=== PATIENT | male | born 1975 | race Caucasian/White ===

== ENCOUNTER 2017-07-29 12:05 | Inpatient (IN) | payer OTHER ==
[2017-07-29 12:43] VITALS: BMI 30.2
--- NOTE | 2017-07-29 15:01 | HP ---
CIWA Score - CIWA Score Nausea/Vomitin (N/V/D) Muscle Tremors: 3 Anxiety: 4-Mod. Anxious/Guarded Agitation: 3 Paroxysmal Sweats: 1-Minimal Palms Moist Orientation: 0-Oriented Tacttile Disturbances: 3-Moderate Itch/Numb/Burn Auditory Disturbances: 0-None Visual Disturbances: 0-None Headache: 1-Very Mild CIWA-Ar Total Score: 20 Admission ROS BHS - HPI Chief Complaint: DETOX TX FOR ALCOHOL DEPENDENCE Allergies/Adverse Reactions: Allergies Allergy/AdvReac Type Severity Reaction Status Date / Time No Known Allergies Allergy Verified 07/29/17 13:04 History of Present Illness: 41 Y/O MALE TRANSGENDER WITH A HX ALCOHOL DEPENDENCE ON MMTP SEEKING DETOX TX. Exam Limitations: No Limitations - Ebola screening Have you traveled outside of the country in the last 21 days: No Have you had contact with anyone from an Ebola affected area: No Have you been sick,other than usual withdrawal symptoms: No - Review of Systems Constitutional: Chills, Night Sweats EENT: reports: Tearing, Nose Congestion, Dental Problems Respiratory: reports: No Symptoms reported Cardiac: reports: Lightheadedness GI: reports: Constipated, Diarrhea, Nausea, Poor Fluid Intake, Vomiting, Indigestion : reports: No Symptoms Reported Musculoskeletal: reports: Joint Pain, Muscle Pain Integumentary: reports: No Symptoms Reported Neuro: reports: Headache, Numbness, Seizure, Tingling, Tremors, Unsteady Gait, Dizziness Endocrine: reports: No Symptoms Reported Hematology: reports: No Symptoms Reported Psychiatric: reports: Orientated x3, Anxious, Depressed (HX BIPOLAR DISORDER) Other Systems: Reviewed and Negative Patient History - Patient Medical History Hx Anemia: No Hx Asthma: No Hx Chronic Obstructive Pulmonary Disease (COPD): No Hx Cancer: No Hx Cardiac Disorders: No Hx Congestive Heart Failure: No Hx Hypertension: No Hx Hypercholesterolemia: No Hx Pacemaker: No HX Cerebrovascular Accident: No Hx Seizures: Yes (alcohol related-last episode was in 2011) Hx Dementia: No Hx Diabetes: No Hx Gastrointestinal Disorders: No Hx Liver Disease: No Hx Genitourinary Disorders: No Hx Sexually Transmitted Disorders: No (DENIES) Hx Renal Disease (ESRD): No Hx Thyroid Disease: No Hx Human Immunodeficiency Virus (HIV): Yes (SINCE 1996;ON TRIUMEQ) Hx Hepatitis C: Yes (diag. 1996) Hx Depression: Yes Hx Suicide Attempt: No (DENIES) Hx Bipolar Disorder: Yes Hx Schizophrenia: No - Patient Surgical History Past Surgical History: No Hx Neurologic Surgery: No Hx Cataract Extraction: No Hx Cardiac Surgery: No Hx Lung Surgery: No Hx Breast Surgery: Yes (breast implant on 07/26/2015) Hx Breast Biopsy: No Hx Abdominal Surgery: No Hx Appendectomy: No Hx Cholecystectomy: No Hx Genitourinary Surgery: No Hx Section: No Hx Orthopedic Surgery: No Other Surgical History: orchiectomy on 12/28/2014/gender reassignment; 01/10/2017 Anesthesia Reaction: No - PPD History Previous Implant?: Yes Documented Results: Negative w/proof Implanted On Prior [facility] Admission?: Yes Date: 03/30/15 Results: 0 mm PPD to be Administered?: Yes - Reproductive History Patient is a Female of Child Bearing Age (11 -55 yrs old): No (TRANSGENDER MALE) Patient : (N/A) - Smoking Cessation Smoking history: Current every day smoker Have you smoked in the past 12 months: Yes Aproximately how many cigarettes per day: 20 If you are a former smoker, when did you quit?: 2 1/2 weeks ago Cigars Per Day: 0 Hx Chewing Tobacco Use: No Initiated information on smoking cessation: Yes 'Breaking Loose' booklet given: 07/29/17 - Substance & Tx. History Hx Alcohol Use: Yes (BEER/VODKA) Hx Substance Use: Yes (HEROIN OCASSIONALLY) Substance Use Type: Alcohol, Heroin (ON MMTP) Hx Substance Use Treatment: Yes (LAST TX AT [facility] DETOX) - Substances Abused Alcohol-beer/vodka Route: Oral Frequency: Daily Amount used: 10 (12 oz.)/1 pt. Age of first use: 19 Date of Last Use: 07/29/17 Family Disease History - Family Disease History Family Disease History: Diabetes: Father (ALCOHOL), Other: Father Admission Physical Exam BHS - Vital Signs Vital Signs: Vital Signs - 24 hr 07/29/17 12:41 Temperature 97.1 F L Pulse Rate 83 Respiratory 20 Rate Blood Pressure 140/90 - Physical General Appearance: Yes: Moderate Distress, Alcohol on Breath, Intoxicated, Irritable, Anxious HEENTM: Yes: EOMI, Normocephalic, ALFREDA, Pharynx Normal Respiratory: Yes: Chest Non-Tender, Lungs Clear, Normal Breath Sounds, No Respiratory Distress Neck: Yes: Supple, Trachea in good position Breast: Yes: Breast Exam Deferred Cardiology: Yes: Regular Rhythm, Regular Rate, S1, S2 Abdominal: Yes: Normal Bowel Sounds, Non Tender, Soft Genitourinary: Yes: Other (N/C) Back: Yes: Within Normal Limits Musculoskeletal: Yes: full range of Motion, Gait Steady Extremities: Yes: Normal Range of Motion, Non-Tender 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 NML intact, Fully Oriented, Alert, Motor Strength 5/5 Integumentary: Yes: Dry, Warm Lymphatic: Yes: Within Normal Limits - Diagnostic (1) Alcohol dependence with withdrawal, uncomplicated Current Visit: Yes Status: Acute (2) Hepatitis C carrier Current Visit: Yes Status: Chronic (3) Neuropathy Current Visit: Yes Status: Chronic (4) Nicotine dependence Current Visit: Yes Status: Acute Qualifiers: Nicotine product type: cigarettes Substance use status: in withdrawal Qualified Code(s): F17.213 - Nicotine dependence, cigarettes, with withdrawal (5) Transgendered Current Visit: Yes Status: Chronic (6) HIV (human immunodeficiency virus infection) Current Visit: Yes Status: Chronic (7) Methadone maintenance therapy patient Current Visit: Yes Status: Acute Cleared for Admission [facility] - Detox or Rehab [facility] Level of Care: Medically Managed Detox Regimen/Protocol: Librium [facility] Breath Alcohol Content Breath Alcohol Content: 0.017 Urine Drug Screen - Results Drug Screen Negative: No Urine Drug Screen Results: OPI-Opiates, MTD-Methadone
[2017-07-29] MEDS ORDERED: hydrOXYzine PAMOATE 50 MG CAPSULE (FP) PO PRN (15:08)
[2017-07-29] MEDS ORDERED: MAG HYDROX/AL HYDROX/SIMETH 30 ML UNIT-DOSE CUP PO PRN (15:08)
[2017-07-29] MEDS ORDERED: LOPERAMIDE HCL 2 MG CAPSULE PO PRN (15:08)
[2017-07-29] MEDS ORDERED: MAGNESIUM CITRATE 300 ML BOTTLE PO PRN (15:08)
[2017-07-29] MEDS ORDERED: ACETAMINOPHEN 325 MG TABLET (FP) PO PRN (15:08)
[2017-07-29] MEDS ORDERED: P-EPHED 60MG/TRIPROLIDI 2.5MG TABLET PO PRN (15:08)
[2017-07-29] MEDS ORDERED: MENTHOL/PHENOL 1 EACH UD MM PRN (15:08)
[2017-07-29] MEDS ORDERED: MAGNESIUM HYDROX 2400MG/30ML ORAL SUSPENSION 30 ML CUP PO PRN (15:08)
[2017-07-29] MEDS ORDERED: IBUPROFEN 400 MG TABLET (FP) PO PRN (15:08)
[2017-07-29] MEDS ORDERED: guaiFENesin/D-METHORPHAN HB 10 ML UNIT-DOSE CUPS PO PRN (15:08)
[2017-07-29] MEDS ORDERED: chlordiazePOXIDE HCL 25 MG CAPSULE PO PRN (15:08)
[2017-07-29] MEDS ORDERED: diphenhydrAMINE HCL 50 MG CAPSULE PO PRN (15:08)
[2017-07-29] MEDS: SULFAMETHOXAZOLE/TRIMETHOPRIM 800MG/160MG D.S. TABLET PO SCH (15:52)
[2017-07-29] MEDS: NICOTINE 21 MG/24 HOURS TOPICAL PATCH TD SCH (15:57)
[2017-07-29] MEDS ORDERED: chlordiazePOXIDE HCL 25 MG CAPSULE PO ONE (16:00)
[2017-07-29] MEDS: chlordiazePOXIDE HCL 25 MG CAPSULE PO SCH ×2 (17:01→22:19)
[2017-07-29 17:38] LABS: URINE APPEARANCE CLEAR; URINE BILIRUBIN NEGATIVE (NEGATIVE); URINE BLOOD NEGATIVE (NEGATIVE); URINE COLOR YELLOW; URINE GLUCOSE (UA) NEGATIVE (NEGATIVE); URINE KETONE NEGATIVE (NEGATIVE); URINE NITRITE NEGATIVE (NEGATIVE); URINE PROTEIN NEGATIVE (NEGATIVE); URINE UROBILINOGEN NEGATIVE mg/dL (0.2-1.0)
[2017-07-29 17:43] LABS: URINE LEUK ESTERASE 2+ (NEGATIVE)
[2017-07-29 17:46] LABS: URINE MUCUS RARE; URINE RBC <1 /hpf (0-3); URINE WBC 4 /hpf (3-5)
[2017-07-29] MEDS: THIAMINE HCL 100 MG TABLET (FP) PO SCH (22:19)
[2017-07-29] MEDS: ESTROGENS,CONJUGATED 1.25 MG TABLET PO SCH (22:19)
[2017-07-29] MEDS: PATIENT'S OWN MEDICATION (NON-FORMULARY) (Elbasvir/Grazoprevir [Zepatier 50-100 Mg Tablet] PO SCH (22:19)
[2017-07-30] MEDS ORDERED: METHADONE HCL 40 MG DISPERSABLE TABLET ONE (05:09)
[2017-07-30] MEDS ORDERED: METHADONE HCL 10 MG TABLET ONE (05:10)
[2017-07-30] MEDS ORDERED: METHADONE HCL 10 MG TABLET PO SCH (06:00)
[2017-07-30] MEDS: chlordiazePOXIDE HCL 25 MG CAPSULE PO SCH ×4 (06:03→22:24)
[2017-07-30] MEDS: METHADONE 80 MG, METHADONE 20 MG PO SCH (06:04)
--- NOTE | 2017-07-30 09:21 | CONSULT ---
[facility] Psychiatric Consult - Data Date of interview: 07/30/17 Admission source: [facility] Identifying data: This ios 41 years old tranxgender male with intoxication of: Alcohol, Cocaine, Opiopids, Xanax amd Nicotine Substance Abuse History: - Smoking Cessation. Smoking history: Current every day smoker. Have you smoked in the past 12 months: Yes. Aproximately how many cigarettes per day: 20. If you are a former smoker, when did you quit?: 2 1/2 weeks ago. Cigars Per Day: 0. Hx Chewing Tobacco Use: No. Initiated information on smoking cessation: Yes. 'Breaking Loose' booklet given: . - Substance & Tx. History. Hx Alcohol Use: Yes (BEER/VODKA). Hx Substance Use: Yes (HEROIN OCASSIONALLY). Substance Use Type: Alcohol, Heroin ( ON MMTP). Hx Substance Use Treatment: Yes (LAST TX AT [facility] DETOX). - Substances Abused. Alcohol-beer/vodka. Route: Oral. Frequency: Daily. Amount used: 10 (12 oz.)/1 pt. Age of first use: 19. Date of Last Use: Medical History: HepC+, HIV+, history of MMTP Psychiatric History: Patient as per chart carries Bipolar II Disorder, reports taking priore to admission: Gabapentin 600mg po tid. Celexda 40mg poqd Physical/Sexual Abuse/Trauma History: Denies Additional Comment: Gabapentin 600mg po tid. Celexda 40mg poqd Mental Status Exam - Mental Status Exam Alert and Oriented to: Person Cognitive Function: Fair Patient Appearance: Unkempt Mood: Anxious Affect: Mood Congruent Patient Behavior: Cooperative Speech Pattern: Appropriate Voice Loudness: Normal Thought Process: Goal Oriented Thought Disorder: Being Controlled Hallucinations: Denies Suicidal Ideation: Denies Homicidal Ideation: Denies Insight/Judgement: Fair Sleep: Difficulty falling asleep Appetite: Weight gain Muscle strength/Tone: Normal Gait/Station: Normal Additional Comments: Gabapentin 600mg po tid. Celexda 40mg poqd Psychiatric Findings - Problem List ([place] 1, 2,3) (1) Alcohol dependence with withdrawal, uncomplicated Current Visit: Yes Status: Acute (2) Nicotine dependence Current Visit: Yes Status: Acute Qualifiers: Nicotine product type: cigarettes Substance use status: in withdrawal Qualified Code(s): F17.213 - Nicotine dependence, cigarettes, with withdrawal (3) Methadone maintenance therapy patient Current Visit: Yes Status: Chronic (4) Transgendered Current Visit: Yes Status: Chronic (5) Bipolar II disorder Current Visit: No Status: Chronic (6) Cocaine dependence Current Visit: No Status: Chronic (7) Opioid dependence with uncomplicated intoxication Current Visit: No Status: Chronic - Initial Treatment Plan Initial Treatment Plan: Gabapentin 600mg po tid. Celexda 40mg poqd
[2017-07-30 10:00] LABS: MCH 31.7 pg (25.7-33.7); MCHC 33.7 g/dl (32.0-35.9); MEAN CELL VOLUME 94.1 fl (80-96); PLATELET COUNT 204 K/MM3 (134-434); RDW 13.3 % (11.9-15.9); WHITE BLOOD COUNT 6.6 K/mm3 (4.0-10.0)
[2017-07-30] MEDS ORDERED: CITALOPRAM HYDROBROMIDE 40 MG TABLET PO SCH (10:00)
[2017-07-30 10:41] LABS: ALBUMIN 3.3 g/dl (3.4-5.0); ALK PHOS 144 U/L (45-117); ANION GAP 9 (8-16); BILIRUBIN,TOTAL 0.6 mg/dL (0.2-1.0); CALCIUM 8.8 mg/dL (8.5-10.1); CO2 25 mmol/L (21-32); CREATININE 0.7 mg/dL (0.7-1.3); GLUCOSE,RANDOM 90 mg/dL (74-106); SGOT/AST 34 U/L (15-37); SGPT/ALT 38 U/L (12-78); TOT PROT 7.9 g/dl (6.4-8.2)
[2017-07-30] MEDS: ESTROGENS,CONJUGATED 1.25 MG TABLET PO SCH ×2 (11:02→23:14)
[2017-07-30] MEDS: PRENATAL VITAMINS W/ FOLIC ACID TABLET (FP) PO SCH (11:02)
[2017-07-30] MEDS: CITALOPRAM HYDROBROMIDE 20 MG TABLET (FP) PO SCH (11:02)
[2017-07-30] MEDS: SULFAMETHOXAZOLE/TRIMETHOPRIM 800MG/160MG D.S. TABLET PO SCH (11:03)
[2017-07-30] MEDS: NICOTINE 21 MG/24 HOURS TOPICAL PATCH TD SCH (11:05)
--- NOTE | 2017-07-30 12:30 | EKG ---
Test Reason : Blood Pressure : / mmHG Vent. Rate : 061 BPM Atrial Rate : 061 BPM P-R Int : 158 ms QRS Dur : 104 ms QT Int : 432 ms P-R-T Axes : 036 003 027 degrees QTc Int : 434 ms NORMAL SINUS RHYTHM NORMAL ECG NO PREVIOUS ECGS AVAILABLE Confirmed by JAIME FARIAS MD ([id number]) on 07/30/2017 12:29:51 PM Referred By: Confirmed By:JAIME FARIAS MD
--- NOTE | 2017-07-30 12:33 | PN ---
S CIWA - CIWA Score Nausea/Vomitin Muscle Tremors: 4-Moderate,w/Arms Extend Anxiety: 4-Mod. Anxious/Guarded Agitation: 4-Moderately Restless Paroxysmal Sweats: 3 Orientation: 0-Oriented Tacttile Disturbances: 1-Very Mild Itch/Numbness Auditory Disturbances: 0-None Visual Disturbances: 0-None Headache: 1-Very Mild CIWA-Ar Total Score: 20 BHS Progress Note (SOAP) Subjective: nausea, sweats, interrupted sleep, anxiety, tremors Objective: 07/30/17 12:32 Vital Signs - 24 hr 07/29/17 07/29/17 07/29/17 12:41 17:50 22:18 Temperature 97.1 F L 97.7 F 97.1 F L Pulse Rate 83 86 88 Respiratory 20 19 19 Rate Blood Pressure 140/90 125/71 118/92 07/30/17 07/30/17 07/30/17 00:30 03:30 06:52 Temperature 97.2 F L Pulse Rate 78 Respiratory 18 18 18 Rate Blood Pressure 106/64 07/30/17 10:20 Temperature 97.6 F Pulse Rate 80 Respiratory 18 Rate Blood Pressure 129/84 Laboratory Tests 07/29/17 07/30/17 07/30/17 15:00 06:00 06:00 WBC 6.6 RBC 4.07 Hgb 12.9 Hct 38.3 MCV 94.1 MCH 31.7 MCHC 33.7 RDW 13.3 Plt Count 204 MPV 9.0 Sodium 138 Potassium 3.8 Chloride 104 Carbon Dioxide 25 Anion Gap 9 BUN 11 D Creatinine 0.7 Creat Clearance w eGFR > 60 Random Glucose 90 D Calcium 8.8 Total Bilirubin 0.6 D AST 34 D ALT 38 D Alkaline Phosphatase 144 H Total Protein 7.9 Albumin 3.3 L Urine Color Yellow Urine Appearance Clear Urine pH 5.0 Ur Specific [place] 1.020 Urine Protein Negative Urine Glucose (UA) Negative Urine Ketones Negative Urine Blood Negative Urine Nitrite Negative Urine Bilirubin Negative Urine Urobilinogen Negative Ur Leukocyte Esterase 2+ H Urine RBC <1 Urine WBC 4 Ur Epithelial Cells Rare Urine Mucus Rare RPR Titer 07/30/17 06:00 WBC RBC Hgb Hct MCV MCH MCHC RDW Plt Count MPV Sodium Potassium Chloride Carbon Dioxide Anion Gap BUN Creatinine Creat Clearance w eGFR Random Glucose Calcium Total Bilirubin AST ALT Alkaline Phosphatase Total Protein Albumin Urine Color Urine Appearance Urine pH Ur Specific [place] Urine Protein Urine Glucose (UA) Urine Ketones Urine Blood Urine Nitrite Urine Bilirubin Urine Urobilinogen Ur Leukocyte Esterase Urine RBC Urine WBC Ur Epithelial Cells Urine Mucus RPR Titer Nonreactive Assessment: 07/30/17 12:33 withdrawal sx Plan: cont detox
[2017-07-30] MEDS: GABAPENTIN 300 MG CAPSULE (FP) PO SCH ×2 (13:22→22:24)
[2017-07-30] MEDS ORDERED: GABAPENTIN 300 MG CAPSULE (FP) PO SCH (14:00)
[2017-07-30] MEDS: NICOTINE POLACRILEX 4 MG GUM BC PRN ×2 (14:54→17:42)
[2017-07-30] MEDS: THIAMINE HCL 100 MG TABLET (FP) PO SCH (22:24)
[2017-07-30] MEDS: PATIENT'S OWN MEDICATION (NON-FORMULARY) (Elbasvir/Grazoprevir [Zepatier 50-100 Mg Tablet] PO SCH (22:30)
[2017-07-31] MEDS ORDERED: METHADONE HCL 40 MG DISPERSABLE TABLET ONE (05:11)
[2017-07-31] MEDS ORDERED: METHADONE HCL 10 MG TABLET ONE (05:12)
[2017-07-31] MEDS: GABAPENTIN 300 MG CAPSULE (FP) PO SCH ×3 (05:30→22:18)
[2017-07-31] MEDS: chlordiazePOXIDE HCL 25 MG CAPSULE PO SCH ×2 (05:30→10:49)
[2017-07-31] MEDS: METHADONE 80 MG, METHADONE 20 MG PO SCH (05:30)
--- NOTE | 2017-07-31 08:58 | PN ---
S CIWA - CIWA Score Nausea/Vomitin Muscle Tremors: 4-Moderate,w/Arms Extend Anxiety: 4-Mod. Anxious/Guarded Agitation: 4-Moderately Restless Paroxysmal Sweats: 3 Orientation: 0-Oriented Tacttile Disturbances: 1-Very Mild Itch/Numbness Auditory Disturbances: 0-None Visual Disturbances: 0-None Headache: 1-Very Mild CIWA-Ar Total Score: 20 BHS Progress Note (SOAP) Subjective: NAUSEA, SWEATA, INTERRUPTED SLEEP, ANXIETY, TREMORS, WOULD LIKE CITROMA Objective: 07/31/17 08:57 Vital Signs - 24 hr 07/30/17 07/30/17 07/30/17 10:20 14:21 20:29 Temperature 97.6 F 97.7 F 98.3 F Pulse Rate 80 72 66 Respiratory 18 18 18 Rate Blood Pressure 129/84 111/81 101/61 07/30/17 07/31/17 07/31/17 21:35 00:30 03:30 Temperature 97.9 F Pulse Rate 72 Respiratory 18 18 18 Rate Blood Pressure 132/77 07/31/17 06:55 Temperature 98.2 F Pulse Rate 77 Respiratory 18 Rate Blood Pressure 105/55 Laboratory Tests 07/29/17 07/30/17 07/30/17 15:00 06:00 06:00 WBC 6.6 RBC 4.07 Hgb 12.9 Hct 38.3 MCV 94.1 MCH 31.7 MCHC 33.7 RDW 13.3 Plt Count 204 MPV 9.0 Sodium 138 Potassium 3.8 Chloride 104 Carbon Dioxide 25 Anion Gap 9 BUN 11 D Creatinine 0.7 Creat Clearance w eGFR > 60 Random Glucose 90 D Calcium 8.8 Total Bilirubin 0.6 D AST 34 D ALT 38 D Alkaline Phosphatase 144 H Total Protein 7.9 Albumin 3.3 L Urine Color Yellow Urine Appearance Clear Urine pH 5.0 Ur Specific [place] 1.020 Urine Protein Negative Urine Glucose (UA) Negative Urine Ketones Negative Urine Blood Negative Urine Nitrite Negative Urine Bilirubin Negative Urine Urobilinogen Negative Ur Leukocyte Esterase 2+ H Urine RBC <1 Urine WBC 4 Ur Epithelial Cells Rare Urine Mucus Rare RPR Titer 07/30/17 06:00 WBC RBC Hgb Hct MCV MCH MCHC RDW Plt Count MPV Sodium Potassium Chloride Carbon Dioxide Anion Gap BUN Creatinine Creat Clearance w eGFR Random Glucose Calcium Total Bilirubin AST ALT Alkaline Phosphatase Total Protein Albumin Urine Color Urine Appearance Urine pH Ur Specific [place] Urine Protein Urine Glucose (UA) Urine Ketones Urine Blood Urine Nitrite Urine Bilirubin Urine Urobilinogen Ur Leukocyte Esterase Urine RBC Urine WBC Ur Epithelial Cells Urine Mucus RPR Titer Nonreactive Assessment: 07/31/17 08:57 WITHDRAWAL SX Plan: CONT DETOX, CITROMA [id number], FLUIDS, ENCOURAGE AMBULATION
[2017-07-31] MEDS: PRENATAL VITAMINS W/ FOLIC ACID TABLET (FP) PO SCH (10:48)
[2017-07-31] MEDS: SULFAMETHOXAZOLE/TRIMETHOPRIM 800MG/160MG D.S. TABLET PO SCH (10:48)
[2017-07-31] MEDS: CITALOPRAM HYDROBROMIDE 20 MG TABLET (FP) PO SCH (10:49)
[2017-07-31] MEDS: ESTROGENS,CONJUGATED 1.25 MG TABLET PO SCH ×2 (10:49→22:20)
[2017-07-31] MEDS: NICOTINE 21 MG/24 HOURS TOPICAL PATCH TD SCH (10:50)
--- NOTE | 2017-07-31 12:08 | PN ---
S Progress Note Note: nurses called to report patient spilled coffee on hand, no burn or erythema at site noted by nurse, incident report to be completed.
[2017-07-31] MEDS: chlordiazePOXIDE 5 MG CAPSULE PO SCH ×2 (17:31→22:19)
[2017-07-31] MEDS: NICOTINE POLACRILEX 4 MG GUM BC PRN (17:33)
[2017-07-31] MEDS ORDERED: BENZOCAINE 28 GM HEMORRHOIDAL OINTMENT PR PRN (21:14)
[2017-07-31] MEDS: PATIENT'S OWN MEDICATION (NON-FORMULARY) (Elbasvir/Grazoprevir [Zepatier 50-100 Mg Tablet] PO SCH (22:18)
[2017-07-31] MEDS: THIAMINE HCL 100 MG TABLET (FP) PO SCH (22:18)
[2017-08-01] MEDS ORDERED: METHADONE HCL 10 MG TABLET ONE (04:12)
[2017-08-01] MEDS ORDERED: METHADONE HCL 40 MG DISPERSABLE TABLET ONE (04:12)
[2017-08-01] MEDS: chlordiazePOXIDE 5 MG CAPSULE PO SCH ×2 (06:07→10:51)
[2017-08-01] MEDS: METHADONE 80 MG, METHADONE 20 MG PO SCH (06:07)
[2017-08-01] MEDS: GABAPENTIN 300 MG CAPSULE (FP) PO SCH ×3 (06:07→22:43)
[2017-08-01] MEDS: ESTROGENS,CONJUGATED 1.25 MG TABLET PO SCH ×2 (10:49→22:44)
[2017-08-01] MEDS: PRENATAL VITAMINS W/ FOLIC ACID TABLET (FP) PO SCH (10:49)
[2017-08-01] MEDS: SULFAMETHOXAZOLE/TRIMETHOPRIM 800MG/160MG D.S. TABLET PO SCH (10:49)
[2017-08-01] MEDS: CITALOPRAM HYDROBROMIDE 20 MG TABLET (FP) PO SCH (10:49)
[2017-08-01] MEDS: NICOTINE 21 MG/24 HOURS TOPICAL PATCH TD SCH (10:50)
--- NOTE | 2017-08-01 13:05 | PN ---
BHS Progress Note (SOAP) Subjective: leg pain, interrupted sleep Objective: 08/01/17 13:04 Vital Signs - 8 hr 08/01/17 08/01/17 06:53 10:00 Temperature 97.9 F 96.1 F L Pulse Rate 81 84 Respiratory 18 20 Rate Blood Pressure 121/75 124/59 Laboratory Last Values WBC 6.6 K/mm3 (4.0-10.0) 07/30/17 06:00 RBC 4.07 M/mm3 (4.00-5.60) 07/30/17 06:00 Hgb 12.9 GM/dL (11.7-16.9) 07/30/17 06:00 Hct 38.3 % (35.4-49) 07/30/17 06:00 MCV 94.1 fl (80-96) 07/30/17 06:00 MCH 31.7 pg (25.7-33.7) 07/30/17 06:00 MCHC 33.7 g/dl (32.0-35.9) 07/30/17 06:00 RDW 13.3 % (11.9-15.9) 07/30/17 06:00 Plt Count 204 K/MM3 (134-434) 07/30/17 06:00 MPV 9.0 fl (7.5-11.1) 07/30/17 06:00 Sodium 138 mmol/L (136-145) 07/30/17 06:00 Potassium 3.8 mmol/L (3.5-5.1) 07/30/17 06:00 Chloride 104 mmol/L (98-107) 07/30/17 06:00 Carbon Dioxide 25 mmol/L (21-32) 07/30/17 06:00 Anion Gap 9 (8-16) 07/30/17 06:00 BUN 11 mg/dL (7-18) D 07/30/17 06:00 Creatinine 0.7 mg/dL (0.7-1.3) 07/30/17 06:00 Creat Clearance w eGFR > 60 (>60) 07/30/17 06:00 Random Glucose 90 mg/dL (74-106) D 07/30/17 06:00 Calcium 8.8 mg/dL (8.5-10.1) 07/30/17 06:00 Total Bilirubin 0.6 mg/dL (0.2-1.0) D 07/30/17 06:00 AST 34 U/L (15-37) D 07/30/17 06:00 ALT 38 U/L (12-78) D 07/30/17 06:00 Alkaline Phosphatase 144 U/L (45-117) H 07/30/17 06:00 Total Protein 7.9 g/dl (6.4-8.2) 07/30/17 06:00 Albumin 3.3 g/dl (3.4-5.0) L 07/30/17 06:00 Urine Color Yellow 07/29/17 15:00 Urine Appearance Clear 07/29/17 15:00 Urine pH 5.0 (5.0-8.0) 07/29/17 15:00 Ur Specific [place] 1.020 (1.005-1.025) 07/29/17 15:00 Urine Protein Negative (NEGATIVE) 07/29/17 15:00 Urine Glucose (UA) Negative (NEGATIVE) 07/29/17 15:00 Urine Ketones Negative (NEGATIVE) 07/29/17 15:00 Urine Blood Negative (NEGATIVE) 07/29/17 15:00 Urine Nitrite Negative (NEGATIVE) 07/29/17 15:00 Urine Bilirubin Negative (NEGATIVE) 07/29/17 15:00 Urine Urobilinogen Negative mg/dL (0.2-1.0) 07/29/17 15:00 Ur Leukocyte Esterase 2+ (NEGATIVE) H 07/29/17 15:00 Urine RBC <1 /hpf (0-3) 07/29/17 15:00 Urine WBC 4 /hpf (3-5) 07/29/17 15:00 Ur Epithelial Cells Rare /hpf (FEW) 07/29/17 15:00 Urine Mucus Rare 07/29/17 15:00 RPR Titer Nonreactive (NONREACTIVE) 07/30/17 06:00 labs noted Assessment: 08/01/17 13:05 withdrawal sx Plan: continue detox
[2017-08-01] MEDS: NICOTINE POLACRILEX 4 MG GUM BC PRN (15:33)
[2017-08-01] MEDS: chlordiazePOXIDE HCL 10 MG CAPSULE PO SCH ×2 (16:59→22:43)
[2017-08-01] MEDS: PATIENT'S OWN MEDICATION (NON-FORMULARY) (Elbasvir/Grazoprevir [Zepatier 50-100 Mg Tablet] PO SCH (22:43)
[2017-08-01] MEDS: THIAMINE HCL 100 MG TABLET (FP) PO SCH (22:45)
[2017-08-02] MEDS ORDERED: METHADONE HCL 40 MG DISPERSABLE TABLET ONE (05:02)
[2017-08-02] MEDS ORDERED: METHADONE HCL 10 MG TABLET ONE (05:02)
[2017-08-02] MEDS: chlordiazePOXIDE HCL 10 MG CAPSULE PO SCH (06:03)
[2017-08-02] MEDS: GABAPENTIN 300 MG CAPSULE (FP) PO SCH (06:03)
[2017-08-02] MEDS: METHADONE 80 MG, METHADONE 20 MG PO SCH (06:04)
[2017-08-02] MEDS: NICOTINE POLACRILEX 4 MG GUM BC PRN (06:30)
[2017-08-02 10:49] VITALS: BP 131/72; PULSE 81; TEMP 97.7
--- NOTE | 2017-08-04 08:59 | DS ---
[facility] Detox Discharge Summary Admission Date: 07/29/17 Discharge Date: 08/02/17 - History Present History: Alcohol Dependence, Cocaine Dependence, Opioid Dependence Pertinent Past History: HIV Positive Hep C - Physical Exam Results Vital Signs: Vital Signs Temperature 97.7 F 08/02/17 10:00 Pulse Rate 81 08/02/17 10:00 Respiratory Rate 20 08/02/17 10:00 Blood Pressure 131/72 08/02/17 10:00 O2 Sat by Pulse Oximetry (%) Pertinent Admission Physical Exam Findings: Withdrawal sx. Laboratory Last Values WBC 6.6 K/mm3 (4.0-10.0) 07/30/17 06:00 RBC 4.07 M/mm3 (4.00-5.60) 07/30/17 06:00 Hgb 12.9 GM/dL (11.7-16.9) 07/30/17 06:00 Hct 38.3 % (35.4-49) 07/30/17 06:00 MCV 94.1 fl (80-96) 07/30/17 06:00 MCH 31.7 pg (25.7-33.7) 07/30/17 06:00 MCHC 33.7 g/dl (32.0-35.9) 07/30/17 06:00 RDW 13.3 % (11.9-15.9) 07/30/17 06:00 Plt Count 204 K/MM3 (134-434) 07/30/17 06:00 MPV 9.0 fl (7.5-11.1) 07/30/17 06:00 Sodium 138 mmol/L (136-145) 07/30/17 06:00 Potassium 3.8 mmol/L (3.5-5.1) 07/30/17 06:00 Chloride 104 mmol/L (98-107) 07/30/17 06:00 Carbon Dioxide 25 mmol/L (21-32) 07/30/17 06:00 Anion Gap 9 (8-16) 07/30/17 06:00 BUN 11 mg/dL (7-18) D 07/30/17 06:00 Creatinine 0.7 mg/dL (0.7-1.3) 07/30/17 06:00 Creat Clearance w eGFR > 60 (>60) 07/30/17 06:00 Random Glucose 90 mg/dL (74-106) D 07/30/17 06:00 Calcium 8.8 mg/dL (8.5-10.1) 07/30/17 06:00 Total Bilirubin 0.6 mg/dL (0.2-1.0) D 07/30/17 06:00 AST 34 U/L (15-37) D 07/30/17 06:00 ALT 38 U/L (12-78) D 07/30/17 06:00 Alkaline Phosphatase 144 U/L (45-117) H 07/30/17 06:00 Total Protein 7.9 g/dl (6.4-8.2) 07/30/17 06:00 Albumin 3.3 g/dl (3.4-5.0) L 07/30/17 06:00 Urine Color Yellow 07/29/17 15:00 Urine Appearance Clear 07/29/17 15:00 Urine pH 5.0 (5.0-8.0) 07/29/17 15:00 Ur Specific [place] 1.020 (1.005-1.025) 07/29/17 15:00 Urine Protein Negative (NEGATIVE) 07/29/17 15:00 Urine Glucose (UA) Negative (NEGATIVE) 07/29/17 15:00 Urine Ketones Negative (NEGATIVE) 07/29/17 15:00 Urine Blood Negative (NEGATIVE) 07/29/17 15:00 Urine Nitrite Negative (NEGATIVE) 07/29/17 15:00 Urine Bilirubin Negative (NEGATIVE) 07/29/17 15:00 Urine Urobilinogen Negative mg/dL (0.2-1.0) 07/29/17 15:00 Ur Leukocyte Esterase 2+ (NEGATIVE) H 07/29/17 15:00 Urine RBC <1 /hpf (0-3) 07/29/17 15:00 Urine WBC 4 /hpf (3-5) 07/29/17 15:00 Ur Epithelial Cells Rare /hpf (FEW) 07/29/17 15:00 Urine Mucus Rare 07/29/17 15:00 RPR Titer Nonreactive (NONREACTIVE) 07/30/17 06:00 labs noted - Treatment Hospital Course: Detox Protocol Followed, Detoxed Safely, Responded well, Discharged Condition Good, Rehab Referral Accepted Patient has Accepted a Rehab Referral to: [facility] - Medication Discharge Medications: Ambulatory Orders Sulfamethoxazole/Trimethoprim [Bactrim DS -] 1 tab PO DAILY #30 tablet 01/12/15 Gabapentin [Neurontin -] 600 mg PO TID #90 capsule 03/29/15 Citalopram Hydrobromide [Celexa -] 40 mg PO DAILY #30 tablet 08/28/15 Abacavir/Dolutegravir/Lamivudi [Triumeq Tablet] 1 each PO HS 07/29/17 Elbasvir/Grazoprevir [Zepatier 50-100 mg Tablet] 1 each PO HS 07/29/17 Estrogens,Conjugated [Premarin -] 1.25 mg PO BID 07/29/17 Citalopram Hydrobromide [Celexa -] 40 mg PO DAILY #30 tablet 07/30/17 Gabapentin 600 mg PO TID #60 tablet 07/30/17 - Diagnosis (1) Alcohol dependence with withdrawal, uncomplicated Status: Acute (2) Nicotine dependence Status: Acute Qualifiers: Nicotine product type: cigarettes Substance use status: in withdrawal Qualified Code(s): F17.213 - Nicotine dependence, cigarettes, with withdrawal (3) HIV (human immunodeficiency virus infection) Status: Chronic (4) Hepatitis C carrier Status: Chronic (5) Methadone maintenance therapy patient Status: Chronic (6) Bipolar II disorder Status: Chronic - AMA Did Patient Leave Against Medical Advice: No
== END 2017-08-02 09:46 | disposition home or self-care (01) | DRG 773 ==
LOC: YASAS 12:05 → Y6N 14:05
PROVIDERS: ADMIT Internal Medicine Addiction Medicine; ATTEND Internal Medicine Addiction Medicine
PROC: HZ2ZZZZ Detoxification Services for Substance Abuse Treatment (ICD-10-PCS; principal; 2017-07-29)
DX: F10.230 Alcohol dependence with withdrawal, uncomplicated (principal); F10.220 Alcohol dependence with intoxication, uncomplicated; F11.20 Opioid dependence, uncomplicated; F17.213 Nicotine dependence, cigarettes, with withdrawal; F31.81 Bipolar II disorder; F64.8 Other gender identity disorders; B18.2 Chronic viral hepatitis C; G62.9 Polyneuropathy, unspecified; Z86.69 Personal history of other diseases of the nervous system and sense organs; Z87.890 Personal history of sex reassignment
CPT/HCPCS: 36415; 80053; 81003; 81015; 85027; 86593; 93005; 93010; J1410

== ENCOUNTER 2017-11-14 11:26 | Inpatient (IN) | payer OTHER ==
[2017-11-14 11:53] VITALS: BMI 32.3
--- NOTE | 2017-11-14 12:07 | HP ---
CIWA Score - CIWA Score Nausea/Vomitin-Mild Nausea/No Vomiting Muscle Tremors: 4-Moderate,w/Arms Extend Anxiety: 4-Mod. Anxious/Guarded Agitation: 1-Slight > Activity Paroxysmal Sweats: No Perspiration Orientation: 0-Oriented Tacttile Disturbances: 0-None Auditory Disturbances: 1-Very Mild Visual Disturbances: 1-Very Mild Sensitivity Headache: 2-Mild CIWA-Ar Total Score: 14 Admission ROS BHS - HPI Chief Complaint: I need help, I want detox Allergies/Adverse Reactions: Allergies Allergy/AdvReac Type Severity Reaction Status Date / Time chlordiazepoxide AdvReac Rash Verified 11/14/17 12:27 [From Librium] History of Present Illness: 42 yo here for alcohol detox. Although on methadone program patient did not take dose today nor bring in bottles but texted a photo of her methadone bottle via phone with name and dose of 100mg. States in [facility] - [facility] [phone] and brought methadone card to show. Patient aware we cannot give methadone dose today. States she gets sick on librium and wants valium detox. History of seizures, last seizure about 6 months ago. Last time in detox here in july. Exam Limitations: No Limitations - Ebola screening Have you traveled outside of the country in the last 21 days: No (N) Have you had contact with anyone from an Ebola affected area: No Have you been sick,other than usual withdrawal symptoms: No Do you have a fever: No - Review of Systems Constitutional: Loss of Appetite, Malaise, Changes in sleep EENT: reports: No Symptoms Reported Respiratory: reports: No Symptoms reported Cardiac: reports: No Symptoms Reported GI: reports: Vomiting, Indigestion : reports: No Symptoms Reported Musculoskeletal: reports: No Symptoms Reported Integumentary: reports: Dryness Neuro: reports: Headache, Seizure Endocrine: reports: No Symptoms Reported Hematology: reports: No Symptoms Reported Psychiatric: reports: Judgement Intact, Mood/Affect Appropiate, Orientated x3, Agitated, Anxious Other Systems: Reviewed and Negative Patient History - Patient Medical History Hx Anemia: No Hx Asthma: No Hx Chronic Obstructive Pulmonary Disease (COPD): No Hx Cancer: No Hx Cardiac Disorders: No Hx Congestive Heart Failure: No Hx Hypertension: No Hx Hypercholesterolemia: No Hx Pacemaker: No HX Cerebrovascular Accident: No Hx Seizures: Yes (last seizure april2017) Hx Dementia: No Hx Diabetes: No Hx Gastrointestinal Disorders: No Hx Liver Disease: No Hx Genitourinary Disorders: No Hx Sexually Transmitted Disorders: No Hx Renal Disease (ESRD): No Hx Thyroid Disease: No Hx Human Immunodeficiency Virus (HIV): Yes (SINCE 1996;ON TRIUMEQ ) Hx Hepatitis C: Yes (diag. 1996 - treated) Hx Depression: Yes Hx Suicide Attempt: No (DENIES) Hx Bipolar Disorder: Yes Hx Schizophrenia: No - Patient Surgical History Past Surgical History: No Hx Neurologic Surgery: No Hx Cataract Extraction: No Hx Cardiac Surgery: No Hx Lung Surgery: No Hx Breast Surgery: Yes (breast implant on 07/26/2015) Hx Breast Biopsy: No Hx Abdominal Surgery: No Hx Appendectomy: No Hx Cholecystectomy: No Hx Genitourinary Surgery: No Hx Section: No Hx Orthopedic Surgery: No Other Surgical History: orchiectomy on 12/28/2014/gender reassignment; 01/10/2017 Anesthesia Reaction: No - PPD History Previous Implant?: Yes Date: 07/31/17 Results: 0 mm PPD to be Administered?: No - Reproductive History Patient is a Female of Child Bearing Age (11 -55 yrs old): No - Smoking Cessation Smoking history: Current every day smoker Have you smoked in the past 12 months: Yes Aproximately how many cigarettes per day: 20 Cigars Per Day: 0 Hx Chewing Tobacco Use: No Initiated information on smoking cessation: Yes 'Breaking Loose' booklet given: 11/14/17 (give on floor) - Substance & Tx. History Hx Alcohol Use: Yes Hx Substance Use: No Substance Use Type: Alcohol Hx Substance Use Treatment: Yes (detox) - Substances Abused Alcohol Route: Oral Frequency: Daily Amount used: 15 sixteen oz cans beer; 1/2 pint liquore Age of first use: 14 Date of Last Use: 11/14/17 Family Disease History - Family Disease History Family History: Unable to Obtain Family Disease History: Other: Father (no contact, ALCOHOL), Mother (no contact) Admission Physical Exam BHS - Vital Signs Vital Signs: Vital Signs - 24 hr 11/14/17 11:49 Temperature 96.4 F L Pulse Rate 96 H Respiratory 20 Rate Blood Pressure 142/94 - Physical General Appearance: Yes: Nourished, Appropriately Dressed, Moderate Distress, Irritable, Anxious HEENTM: Yes: Hearing grossly Normal, Normocephalic, Normal Voice, Pharynx Normal Respiratory: Yes: Normal Breath Sounds, No Respiratory Distress Neck: Yes: No masses,lesions,Nodules, Supple Breast: Yes: Breast Exam Deferred Cardiology: Yes: Regular Rhythm, Regular Rate Abdominal: Yes: Soft Genitourinary: Yes: Within Normal Limits Back: Yes: Normal Inspection Musculoskeletal: Yes: full range of Motion, Gait Steady Extremities: Yes: Normal Inspection, Non-Tender Neurological: Yes: Fully Oriented, Alert, Normal Mood/Affect, Normal Response, Numbness Integumentary: Yes: Normal Color, Warm Lymphatic: Yes: Within Normal Limits - Diagnostic (1) Alcohol dependence with withdrawal, uncomplicated Current Visit: Yes Status: Acute (2) HIV (human immunodeficiency virus infection) Current Visit: Yes Status: Chronic (3) Methadone maintenance therapy patient Current Visit: Yes Status: Chronic Comment: [facility] [phone] (4) Neuropathy Current Visit: Yes Status: Chronic (5) Transgendered Current Visit: Yes Status: Chronic (6) Nicotine dependence Current Visit: No Status: Acute Qualifiers: Nicotine product type: cigarettes Substance use status: in withdrawal Qualified Code(s): F17.213 - Nicotine dependence, cigarettes, with withdrawal Cleared for Admission [facility] - Detox or Rehab [facility] Level of Care: Medically Managed Detox Regimen/Protocol: Valium [facility] Breath Alcohol Content Breath Alcohol Content: 0.015 Urine Drug Screen - Results Drug Screen Negative: No Urine Drug Screen Results: OPI-Opiates, MTD-Methadone, OXY-Oxycodone
[2017-11-14] MEDS ORDERED: LOPERAMIDE HCL 2 MG CAPSULE PO PRN (12:33)
[2017-11-14] MEDS ORDERED: MENTHOL/PHENOL 1 EACH UD MM PRN (12:33)
[2017-11-14] MEDS ORDERED: MAGNESIUM HYDROX 2400MG/30ML ORAL SUSPENSION 30 ML CUP PO PRN (12:33)
[2017-11-14] MEDS ORDERED: guaiFENesin/D-METHORPHAN HB 10 ML UNIT-DOSE CUPS PO PRN (12:33)
[2017-11-14] MEDS ORDERED: IBUPROFEN 400 MG TABLET (FP) PO PRN (12:33)
[2017-11-14] MEDS ORDERED: MAG HYDROX/AL HYDROX/SIMETH 30 ML UNIT-DOSE CUP PO PRN (12:33)
[2017-11-14] MEDS ORDERED: P-EPHED 60MG/TRIPROLIDI 2.5MG TABLET PO PRN (12:33)
[2017-11-14] MEDS ORDERED: MAGNESIUM CITRATE 300 ML BOTTLE PO PRN (12:33)
[2017-11-14] MEDS ORDERED: ACETAMINOPHEN 325 MG TABLET (FP) PO PRN (12:33)
[2017-11-14] MEDS ORDERED: diazePAM 5 MG TABLET PO ONE (13:00)
[2017-11-14] MEDS: GABAPENTIN 300 MG CAPSULE (FP) PO SCH ×2 (14:15→22:28)
[2017-11-14] MEDS: NICOTINE 21 MG/24 HOURS TOPICAL PATCH TD SCH (14:16)
[2017-11-14] MEDS: SULFAMETHOXAZOLE/TRIMETHOPRIM 800MG/160MG D.S. TABLET PO SCH (14:16)
[2017-11-14] MEDS: diazePAM 5 MG TABLET PO SCH ×2 (14:16→22:28)
[2017-11-14] MEDS: ESTROGENS,CONJUGATED 1.25 MG TABLET PO SCH ×2 (15:09→22:28)
[2017-11-14 18:11] LABS: URINE APPEARANCE SLCLOUDY; URINE BILIRUBIN NEGATIVE (NEGATIVE); URINE BLOOD NEGATIVE (NEGATIVE); URINE COLOR YELLOW; URINE GLUCOSE (UA) NEGATIVE (NEGATIVE); URINE KETONE NEGATIVE (NEGATIVE); URINE LEUK ESTERASE NEGATIVE (NEGATIVE); URINE NITRITE NEGATIVE (NEGATIVE); URINE PROTEIN NEGATIVE (NEGATIVE); URINE UROBILINOGEN NEGATIVE mg/dL (0.2-1.0)
[2017-11-14] MEDS: diazePAM 5 MG TABLET PO PRN (18:19)
[2017-11-14 20:53] LABS: URINE LEUK ESTERASE Negative (NEGATIVE)
[2017-11-14] MEDS: THIAMINE HCL 100 MG TABLET (FP) PO SCH (22:28)
[2017-11-14] MEDS: ABACAVIR/DOLUTEGRAVIR/LAMIVUDI (TRIUMEQ) TABLET -NF PO SCH (22:28)
[2017-11-15] MEDS ORDERED: METHADONE HCL 10 MG TABLET ONE (05:39)
[2017-11-15] MEDS ORDERED: METHADONE HCL 40 MG DISPERSABLE TABLET ONE (05:39)
[2017-11-15] MEDS ORDERED: METHADONE HCL 10 MG TABLET PO SCH (06:00)
[2017-11-15] MEDS: GABAPENTIN 300 MG CAPSULE (FP) PO SCH ×3 (06:00→22:28)
[2017-11-15] MEDS: diazePAM 5 MG TABLET PO SCH ×3 (06:00→22:28)
[2017-11-15] MEDS ORDERED: METHADONE HCL 10 MG TABLET PO ONE (06:00)
[2017-11-15] MEDS: METHADONE 80 MG, METHADONE 20 MG PO SCH (06:00)
--- NOTE | 2017-11-15 07:47 | CONSULT ---
[facility] Psychiatric Consult - Data Date of interview: 11/15/17 Admission source: Self-referred Identifying data: Mr Stephen is a 42 years old old transgender male, unemployed on HAS[employer], domiciled Substance Abuse History: Reports history of alcohol use. He started drinking alcohol at age 14, consumes half a pint of liquor & a 15oz of beer daily. Last drank on 11/14/17Patient is on methadone 100 mg/day. Smokes cigarettes daily Medical History: Significant for history of hiv,neuropathy, history of treatment for hepatitis C and surgery for breast implant(07/26/15), orchiectomy() and gender reassignment(01/10/17). Smokes cigarettes 1ppd Psychiatric History: Patient has had multiple admissions to this facility and history provided has been consistent throughout. Reports history of Bipolar Didorder since age 15 and has had approximately 7 psychiatric hospitalizations. most recent one was in 2013 at [facility]. Reports receiving psychiatric outpatient services at [facility] and he is prescribed Celexa 40 mg po daily. Reports feeling well but sleeping poorly Physical/Sexual Abuse/Trauma History: Denies history of verbal, physical or sexual abuse as well as DV relationship Additional Comment: Reports history muliple previous misdemeanor arrests. Denies being on probation at present Mental Status Exam - Mental Status Exam Alert and Oriented to: Time, Place, Person Cognitive Function: Fair Patient Appearance: Well Groomed Mood: Hopeful, Euthymic Patient Behavior: Cooperative Speech Pattern: Clear Voice Loudness: Normal Thought Process: Intact, Goal Oriented Thought Disorder: Not Present Hallucinations: Denies Suicidal Ideation: Denies Homicidal Ideation: Denies Insight/Judgement: Poor Sleep: Poorly Appetite: Fair Muscle strength/Tone: Normal Gait/Station: Normal Psychiatric Findings - Problem List ([place] 1, 2,3) (1) Bipolar II disorder Current Visit: No Status: Chronic (2) Substance-induced sleep disorder Current Visit: Yes Status: Acute (3) Alcohol dependence with withdrawal, uncomplicated Current Visit: Yes Status: Acute (4) Opioid dependence on agonist therapy Current Visit: Yes Status: Chronic (5) Nicotine dependence Current Visit: No Status: Chronic Qualifiers: Nicotine product type: cigarettes Substance use status: in withdrawal Qualified Code(s): F17.213 - Nicotine dependence, cigarettes, with withdrawal (6) HIV (human immunodeficiency virus infection) Current Visit: Yes Status: Chronic (7) Neuropathy Current Visit: Yes Status: Chronic (8) Hepatitis C carrier Current Visit: No Status: Chronic - Initial Treatment Plan Initial Treatment Plan: 1) Continue Celexa 40 mg po daily. 2) Continue inpatient detoxification
[2017-11-15] MEDS: diazePAM 5 MG TABLET PO PRN (09:35)
[2017-11-15 10:11] LABS: MCH 30.7 pg (25.7-33.7); MCHC 32.6 g/dl (32.0-35.9); MEAN CELL VOLUME 94.3 fl (80-96); MEAN PLT VOLUME 8.5 fl (7.5-11.1); PLATELET COUNT 221 K/MM3 (134-434); RDW 13.5 % (11.9-15.9); WHITE BLOOD COUNT 6.4 K/mm3 (4.0-10.0)
[2017-11-15 10:17] LABS: ALBUMIN 3.2 g/dl (3.4-5.0); ALK PHOS 186 U/L (45-117); ANION GAP 8 (8-16); BILIRUBIN,TOTAL 0.2 mg/dL (0.2-1.0); CALCIUM 8.6 mg/dL (8.5-10.1); CO2 23 mmol/L (21-32); CREATININE 0.9 mg/dL (0.7-1.3); GLUCOSE,RANDOM 131 mg/dL (74-106); SGOT/AST 22 U/L (15-37); SGPT/ALT 27 U/L (12-78); TOT PROT 7.6 g/dl (6.4-8.2)
[2017-11-15] MEDS: SULFAMETHOXAZOLE/TRIMETHOPRIM 800MG/160MG D.S. TABLET PO SCH (10:37)
[2017-11-15] MEDS: ESTROGENS,CONJUGATED 1.25 MG TABLET PO SCH ×2 (10:37→22:28)
[2017-11-15] MEDS: PRENATAL VITAMINS W/ FOLIC ACID TABLET (FP) PO SCH (10:37)
[2017-11-15] MEDS: NICOTINE 21 MG/24 HOURS TOPICAL PATCH TD SCH (10:38)
[2017-11-15] MEDS: CITALOPRAM HYDROBROMIDE 20 MG TABLET (FP) PO SCH (11:30)
--- NOTE | 2017-11-15 16:46 | PN ---
S CIWA - CIWA Score Nausea/Vomitin-No Nausea/No Vomiting Muscle Tremors: 4-Moderate,w/Arms Extend Anxiety: 4-Mod. Anxious/Guarded Agitation: 3 Paroxysmal Sweats: 3 Orientation: 0-Oriented Tacttile Disturbances: 0-None Auditory Disturbances: 0-None Visual Disturbances: 0-None Headache: 0-None Present CIWA-Ar Total Score: 14 BHS Progress Note (SOAP) Subjective: Anxiety,tremors,sweating,interrupted sleep,restless Objective: 11/15/17 16:45 Vital Signs 11/15/17 11/15/17 12:00 14:27 Temperature 97.5 F L 97.2 F L Pulse Rate 93 H 81 Respiratory 18 18 Rate Blood Pressure 146/92 120/76 Laboratory Tests 11/14/17 11/15/17 11/15/17 17:58 07:40 07:40 WBC 6.4 RBC 4.31 Hgb 13.2 Hct 40.6 MCV 94.3 MCH 30.7 MCHC 32.6 RDW 13.5 Plt Count 221 MPV 8.5 Sodium 137 Potassium 4.0 Chloride 106 Carbon Dioxide 23 Anion Gap 8 BUN 15 D Creatinine 0.9 D Creat Clearance w eGFR > 60 Random Glucose 131 H D Calcium 8.6 Total Bilirubin 0.2 D AST 22 D ALT 27 D Alkaline Phosphatase 186 H D Total Protein 7.6 Albumin 3.2 L Urine Color Yellow Urine Appearance Slcloudy Urine pH 5.0 Ur Specific [place] 1.023 Urine Protein Negative Urine Glucose (UA) Negative Urine Ketones Negative Urine Blood Negative Urine Nitrite Negative Urine Bilirubin Negative Urine Urobilinogen Negative Ur Leukocyte Esterase Negative RPR Titer 11/15/17 07:40 WBC RBC Hgb Hct MCV MCH MCHC RDW Plt Count MPV Sodium Potassium Chloride Carbon Dioxide Anion Gap BUN Creatinine Creat Clearance w eGFR Random Glucose Calcium Total Bilirubin AST ALT Alkaline Phosphatase Total Protein Albumin Urine Color Urine Appearance Urine pH Ur Specific [place] Urine Protein Urine Glucose (UA) Urine Ketones Urine Blood Urine Nitrite Urine Bilirubin Urine Urobilinogen Ur Leukocyte Esterase RPR Titer Nonreactive labs noted Assessment: 11/15/17 16:45 Withdrawal sx. Plan: Continue detox
--- NOTE | 2017-11-15 17:15 | EKG ---
Test Reason : Blood Pressure : / mmHG Vent. Rate : 073 BPM Atrial Rate : 073 BPM P-R Int : 160 ms QRS Dur : 106 ms QT Int : 404 ms P-R-T Axes : 043 -03 055 degrees QTc Int : 445 ms NORMAL SINUS RHYTHM NORMAL ECG WHEN COMPARED WITH ECG OF 29-JUL-2017 14:47, NO SIGNIFICANT CHANGE WAS FOUND Confirmed by SELMA RUBALCAVA MD ([id number]) on 11/15/2017 5:14:40 PM Referred By: Confirmed By:SELMA RUBALCAVA MD
[2017-11-15] MEDS: THIAMINE HCL 100 MG TABLET (FP) PO SCH (22:27)
[2017-11-15] MEDS: ABACAVIR/DOLUTEGRAVIR/LAMIVUDI (TRIUMEQ) TABLET -NF PO SCH (22:28)
[2017-11-16] MEDS ORDERED: METHADONE HCL 40 MG DISPERSABLE TABLET ONE (04:38)
[2017-11-16] MEDS ORDERED: METHADONE HCL 10 MG TABLET ONE (04:39)
[2017-11-16] MEDS: GABAPENTIN 300 MG CAPSULE (FP) PO SCH (05:51)
[2017-11-16] MEDS: METHADONE 80 MG, METHADONE 20 MG PO SCH (05:51)
[2017-11-16] MEDS: SULFAMETHOXAZOLE/TRIMETHOPRIM 800MG/160MG D.S. TABLET PO SCH (11:07)
[2017-11-16] MEDS: CITALOPRAM HYDROBROMIDE 20 MG TABLET (FP) PO SCH (11:08)
[2017-11-16] MEDS: NICOTINE 21 MG/24 HOURS TOPICAL PATCH TD SCH (11:08)
[2017-11-16] MEDS: PRENATAL VITAMINS W/ FOLIC ACID TABLET (FP) PO SCH (11:08)
[2017-11-16] MEDS: diazePAM 5 MG TABLET PO SCH ×2 (11:08→22:32)
[2017-11-16] MEDS: ESTROGENS,CONJUGATED 1.25 MG TABLET PO SCH ×2 (11:09→22:34)
--- NOTE | 2017-11-16 12:10 | PN ---
S CIWA - CIWA Score Nausea/Vomitin Muscle Tremors: 2 Anxiety: 2 Agitation: 1-Slight > Activity Paroxysmal Sweats: 2 Orientation: 0-Oriented Tacttile Disturbances: 1-Very Mild Itch/Numbness Auditory Disturbances: 0-None Visual Disturbances: 0-None Headache: 0-None Present CIWA-Ar Total Score: 10 S Progress Note (SOAP) Subjective: INTERRUPTED SLEEP, Objective: 11/16/17 12:09 Vital Signs Temperature 97.7 F 11/16/17 09:53 Pulse Rate 79 11/16/17 09:53 Respiratory Rate 20 11/16/17 09:53 Blood Pressure 147/86 11/16/17 09:53 O2 Sat by Pulse Oximetry (%) Laboratory Tests 11/14/17 11/15/17 11/15/17 17:58 07:40 07:40 WBC 6.4 RBC 4.31 Hgb 13.2 Hct 40.6 MCV 94.3 MCH 30.7 MCHC 32.6 RDW 13.5 Plt Count 221 MPV 8.5 Sodium 137 Potassium 4.0 Chloride 106 Carbon Dioxide 23 Anion Gap 8 BUN 15 D Creatinine 0.9 D Creat Clearance w eGFR > 60 Random Glucose 131 H D Calcium 8.6 Total Bilirubin 0.2 D AST 22 D ALT 27 D Alkaline Phosphatase 186 H D Total Protein 7.6 Albumin 3.2 L Urine Color Yellow Urine Appearance Slcloudy Urine pH 5.0 Ur Specific [place] 1.023 Urine Protein Negative Urine Glucose (UA) Negative Urine Ketones Negative Urine Blood Negative Urine Nitrite Negative Urine Bilirubin Negative Urine Urobilinogen Negative Ur Leukocyte Esterase Negative RPR Titer 11/15/17 07:40 WBC RBC Hgb Hct MCV MCH MCHC RDW Plt Count MPV Sodium Potassium Chloride Carbon Dioxide Anion Gap BUN Creatinine Creat Clearance w eGFR Random Glucose Calcium Total Bilirubin AST ALT Alkaline Phosphatase Total Protein Albumin Urine Color Urine Appearance Urine pH Ur Specific [place] Urine Protein Urine Glucose (UA) Urine Ketones Urine Blood Urine Nitrite Urine Bilirubin Urine Urobilinogen Ur Leukocyte Esterase RPR Titer Nonreactive PT AOX3 IN NAD AMBULATING Assessment: 11/16/17 12:09 WITHDRAWAL SX;S HIV Plan: CONT. DETOX INCREASE FLUIDS
--- NOTE | 2017-11-16 12:54 | PN ---
Psychiatric Progress Note Vital Signs: Vital Signs Period Temp Pulse Resp BP Sys/[place]illa Pulse Ox Last 24 Hr 97.2 F-97.7 F 75-91 18-20 108-147/69-86 Date of Session: 11/16/17 Chief Complaint:: Gabapentine compliocations HPI: Patient reports edema of lover extremities after starting Gabapenti. D/C Gabapentine and start Flexerilm 10mg po bid Current Medications: Active Medications Generic Name Dose Route Start Last Admin Trade Name Freq PRN Reason Stop Dose Admin Abacavir/Dolutegravir/Lamivudine 1 each 11/14/17 22:00 11/15/17 22:28 Triumeq (Non-Formulary) PO 1 each HS JOHN Administration Acetaminophen 650 mg 11/14/17 12:33 Tylenol - PO Q4H PRN FEVER OR PAIN Al Hydroxide/Mg Hydroxide 30 ml 11/14/17 12:33 Mylanta Oral Suspension - PO Q6H PRN DYSPEPSIA Citalopram Hydrobromide 40 mg 11/15/17 10:00 11/16/17 11:08 Celexa - PO 40 mg DAILY JOHN Administration Cyclobenzaprine HCl 5 mg 11/16/17 14:00 Cyclobenzaprine Hcl PO TID JOHN Diazepam 5 mg 11/16/17 10:00 11/16/17 11:08 Valium - PO 11/17/17 22:01 5 mg BID JOHN Administration Diazepam 5 mg 11/18/17 10:00 Valium - PO 11/18/17 10:01 DAILY JOHN Diazepam 10 mg 11/14/17 12:33 11/15/17 09:35 Valium - PO 11/17/17 12:32 10 mg Q4H PRN Administration WITHDRAWAL(CONT SUBST) Estrogens Conjugated 1.25 mg 11/14/17 12:45 11/16/17 11:09 Premarin - PO 1.25 mg BID JOHN Administration Eucalyptus/Menthol/Phenol/Sorbitol 1 each 11/14/17 12:33 Cepastat Lozenge - MM Q4H PRN SORE THROAT Guaifenesin 10 ml 11/14/17 12:33 Robitussin Dm - PO Q6H PRN COUGH Hydroxyzine Pamoate 50 mg 11/14/17 12:33 Vistaril - PO Q4H PRN AGITATION Ibuprofen 400 mg 11/14/17 12:33 Motrin - PO Q6H PRN SEVERE PAIN Loperamide HCl 4 mg 11/14/17 12:33 Imodium - PO Q6H PRN DIARRHEA Magnesium Citrate 300 ml 11/14/17 12:33 11/15/17 13:21 Citroma - PO 300 ml Q48H PRN Administration CONSTIPATION Magnesium Hydroxide 30 ml 11/14/17 12:33 Milk Of Magnesia - PO DAILY PRN CONSTIPATION Methadone HCl 80 mg/ Methadone 100 mg 11/15/17 06:00 11/16/17 05:51 HCl 20 mg PO 100 mg DAILY@0600 JOHN Administration Nicotine 21 mg 11/14/17 12:45 11/16/17 11:08 Nicoderm Patch - TD 21 mg DAILY JOHN Administration Multivit/Folic Acid/Iron 1 tab 11/15/17 10:00 11/16/17 11:08 Vitamins (Sjr) - PO 1 tab DAILY JOHN Administration Pseudoephedrine/Triprolidine 1 combo 11/14/17 12:33 Actifed - PO TID PRN NASAL CONGESTION Thiamine HCl 100 mg 11/14/17 22:00 11/15/17 22:27 Vitamin B1 - PO 100 mg HS JOHN Administration Trimethoprim/Sulfamethoxazole 1 each 11/14/17 12:45 11/16/17 11:07 Bactrim Ds - PO 1 each DAILY JOHN Administration Medication(s) Change(s): D/C Gabapentine and start Flexeril 10mg po bid Mental Status Exam - Mental Status Exam Alert and Oriented to: Person Cognitive Function: Fair Patient Appearance: Unkempt Mood: Nervous, Anxious Affect: Labile Patient Behavior: Cooperative Speech Pattern: Appropriate Voice Loudness: Mildly Loud Thought Process: Goal Oriented Thought Disorder: Being Controlled Hallucinations: Denies Suicidal Ideation: Denies Homicidal Ideation: Denies Insight/Judgement: Fair Sleep: Difficulty falling asleep Appetite: Weight gain Muscle strength/Tone: Normal Gait/Station: Normal Additional Comments: D/C Gabapentine and start Flexeril 10mg po bid Psychiatric Treatment Plan - Problem List (1) Substance-induced sleep disorder Current Visit: Yes (2) Alcohol dependence with withdrawal, uncomplicated Current Visit: Yes (3) Cocaine dependence Current Visit: Yes (4) Methadone maintenance therapy patient Current Visit: Yes Comment: [facility] [phone] (5) Neuropathy Current Visit: Yes (6) Opioid dependence on agonist therapy Current Visit: Yes (7) Bipolar II disorder Current Visit: No (8) Nicotine dependence Current Visit: No Qualifiers: Nicotine product type: cigarettes Substance use status: in withdrawal Qualified Code(s): F17.213 - Nicotine dependence, cigarettes, with withdrawal (9) Opioid dependence with uncomplicated intoxication Current Visit: No Initial treatment plan: D/C Gabapentine and start Flexeril 10mg po bid
[2017-11-16] MEDS: CYCLOBENZAPRINE HCL 5 MG TABLET PO SCH ×2 (14:07→22:34)
[2017-11-16] MEDS: diazePAM 5 MG TABLET PO PRN (14:07)
[2017-11-16] MEDS: THIAMINE HCL 100 MG TABLET (FP) PO SCH (22:32)
[2017-11-16] MEDS: ABACAVIR/DOLUTEGRAVIR/LAMIVUDI (TRIUMEQ) TABLET -NF PO SCH (22:33)
[2017-11-17] MEDS ORDERED: METHADONE HCL 10 MG TABLET ONE (04:35)
[2017-11-17] MEDS ORDERED: METHADONE HCL 40 MG DISPERSABLE TABLET ONE (04:35)
[2017-11-17] MEDS: METHADONE 80 MG, METHADONE 20 MG PO SCH (05:54)
[2017-11-17] MEDS: CYCLOBENZAPRINE HCL 5 MG TABLET PO SCH ×3 (05:54→22:29)
[2017-11-17] MEDS: SULFAMETHOXAZOLE/TRIMETHOPRIM 800MG/160MG D.S. TABLET PO SCH (10:24)
[2017-11-17] MEDS: CITALOPRAM HYDROBROMIDE 20 MG TABLET (FP) PO SCH (10:24)
[2017-11-17] MEDS: diazePAM 5 MG TABLET PO SCH ×2 (10:24→22:30)
[2017-11-17] MEDS: PRENATAL VITAMINS W/ FOLIC ACID TABLET (FP) PO SCH (10:25)
[2017-11-17] MEDS: NICOTINE 21 MG/24 HOURS TOPICAL PATCH TD SCH (10:25)
[2017-11-17] MEDS: ESTROGENS,CONJUGATED 1.25 MG TABLET PO SCH ×2 (10:25→22:29)
[2017-11-17] MEDS: hydrOXYzine PAMOATE 50 MG CAPSULE (FP) PO PRN ×2 (13:40→22:31)
[2017-11-17] MEDS: GABAPENTIN 100 MG CAPSULE (FP) PO SCH ×2 (13:40→22:30)
--- NOTE | 2017-11-17 15:50 | PN ---
BHS Progress Note (SOAP) Subjective: Sweating, pain in legs (chronic, states she was taking neurontin 600mg TID for neuropathy in legs), anxious Objective: 11/17/17 15:47 Last Vital Signs Temp Pulse Resp BP Pulse Ox 97 F L 86 18 116/67 11/17/17 14:10 11/17/17 14:10 11/17/17 14:10 11/17/17 14:10 Laboratory Tests 11/14/17 11/15/17 11/15/17 17:58 07:40 07:40 WBC 6.4 RBC 4.31 Hgb 13.2 Hct 40.6 MCV 94.3 MCH 30.7 MCHC 32.6 RDW 13.5 Plt Count 221 MPV 8.5 Sodium 137 Potassium 4.0 Chloride 106 Carbon Dioxide 23 Anion Gap 8 BUN 15 D Creatinine 0.9 D Creat Clearance w eGFR > 60 Random Glucose 131 H D Calcium 8.6 Total Bilirubin 0.2 D AST 22 D ALT 27 D Alkaline Phosphatase 186 H D Total Protein 7.6 Albumin 3.2 L Urine Color Yellow Urine Appearance Slcloudy Urine pH 5.0 Ur Specific [place] 1.023 Urine Protein Negative Urine Glucose (UA) Negative Urine Ketones Negative Urine Blood Negative Urine Nitrite Negative Urine Bilirubin Negative Urine Urobilinogen Negative Ur Leukocyte Esterase Negative RPR Titer 11/15/17 07:40 WBC RBC Hgb Hct MCV MCH MCHC RDW Plt Count MPV Sodium Potassium Chloride Carbon Dioxide Anion Gap BUN Creatinine Creat Clearance w eGFR Random Glucose Calcium Total Bilirubin AST ALT Alkaline Phosphatase Total Protein Albumin Urine Color Urine Appearance Urine pH Ur Specific [place] Urine Protein Urine Glucose (UA) Urine Ketones Urine Blood Urine Nitrite Urine Bilirubin Urine Urobilinogen Ur Leukocyte Esterase RPR Titer Nonreactive Labs noted: serum glucose 131 Assessment: 11/17/17 15:48 Withdrawal symptoms Noted with hyperglycemia Plan: Continue detox Encouraged to drink lots of water Hyperglycemia: decrease sugary intake in diet, follow up with PCP for further evaluation
[2017-11-17] MEDS: THIAMINE HCL 100 MG TABLET (FP) PO SCH (22:29)
[2017-11-17] MEDS: ABACAVIR/DOLUTEGRAVIR/LAMIVUDI (TRIUMEQ) TABLET -NF PO SCH (22:29)
[2017-11-18] MEDS ORDERED: METHADONE HCL 40 MG DISPERSABLE TABLET ONE (03:36)
[2017-11-18] MEDS ORDERED: METHADONE HCL 10 MG TABLET ONE (03:36)
[2017-11-18] MEDS: CYCLOBENZAPRINE HCL 5 MG TABLET PO SCH (05:44)
[2017-11-18] MEDS: METHADONE 80 MG, METHADONE 20 MG PO SCH (05:45)
[2017-11-18] MEDS: GABAPENTIN 100 MG CAPSULE (FP) PO SCH (05:47)
[2017-11-18 06:07] VITALS: BP 110/69; PULSE 60; TEMP 97.3
--- NOTE | 2017-11-18 08:50 | DS ---
[facility] Detox Discharge Summary Admission Date: 11/14/17 Discharge Date: 11/18/17 - History Present History: Alcohol Dependence, Cocaine Dependence - Physical Exam Results Vital Signs: Vital Signs Temperature 97.3 F L 11/18/17 06:06 Pulse Rate 60 11/18/17 06:06 Respiratory Rate 18 11/18/17 06:06 Blood Pressure 110/69 11/18/17 06:06 O2 Sat by Pulse Oximetry (%) - Treatment Hospital Course: Detox Protocol Followed, Detoxed Safely, Responded well, Discharged Condition Good - Medication Discharge Medications: Ambulatory Orders Sulfamethoxazole/Trimethoprim [Bactrim DS -] 1 tab PO DAILY #30 tablet 01/12/15 Gabapentin [Neurontin -] 600 mg PO TID #90 capsule 03/29/15 Abacavir/Dolutegravir/Lamivudi [Triumeq Tablet] 1 each PO HS 07/29/17 Estrogens,Conjugated [Premarin -] 1.25 mg PO BID 07/29/17 Methadone HCl 100 mg PO DAILY 11/14/17 Oxycodone HCl 30 mg PO Q4H PRN 11/14/17 Citalopram Hydrobromide [Celexa -] 40 mg PO DAILY #30 tablet 11/15/17 - Diagnosis (1) Alcohol dependence with withdrawal, uncomplicated Current Visit: Yes Status: Chronic (2) Cocaine dependence Current Visit: Yes Status: Chronic (3) HIV (human immunodeficiency virus infection) Current Visit: Yes Status: Chronic (4) Methadone maintenance therapy patient Current Visit: Yes Status: Chronic (5) Transgendered Current Visit: Yes Status: Chronic - AMA Did Patient Leave Against Medical Advice: No
[2017-11-18] MEDS ORDERED: diazePAM 5 MG TABLET PO SCH (10:00)
== END 2017-11-18 09:48 | disposition home or self-care (01) | DRG 773 ==
LOC: YASAS 11:26 → Y6N 13:12
PROVIDERS: ADMIT Internal Medicine; ATTEND Internal Medicine
PROC: HZ2ZZZZ Detoxification Services for Substance Abuse Treatment (ICD-10-PCS; principal; 2017-11-14)
DX: F10.230 Alcohol dependence with withdrawal, uncomplicated (principal); F11.20 Opioid dependence, uncomplicated; F14.20 Cocaine dependence, uncomplicated; F17.213 Nicotine dependence, cigarettes, with withdrawal; F19.282 Other psychoactive substance dependence with psychoactive substance-induced sleep disorder; F31.81 Bipolar II disorder; G62.9 Polyneuropathy, unspecified; G40.909 Epilepsy, unspecified, not intractable, without status epilepticus; R73.9 Hyperglycemia, unspecified; B18.2 Chronic viral hepatitis C; F64.0 Transsexualism; Z87.890 Personal history of sex reassignment; Z98.82 Breast implant status
CPT/HCPCS: 36415; 80053; 81003; 85027; 86593; 93005; 93010; J1410

== ENCOUNTER 2018-02-07 13:12 | Inpatient (IN) | payer OTHER ==
[2018-02-07 14:49] VITALS: BMI 30.5
--- NOTE | 2018-02-07 16:53 | HP ---
CIWA Score - CIWA Score Nausea/Vomitin Muscle Tremors: 3 Anxiety: 3 Agitation: 3 Paroxysmal Sweats: 2 Orientation: 0-Oriented Tacttile Disturbances: 2-Mild Itch/Numbness/Burn Auditory Disturbances: 2-Mild Harshness/Frighten Visual Disturbances: 1-Very Mild Sensitivity Headache: 2-Mild CIWA-Ar Total Score: 21 Admission ROS BHS - HPI Chief Complaint: I NEED HELP TO STOP DRINKING FROM ALCOHOL Allergies/Adverse Reactions: Allergies Allergy/AdvReac Type Severity Reaction Status Date / Time chlordiazepoxide AdvReac Rash Verified 02/07/18 18:25 [From Librium] History of Present Illness: THIS 42 YEARS OLD TRANSGENDER WITH ALCOHOL DEPENDENCE,SEEKING DETOX,WITHDRAWAL SYMPTOM,LAT DETOX 11/14/17 TO 11/18/17 SEIZURE ALCOHOL RELATED LAST 2015 SYNCOPE HEPATITIS C IN 2017 TREATED BIPOLAR DISORDER MMTP 60 MGS/DAY,LAST MEDICATED TODAY LONGEST PERIOD SOBRIETY 4 YEARS - Ebola screening Have you traveled outside of the country in the last 21 days: No (N) Have you had contact with anyone from an Ebola affected area: No Have you been sick,other than usual withdrawal symptoms: No Do you have a fever: No - Review of Systems Constitutional: Loss of Appetite, Malaise, Night Sweats, Changes in sleep, Weakness EENT: reports: Nose Congestion Respiratory: reports: No Symptoms reported Cardiac: reports: No Symptoms Reported GI: reports: Diarrhea, Nausea, Vomiting, Abdominal cramping : reports: No Symptoms Reported Musculoskeletal: reports: Back Pain, Muscle Pain, Other (NEUROPATHY) Integumentary: reports: Dryness Neuro: reports: Headache, Tremors Endocrine: reports: No Symptoms Reported Hematology: reports: No Symptoms Reported Psychiatric: reports: No Sypmtoms Reported, Judgement Intact, Mood/Affect Appropiate, Orientated x3 (BIPOLAR DISORDER) Patient History - Patient Medical History Hx Anemia: No Hx Asthma: No Hx Chronic Obstructive Pulmonary Disease (COPD): No Hx Cancer: No Hx Cardiac Disorders: No Hx Congestive Heart Failure: No Hx Hypertension: No Hx Hypercholesterolemia: No Hx Pacemaker: No HX Cerebrovascular Accident: No Hx Seizures: Yes (last seizure april2017) Hx Dementia: No Hx Diabetes: No Hx Gastrointestinal Disorders: No Hx Liver Disease: No Hx Genitourinary Disorders: No Hx Sexually Transmitted Disorders: No Hx Renal Disease (ESRD): No Hx Thyroid Disease: No Hx Human Immunodeficiency Virus (HIV): Yes (SINCE 1996;ON TRIUMEQ ) Hx Hepatitis C: Yes (diag. 1996 - treated) Hx Depression: Yes Hx Suicide Attempt: No (DENIES) Hx Bipolar Disorder: Yes Hx Schizophrenia: No Other Medical History: NO SUICIDAL,NO HOMICIDAL - Patient Surgical History Past Surgical History: No Hx Neurologic Surgery: No Hx Cataract Extraction: No Hx Cardiac Surgery: No Hx Lung Surgery: No Hx Breast Surgery: Yes (breast implant on 07/26/2015) Hx Breast Biopsy: No Hx Abdominal Surgery: No Hx Appendectomy: No Hx Cholecystectomy: No Hx Genitourinary Surgery: No Hx Section: No Hx Orthopedic Surgery: No Other Surgical History: orchiectomy on 12/28/2014/gender reassignment; 01/10/2017 Anesthesia Reaction: No - PPD History Documented Results: Negative w/proof Date: 07/31/17 Results: 0 mm - Smoking Cessation Smoking history: Current every day smoker Have you smoked in the past 12 months: Yes Aproximately how many cigarettes per day: 20 If you are a former smoker, when did you quit?: 2 1/2 weeks ago Cigars Per Day: 0 Hx Chewing Tobacco Use: No Initiated information on smoking cessation: Yes 'Breaking Loose' booklet given: 02/07/18 - Substance & Tx. History Hx Alcohol Use: Yes Hx Substance Use: No Substance Use Type: Alcohol Hx Substance Use Treatment: Yes ([facility] 11/14/17 TO 11/18/17) - Substances Abused Alcohol Route: Oral Frequency: Daily Amount used: 4 PINTS OF VODKA Age of first use: 15 Date of Last Use: 02/07/18 Cocaine Route: Smoking Frequency: 1-3 times last 30 days Amount used: 20$ Age of first use: 14 Date of Last Use: 02/05/18 Family Disease History - Family Disease History Family Disease History: Other: Father (no contact, ALCOHOL), Mother (no contact) Admission Physical Exam BHS - Vital Signs Vital Signs: Vital Signs - 24 hr 02/07/18 14:48 Temperature 97.7 F Pulse Rate 71 Respiratory 18 Rate Blood Pressure 146/99 - Physical General Appearance: Yes: Moderate Distress, Tremorous, Irritable, Anxious HEENTM: Yes: Normal ENT Inspection, ALFREDA, Pharynx Normal Respiratory: Yes: No Respiratory Distress, Respiratory Distress Neck: Yes: Within Normal Limits, Supple, Trachea in good position Breast: Yes: Breast Exam Deferred Cardiology: Yes: Within Normal Limits, Regular Rhythm, Regular Rate, S1, S2 Abdominal: Yes: Within Normal Limits, Normal Bowel Sounds, Non Tender, Flat, Soft Genitourinary: Yes: Other (TRANSGENDER) Back: Yes: Muscle Spasm Musculoskeletal: Yes: full range of Motion, Back pain, Muscle Pain Extremities: Yes: Tremors Neurological: Yes: linoleum layer II-XII NML intact, Fully Oriented, Alert, Motor Strength 5/5 Integumentary: Yes: Dry Lymphatic: Yes: Within Normal Limits - Diagnostic (1) Alcohol dependence with withdrawal, uncomplicated Current Visit: No Status: Chronic (2) Cocaine dependence Current Visit: No Status: Chronic (3) HIV (human immunodeficiency virus infection) Current Visit: No Status: Chronic (4) Nicotine dependence Current Visit: No Status: Chronic Qualifiers: Nicotine product type: cigarettes Substance use status: in withdrawal Qualified Code(s): F17.213 - Nicotine dependence, cigarettes, with withdrawal (5) Opioid dependence on agonist therapy Current Visit: No Status: Chronic (6) Seizure Current Visit: No Status: Chronic (7) Transgendered Current Visit: No Status: Chronic (8) Peripheral neuropathy Current Visit: Yes Status: Acute [facility]ared for [facility] - [facility]ox [facility] Level of Care: Medically Managed Detox Regimen/Protocol: Valium [facility] Breath Alcohol Content Breath Alcohol Content: 0.013 Urine Drug Screen - Results Drug Screen Negative: No Urine Drug Screen Results: JIMMY-Cocaine, MTD-Methadone
[2018-02-07] MEDS ORDERED: guaiFENesin/D-METHORPHAN HB 10 ML UNIT-DOSE CUPS PO PRN (17:06)
[2018-02-07] MEDS ORDERED: MAGNESIUM CITRATE 300 ML BOTTLE PO PRN (17:06)
[2018-02-07] MEDS ORDERED: diazePAM 5 MG TABLET PO ONE (17:06)
[2018-02-07] MEDS ORDERED: IBUPROFEN 400 MG TABLET (FP) PO PRN (17:06)
[2018-02-07] MEDS ORDERED: MENTHOL/PHENOL 1 EACH UD MM PRN (17:06)
[2018-02-07] MEDS ORDERED: LOPERAMIDE HCL 2 MG CAPSULE PO PRN (17:06)
[2018-02-07] MEDS ORDERED: P-EPHED 60MG/TRIPROLIDI 2.5MG TABLET PO PRN (17:06)
[2018-02-07] MEDS ORDERED: hydrOXYzine PAMOATE 50 MG CAPSULE (FP) PO PRN (17:06)
[2018-02-07] MEDS ORDERED: MAGNESIUM HYDROX 2400MG/30ML ORAL SUSPENSION 30 ML CUP PO PRN (17:06)
[2018-02-07] MEDS ORDERED: ACETAMINOPHEN 325 MG TABLET (FP) PO PRN (17:06)
[2018-02-07] MEDS: NICOTINE 21 MG/24 HOURS TOPICAL PATCH TD SCH (20:20)
[2018-02-07] MEDS: GABAPENTIN 300 MG CAPSULE (FP) PO SCH (22:42)
[2018-02-07] MEDS: THIAMINE HCL 100 MG TABLET (FP) PO SCH (22:43)
[2018-02-07] MEDS: diazePAM 5 MG TABLET PO SCH (22:43)
[2018-02-07] MEDS: ESTROGENS,CONJUGATED 1.25 MG TABLET PO SCH (22:44)
[2018-02-07 22:53] LABS: URINE APPEARANCE CLEAR; URINE BILIRUBIN NEGATIVE (NEGATIVE); URINE BLOOD NEGATIVE (NEGATIVE); URINE COLOR YELLOW; URINE GLUCOSE (UA) NEGATIVE (NEGATIVE); URINE KETONE NEGATIVE (NEGATIVE); URINE LEUK ESTERASE NEGATIVE (NEGATIVE); URINE NITRITE NEGATIVE (NEGATIVE); URINE PROTEIN NEGATIVE (NEGATIVE); URINE UROBILINOGEN NEGATIVE mg/dL (0.2-1.0)
[2018-02-08] MEDS: GABAPENTIN 300 MG CAPSULE (FP) PO SCH ×3 (06:16→22:28)
[2018-02-08] MEDS: diazePAM 5 MG TABLET PO SCH ×3 (06:16→22:30)
[2018-02-08] MEDS: MAG HYDROX/AL HYDROX/SIMETH 30 ML UNIT-DOSE CUP PO PRN (06:17)
--- NOTE | 2018-02-08 08:48 | CONSULT ---
[facility] Psychiatric Consult - Data Date of interview: 02/08/18 Admission source: [facility] Identifying data: This is well known for [facility] 42 years o d trasgender female is here for detox from Alcohol, Cocaine, Nicotine nd Methadone, seekoing for detox, last detoxfied on . Smoking history: Current every day smoker. Have you smoked in the past 12 months: Yes. Aproximately how many cigarettes per day: 20. If you are a former smoker, when did you quit?: 2 1/2 weeks ago. Cigars Per Day: 0. Hx Chewing Tobacco Use: No. Initiated information on smoking cessation: Yes. 'Breaking Loose' booklet given: 02/07/18. - Substance & Tx. History. Hx Alcohol Use: Yes. Hx Substance Use: No. Substance Use Type : Alcohol. Hx Substance Use Treatment: Yes ([facility] 11/14/17 TO 11/18/17). - Substances Abused. Alcohol. Route: Oral. Frequency: Daily. Amount used: 4 PINTS OF VODKA. Age of first use: 15. Date of Last Use: 02/07/18 Substance Abuse History: Smoking history: Current every day smoker. Have you smoked in the past 12 months: Yes. Aproximately how many cigarettes per day: 20. If you are a former smoker, when did you quit?: 2 1/2 weeks ago. Cigars Per Day: 0. Hx Chewing Tobacco Use: No. Initiated information on smoking cessation: Yes. 'Breaking Loose' booklet given: 02/07/18. - Substance & Tx. History. Hx Alcohol Use: Yes. Hx Substance Use: No. Substance Use Type: Alcohol. Hx Substance Use Treatment: Yes ([facility] 11/14/17 TO 11/18/17). - Substances Abused. Alcohol. Route: Oral. Frequency: Daily. Amount used: 4 PINTS OF VODKA. Age of first use: 15. Date of Last Use: 02/07/18. Cocaine. Route: Smoking. Frequency: 1-3 times last 30 days. Amount used: 20$ . Age of first use: 14. Date of Last Use: 02/05/18 Medical History: HIV, Seizure history, Pariferal neuropathy, mmtp 60mgper day Psychiatric History: Reports Bipolar Disorder history, denies medicastions taking prior to admission, Borderline personality [place] Physical/Sexual Abuse/Trauma History: Denies Additional Comment: Observation. Detox unir care protocol Mental Status Exam - Mental Status Exam Alert and Oriented to: Person Cognitive Function: Fair Patient Appearance: Unkempt Mood: Anxious Patient Behavior: Cooperative Speech Pattern: Clear Voice Loudness: Mildly Loud Thought Process: Goal Oriented Thought Disorder: Being Controlled Hallucinations: Denies Suicidal Ideation: Denies Homicidal Ideation: Denies Insight/Judgement: Fair Sleep: Difficulty falling asleep Appetite: Weight gain Muscle strength/Tone: Normal Gait/Station: Normal Additional Comments: Observation. Detox unir care protocol Psychiatric Findings - Problem List ([place] 1, 2,3) (1) Peripheral neuropathy Current Visit: Yes Status: Acute (2) Hyperglycemia Current Visit: No Status: Acute (3) Substance-induced sleep disorder Current Visit: No Status: Acute (4) Alcohol dependence with withdrawal, uncomplicated Current Visit: No Status: Chronic (5) Bipolar II disorder Current Visit: No Status: Chronic (6) Cocaine dependence Current Visit: No Status: Chronic (7) Methadone maintenance therapy patient Current Visit: No Status: Chronic Comment: [facility] [phone] (8) Nicotine dependence Current Visit: No Status: Chronic Qualifiers: Nicotine product type: cigarettes Substance use status: in withdrawal Qualified Code(s): F17.213 - Nicotine dependence, cigarettes, with withdrawal (9) Opioid dependence on agonist therapy Current Visit: No Status: Chronic (10) Opioid dependence with uncomplicated intoxication Current Visit: No Status: Chronic (11) Seizure Current Visit: No Status: Chronic (12) Transgendered Current Visit: No Status: Chronic - Initial Treatment Plan Initial Treatment Plan: Observation. Detox unir care protocol
[2018-02-08] MEDS ORDERED: METHADONE HCL 10 MG TABLET PO ONE (08:59)
--- NOTE | 2018-02-08 09:10 | PN ---
S Progress Note Note: patient is under the methadone analia regimen at the program patient begin 55 mg methadone today x 7 days, return to program for further evaluation
[2018-02-08] MEDS ORDERED: METHADONE 40 MG, METHADONE 10 MG, METHADONE 5 MG PO ONE (09:20)
[2018-02-08] MEDS ORDERED: METHADONE HCL 10 MG TABLET ONE (09:45)
[2018-02-08] MEDS ORDERED: METHADONE HCL 5 MG TABLET ONE (09:45)
[2018-02-08] MEDS ORDERED: METHADONE HCL 40 MG DISPERSABLE TABLET ONE (09:45)
[2018-02-08 10:29] LABS: HEMATOCRIT 40.1 % (35.4-49); HEMOGLOBIN 13.4 GM/dL (11.7-16.9); MCH 30.6 pg (25.7-33.7); MCHC 33.3 g/dl (32.0-35.9); MEAN PLT VOLUME 8.6 fl (7.5-11.1); PLATELET COUNT 218 K/MM3 (134-434); RBC 4.36 M/mm3 (4.00-5.60); RDW 13.6 % (11.9-15.9); WHITE BLOOD COUNT 5.6 K/mm3 (4.0-10.0)
[2018-02-08 10:38] LABS: ALBUMIN 3.2 g/dl (3.4-5.0); ANION GAP 8 (8-16); BILIRUBIN,TOTAL 0.2 mg/dL (0.2-1.0); BLOOD UREA NITROGEN 14 mg/dL (7-18); CALCIUM 8.4 mg/dL (8.5-10.1); CHLORIDE 105 mmol/L (98-107); CO2 25 mmol/L (21-32); GLUCOSE,RANDOM 175 mg/dL (74-106); POTASSIUM 3.9 mmol/L (3.5-5.1); SODIUM 138 mmol/L (136-145); TOT PROT 7.3 g/dl (6.4-8.2)
[2018-02-08 10:40] LABS: ALK PHOS 141 U/L (45-117); CREATININE 0.9 mg/dL (0.7-1.3); SGOT/AST 15 U/L (15-37); SGPT/ALT 22 U/L (12-78)
[2018-02-08] MEDS: diazePAM 5 MG TABLET PO PRN (10:42)
[2018-02-08] MEDS: CITALOPRAM HYDROBROMIDE 20 MG TABLET (FP) PO SCH (10:42)
[2018-02-08] MEDS: SULFAMETHOXAZOLE/TRIMETHOPRIM 800MG/160MG D.S. TABLET PO SCH (10:42)
[2018-02-08] MEDS: ESTROGENS,CONJUGATED 1.25 MG TABLET PO SCH ×2 (10:43→22:28)
[2018-02-08] MEDS: PRENATAL VITAMINS W/ FOLIC ACID TABLET (FP) PO SCH (10:43)
[2018-02-08] MEDS: NICOTINE 21 MG/24 HOURS TOPICAL PATCH TD SCH (10:45)
--- NOTE | 2018-02-08 11:45 | PN ---
S CIWA - CIWA Score Nausea/Vomitin-Mild Nausea/No Vomiting Muscle Tremors: 4-Moderate,w/Arms Extend Anxiety: 4-Mod. Anxious/Guarded Agitation: 4-Moderately Restless Paroxysmal Sweats: 1-Minimal Palms Moist Orientation: 0-Oriented Tacttile Disturbances: 1-Very Mild Itch/Numbness Auditory Disturbances: 0-None Visual Disturbances: 0-None Headache: 1-Very Mild CIWA-Ar Total Score: 16 BHS Progress Note (SOAP) Subjective: sweat tremor anxiety restlessness irritable Objective: 02/08/18 11:45 Vital Signs Temperature 97.9 F 02/08/18 07:12 Pulse Rate 71 02/08/18 07:12 Respiratory Rate 19 02/08/18 07:12 Blood Pressure 158/91 02/08/18 07:12 O2 Sat by Pulse Oximetry (%) Laboratory Last Values WBC 5.6 K/mm3 (4.0-10.0) 02/08/18 07:30 RBC 4.36 M/mm3 (4.00-5.60) 02/08/18 07:30 Hgb 13.4 GM/dL (11.7-16.9) 02/08/18 07:30 Hct 40.1 % (35.4-49) 02/08/18 07:30 MCV 92.0 fl (80-96) 02/08/18 07:30 MCH 30.6 pg (25.7-33.7) 02/08/18 07:30 MCHC 33.3 g/dl (32.0-35.9) 02/08/18 07:30 RDW 13.6 % (11.9-15.9) 02/08/18 07:30 Plt Count 218 K/MM3 (134-434) 02/08/18 07:30 MPV 8.6 fl (7.5-11.1) 02/08/18 07:30 Sodium 138 mmol/L (136-145) 02/08/18 07:30 Potassium 3.9 mmol/L (3.5-5.1) 02/08/18 07:30 Chloride 105 mmol/L (98-107) 02/08/18 07:30 Carbon Dioxide 25 mmol/L (21-32) 02/08/18 07:30 Anion Gap 8 (8-16) 02/08/18 07:30 BUN 14 mg/dL (7-18) 02/08/18 07:30 Creatinine 0.9 mg/dL (0.7-1.3) 02/08/18 07:30 Creat Clearance w eGFR > 60 (>60) 02/08/18 07:30 Random Glucose 175 mg/dL (74-106) H D 02/08/18 07:30 Calcium 8.4 mg/dL (8.5-10.1) L 02/08/18 07:30 Total Bilirubin 0.2 mg/dL (0.2-1.0) 02/08/18 07:30 AST 15 U/L (15-37) D 02/08/18 07:30 ALT 22 U/L (12-78) 02/08/18 07:30 Alkaline Phosphatase 141 U/L (45-117) H D 02/08/18 07:30 Total Protein 7.3 g/dl (6.4-8.2) 02/08/18 07:30 Albumin 3.2 g/dl (3.4-5.0) L 02/08/18 07:30 Urine Color Yellow 02/07/18 18:35 Urine Appearance Clear 02/07/18 18:35 Urine pH 5.0 (5.0-8.0) 02/07/18 18:35 Ur Specific [place] 1.020 (1.001-1.035) 02/07/18 18:35 Urine Protein Negative (NEGATIVE) 02/07/18 18:35 Urine Glucose (UA) Negative (NEGATIVE) 02/07/18 18:35 Urine Ketones Negative (NEGATIVE) 02/07/18 18:35 Urine Blood Negative (NEGATIVE) 02/07/18 18:35 Urine Nitrite Negative (NEGATIVE) 02/07/18 18:35 Urine Bilirubin Negative (NEGATIVE) 02/07/18 18:35 Urine Urobilinogen Negative mg/dL (0.2-1.0) 02/07/18 18:35 Ur Leukocyte Esterase Negative (NEGATIVE) 02/07/18 18:35 RPR Titer Nonreactive (NONREACTIVE) 02/08/18 07:30 lab noted Assessment: 02/08/18 11:45withdrawal sx methadone maintenance 55 mg po x 7 as per verified Plan: continue detox methadone 55 mg
[2018-02-08] MEDS: ABACAVIR/DOLUTEGRAVIR/LAMIVUDI (TRIUMEQ) TABLET -NF PO SCH ×2 (22:29→22:47)
[2018-02-08] MEDS: THIAMINE HCL 100 MG TABLET (FP) PO SCH (22:30)
[2018-02-09] MEDS ORDERED: METHADONE HCL 5 MG TABLET ONE (05:05)
[2018-02-09] MEDS ORDERED: METHADONE HCL 10 MG TABLET ONE (05:06)
[2018-02-09] MEDS ORDERED: METHADONE HCL 40 MG DISPERSABLE TABLET ONE (05:06)
[2018-02-09] MEDS: METHADONE 40 MG, METHADONE 10 MG, METHADONE 5 MG PO SCH (05:33)
[2018-02-09] MEDS: GABAPENTIN 300 MG CAPSULE (FP) PO SCH ×3 (05:33→22:24)
[2018-02-09] MEDS ORDERED: METHADONE HCL 10 MG TABLET PO SCH (06:00)
--- NOTE | 2018-02-09 09:27 | PN ---
[facility] CIWA - CIWA Score Nausea/Vomitin-Mild Nausea/No Vomiting Muscle Tremors: 4-Moderate,w/Arms Extend Anxiety: 4-Mod. Anxious/Guarded Agitation: 4-Moderately Restless Paroxysmal Sweats: 1-Minimal Palms Moist Orientation: 0-Oriented Tacttile Disturbances: 0-None Auditory Disturbances: 0-None Visual Disturbances: 0-None Headache: 0-None Present CIWA-Ar Total Score: 14 BHS Progress Note (SOAP) Subjective: sweat tremor anxiety restlessness irritable at time trouble sleep throughout the night Objective: 02/09/18 09:26 Vital Signs Temperature 96.1 F L 02/09/18 06:00 Pulse Rate 61 02/09/18 06:00 Respiratory Rate 18 02/09/18 06:00 Blood Pressure 124/82 02/09/18 06:00 O2 Sat by Pulse Oximetry (%) Laboratory Last Values WBC 5.6 K/mm3 (4.0-10.0) 02/08/18 07:30 RBC 4.36 M/mm3 (4.00-5.60) 02/08/18 07:30 Hgb 13.4 GM/dL (11.7-16.9) 02/08/18 07:30 Hct 40.1 % (35.4-49) 02/08/18 07:30 MCV 92.0 fl (80-96) 02/08/18 07:30 MCH 30.6 pg (25.7-33.7) 02/08/18 07:30 MCHC 33.3 g/dl (32.0-35.9) 02/08/18 07:30 RDW 13.6 % (11.9-15.9) 02/08/18 07:30 Plt Count 218 K/MM3 (134-434) 02/08/18 07:30 MPV 8.6 fl (7.5-11.1) 02/08/18 07:30 Sodium 138 mmol/L (136-145) 02/08/18 07:30 Potassium 3.9 mmol/L (3.5-5.1) 02/08/18 07:30 Chloride 105 mmol/L (98-107) 02/08/18 07:30 Carbon Dioxide 25 mmol/L (21-32) 02/08/18 07:30 Anion Gap 8 (8-16) 02/08/18 07:30 BUN 14 mg/dL (7-18) 02/08/18 07:30 Creatinine 0.9 mg/dL (0.7-1.3) 02/08/18 07:30 Creat Clearance w eGFR > 60 (>60) 02/08/18 07:30 Random Glucose 175 mg/dL (74-106) H D 02/08/18 07:30 Calcium 8.4 mg/dL (8.5-10.1) L 02/08/18 07:30 Total Bilirubin 0.2 mg/dL (0.2-1.0) 02/08/18 07:30 AST 15 U/L (15-37) D 02/08/18 07:30 ALT 22 U/L (12-78) 02/08/18 07:30 Alkaline Phosphatase 141 U/L (45-117) H D 02/08/18 07:30 Total Protein 7.3 g/dl (6.4-8.2) 02/08/18 07:30 Albumin 3.2 g/dl (3.4-5.0) L 02/08/18 07:30 Urine Color Yellow 02/07/18 18:35 Urine Appearance Clear 02/07/18 18:35 Urine pH 5.0 (5.0-8.0) 02/07/18 18:35 Ur Specific [place] 1.020 (1.001-1.035) 02/07/18 18:35 Urine Protein Negative (NEGATIVE) 02/07/18 18:35 Urine Glucose (UA) Negative (NEGATIVE) 02/07/18 18:35 Urine Ketones Negative (NEGATIVE) 02/07/18 18:35 Urine Blood Negative (NEGATIVE) 02/07/18 18:35 Urine Nitrite Negative (NEGATIVE) 02/07/18 18:35 Urine Bilirubin Negative (NEGATIVE) 02/07/18 18:35 Urine Urobilinogen Negative mg/dL (0.2-1.0) 02/07/18 18:35 Ur Leukocyte Esterase Negative (NEGATIVE) 02/07/18 18:35 RPR Titer Nonreactive (NONREACTIVE) 02/08/18 07:30 lab noted Assessment: 02/09/18 09:27 withdrawal sx Plan: continue detox
[2018-02-09] MEDS: diazePAM 5 MG TABLET PO SCH ×2 (10:49→22:25)
[2018-02-09] MEDS: PRENATAL VITAMINS W/ FOLIC ACID TABLET (FP) PO SCH (10:50)
[2018-02-09] MEDS: CITALOPRAM HYDROBROMIDE 20 MG TABLET (FP) PO SCH (10:50)
[2018-02-09] MEDS: FLUCONAZOLE 100 MG TABLET (UD) PO SCH (10:50)
[2018-02-09] MEDS: SULFAMETHOXAZOLE/TRIMETHOPRIM 800MG/160MG D.S. TABLET PO SCH (10:50)
[2018-02-09] MEDS: ESTROGENS,CONJUGATED 1.25 MG TABLET PO SCH ×2 (10:51→22:25)
[2018-02-09] MEDS: NICOTINE 21 MG/24 HOURS TOPICAL PATCH TD SCH (10:52)
[2018-02-09] MEDS: MAG HYDROX/AL HYDROX/SIMETH 30 ML UNIT-DOSE CUP PO PRN (11:27)
[2018-02-09] MEDS: diazePAM 5 MG TABLET PO PRN ×2 (13:13→17:36)
[2018-02-09] MEDS: ABACAVIR/DOLUTEGRAVIR/LAMIVUDI (TRIUMEQ) TABLET -NF PO SCH (22:23)
[2018-02-09] MEDS: THIAMINE HCL 100 MG TABLET (FP) PO SCH (22:25)
--- NOTE | 2018-02-10 01:01 | EKG ---
Test Reason : Blood Pressure : / mmHG Vent. Rate : 063 BPM Atrial Rate : 063 BPM P-R Int : 174 ms QRS Dur : 106 ms QT Int : 432 ms P-R-T Axes : 052 -09 041 degrees QTc Int : 442 ms NORMAL SINUS RHYTHM INCOMPLETE RIGHT BUNDLE BRANCH BLOCK SEPTAL INFARCT , AGE UNDETERMINED ABNORMAL ECG WHEN COMPARED WITH ECG OF 14-NOV-2017 14:08, SEPTAL INFARCT IS NOW PRESENT Confirmed by BRINDA GALLEGOS, ZACHARIAH ([id number]) on 02/10/2018 1:00:57 AM Referred By: Confirmed By:ZACHARIAH PARRY MD
--- NOTE | 2018-02-10 01:02 | EKG ---
Test Reason : Blood Pressure : / mmHG Vent. Rate : 067 BPM Atrial Rate : 067 BPM P-R Int : 170 ms QRS Dur : 102 ms QT Int : 390 ms P-R-T Axes : 044 -01 037 degrees QTc Int : 412 ms NORMAL SINUS RHYTHM NORMAL ECG WHEN COMPARED WITH ECG OF 07-FEB-2018 19:21, CRITERIA FOR SEPTAL INFARCT ARE NO LONGER PRESENT Confirmed by ZACHARIAH PARRY MD ([id number]) on 02/10/2018 1:02:26 AM Referred By: Confirmed By:ZACHARIAH PARRY MD
[2018-02-10] MEDS ORDERED: METHADONE HCL 5 MG TABLET ONE (04:36)
[2018-02-10] MEDS ORDERED: METHADONE HCL 10 MG TABLET ONE (04:38)
[2018-02-10] MEDS ORDERED: METHADONE HCL 40 MG DISPERSABLE TABLET ONE (04:38)
[2018-02-10] MEDS: METHADONE 40 MG, METHADONE 10 MG, METHADONE 5 MG PO SCH (05:21)
[2018-02-10] MEDS: GABAPENTIN 300 MG CAPSULE (FP) PO SCH ×3 (05:22→22:55)
--- NOTE | 2018-02-10 10:15 | PN ---
BHS Progress Note (SOAP) Subjective: feeling better alert oriented x 3 steady gait less withdrawal today calm willing to talk about aftercare Objective: 02/10/18 10:14 Vital Signs Temperature 97.9 F 02/10/18 06:00 Pulse Rate 71 02/10/18 06:00 Respiratory Rate 18 02/10/18 06:00 Blood Pressure 108/90 02/10/18 06:00 O2 Sat by Pulse Oximetry (%) Laboratory Last Values WBC 5.6 K/mm3 (4.0-10.0) 02/08/18 07:30 RBC 4.36 M/mm3 (4.00-5.60) 02/08/18 07:30 Hgb 13.4 GM/dL (11.7-16.9) 02/08/18 07:30 Hct 40.1 % (35.4-49) 02/08/18 07:30 MCV 92.0 fl (80-96) 02/08/18 07:30 MCH 30.6 pg (25.7-33.7) 02/08/18 07:30 MCHC 33.3 g/dl (32.0-35.9) 02/08/18 07:30 RDW 13.6 % (11.9-15.9) 02/08/18 07:30 Plt Count 218 K/MM3 (134-434) 02/08/18 07:30 MPV 8.6 fl (7.5-11.1) 02/08/18 07:30 Sodium 138 mmol/L (136-145) 02/08/18 07:30 Potassium 3.9 mmol/L (3.5-5.1) 02/08/18 07:30 Chloride 105 mmol/L (98-107) 02/08/18 07:30 Carbon Dioxide 25 mmol/L (21-32) 02/08/18 07:30 Anion Gap 8 (8-16) 02/08/18 07:30 BUN 14 mg/dL (7-18) 02/08/18 07:30 Creatinine 0.9 mg/dL (0.7-1.3) 02/08/18 07:30 Creat Clearance w eGFR > 60 (>60) 02/08/18 07:30 Random Glucose 175 mg/dL (74-106) H D 02/08/18 07:30 Calcium 8.4 mg/dL (8.5-10.1) L 02/08/18 07:30 Total Bilirubin 0.2 mg/dL (0.2-1.0) 02/08/18 07:30 AST 15 U/L (15-37) D 02/08/18 07:30 ALT 22 U/L (12-78) 02/08/18 07:30 Alkaline Phosphatase 141 U/L (45-117) H D 02/08/18 07:30 Total Protein 7.3 g/dl (6.4-8.2) 02/08/18 07:30 Albumin 3.2 g/dl (3.4-5.0) L 02/08/18 07:30 Urine Color Yellow 02/07/18 18:35 Urine Appearance Clear 02/07/18 18:35 Urine pH 5.0 (5.0-8.0) 02/07/18 18:35 Ur Specific [place] 1.020 (1.001-1.035) 02/07/18 18:35 Urine Protein Negative (NEGATIVE) 02/07/18 18:35 Urine Glucose (UA) Negative (NEGATIVE) 02/07/18 18:35 Urine Ketones Negative (NEGATIVE) 02/07/18 18:35 Urine Blood Negative (NEGATIVE) 02/07/18 18:35 Urine Nitrite Negative (NEGATIVE) 02/07/18 18:35 Urine Bilirubin Negative (NEGATIVE) 02/07/18 18:35 Urine Urobilinogen Negative mg/dL (0.2-1.0) 02/07/18 18:35 Ur Leukocyte Esterase Negative (NEGATIVE) 02/07/18 18:35 RPR Titer Nonreactive (NONREACTIVE) 02/08/18 07:30 lab noted Assessment: 02/10/18 10:15 withdrawal sx Plan: continue detox
[2018-02-10] MEDS: diazePAM 5 MG TABLET PO SCH ×2 (10:24→22:55)
[2018-02-10] MEDS: PRENATAL VITAMINS W/ FOLIC ACID TABLET (FP) PO SCH (10:24)
[2018-02-10] MEDS: ESTROGENS,CONJUGATED 1.25 MG TABLET PO SCH ×2 (10:24→22:55)
[2018-02-10] MEDS: CITALOPRAM HYDROBROMIDE 20 MG TABLET (FP) PO SCH (10:24)
[2018-02-10] MEDS: SULFAMETHOXAZOLE/TRIMETHOPRIM 800MG/160MG D.S. TABLET PO SCH (10:24)
[2018-02-10] MEDS: FLUCONAZOLE 100 MG TABLET (UD) PO SCH (10:24)
[2018-02-10] MEDS: NICOTINE 21 MG/24 HOURS TOPICAL PATCH TD SCH (10:25)
[2018-02-10] MEDS: diazePAM 5 MG TABLET PO PRN (17:01)
[2018-02-10] MEDS ORDERED: HYDROCORTISONE 2.5% TOPICAL CREAM 30 GM TUBE PR SCH (22:00)
[2018-02-10] MEDS: ABACAVIR/DOLUTEGRAVIR/LAMIVUDI (TRIUMEQ) TABLET -NF PO SCH (22:55)
[2018-02-10] MEDS: THIAMINE HCL 100 MG TABLET (FP) PO SCH (22:55)
[2018-02-11] MEDS ORDERED: METHADONE HCL 5 MG TABLET ONE (05:13)
[2018-02-11] MEDS ORDERED: METHADONE HCL 10 MG TABLET ONE (05:13)
[2018-02-11] MEDS ORDERED: METHADONE HCL 40 MG DISPERSABLE TABLET ONE (05:13)
[2018-02-11] MEDS: GABAPENTIN 300 MG CAPSULE (FP) PO SCH (05:52)
[2018-02-11] MEDS: METHADONE 40 MG, METHADONE 10 MG, METHADONE 5 MG PO SCH (05:53)
--- NOTE | 2018-02-11 08:31 | DS ---
[facility] Detox Discharge Summary Admission Date: 02/07/18 Discharge Date: 02/11/18 - History Present History: Alcohol Dependence Additional Comments: 42 years old transgenered male admitte for alcohol detox completed alcohol detox regimen today reports no alcohol withdrawal sx and [facility] patient understands the important of addiction aftercare and follow up closely with primary care provider patient is alert oriented x 3 steady gait tolerates food and fluid well, social with peers and supportive to peers cardiac s1s2 lungs clear bilaterally abdomen soft none tenderness extremities full range of motion, denies pain no acute distress - Physical Exam Results Vital Signs: Vital Signs Temperature 97.7 F 02/11/18 06:39 Pulse Rate 80 02/11/18 06:39 Respiratory Rate 20 02/11/18 06:39 Blood Pressure 117/73 02/11/18 06:39 O2 Sat by Pulse Oximetry (%) Pertinent Admission Physical Exam Findings: withdrawal sx Laboratory Last Values WBC 5.6 K/mm3 (4.0-10.0) 02/08/18 07:30 RBC 4.36 M/mm3 (4.00-5.60) 02/08/18 07:30 Hgb 13.4 GM/dL (11.7-16.9) 02/08/18 07:30 Hct 40.1 % (35.4-49) 02/08/18 07:30 MCV 92.0 fl (80-96) 02/08/18 07:30 MCH 30.6 pg (25.7-33.7) 02/08/18 07:30 MCHC 33.3 g/dl (32.0-35.9) 02/08/18 07:30 RDW 13.6 % (11.9-15.9) 02/08/18 07:30 Plt Count 218 K/MM3 (134-434) 02/08/18 07:30 MPV 8.6 fl (7.5-11.1) 02/08/18 07:30 Sodium 138 mmol/L (136-145) 02/08/18 07:30 Potassium 3.9 mmol/L (3.5-5.1) 02/08/18 07:30 Chloride 105 mmol/L (98-107) 02/08/18 07:30 Carbon Dioxide 25 mmol/L (21-32) 02/08/18 07:30 Anion Gap 8 (8-16) 02/08/18 07:30 BUN 14 mg/dL (7-18) 02/08/18 07:30 Creatinine 0.9 mg/dL (0.7-1.3) 02/08/18 07:30 Creat Clearance w eGFR > 60 (>60) 02/08/18 07:30 Random Glucose 175 mg/dL (74-106) H D 02/08/18 07:30 Calcium 8.4 mg/dL (8.5-10.1) L 02/08/18 07:30 Total Bilirubin 0.2 mg/dL (0.2-1.0) 02/08/18 07:30 AST 15 U/L (15-37) D 02/08/18 07:30 ALT 22 U/L (12-78) 02/08/18 07:30 Alkaline Phosphatase 141 U/L (45-117) H D 02/08/18 07:30 Total Protein 7.3 g/dl (6.4-8.2) 02/08/18 07:30 Albumin 3.2 g/dl (3.4-5.0) L 02/08/18 07:30 Urine Color Yellow 02/07/18 18:35 Urine Appearance Clear 02/07/18 18:35 Urine pH 5.0 (5.0-8.0) 02/07/18 18:35 Ur Specific [place] 1.020 (1.001-1.035) 02/07/18 18:35 Urine Protein Negative (NEGATIVE) 02/07/18 18:35 Urine Glucose (UA) Negative (NEGATIVE) 02/07/18 18:35 Urine Ketones Negative (NEGATIVE) 02/07/18 18:35 Urine Blood Negative (NEGATIVE) 02/07/18 18:35 Urine Nitrite Negative (NEGATIVE) 02/07/18 18:35 Urine Bilirubin Negative (NEGATIVE) 02/07/18 18:35 Urine Urobilinogen Negative mg/dL (0.2-1.0) 02/07/18 18:35 Ur Leukocyte Esterase Negative (NEGATIVE) 02/07/18 18:35 RPR Titer Nonreactive (NONREACTIVE) 02/08/18 07:30 lab noted - Treatment Hospital Course: Detox Protocol Followed, Detoxed Safely, Responded well, Discharged Condition Good, Rehab Referral Accepted Patient has Accepted a Rehab Referral to: [facility] - Medication Discharge Medications: Ambulatory Orders Methadone HCl 60 mg PO DAILY 11/14/17 Abacavir/Dolutegravir/Lamivudi [Triumeq Tablet] 1 each PO HS #30 tablet Citalopram Hydrobromide [Celexa -] 40 mg PO DAILY #30 tablet 02/08/18 Gabapentin [Neurontin -] 600 mg PO TID #90 capsule 02/10/18 Estrogens,Conjugated [Premarin -] 1.25 mg PO BID #60 tablet 02/11/18 - Diagnosis (1) Alcohol dependence with withdrawal, uncomplicated Current Visit: Yes Status: Acute (2) Bipolar II disorder Current Visit: Yes Status: Suspected (3) HIV (human immunodeficiency virus infection) Current Visit: Yes Status: Chronic (4) Hepatitis C carrier Current Visit: Yes Status: Chronic (5) Methadone maintenance therapy patient Current Visit: Yes Status: Chronic (6) Nicotine dependence Current Visit: Yes Status: Acute Qualifiers: Nicotine product type: cigarettes Substance use status: in withdrawal Qualified Code(s): F17.213 - Nicotine dependence, cigarettes, with withdrawal (7) Transgendered Current Visit: No Status: Resolved - AMA Did Patient Leave Against Medical Advice: No
[2018-02-11] MEDS ORDERED: diazePAM 5 MG TABLET PO SCH (10:00)
[2018-02-11 10:42] VITALS: BP 137/86; PULSE 83; TEMP 98
[2018-02-11] MEDS: FLUCONAZOLE 100 MG TABLET (UD) PO SCH (11:03)
[2018-02-11] MEDS: ESTROGENS,CONJUGATED 1.25 MG TABLET PO SCH (11:03)
[2018-02-11] MEDS: CITALOPRAM HYDROBROMIDE 20 MG TABLET (FP) PO SCH (11:03)
[2018-02-11] MEDS: PRENATAL VITAMINS W/ FOLIC ACID TABLET (FP) PO SCH (11:04)
[2018-02-11] MEDS: SULFAMETHOXAZOLE/TRIMETHOPRIM 800MG/160MG D.S. TABLET PO SCH (11:04)
[2018-02-11] MEDS: NICOTINE 21 MG/24 HOURS TOPICAL PATCH TD SCH (11:04)
== END 2018-02-11 11:39 | disposition other institution (70) | DRG 773 ==
LOC: YASAS 13:12 → Y6N 18:14
PROVIDERS: ADMIT Internal Medicine; ATTEND Internal Medicine
PROC: HZ2ZZZZ Detoxification Services for Substance Abuse Treatment (ICD-10-PCS; principal; 2018-02-07)
DX: F11.23 Opioid dependence with withdrawal (principal); F10.230 Alcohol dependence with withdrawal, uncomplicated; F14.20 Cocaine dependence, uncomplicated; F17.210 Nicotine dependence, cigarettes, uncomplicated; F19.282 Other psychoactive substance dependence with psychoactive substance-induced sleep disorder; F64.1 Dual role transvestism; G62.9 Polyneuropathy, unspecified; R73.9 Hyperglycemia, unspecified; Z21 Asymptomatic human immunodeficiency virus [HIV] infection status; B18.2 Chronic viral hepatitis C
CPT/HCPCS: 36415; 80053; 81003; 85027; 86593; 93005; 93010; J1410

== ENCOUNTER 2018-02-11 10:27 | Inpatient (IN) | payer OTHER ==
[2018-02-11] MEDS ORDERED: LOPERAMIDE HCL 2 MG CAPSULE PO PRN (12:27)
[2018-02-11] MEDS ORDERED: MENTHOL/PHENOL 1 EACH UD MM PRN (12:27)
[2018-02-11] MEDS ORDERED: MAGNESIUM CITRATE 300 ML BOTTLE PO PRN (12:27)
[2018-02-11] MEDS ORDERED: hydrOXYzine PAMOATE 50 MG CAPSULE (FP) PO PRN (12:27)
[2018-02-11] MEDS ORDERED: guaiFENesin/D-METHORPHAN HB 10 ML UNIT-DOSE CUPS PO PRN (12:27)
[2018-02-11] MEDS ORDERED: MAGNESIUM HYDROX 2400MG/30ML ORAL SUSPENSION 30 ML CUP PO PRN (12:27)
[2018-02-11] MEDS ORDERED: IBUPROFEN 400 MG TABLET (FP) PO PRN (12:27)
[2018-02-11] MEDS ORDERED: P-EPHED 60MG/TRIPROLIDI 2.5MG TABLET PO PRN (12:27)
[2018-02-11] MEDS ORDERED: ACETAMINOPHEN 325 MG TABLET (FP) PO PRN (12:27)
--- NOTE | 2018-02-11 12:32 | HP ---
[facility]IT[facility]ALLE[facility] Rehab Assess/Revision - Admission History Admitted to Rehab from: [facility] Date of Admission to Rehab: 02/11/18 - Findings Detox History & Physical reviewed: Yes Concur with findings: Yes Inpatient Rehab Admission - Initial Determination Are CD services needed?: Yes Free of communicable disease: Yes Not in need of hospitalization: Yes - Rehab Admission Criteria Previous failed treatment: Yes Poor recovery environment: Yes Comorbidities: Yes Lacks judgement: Yes Patient is meeting Inpatient Rehab admission criteria:: Yes
--- NOTE | 2018-02-11 12:38 | PN ---
Luis Enrique Progress Note Note: Patient currently on MMTP at [facility], methadone taper dose. Dose varify by Yolanda FLORES with SANDRA Duran and with Cole Bosch at [facility]. Dose schedule as follow: 02/11/18 -55mg 02/12/18 - 55 mg 02/13/18 - 50 mg - 50 mg 02/15/18 - 50 mg 02/16/18 - 50 mg 02/17/18 - 50 mg 02/18/18 - 45 mg 02/19/18 - 45 mg 02/20/18 - 45 mg 02/21/18 - 45 mg 02/22/18 - 45 mg
[2018-02-11 12:56] VITALS: BMI 33.7
[2018-02-11] MEDS: GABAPENTIN 300 MG CAPSULE (FP) PO SCH ×2 (13:27→21:28)
[2018-02-11] MEDS ORDERED: PT OWN MED DRAWER 7, Y5N ONE ×3 (15:28→21:33)
[2018-02-11] MEDS: THIAMINE HCL 100 MG TABLET (FP) PO SCH (21:28)
[2018-02-11] MEDS: MELATONIN 5 MG TABLETS PO SCH (21:29)
[2018-02-11] MEDS: ESTROGENS,CONJUGATED 1.25 MG TABLET PO SCH (21:32)
[2018-02-11] MEDS: HYDROCORTISONE 2.5% TOPICAL CREAM 30 GM TUBE PR SCH (21:34)
[2018-02-11] MEDS: ABACAVIR/DOLUTEGRAVIR/LAMIVUDI (TRIUMEQ) TABLET -NF PO SCH (21:34)
[2018-02-12] MEDS ORDERED: PT OWN MED DRAWER 7, Y5N ONE ×4 (00:35→21:29)
[2018-02-12] MEDS ORDERED: METHADONE HCL 5 MG TABLET ONE (05:54)
[2018-02-12] MEDS ORDERED: METHADONE HCL 40 MG DISPERSABLE TABLET ONE (05:55)
[2018-02-12] MEDS ORDERED: METHADONE HCL 10 MG TABLET ONE (05:55)
[2018-02-12] MEDS ORDERED: METHADONE HCL 10 MG TABLET PO ONE (06:00)
[2018-02-12] MEDS ORDERED: METHADONE 40 MG, METHADONE 10 MG, METHADONE 5 MG PO ONE (06:00)
[2018-02-12] MEDS: GABAPENTIN 300 MG CAPSULE (FP) PO SCH ×3 (06:24→21:26)
--- NOTE | 2018-02-12 09:29 | HP ---
Psychiatrist Admission - Data Date of interview: 02/12/18 Admission source: [address] [place] [address] Identifying data: This is the first admission to [address] [place] [address] for this 42 years old transgenda(postop female),mother of 24 yo daughter,resides in [facility],supported by [facility]. Medical History: HIV+,Hep C,Obesity,Orchictomy,Breast augmention,GRS,H/O Seizures most recent in April 2017. Psychiatric History: Patient reports long and extensive psychiatric history started back at 15 yo when she was dx with Bipolar disorde,Bordeline personality Disorder(mood instability,periods of depression,anger,multiple arrests,misdemeanor).Patient report at least 7 psychiatric hospitalizations, most recent admission was in 2013 to [facility] in the [place] due to depression,mood swings,drinking,use drugs,noncompliance with treatment.Patient sees at [facility].Current meds:Celexa 40 mg po daily,Neurontin 300 mg po tid. Physical/Sexual Abuse/Trauma History: denies Vital Signs: Vital Signs - 24 hr 02/11/18 02/11/18 02/12/18 12:38 12:53 00:30 Temperature 98.0 F 98.0 F Pulse Rate 81 81 Respiratory 18 18 20 Rate Blood Pressure 118/74 118/74 02/12/18 02/12/18 03:30 07:16 Temperature 97.6 F Pulse Rate 73 Respiratory 18 18 Rate Blood Pressure 106/68 Allergies/Adverse Reactions: Allergies Allergy/AdvReac Type Severity Reaction Status Date / Time chlordiazepoxide AdvReac Rash Verified 02/07/18 18:25 [From Librium] Date of last physical exam: 02/02/18 Concur with the findings of this exam: Yes - Substance Abuse/Tx History Hx Alcohol Use: Yes (drinking since 15 yo,4 pints of vodka) Hx Substance Use: Yes (cocaine/crack since 14 yo,$20 a few times a week) Substance Use Type: Alcohol, Cocaine, Heroin Hx Substance Use Treatment: Yes (completed assisted 7 months in 2012 ( [facility]),,4 years of abstine) Mental Status Exam - Mental Status Exam Alert and Oriented to: Time, Place, Person Cognitive Function: Grossly Intact Patient Appearance: Unkempt Mood: Anxious Affect: Mood Congruent, Labile Patient Behavior: Cooperative Speech Pattern: Clear Voice Loudness: Normal Thought Process: Goal Oriented Thought Disorder: Not Present Hallucinations: Denies Suicidal Ideation: Denies Homicidal Ideation: Denies Insight/Judgement: Fair Sleep: Fair Appetite: Good Muscle strength/Tone: Normal Gait/Station: Normal Psychiatric Findings - Problem List ([place] 1, 2,3) (1) Alcohol dependence Current Visit: Yes Status: Chronic (2) Cocaine dependence Current Visit: Yes Status: Chronic (3) Nicotine dependence Current Visit: Yes Status: Chronic Qualifiers: (4) Peripheral neuropathy Current Visit: Yes Status: Chronic (5) Substance-induced sleep disorder Current Visit: Yes Status: Chronic (6) Cocaine dependence Current Visit: Yes Status: Chronic (7) HIV (human immunodeficiency virus infection) Current Visit: Yes Status: Chronic (8) Neuropathy Current Visit: Yes Status: Chronic (9) Opioid dependence on agonist therapy Current Visit: Yes Status: Chronic (10) Bipolar II disorder Current Visit: Yes Status: Suspected - Initial Treatment Plan Initial Treatment Plan: Will monitor progress.
[2018-02-12] MEDS: PRENATAL VITAMINS W/ FOLIC ACID TABLET (FP) PO SCH (10:20)
[2018-02-12] MEDS: SULFAMETHOXAZOLE/TRIMETHOPRIM 800MG/160MG D.S. TABLET PO SCH (10:20)
[2018-02-12] MEDS: ESTROGENS,CONJUGATED 1.25 MG TABLET PO SCH ×2 (10:20→21:35)
[2018-02-12] MEDS: FLUCONAZOLE 100 MG TABLET (UD) PO SCH (10:21)
[2018-02-12] MEDS: CITALOPRAM HYDROBROMIDE 20 MG TABLET (FP) PO SCH (10:22)
[2018-02-12] MEDS: MELATONIN 5 MG TABLETS PO SCH (21:26)
[2018-02-12] MEDS: THIAMINE HCL 100 MG TABLET (FP) PO SCH (21:26)
[2018-02-12] MEDS: HYDROCORTISONE 2.5% TOPICAL CREAM 30 GM TUBE PR SCH (21:27)
[2018-02-12] MEDS: ABACAVIR/DOLUTEGRAVIR/LAMIVUDI (TRIUMEQ) TABLET -NF PO SCH (21:30)
[2018-02-13] MEDS: MAG HYDROX/AL HYDROX/SIMETH 30 ML UNIT-DOSE CUP PO PRN (02:02)
[2018-02-13] MEDS ORDERED: METHADONE HCL 10 MG TABLET PO SCH (06:00)
[2018-02-13] MEDS ORDERED: METHADONE HCL 40 MG DISPERSABLE TABLET ONE (06:12)
[2018-02-13] MEDS ORDERED: METHADONE HCL 10 MG TABLET ONE (06:12)
[2018-02-13] MEDS: METHADONE 40 MG, METHADONE 10 MG PO SCH (06:35)
[2018-02-13] MEDS: GABAPENTIN 300 MG CAPSULE (FP) PO SCH ×3 (06:36→21:20)
[2018-02-13] MEDS: SULFAMETHOXAZOLE/TRIMETHOPRIM 800MG/160MG D.S. TABLET PO SCH (10:01)
[2018-02-13] MEDS: FLUCONAZOLE 100 MG TABLET (UD) PO SCH (10:02)
[2018-02-13] MEDS: PRENATAL VITAMINS W/ FOLIC ACID TABLET (FP) PO SCH (10:02)
[2018-02-13] MEDS: ESTROGENS,CONJUGATED 1.25 MG TABLET PO SCH ×2 (10:02→21:21)
[2018-02-13] MEDS: CITALOPRAM HYDROBROMIDE 20 MG TABLET (FP) PO SCH (10:02)
[2018-02-13] MEDS ORDERED: PT OWN MED DRAWER 7, Y5N ONE ×2 (20:25→20:27)
[2018-02-13] MEDS: HYDROCORTISONE 2.5% TOPICAL CREAM 30 GM TUBE PR SCH (21:19)
[2018-02-13] MEDS: MELATONIN 5 MG TABLETS PO SCH (21:20)
[2018-02-13] MEDS: THIAMINE HCL 100 MG TABLET (FP) PO SCH (21:20)
[2018-02-13] MEDS: ABACAVIR/DOLUTEGRAVIR/LAMIVUDI (TRIUMEQ) TABLET -NF PO SCH (21:21)
[2018-02-14] MEDS ORDERED: METHADONE HCL 40 MG DISPERSABLE TABLET ONE (02:51)
[2018-02-14] MEDS ORDERED: METHADONE HCL 10 MG TABLET ONE (02:51)
[2018-02-14] MEDS: METHADONE 40 MG, METHADONE 10 MG PO SCH (06:32)
[2018-02-14] MEDS: GABAPENTIN 300 MG CAPSULE (FP) PO SCH ×3 (06:33→21:12)
[2018-02-14] MEDS ORDERED: PT OWN MED DRAWER 7, Y5N ONE ×2 (07:47→19:30)
[2018-02-14] MEDS: SULFAMETHOXAZOLE/TRIMETHOPRIM 800MG/160MG D.S. TABLET PO SCH (09:57)
[2018-02-14] MEDS: PRENATAL VITAMINS W/ FOLIC ACID TABLET (FP) PO SCH (09:58)
[2018-02-14] MEDS: CITALOPRAM HYDROBROMIDE 20 MG TABLET (FP) PO SCH (09:58)
[2018-02-14] MEDS: FLUCONAZOLE 100 MG TABLET (UD) PO SCH (09:58)
[2018-02-14] MEDS: ESTROGENS,CONJUGATED 1.25 MG TABLET PO SCH ×2 (09:59→21:12)
[2018-02-14] MEDS: MELATONIN 5 MG TABLETS PO SCH (21:12)
[2018-02-14] MEDS: THIAMINE HCL 100 MG TABLET (FP) PO SCH (21:12)
[2018-02-14] MEDS: HYDROCORTISONE 2.5% TOPICAL CREAM 30 GM TUBE PR SCH (21:13)
[2018-02-14] MEDS: ABACAVIR/DOLUTEGRAVIR/LAMIVUDI (TRIUMEQ) TABLET -NF PO SCH (21:13)
[2018-02-15] MEDS ORDERED: METHADONE HCL 40 MG DISPERSABLE TABLET ONE (02:54)
[2018-02-15] MEDS ORDERED: METHADONE HCL 10 MG TABLET ONE (02:54)
[2018-02-15] MEDS: GABAPENTIN 300 MG CAPSULE (FP) PO SCH (06:39)
[2018-02-15] MEDS: METHADONE 40 MG, METHADONE 10 MG PO SCH (06:39)
[2018-02-15] MEDS ORDERED: PT OWN MED DRAWER 7, Y5N ONE ×2 (08:31→21:28)
[2018-02-15] MEDS: ESTROGENS,CONJUGATED 1.25 MG TABLET PO SCH ×2 (10:05→21:29)
[2018-02-15] MEDS: CITALOPRAM HYDROBROMIDE 20 MG TABLET (FP) PO SCH (10:06)
[2018-02-15] MEDS: PRENATAL VITAMINS W/ FOLIC ACID TABLET (FP) PO SCH (10:06)
[2018-02-15] MEDS: FLUCONAZOLE 100 MG TABLET (UD) PO SCH (10:06)
[2018-02-15] MEDS: SULFAMETHOXAZOLE/TRIMETHOPRIM 800MG/160MG D.S. TABLET PO SCH (10:06)
--- NOTE | 2018-02-15 13:40 | PN ---
Psychiatric Progress Note Vital Signs: Vital Signs Period Temp Pulse Resp BP Sys/Padilla Pulse Ox Last 24 Hr 97.4 F 67 18-18 107/70 Date of Session: 02/15/18 Chief Complaint:: Juan still nervious,anxious for no reason sometime." HPI: Alcohol,Cocaine and Opioid dependence comorbid with Bipolar disorder,PTSD. ROS: HIV+,Neuropathy. Current Medications: Active Medications Generic Name Dose Route Start Last Admin Trade Name Freq PRN Reason Stop Dose Admin Abacavir/Dolutegravir/Lamivudine 1 each 02/11/18 22:00 02/14/18 21:13 Triumeq (Non-Formulary) PO Not Given HS JOHN Acetaminophen 650 mg 02/11/18 12:27 Tylenol - PO Q4H PRN FEVER Al Hydroxide/Mg Hydroxide 30 ml 02/11/18 12:27 02/13/18 02:02 Mylanta Oral Suspension - PO 30 ml Q6H PRN Administration DYSPEPSIA Citalopram Hydrobromide 40 mg 02/12/18 10:00 02/15/18 10:06 Celexa - PO 40 mg DAILY JOHN Administration Estrogens Conjugated 1.25 mg 02/11/18 22:00 02/15/18 10:05 Premarin - PO 1.25 mg BID JOHN Administration Eucalyptus/Menthol/Phenol/Sorbitol 1 each 02/11/18 12:27 Cepastat Lozenge - MM Q4H PRN SORE THROAT Fluconazole 100 mg 02/12/18 10:00 02/15/18 10:06 Diflucan - PO 100 mg DAILY JOHN Administration Gabapentin 800 mg 02/15/18 14:00 Neurontin - PO TID JOHN Guaifenesin 10 ml 02/11/18 12:27 Robitussin Dm - PO Q6H PRN COUGH Hydrocortisone 1 applic 02/11/18 22:00 02/14/18 21:13 Anusol 2.5% Hc Cream - [place] Not Given HS JOHN Hydroxyzine Pamoate 50 mg 02/11/18 12:27 02/14/18 08:21 Vistaril - PO 50 mg Q4H PRN Administration AGITATION Ibuprofen 400 mg 02/11/18 12:27 Motrin - PO Q6H PRN Pain Level 4-6 Loperamide HCl 4 mg 02/11/18 12:27 Imodium - PO Q6H PRN DIARRHEA Magnesium Citrate 300 ml 02/11/18 12:27 Citroma - PO Q48H PRN CONSTIPATION Magnesium Hydroxide 30 ml 02/11/18 12:27 Milk Of Magnesia - PO DAILY PRN CONSTIPATION Melatonin 5 mg 02/11/18 22:00 02/14/18 21:12 Melatonin PO 5 mg HS JOHN Administration Methadone HCl 40 mg/ Methadone 50 mg 02/13/18 06:00 02/15/18 06:39 HCl 10 mg PO 02/18/18 05:59 50 mg DAILY@0600 JOHN Administration Multivit/Folic Acid/Iron 1 tab 02/12/18 10:00 02/15/18 10:06 Vitamins (Sjr) - PO 1 tab DAILY JOHN Administration Pseudoephedrine/Triprolidine 1 combo 02/11/18 12:27 Actifed - PO TID PRN NASAL CONGESTION Thiamine HCl 100 mg 02/11/18 22:00 02/14/18 21:12 Vitamin B1 - PO 100 mg HS JOHN Administration Trimethoprim/Sulfamethoxazole 1 each 02/12/18 10:00 02/15/18 10:06 Bactrim Ds - PO 1 each DAILY JOHN Administration Current Side Effect: No Lab tests ordered: No Lab tests reviewed: Yes Provider note:: Chart was revuewed ,patient was seen ,medication management has been discussed with the patient .properties of Neurontin has been discussed with the patient including benefits,side effects and dose adjustment.Continue Celexa 40 mg po daily ,Neurontin 600 mg po tid will be adjusted to 800 mg po tid. supportive therapy provided. Total face to face time:: 30 Mental Status Exam - Mental Status Exam Alert and Oriented to: Time, Place, Person Cognitive Function: Grossly Intact Patient Appearance: Unkempt Mood: Anxious, Apprehensive, Expansive Affect: Labile Patient Behavior: Cooperative Speech Pattern: Clear Voice Loudness: Normal Thought Process: Goal Oriented Thought Disorder: Not Present Hallucinations: Denies Suicidal Ideation: Denies Homicidal Ideation: Denies Insight/Judgement: Fair Sleep: Difficulty falling asleep Appetite: Good Muscle strength/Tone: Normal Gait/Station: Normal Psychiatric Treatment Plan - Problem List (1) Alcohol dependence Current Visit: Yes Qualifiers: Substance use status: uncomplicated Qualified Code(s): F10.20 - Alcohol dependence, uncomplicated (2) Cocaine dependence Current Visit: Yes (3) Nicotine dependence Current Visit: Yes Qualifiers: (4) Peripheral neuropathy Current Visit: Yes (5) Substance-induced sleep disorder Current Visit: Yes (6) Cocaine dependence Current Visit: Yes (7) HIV (human immunodeficiency virus infection) Current Visit: Yes (8) Neuropathy Current Visit: Yes (9) Opioid dependence on agonist therapy Current Visit: Yes (10) Bipolar II disorder Current Visit: Yes
[2018-02-15] MEDS: GABAPENTIN 400 MG CAPSULE (FP) PO SCH ×2 (13:56→21:28)
[2018-02-15 14:29] LABS: URINE APPEARANCE CLEAR; URINE BILIRUBIN NEGATIVE (<2.0 mg/dL); URINE BLOOD NEGATIVE (NEGATIVE); URINE COLOR STRAW; URINE GLUCOSE (UA) NEGATIVE (NEGATIVE); URINE KETONE NEGATIVE (NEGATIVE); URINE LEUK ESTERASE NEGATIVE (NEGATIVE); URINE NITRITE NEGATIVE (NEGATIVE); URINE PROTEIN NEGATIVE (NEGATIVE); URINE UROBILINOGEN NEGATIVE mg/dL (0.2-1.0)
[2018-02-15] MEDS ORDERED: DOCUSATE SODIUM 100 MG CAPSULE (FP) PO PRN (16:00)
--- NOTE | 2018-02-15 16:06 | PN ---
S Progress Note Note: Patient complains of constipation. Denies n/v/d. Vital Signs Temperature 97.4 F L 02/15/18 07:17 Pulse Rate 67 02/15/18 07:17 Respiratory Rate 18 02/15/18 07:17 Blood Pressure 107/70 02/15/18 07:17 O2 Sat by Pulse Oximetry (%) Subj: +constipation, no N/V/D. Obj: In NAD. Alert and oriented x 3. Well nourished. A/P: Constipation: increase oral fluids, colace 100mg bid ordered. Monitor clinically.
[2018-02-15] MEDS: MELATONIN 5 MG TABLETS PO SCH (21:28)
[2018-02-15] MEDS: THIAMINE HCL 100 MG TABLET (FP) PO SCH (21:28)
[2018-02-15] MEDS: ABACAVIR/DOLUTEGRAVIR/LAMIVUDI (TRIUMEQ) TABLET -NF PO SCH (21:29)
[2018-02-15] MEDS: HYDROCORTISONE 2.5% TOPICAL CREAM 30 GM TUBE PR SCH (21:29)
[2018-02-16] MEDS ORDERED: METHADONE HCL 10 MG TABLET ONE (05:59)
[2018-02-16] MEDS ORDERED: METHADONE HCL 40 MG DISPERSABLE TABLET ONE (06:00)
[2018-02-16] MEDS: GABAPENTIN 400 MG CAPSULE (FP) PO SCH ×3 (06:41→21:28)
[2018-02-16] MEDS: METHADONE 40 MG, METHADONE 10 MG PO SCH (06:41)
[2018-02-16] MEDS ORDERED: PT OWN MED DRAWER 7, Y5N ONE ×3 (09:24→13:38)
[2018-02-16] MEDS: ESTROGENS,CONJUGATED 1.25 MG TABLET PO SCH ×2 (10:17→21:27)
[2018-02-16] MEDS: SULFAMETHOXAZOLE/TRIMETHOPRIM 800MG/160MG D.S. TABLET PO SCH (10:18)
[2018-02-16] MEDS: CITALOPRAM HYDROBROMIDE 20 MG TABLET (FP) PO SCH (10:18)
[2018-02-16] MEDS: PRENATAL VITAMINS W/ FOLIC ACID TABLET (FP) PO SCH (10:18)
[2018-02-16] MEDS: FLUCONAZOLE 100 MG TABLET (UD) PO SCH (10:18)
--- NOTE | 2018-02-16 17:14 | PN ---
[facility] Progress Note Note: patient complains of urinary frequency, vaginal itch, and itchy skin. Patient reports shes currently getting up about 5-6 x at night to use the bathroom, denies any blood in the urine. Reports was using estrogen cream TID to prevent irritation, currently receiving BID. As per patient she been using soap at the facility and makes her skin red and itchy. Vital Signs Temperature 98.0 F 02/16/18 07:08 Pulse Rate 66 02/16/18 07:08 Respiratory Rate 18 02/16/18 07:08 Blood Pressure 121/73 02/16/18 07:08 O2 Sat by Pulse Oximetry (%) Laboratory Last Values POC Glucometer 122 UNITS (80-120) 02/16/18 06:36 Urine Color Straw 02/15/18 10:10 Urine Appearance Clear 02/15/18 10:10 Urine pH 5.0 (5.0-8.0) 02/15/18 10:10 Ur Specific [place] 1.004 (1.001-1.035) 02/15/18 10:10 Urine Protein Negative (NEGATIVE) 02/15/18 10:10 Urine Glucose (UA) Negative (NEGATIVE) 02/15/18 10:10 Urine Ketones Negative (NEGATIVE) 02/15/18 10:10 Urine Blood Negative (NEGATIVE) 02/15/18 10:10 Urine Nitrite Negative (NEGATIVE) 02/15/18 10:10 Urine Bilirubin Negative (<2.0 mg/dL) 02/15/18 10:10 Urine Urobilinogen Negative mg/dL (0.2-1.0) 02/15/18 10:10 Ur Leukocyte Esterase Negative (NEGATIVE) 02/15/18 10:10 + skin redness without lumps + bladder no distention or pain Normal heart rate and rythm NO SOB NO distress Plan: U/A [place] soap increase fluids Premerin increase to TID Continue to monitor
[2018-02-16] MEDS: HYDROCORTISONE 2.5% TOPICAL CREAM 30 GM TUBE PR SCH (21:27)
[2018-02-16] MEDS: MELATONIN 5 MG TABLETS PO SCH (21:28)
[2018-02-16] MEDS: ABACAVIR/DOLUTEGRAVIR/LAMIVUDI (TRIUMEQ) TABLET -NF PO SCH (21:30)
[2018-02-16] MEDS: ESTROGENS,CONJUGATE VAGINAL CR 30 GM TUBE VG SCH (21:30)
[2018-02-16] MEDS: THIAMINE HCL 100 MG TABLET (FP) PO SCH (21:51)
[2018-02-16] MEDS ORDERED: ESTROGENS,CONJUGATED 1.25 MG TABLET PO SCH (22:00)
[2018-02-17] MEDS ORDERED: METHADONE HCL 10 MG TABLET ONE (03:28)
[2018-02-17] MEDS ORDERED: METHADONE HCL 40 MG DISPERSABLE TABLET ONE (03:29)
[2018-02-17] MEDS: METHADONE 40 MG, METHADONE 10 MG PO SCH (06:36)
[2018-02-17] MEDS: GABAPENTIN 400 MG CAPSULE (FP) PO SCH ×3 (06:36→21:20)
[2018-02-17] MEDS: COLLOIDAL OATMEAL 1 BAR EACH TP PRN (07:36)
[2018-02-17] MEDS: SULFAMETHOXAZOLE/TRIMETHOPRIM 800MG/160MG D.S. TABLET PO SCH (10:13)
[2018-02-17] MEDS: PRENATAL VITAMINS W/ FOLIC ACID TABLET (FP) PO SCH (10:14)
[2018-02-17] MEDS: ESTROGENS,CONJUGATED 1.25 MG TABLET PO SCH ×2 (10:14→21:22)
[2018-02-17] MEDS: CITALOPRAM HYDROBROMIDE 20 MG TABLET (FP) PO SCH (10:14)
[2018-02-17] MEDS: FLUCONAZOLE 100 MG TABLET (UD) PO SCH (10:14)
[2018-02-17 15:07] LABS: URINE APPEARANCE CLEAR; URINE BILIRUBIN NEGATIVE (<2.0 mg/dL); URINE BLOOD NEGATIVE (NEGATIVE); URINE COLOR LTYELLOW; URINE GLUCOSE (UA) NEGATIVE (NEGATIVE); URINE KETONE NEGATIVE (NEGATIVE); URINE LEUK ESTERASE NEGATIVE (NEGATIVE); URINE NITRITE NEGATIVE (NEGATIVE); URINE PROTEIN NEGATIVE (NEGATIVE); URINE UROBILINOGEN NEGATIVE mg/dL (0.2-1.0)
--- NOTE | 2018-02-17 15:23 | PN ---
[facility] Progress Note Note: Patient presents with urinary frequency and nocturia. Laboratory Tests 02/13/18 02/13/18 02/14/18 03:35 06:34 06:31 POC Glucometer 117 107 117 Urine Color Urine Appearance Urine pH Ur Specific [place] Urine Protein Urine Glucose (UA) Urine Ketones Urine Blood Urine Nitrite Urine Bilirubin Urine Urobilinogen Ur Leukocyte Esterase 02/15/18 02/15/18 02/16/18 06:38 10:10 02:10 POC Glucometer 128 130 Urine Color Straw Urine Appearance Clear Urine pH 5.0 Ur Specific [place] 1.004 Urine Protein Negative Urine Glucose (UA) Negative Urine Ketones Negative Urine Blood Negative Urine Nitrite Negative Urine Bilirubin Negative Urine Urobilinogen Negative Ur Leukocyte Esterase Negative 02/16/18 02/17/18 02/17/18 06:36 06:35 09:40 POC Glucometer 122 117 Urine Color Ltyellow Urine Appearance Clear Urine pH 5.0 Ur Specific [place] 1.013 Urine Protein Negative Urine Glucose (UA) Negative Urine Ketones Negative Urine Blood Negative Urine Nitrite Negative Urine Bilirubin Negative Urine Urobilinogen Negative Ur Leukocyte Esterase Negative Vital Signs Temperature 97.4 F L 02/17/18 07:21 Pulse Rate 71 02/17/18 07:21 Respiratory Rate 18 02/17/18 07:21 Blood Pressure 122/72 02/17/18 07:21 O2 Sat by Pulse Oximetry (%) Subj: Denies burning upon urination. +frequency and nocturia more than 3x per night. Obj: Skin: warm and dry GI: soft, BS+, NT : nontender, no CVAT A/P: Urinary frequency Will start flomax 0.4mg hs UA negative will continue to monitor
[2018-02-17] MEDS ORDERED: PT OWN MED DRAWER 7, Y5N ONE ×2 (19:55→21:21)
[2018-02-17] MEDS: THIAMINE HCL 100 MG TABLET (FP) PO SCH (21:20)
[2018-02-17] MEDS: ABACAVIR/DOLUTEGRAVIR/LAMIVUDI (TRIUMEQ) TABLET -NF PO SCH (21:21)
[2018-02-17] MEDS: ESTROGENS,CONJUGATE VAGINAL CR 30 GM TUBE VG SCH (21:21)
[2018-02-17] MEDS: MELATONIN 5 MG TABLETS PO SCH (21:22)
[2018-02-17] MEDS: HYDROCORTISONE 2.5% TOPICAL CREAM 30 GM TUBE PR SCH (21:23)
[2018-02-18] MEDS ORDERED: METHADONE HCL 10 MG TABLET ONE (03:13)
[2018-02-18] MEDS ORDERED: METHADONE HCL 40 MG DISPERSABLE TABLET ONE (03:14)
[2018-02-18] MEDS: METHADONE 40 MG, METHADONE 10 MG PO SCH (06:24)
[2018-02-18] MEDS: GABAPENTIN 400 MG CAPSULE (FP) PO SCH ×3 (06:25→21:28)
[2018-02-18] MEDS ORDERED: PT OWN MED DRAWER 7, Y5N ONE ×2 (06:27→19:46)
[2018-02-18] MEDS: TAMSULOSIN HCL 0.4 MG CAP.ER.24H (FP) PO SCH (08:47)
[2018-02-18] MEDS: CITALOPRAM HYDROBROMIDE 20 MG TABLET (FP) PO SCH (09:43)
[2018-02-18] MEDS: ESTROGENS,CONJUGATED 1.25 MG TABLET PO SCH ×2 (09:44→21:30)
[2018-02-18] MEDS: PRENATAL VITAMINS W/ FOLIC ACID TABLET (FP) PO SCH (09:44)
[2018-02-18] MEDS: FLUCONAZOLE 100 MG TABLET (UD) PO SCH (09:44)
[2018-02-18] MEDS: SULFAMETHOXAZOLE/TRIMETHOPRIM 800MG/160MG D.S. TABLET PO SCH (09:44)
[2018-02-18] MEDS: MELATONIN 5 MG TABLETS PO SCH (21:28)
[2018-02-18] MEDS: THIAMINE HCL 100 MG TABLET (FP) PO SCH (21:28)
[2018-02-18] MEDS: ABACAVIR/DOLUTEGRAVIR/LAMIVUDI (TRIUMEQ) TABLET -NF PO SCH (21:29)
[2018-02-18] MEDS: HYDROCORTISONE 2.5% TOPICAL CREAM 30 GM TUBE PR SCH (21:29)
[2018-02-18] MEDS: ESTROGENS,CONJUGATE VAGINAL CR 30 GM TUBE VG SCH (21:30)
[2018-02-19] MEDS ORDERED: METHADONE HCL 10 MG TABLET ONE (03:14)
[2018-02-19] MEDS ORDERED: METHADONE HCL 40 MG DISPERSABLE TABLET ONE (03:15)
[2018-02-19] MEDS: METHADONE 40 MG, METHADONE 10 MG PO SCH (06:27)
[2018-02-19] MEDS: GABAPENTIN 400 MG CAPSULE (FP) PO SCH ×3 (06:28→21:44)
[2018-02-19] MEDS ORDERED: PT OWN MED DRAWER 7, Y5N ONE ×3 (07:26→21:45)
[2018-02-19] MEDS: TAMSULOSIN HCL 0.4 MG CAP.ER.24H (FP) PO SCH (07:36)
[2018-02-19] MEDS: FLUCONAZOLE 100 MG TABLET (UD) PO SCH (10:29)
[2018-02-19] MEDS: PRENATAL VITAMINS W/ FOLIC ACID TABLET (FP) PO SCH (10:30)
[2018-02-19] MEDS: CITALOPRAM HYDROBROMIDE 20 MG TABLET (FP) PO SCH (10:30)
[2018-02-19] MEDS: SULFAMETHOXAZOLE/TRIMETHOPRIM 800MG/160MG D.S. TABLET PO SCH (10:30)
[2018-02-19] MEDS: ESTROGENS,CONJUGATED 1.25 MG TABLET PO SCH ×2 (10:31→21:44)
--- NOTE | 2018-02-19 13:02 | PN ---
[facility] Progress Note Note: Patient reports improvement with urinary symptoms, reports getting up less to use the bathroom at night and improvement in vaginal discomfort. Vital Signs Temperature 97.2 F L 02/19/18 07:13 Pulse Rate 72 02/19/18 07:13 Respiratory Rate 18 02/19/18 07:13 Blood Pressure 110/65 02/19/18 07:13 O2 Sat by Pulse Oximetry (%) Laboratory Last Values POC Glucometer 105 UNITS (80-120) 02/19/18 06:26 Urine Color Ltyellow 02/17/18 09:40 Urine Appearance Clear 02/17/18 09:40 Urine pH 5.0 (5.0-8.0) 02/17/18 09:40 Ur Specific [place] 1.013 (1.001-1.035) 02/17/18 09:40 Urine Protein Negative (NEGATIVE) 02/17/18 09:40 Urine Glucose (UA) Negative (NEGATIVE) 02/17/18 09:40 Urine Ketones Negative (NEGATIVE) 02/17/18 09:40 Urine Blood Negative (NEGATIVE) 02/17/18 09:40 Urine Nitrite Negative (NEGATIVE) 02/17/18 09:40 Urine Bilirubin Negative (<2.0 mg/dL) 02/17/18 09:40 Urine Urobilinogen Negative mg/dL (0.2-1.0) 02/17/18 09:40 Ur Leukocyte Esterase Negative (NEGATIVE) 02/17/18 09:40 Labs reviewed with patient, verbalizes undemanding. Continue to monitor
[2018-02-19] MEDS: ABACAVIR/DOLUTEGRAVIR/LAMIVUDI (TRIUMEQ) TABLET -NF PO SCH (21:43)
[2018-02-19] MEDS: MELATONIN 5 MG TABLETS PO SCH (21:44)
[2018-02-19] MEDS: THIAMINE HCL 100 MG TABLET (FP) PO SCH (21:44)
[2018-02-19] MEDS: ESTROGENS,CONJUGATE VAGINAL CR 30 GM TUBE VG SCH (21:46)
[2018-02-19] MEDS: HYDROCORTISONE 2.5% TOPICAL CREAM 30 GM TUBE PR SCH (21:58)
[2018-02-20] MEDS ORDERED: METHADONE HCL 40 MG DISPERSABLE TABLET ONE (05:51)
[2018-02-20] MEDS ORDERED: METHADONE HCL 10 MG TABLET ONE (05:51)
[2018-02-20] MEDS: GABAPENTIN 400 MG CAPSULE (FP) PO SCH ×3 (06:37→21:43)
[2018-02-20] MEDS: METHADONE 40 MG, METHADONE 10 MG PO SCH (06:37)
[2018-02-20] MEDS: TAMSULOSIN HCL 0.4 MG CAP.ER.24H (FP) PO SCH (08:43)
[2018-02-20] MEDS ORDERED: PT OWN MED DRAWER 7, Y5N ONE (09:15)
[2018-02-20] MEDS: SULFAMETHOXAZOLE/TRIMETHOPRIM 800MG/160MG D.S. TABLET PO SCH (10:19)
[2018-02-20] MEDS: ESTROGENS,CONJUGATED 1.25 MG TABLET PO SCH ×2 (10:19→21:44)
[2018-02-20] MEDS: PRENATAL VITAMINS W/ FOLIC ACID TABLET (FP) PO SCH (10:19)
[2018-02-20] MEDS: FLUCONAZOLE 100 MG TABLET (UD) PO SCH (10:19)
[2018-02-20] MEDS: CITALOPRAM HYDROBROMIDE 20 MG TABLET (FP) PO SCH (10:20)
[2018-02-20] MEDS: THIAMINE HCL 100 MG TABLET (FP) PO SCH (21:43)
[2018-02-20] MEDS: HYDROCORTISONE 2.5% TOPICAL CREAM 30 GM TUBE PR SCH (21:44)
[2018-02-20] MEDS: MELATONIN 5 MG TABLETS PO SCH (21:44)
[2018-02-20] MEDS: ABACAVIR/DOLUTEGRAVIR/LAMIVUDI (TRIUMEQ) TABLET -NF PO SCH (21:45)
[2018-02-20] MEDS: ESTROGENS,CONJUGATE VAGINAL CR 30 GM TUBE VG SCH (21:45)
[2018-02-21] MEDS ORDERED: METHADONE HCL 10 MG TABLET ONE (05:59)
[2018-02-21] MEDS ORDERED: METHADONE HCL 40 MG DISPERSABLE TABLET ONE (05:59)
[2018-02-21] MEDS: GABAPENTIN 400 MG CAPSULE (FP) PO SCH ×3 (06:31→21:32)
[2018-02-21] MEDS: METHADONE 40 MG, METHADONE 10 MG PO SCH (06:32)
[2018-02-21] MEDS: TAMSULOSIN HCL 0.4 MG CAP.ER.24H (FP) PO SCH (07:47)
[2018-02-21] MEDS: PRENATAL VITAMINS W/ FOLIC ACID TABLET (FP) PO SCH (10:08)
[2018-02-21] MEDS: CITALOPRAM HYDROBROMIDE 20 MG TABLET (FP) PO SCH (10:08)
[2018-02-21] MEDS: ESTROGENS,CONJUGATED 1.25 MG TABLET PO SCH ×2 (10:08→21:37)
[2018-02-21] MEDS: SULFAMETHOXAZOLE/TRIMETHOPRIM 800MG/160MG D.S. TABLET PO SCH (10:08)
[2018-02-21] MEDS: FLUCONAZOLE 100 MG TABLET (UD) PO SCH (10:08)
[2018-02-21] MEDS: DOCUSATE SODIUM 100 MG CAPSULE (FP) PO SCH ×2 (13:38→21:32)
[2018-02-21] MEDS: MAG HYDROX/AL HYDROX/SIMETH 30 ML UNIT-DOSE CUP PO PRN (19:22)
[2018-02-21] MEDS: THIAMINE HCL 100 MG TABLET (FP) PO SCH (21:32)
[2018-02-21] MEDS: ABACAVIR/DOLUTEGRAVIR/LAMIVUDI (TRIUMEQ) TABLET -NF PO SCH (21:33)
[2018-02-21] MEDS: HYDROCORTISONE 2.5% TOPICAL CREAM 30 GM TUBE PR SCH (21:33)
[2018-02-21] MEDS: MELATONIN 5 MG TABLETS PO SCH (21:33)
[2018-02-21] MEDS: ESTROGENS,CONJUGATE VAGINAL CR 30 GM TUBE VG SCH (21:36)
[2018-02-22] MEDS: COLLOIDAL OATMEAL 1 BAR EACH TP PRN (00:06)
[2018-02-22] MEDS ORDERED: METHADONE HCL 10 MG TABLET ONE (05:58)
[2018-02-22] MEDS ORDERED: METHADONE HCL 40 MG DISPERSABLE TABLET ONE (05:59)
[2018-02-22] MEDS: GABAPENTIN 400 MG CAPSULE (FP) PO SCH ×2 (06:25→13:34)
[2018-02-22] MEDS: METHADONE 40 MG, METHADONE 10 MG PO SCH (06:25)
[2018-02-22] MEDS: DOCUSATE SODIUM 100 MG CAPSULE (FP) PO SCH ×2 (06:26→13:34)
[2018-02-22 07:29] VITALS: BP 104/59; PULSE 66; TEMP 98
[2018-02-22] MEDS: TAMSULOSIN HCL 0.4 MG CAP.ER.24H (FP) PO SCH (07:38)
[2018-02-22] MEDS: ESTROGENS,CONJUGATED 1.25 MG TABLET PO SCH (10:18)
[2018-02-22] MEDS: FLUCONAZOLE 100 MG TABLET (UD) PO SCH (10:19)
[2018-02-22] MEDS: SULFAMETHOXAZOLE/TRIMETHOPRIM 800MG/160MG D.S. TABLET PO SCH (10:19)
[2018-02-22] MEDS: CITALOPRAM HYDROBROMIDE 20 MG TABLET (FP) PO SCH (10:19)
[2018-02-22] MEDS: PRENATAL VITAMINS W/ FOLIC ACID TABLET (FP) PO SCH (10:20)
[2018-02-22] MEDS ORDERED: PT OWN MED DRAWER 7, Y5N ONE ×2 (11:59→15:51)
--- NOTE | 2018-02-22 15:54 | PN ---
Psychiatric Progress Note Vital Signs: Vital Signs Period Temp Pulse Resp BP Sys/Padilla Pulse Ox Last 24 Hr 98.0 F 66 18-20 104/59 Date of Session: 02/22/18 Chief Complaint:: Discharge visit HPI: Opioid,Cocaine and Alcohol dependence comorbid with Bipolar II disorder. Current Medications: Active Medications Generic Name Dose Route Start Last Admin Trade Name Freq PRN Reason Stop Dose Admin Abacavir/Dolutegravir/Lamivudine 1 each 02/11/18 22:00 02/21/18 21:33 Triumeq (Non-Formulary) PO 1 each HS JOHN Administration Acetaminophen 650 mg 02/11/18 12:27 02/15/18 19:03 Tylenol - PO 650 mg Q4H PRN Administration FEVER Al Hydroxide/Mg Hydroxide 30 ml 02/11/18 12:27 02/21/18 19:22 Mylanta Oral Suspension - PO 30 ml Q6H PRN Administration DYSPEPSIA Citalopram Hydrobromide 40 mg 02/12/18 10:00 02/22/18 10:19 Celexa - PO 40 mg DAILY JOHN Administration Colloidal Oatmeal 1 applic 02/16/18 17:08 02/22/18 00:06 Aveeno Soap - TP 1 applic DAILY PRN Administration HYGEINE Docusate Sodium 100 mg 02/21/18 14:00 02/22/18 13:34 Colace - PO 100 mg TID JOHN Administration Estrogens Conjugated 1 applic 02/16/18 22:00 02/21/18 21:36 Premarin Vaginal Cream - VG 1 applic HS JOHN Administration Estrogens Conjugated 1.25 mg 02/16/18 22:00 02/22/18 10:18 Premarin - PO 1.25 mg BID JOHN Administration Eucalyptus/Menthol/Phenol/Sorbitol 1 each 02/11/18 12:27 Cepastat Lozenge - MM Q4H PRN SORE THROAT Fluconazole 100 mg 02/12/18 10:00 02/22/18 10:19 Diflucan - PO 100 mg DAILY JOHN Administration Gabapentin 800 mg 02/15/18 14:00 02/22/18 13:34 Neurontin - PO 800 mg TID JOHN Administration Guaifenesin 10 ml 02/11/18 12:27 Robitussin Dm - PO Q6H PRN COUGH Hydrocortisone 1 applic 02/11/18 22:00 02/21/18 21:33 Anusol 2.5% Hc Cream - [place] Not Given HS [facility] Hydroxyzine Pamoate 50 mg 02/11/18 12:27 02/14/18 08:21 Vistaril - PO 50 mg Q4H PRN Administration AGITATION Ibuprofen 400 mg 02/11/18 12:27 02/19/18 11:30 Motrin - PO 400 mg Q6H PRN Administration Pain Level 4-6 Loperamide HCl 4 mg 02/11/18 12:27 Imodium - PO Q6H PRN DIARRHEA Magnesium Citrate 300 ml 02/11/18 12:27 Citroma - PO Q48H PRN CONSTIPATION Magnesium Hydroxide 30 ml 02/11/18 12:27 Milk Of Magnesia - PO DAILY PRN CONSTIPATION Melatonin 5 mg 02/11/18 22:00 02/21/18 21:33 Melatonin PO 5 mg HS JOHN Administration Methadone HCl 40 mg/ Methadone 50 mg 02/18/18 06:00 02/22/18 06:25 HCl 10 mg PO 50 mg DAILY@0600 [facility] Administration Multivit/Folic Acid/Iron 1 tab 02/12/18 10:00 02/22/18 10:20 Vitamins (Sjr) - PO 1 tab DAILY JOHN Administration Pseudoephedrine/Triprolidine 1 combo 02/11/18 12:27 Actifed - PO TID PRN NASAL CONGESTION Tamsulosin HCl 0.4 mg 02/18/18 08:30 02/22/18 07:38 Flomax - PO 0.4 mg DAILY@0830 [facility] Administration Thiamine HCl 100 mg 02/11/18 22:00 02/21/18 21:32 Vitamin B1 - PO 100 mg HS [facility] Administration Trimethoprim/Sulfamethoxazole 1 each 02/12/18 10:00 02/22/18 10:19 Bactrim Ds - PO 1 each DAILY JOHN Administration Current Side Effect: No Lab tests ordered: No Lab tests reviewed: Yes Provider note:: Patient completed this program today.She has met her treatment goals and will continue to address her issues on outpatient basis. Total face to face time:: 30 Mental Status Exam - Mental Status Exam Alert and Oriented to: Time, Place, Person Cognitive Function: Grossly Intact Patient Appearance: Unkempt Mood: Anxious Affect: Mood Congruent Patient Behavior: Cooperative Speech Pattern: Clear Voice Loudness: Normal Thought Process: Goal Oriented Thought Disorder: Not Present Hallucinations: Denies Suicidal Ideation: Denies Homicidal Ideation: Denies Insight/Judgement: Fair Sleep: Fair Appetite: Good Muscle strength/Tone: Normal Gait/Station: Normal Psychiatric Treatment Plan - Problem List (1) Alcohol dependence Current Visit: Yes Qualifiers: Substance use status: uncomplicated Qualified Code(s): F10.20 - Alcohol dependence, uncomplicated (2) Cocaine dependence Current Visit: Yes (3) Nicotine dependence Current Visit: Yes Qualifiers: (4) Peripheral neuropathy Current Visit: Yes (5) Substance-induced sleep disorder Current Visit: Yes (6) Cocaine dependence Current Visit: Yes (7) HIV (human immunodeficiency virus infection) Current Visit: Yes (8) Opioid dependence on agonist therapy Current Visit: Yes (9) Bipolar II disorder Current Visit: Yes
== END 2018-02-22 16:49 | disposition home or self-care (01) | DRG 772 ==
LOC: YASAS 10:27 → Y3E 10:28
PROVIDERS: ADMIT Psychiatry & Neurology Psychiatry; ATTEND Psychiatry & Neurology Psychiatry
PROC: HZ42ZZZ Group Counseling for Substance Abuse Treatment, Cognitive-Behavioral (ICD-10-PCS; principal; 2018-02-11)
PROC: HZ42ZZZ Group Counseling for Substance Abuse Treatment, Cognitive-Behavioral (ICD-10-PCS; 2018-02-11)
DX: F11.23 Opioid dependence with withdrawal (principal); F10.230 Alcohol dependence with withdrawal, uncomplicated; F14.20 Cocaine dependence, uncomplicated; F17.210 Nicotine dependence, cigarettes, uncomplicated; F19.282 Other psychoactive substance dependence with psychoactive substance-induced sleep disorder; F31.81 Bipolar II disorder; F64.0 Transsexualism; Z21 Asymptomatic human immunodeficiency virus [HIV] infection status; G62.9 Polyneuropathy, unspecified; R35.0 Frequency of micturition; L30.9 Dermatitis, unspecified; B18.2 Chronic viral hepatitis C; Z87.890 Personal history of sex reassignment
CPT/HCPCS: 81003; 82962; J1410

== ENCOUNTER 2018-04-13 12:12 | Inpatient (IN) | payer OTHER ==
[2018-04-13 13:45] VITALS: BMI 34.0
--- NOTE | 2018-04-13 15:36 | HP ---
CIWA Score - CIWA Score Nausea/Vomitin Muscle Tremors: 3 Anxiety: 3 Agitation: 3 Paroxysmal Sweats: 2 Orientation: 0-Oriented Tacttile Disturbances: 1-Very Mild Itch/Numbness Auditory Disturbances: 1-Very Mild Visual Disturbances: 0-None Headache: 2-Mild CIWA-Ar Total Score: 18 Admission ROS BHS - HPI Chief Complaint: i need help to stop drinking alcohol Allergies/Adverse Reactions: Allergies Allergy/AdvReac Type Severity Reaction Status Date / Time chlordiazepoxide Allergy Rash Verified 04/13/18 16:24 [From Librium] History of Present Illness: this 42 years old transgender male to female with alcohol dependence seeking detox,withdrawal symptom,last detox [facility] 02/07/18 to 02/11/18 detox, rehab 02/11/18 to 02/22/18 seizure last 3 years ago syncope nicotine dependence bipolar disorder no significant period of sobriety - Ebola screening Have you traveled outside of the country in the last 21 days: No Have you had contact with anyone from an Ebola affected area: No Have you been sick,other than usual withdrawal symptoms: No - Review of Systems Constitutional: Loss of Appetite, Malaise, Night Sweats, Changes in sleep, Weakness EENT: reports: Nose Congestion Respiratory: reports: No Symptoms reported Cardiac: reports: No Symptoms Reported GI: reports: Diarrhea, Nausea, Vomiting, Abdominal cramping : reports: No Symptoms Reported Musculoskeletal: reports: Back Pain, Muscle Pain Integumentary: reports: Dryness Neuro: reports: Headache, Tremors Endocrine: reports: No Symptoms Reported Hematology: reports: No Symptoms Reported Psychiatric: reports: No Sypmtoms Reported, Judgement Intact, Mood/Affect Appropiate, Anxious, Depressed Patient History - Patient Medical History Hx Anemia: No Hx Asthma: No Hx Chronic Obstructive Pulmonary Disease (COPD): No Hx Cancer: No Hx Cardiac Disorders: No Hx Congestive Heart Failure: No Hx Hypertension: No Hx Hypercholesterolemia: No Hx Pacemaker: No HX Cerebrovascular Accident: No Hx Seizures: Yes (Alcohol related 2yrs ago) Hx Dementia: No Hx Diabetes: No Hx Gastrointestinal Disorders: No Hx Liver Disease: No Hx Genitourinary Disorders: No Hx Sexually Transmitted Disorders: Yes (HIV + since 1996) Hx Renal Disease (ESRD): No Hx Thyroid Disease: No Hx Human Immunodeficiency Virus (HIV): Yes (SINCE 1996;ON TRIUMEQ ) Hx Hepatitis C: Yes (diag. 1997 - treated) Hx Depression: No Hx Suicide Attempt: No Hx Bipolar Disorder: Yes Hx Schizophrenia: No Other Medical History: no suicidal,no homicidal - Patient Surgical History Past Surgical History: No Hx Neurologic Surgery: No Hx Cataract Extraction: No Hx Cardiac Surgery: No Hx Lung Surgery: No Hx Breast Surgery: Yes (breast implant on 07/26/2015) Hx Breast Biopsy: No Hx Abdominal Surgery: No Hx Appendectomy: No Hx Cholecystectomy: No Hx Genitourinary Surgery: No Hx Section: No Hx Orthopedic Surgery: No Other Surgical History: orchiectomy on 12/28/2014/gender reassignment; 01/10/2017 Anesthesia Reaction: No - PPD History Previous Implant?: Yes Documented Results: Negative w/proof Implanted On Prior [facility] Admission?: Yes Date: 07/31/17 Results: 0mm PPD to be Administered?: No - Smoking Cessation Smoking history: Current every day smoker Have you smoked in the past 12 months: Yes Aproximately how many cigarettes per day: 20 If you are a former smoker, when did you quit?: 2 1/2 weeks ago Cigars Per Day: 0 Hx Chewing Tobacco Use: No Initiated information on smoking cessation: Yes 'Breaking Loose' booklet given: 04/13/18 - Substance & Tx. History Hx Alcohol Use: Yes Hx Substance Use: Yes Substance Use Type: Alcohol, Heroin Hx Substance Use Treatment: Yes ([facility] 02/07/18 to 02/11/18,02/11/18 to ) - Substances Abused Alcohol Route: Oral Frequency: Daily Amount used: 1 pint cognac Age of first use: 15 Date of Last Use: 04/13/18 Heroin Route: Injection Frequency: Daily Amount used: 1 bag Age of first use: 20 Date of Last Use: 04/13/18 Family Disease History - Family Disease History Family Disease History: Other: Father (no contact, ALCOHOL), Mother (no contact) Admission Physical Exam S - Vital Signs Vital Signs: Vital Signs - 24 hr 04/13/18 13:44 Temperature 97.5 F L Pulse Rate 70 Respiratory 16 Rate Blood Pressure 142/85 - Physical General Appearance: Yes: Moderate Distress, Tremorous, Irritable, Sweating, Anxious HEENTM: Yes: Normal ENT Inspection, ALFREDA, Pharynx Normal Respiratory: Yes: Lungs Clear, Normal Breath Sounds, No Respiratory Distress Neck: Yes: Within Normal Limits, Supple, Trachea in good position Breast: Yes: Breast Exam Deferred Cardiology: Yes: Within Normal Limits, Regular Rhythm, Regular Rate, S1, S2 Abdominal: Yes: Within Normal Limits, Normal Bowel Sounds, Flat, Soft Genitourinary: Yes: Within Normal Limits Musculoskeletal: Yes: full range of Motion, Back pain, Muscle Pain Extremities: Yes: Within Normal Limits, Normal Range of Motion, Tremors Neurological: Yes: platinum and palladium kettle tender II-XII NML intact, Fully Oriented, Alert, Motor Strength 5/5 Integumentary: Yes: Dry Lymphatic: Yes: Within Normal Limits - Diagnostic (1) Alcohol dependence with withdrawal, uncomplicated Current Visit: No Status: Acute (2) HIV (human immunodeficiency virus infection) Current Visit: No Status: Chronic (3) Methadone maintenance therapy patient Current Visit: No Status: Chronic Comment: [facility] [phone] (4) Opioid dependence on agonist therapy Current Visit: No Status: Chronic (5) Peripheral neuropathy Current Visit: No Status: Chronic (6) Seizure Current Visit: No Status: Chronic (7) Transgendered Current Visit: No Status: Resolved (8) Hepatitis C Current Visit: Yes Status: Acute (9) Bipolar disorder Current Visit: Yes Status: Acute Cleared for Admission [facility] - Detox or Rehab [facility] Level of Care: Medically Managed Detox Regimen/Protocol: Valium [facility] Breath Alcohol Content Breath Alcohol Content: 0.140 Urine Drug Screen - Results Drug Screen Negative: No Urine Drug Screen Results: OPI-Opiates, MTD-Methadone
[2018-04-13] MEDS ORDERED: MAG HYDROX/AL HYDROX/SIMETH 30 ML UNIT-DOSE CUP PO PRN (15:49)
[2018-04-13] MEDS ORDERED: MAGNESIUM CITRATE 300 ML BOTTLE PO PRN (15:49)
[2018-04-13] MEDS ORDERED: guaiFENesin/D-METHORPHAN HB 10 ML UNIT-DOSE CUPS PO PRN (15:49)
[2018-04-13] MEDS ORDERED: ACETAMINOPHEN 325 MG TABLET (FP) PO PRN (15:49)
[2018-04-13] MEDS ORDERED: MAGNESIUM HYDROX 2400MG/30ML ORAL SUSPENSION 30 ML CUP PO PRN (15:49)
[2018-04-13] MEDS ORDERED: MENTHOL/PHENOL 1 EACH UD MM PRN (15:49)
[2018-04-13] MEDS ORDERED: hydrOXYzine PAMOATE 50 MG CAPSULE (FP) PO PRN (15:49)
[2018-04-13] MEDS ORDERED: IBUPROFEN 400 MG TABLET (FP) PO PRN (15:49)
[2018-04-13] MEDS ORDERED: P-EPHED 60MG/TRIPROLIDI 2.5MG TABLET PO PRN (15:49)
[2018-04-13] MEDS ORDERED: LOPERAMIDE HCL 2 MG CAPSULE PO PRN (15:49)
[2018-04-13] MEDS ORDERED: diazePAM 5 MG TABLET PO PRN (15:49)
[2018-04-13] MEDS ORDERED: diazePAM 5 MG TABLET PO ONE (16:45)
[2018-04-13] MEDS: NICOTINE 21 MG/24 HOURS TOPICAL PATCH TD SCH (17:29)
[2018-04-13] MEDS ORDERED: MELATONIN 5 MG TABLETS PO PRN (22:00)
[2018-04-13] MEDS ORDERED: COLLOIDAL OATMEAL 1 BAR EACH TP PRN (22:01)
[2018-04-13] MEDS: diazePAM 5 MG TABLET PO SCH (22:23)
[2018-04-13] MEDS: ESTROGENS,CONJUGATED 1.25 MG TABLET PO SCH (22:23)
[2018-04-13] MEDS: ABACAVIR/DOLUTEGRAVIR/LAMIVUDI (TRIUMEQ) TABLET -NF PO SCH (22:23)
[2018-04-13] MEDS: GABAPENTIN 400 MG CAPSULE (FP) PO SCH (22:23)
[2018-04-13] MEDS: THIAMINE HCL 100 MG TABLET (FP) PO SCH (22:23)
[2018-04-14] MEDS: GABAPENTIN 400 MG CAPSULE (FP) PO SCH ×3 (07:00→22:20)
[2018-04-14] MEDS: diazePAM 5 MG TABLET PO SCH ×3 (07:00→22:19)
[2018-04-14] MEDS: TAMSULOSIN HCL 0.4 MG CAP.ER.24H (FP) PO SCH (08:45)
--- NOTE | 2018-04-14 09:41 | CONSULT ---
[facility] Psychiatric Consult - Data Date of interview: 04/14/18 Admission source: [facility] Identifying data: This is 42 years old transgender male to female, living alone , on PA, with history of Bipolar Disorder, with alcohol, Opioids Nicotine dependence seeking detox,reporting withdrawal symptom, Substance Abuse History: - Smoking Cessation. Smoking history: Current every day smoker. Have you smoked in the past 12 months: Yes. Aproximately how many cigarettes per day: 20. If you are a former smoker, when did you quit?: 2 1/2 weeks ago. Cigars Per Day: 0. Hx Chewing Tobacco Use: No. Initiated information on smoking cessation: Yes. 'Breaking Loose' booklet given: . - Substance & Tx. History. Hx Alcohol Use: Yes. Hx Substance Use: Yes. Substance Use Type: Alcohol, Heroin. Hx Substance Use Treatment: Yes ([facility] to 02/11/18,02/11/18 to ). - Substances Abused. Alcohol. Route: Oral. Frequency: Daily. Amount used: 1 pint cognac. Age of first use: 15. Date of Last Use: 04/13/18. Heroin. Route: Injection. Frequency: Daily. Amount used: 1 bag. Age of first use: 20. Date of Last Use: 04/13/18 Medical History: HIV, MMTP, Seizure history, HepC+ Psychiatric History: Patient reports history of Bipolar disorder with most recent psychiatric admission on 6 years ago,. reports taking prior to admission : Celexa 40mg POQD Physical/Sexual Abuse/Trauma History: Denies Additional Comment: Celexa 40mg POQD Mental Status Exam - Mental Status Exam Alert and Oriented to: Place, Person Cognitive Function: Fair Patient Appearance: Unkempt Mood: Anxious Affect: Mood Congruent Patient Behavior: Cooperative Speech Pattern: Appropriate Voice Loudness: Normal Thought Process: Goal Oriented Thought Disorder: Being Controlled Hallucinations: Denies Suicidal Ideation: Denies Homicidal Ideation: Denies Insight/Judgement: Fair Sleep: Difficulty falling asleep Appetite: Weight gain Muscle strength/Tone: Normal Gait/Station: Normal Additional Comments: Celexa 40mg POQD Psychiatric Findings - Problem List ([place] 1, 2,3) (1) Bipolar disorder Current Visit: Yes Status: Acute (2) Alcohol dependence with withdrawal, uncomplicated Current Visit: No Status: Acute (3) Alcohol dependence Current Visit: No Status: Chronic Qualifiers: Substance use status: uncomplicated Qualified Code(s): F10.20 - Alcohol dependence, uncomplicated (4) Cocaine dependence Current Visit: No Status: Chronic (5) Methadone maintenance therapy patient Current Visit: No Status: Chronic Comment: [facility] [phone] (6) Opioid dependence on agonist therapy Current Visit: No Status: Chronic (7) Transgendered Current Visit: No Status: Resolved - Initial Treatment Plan Initial Treatment Plan: Celexa 40mg POQD
[2018-04-14] MEDS ORDERED: METHADONE 80 MG, METHADONE 20 MG PO ONE (10:00)
[2018-04-14] MEDS ORDERED: METHADONE HCL 40 MG DISPERSABLE TABLET PO ONE (10:00)
[2018-04-14 10:24] LABS: HEMOGLOBIN 12.7 GM/dL (11.7-16.9); MCH 31.1 pg (25.7-33.7); MCHC 33.4 g/dl (32.0-35.9); MEAN PLT VOLUME 8.3 fl (7.5-11.1); PLATELET COUNT 230 K/MM3 (134-434); RBC 4.09 M/mm3 (4.00-5.60); RDW 14.1 % (11.9-15.9); WHITE BLOOD COUNT 5.1 K/mm3 (4.0-10.0)
[2018-04-14] MEDS: SULFAMETHOXAZOLE/TRIMETHOPRIM 800MG/160MG D.S. TABLET PO SCH (10:45)
[2018-04-14] MEDS: CITALOPRAM HYDROBROMIDE 20 MG TABLET (FP) PO SCH (10:45)
[2018-04-14] MEDS: ESTROGENS,CONJUGATE VAGINAL CR 30 GM TUBE VG SCH (10:45)
[2018-04-14] MEDS: PRENATAL VITAMINS W/ FOLIC ACID TABLET (FP) PO SCH (10:45)
[2018-04-14] MEDS: NICOTINE 21 MG/24 HOURS TOPICAL PATCH TD SCH (10:46)
[2018-04-14] MEDS ORDERED: METHADONE HCL 40 MG DISPERSABLE TABLET ONE (10:48)
[2018-04-14] MEDS ORDERED: METHADONE HCL 10 MG TABLET ONE (10:48)
[2018-04-14] MEDS: ESTROGENS,CONJUGATED 1.25 MG TABLET PO SCH ×2 (10:49→22:20)
[2018-04-14 11:28] LABS: ALBUMIN 3.1 g/dl (3.4-5.0); ANION GAP 5 (8-16); BLOOD UREA NITROGEN 13 mg/dL (7-18); CALCIUM 8.6 mg/dL (8.5-10.1); CHLORIDE 105 mmol/L (98-107); CO2 29 mmol/L (21-32); GLUCOSE,RANDOM 102 mg/dL (74-106); POTASSIUM 4.5 mmol/L (3.5-5.1); SODIUM 139 mmol/L (136-145)
[2018-04-14 11:32] LABS: ALK PHOS 112 U/L (45-117); BILIRUBIN,TOTAL 0.3 mg/dL (0.2-1.0); CREATININE 0.8 mg/dL (0.7-1.3); SGOT/AST 18 U/L (15-37); SGPT/ALT 17 U/L (12-78); TOT PROT 7.3 g/dl (6.4-8.2)
[2018-04-14] MEDS ORDERED: CEPHALEXIN MONOHYDRATE 500 MG CAPSULE (UD) PO SCH (11:45)
--- NOTE | 2018-04-14 11:47 | PN ---
S CIWA - CIWA Score Nausea/Vomitin-Mild Nausea/No Vomiting Muscle Tremors: 4-Moderate,w/Arms Extend Anxiety: 4-Mod. Anxious/Guarded Agitation: 4-Moderately Restless Paroxysmal Sweats: 1-Minimal Palms Moist Orientation: 0-Oriented Tacttile Disturbances: 1-Very Mild Itch/Numbness Auditory Disturbances: 0-None Visual Disturbances: 0-None Headache: 0-None Present CIWA-Ar Total Score: 15 BHS Progress Note (SOAP) Subjective: sweat tremor anxiety restlessness trouble sleep at night Objective: 04/14/18 11:45 Vital Signs Temperature 97.5 F L 04/14/18 09:21 Pulse Rate 72 04/14/18 09:21 Respiratory Rate 20 04/14/18 09:21 Blood Pressure 111/69 04/14/18 09:21 O2 Sat by Pulse Oximetry (%) Laboratory Last Values WBC 5.1 K/mm3 (4.0-10.0) 04/14/18 07:00 RBC 4.09 M/mm3 (4.00-5.60) 04/14/18 07:00 Hgb 12.7 GM/dL (11.7-16.9) 04/14/18 07:00 Hct 38.0 % (35.4-49) 04/14/18 07:00 MCV 93.0 fl (80-96) 04/14/18 07:00 MCH 31.1 pg (25.7-33.7) 04/14/18 07:00 MCHC 33.4 g/dl (32.0-35.9) 04/14/18 07:00 RDW 14.1 % (11.9-15.9) 04/14/18 07:00 Plt Count 230 K/MM3 (134-434) 04/14/18 07:00 MPV 8.3 fl (7.5-11.1) 04/14/18 07:00 Sodium 139 mmol/L (136-145) 04/14/18 07:00 Potassium 4.5 mmol/L (3.5-5.1) 04/14/18 07:00 Chloride 105 mmol/L (98-107) 04/14/18 07:00 Carbon Dioxide 29 mmol/L (21-32) 04/14/18 07:00 Anion Gap 5 (8-16) L 04/14/18 07:00 BUN 13 mg/dL (7-18) 04/14/18 07:00 Creatinine 0.8 mg/dL (0.7-1.3) 04/14/18 07:00 Creat Clearance w eGFR > 60 (>60) 04/14/18 07:00 Random Glucose 102 mg/dL (74-106) D 04/14/18 07:00 Calcium 8.6 mg/dL (8.5-10.1) 04/14/18 07:00 Total Bilirubin 0.3 mg/dL (0.2-1.0) D 04/14/18 07:00 AST 18 U/L (15-37) 04/14/18 07:00 ALT 17 U/L (12-78) D 04/14/18 07:00 Alkaline Phosphatase 112 U/L (45-117) D 04/14/18 07:00 Total Protein 7.3 g/dl (6.4-8.2) 04/14/18 07:00 Albumin 3.1 g/dl (3.4-5.0) L 04/14/18 07:00 lab noted Assessment: 04/14/18 11:46 withdrawal sx cellulitis both legs Plan: continue detox keflex 500 mg bid
[2018-04-14] MEDS: CEPHALEXIN MONOHYDRATE 500 MG CAPSULE (UD) PO SCH ×2 (13:55→22:20)
--- NOTE | 2018-04-14 14:32 | EKG ---
Test Reason : Blood Pressure : / mmHG Vent. Rate : 053 BPM Atrial Rate : 053 BPM P-R Int : 172 ms QRS Dur : 102 ms QT Int : 452 ms P-R-T Axes : 036 -04 026 degrees QTc Int : 424 ms SINUS BRADYCARDIA OTHERWISE NORMAL ECG WHEN COMPARED WITH ECG OF 08-FEB-2018 08:39, NO SIGNIFICANT CHANGE WAS FOUND Confirmed by ZACHARIAH PARRY MD ([id number]) on 04/14/2018 2:32:36 PM Referred By: Confirmed By:ZACHARIAH PARRY MD
[2018-04-14 20:36] LABS: URINE APPEARANCE CLEAR; URINE BILIRUBIN NEGATIVE (<2.0 mg/dL); URINE COLOR STRAW; URINE GLUCOSE (UA) NEGATIVE (NEGATIVE); URINE KETONE NEGATIVE (NEGATIVE); URINE LEUK ESTERASE NEGATIVE (NEGATIVE); URINE NITRITE NEGATIVE (NEGATIVE); URINE PROTEIN NEGATIVE (NEGATIVE); URINE UROBILINOGEN NEGATIVE mg/dL (0.2-1.0)
[2018-04-14] MEDS: ABACAVIR/DOLUTEGRAVIR/LAMIVUDI (TRIUMEQ) TABLET -NF PO SCH (22:19)
[2018-04-14] MEDS: THIAMINE HCL 100 MG TABLET (FP) PO SCH (22:20)
[2018-04-15] MEDS ORDERED: METHADONE HCL 40 MG DISPERSABLE TABLET ONE (05:33)
[2018-04-15] MEDS ORDERED: METHADONE HCL 10 MG TABLET ONE (05:34)
[2018-04-15] MEDS: GABAPENTIN 400 MG CAPSULE (FP) PO SCH ×3 (05:45→22:14)
[2018-04-15] MEDS: METHADONE 80 MG, METHADONE 20 MG PO SCH (05:45)
[2018-04-15] MEDS ORDERED: METHADONE HCL 10 MG TABLET PO SCH (06:00)
[2018-04-15] MEDS ORDERED: hydrOXYzine PAMOATE 25 MG CAPSULE (FP) PO PRN (08:28)
[2018-04-15] MEDS: TAMSULOSIN HCL 0.4 MG CAP.ER.24H (FP) PO SCH (08:57)
--- NOTE | 2018-04-15 10:10 | PN ---
S CIWA - CIWA Score Nausea/Vomitin-No Nausea/No Vomiting Muscle Tremors: 3 Anxiety: 2 Agitation: 2 Paroxysmal Sweats: 1-Minimal Palms Moist Orientation: 0-Oriented Tacttile Disturbances: 2-Mild Itch/Numbness/Burn Auditory Disturbances: 0-None Visual Disturbances: 0-None Headache: 0-None Present CIWA-Ar Total Score: 10 BHS Progress Note (SOAP) Subjective: feeling much better mild withdrawal sx able to tolerate food and social with peers in day room Objective: 04/15/18 10:08 Vital Signs Temperature 98.1 F 04/15/18 09:24 Pulse Rate 76 04/15/18 09:24 Respiratory Rate 20 04/15/18 09:24 Blood Pressure 116/73 04/15/18 09:24 O2 Sat by Pulse Oximetry (%) Laboratory Last Values WBC 5.1 K/mm3 (4.0-10.0) 04/14/18 07:00 RBC 4.09 M/mm3 (4.00-5.60) 04/14/18 07:00 Hgb 12.7 GM/dL (11.7-16.9) 04/14/18 07:00 Hct 38.0 % (35.4-49) 04/14/18 07:00 MCV 93.0 fl (80-96) 04/14/18 07:00 MCH 31.1 pg (25.7-33.7) 04/14/18 07:00 MCHC 33.4 g/dl (32.0-35.9) 04/14/18 07:00 RDW 14.1 % (11.9-15.9) 04/14/18 07:00 Plt Count 230 K/MM3 (134-434) 04/14/18 07:00 MPV 8.3 fl (7.5-11.1) 04/14/18 07:00 Sodium 139 mmol/L (136-145) 04/14/18 07:00 Potassium 4.5 mmol/L (3.5-5.1) 04/14/18 07:00 Chloride 105 mmol/L (98-107) 04/14/18 07:00 Carbon Dioxide 29 mmol/L (21-32) 04/14/18 07:00 Anion Gap 5 (8-16) L 04/14/18 07:00 BUN 13 mg/dL (7-18) 04/14/18 07:00 Creatinine 0.8 mg/dL (0.7-1.3) 04/14/18 07:00 Creat Clearance w eGFR > 60 (>60) 04/14/18 07:00 Random Glucose 102 mg/dL (74-106) D 04/14/18 07:00 Calcium 8.6 mg/dL (8.5-10.1) 04/14/18 07:00 Total Bilirubin 0.3 mg/dL (0.2-1.0) D 04/14/18 07:00 AST 18 U/L (15-37) 04/14/18 07:00 ALT 17 U/L (12-78) D 04/14/18 07:00 Alkaline Phosphatase 112 U/L (45-117) D 04/14/18 07:00 Total Protein 7.3 g/dl (6.4-8.2) 04/14/18 07:00 Albumin 3.1 g/dl (3.4-5.0) L 04/14/18 07:00 Urine Color Straw 04/13/18 16:00 Urine Appearance Clear 04/13/18 16:00 Urine pH 5.0 (5.0-8.0) 04/13/18 16:00 Ur Specific [place] 1.005 (1.001-1.035) 04/13/18 16:00 Urine Protein Negative (NEGATIVE) 04/13/18 16:00 Urine Glucose (UA) Negative (NEGATIVE) 04/13/18 16:00 Urine Ketones Negative (NEGATIVE) 04/13/18 16:00 Urine Blood Negative (NEGATIVE) 04/13/18 16:00 Urine Nitrite Negative (NEGATIVE) 04/13/18 16:00 Urine Bilirubin Negative (<2.0 mg/dL) 04/13/18 16:00 Urine Urobilinogen Negative mg/dL (0.2-1.0) 04/13/18 16:00 Ur Leukocyte Esterase Negative (NEGATIVE) 04/13/18 16:00 RPR Titer Nonreactive (NONREACTIVE) 04/14/18 07:00 lab noted Assessment: 04/15/18 10:08 mild withdrawal sx hiv status with nutritional education Plan: medically supervised detox discuss discharge aftercare health services the patient wants to return to methadone program and infectious disease specialist for bio psychosocial treatment
[2018-04-15] MEDS: CITALOPRAM HYDROBROMIDE 20 MG TABLET (FP) PO SCH (10:16)
[2018-04-15] MEDS: diazePAM 5 MG TABLET PO SCH ×2 (10:16→22:14)
[2018-04-15] MEDS: CEPHALEXIN MONOHYDRATE 500 MG CAPSULE (UD) PO SCH (10:16)
[2018-04-15] MEDS: PRENATAL VITAMINS W/ FOLIC ACID TABLET (FP) PO SCH (10:16)
[2018-04-15] MEDS: ESTROGENS,CONJUGATED 1.25 MG TABLET PO SCH ×2 (10:17→22:14)
[2018-04-15] MEDS: ESTROGENS,CONJUGATE VAGINAL CR 30 GM TUBE VG SCH (10:17)
[2018-04-15] MEDS: SULFAMETHOXAZOLE/TRIMETHOPRIM 800MG/160MG D.S. TABLET PO SCH (10:17)
[2018-04-15] MEDS: NICOTINE 21 MG/24 HOURS TOPICAL PATCH TD SCH (10:20)
--- NOTE | 2018-04-15 13:30 | PN ---
Psychiatric Progress Note Vital Signs: Vital Signs Period Temp Pulse Resp BP Sys/Padilla Pulse Ox Last 24 Hr 97.5 F-98.2 F 58-76 16-20 113-122/56-82 Date of Session: 04/15/18 Chief Complaint:: Anxiety HPI: Patient reports anxiety , agitation, reports good response to Vistaril 25mg po prn in the past Current Medications: Active Medications Generic Name Dose Route Start Last Admin Trade Name Freq PRN Reason Stop Dose Admin Abacavir/Dolutegravir/Lamivudine 1 each 04/13/18 22:00 04/14/18 22:19 Triumeq (Non-Formulary) PO 1 each HS JOHN Administration Acetaminophen 650 mg 04/13/18 15:49 Tylenol - PO Q4H PRN FEVER Al Hydroxide/Mg Hydroxide 30 ml 04/13/18 15:49 Mylanta Oral Suspension - PO Q6H PRN DYSPEPSIA Citalopram Hydrobromide 40 mg 04/14/18 10:00 04/15/18 10:16 Celexa - PO 40 mg DAILY JOHN Administration Colloidal Oatmeal 1 applic 04/13/18 22:01 04/13/18 22:23 Aveeno Soap - TP 1 applic DAILY PRN Administration HYGEINE Diazepam 10 mg 04/13/18 15:49 04/15/18 13:08 Valium - PO 04/16/18 15:48 10 mg Q4H PRN Administration WITHDRAWAL(CONT SUBST) Diazepam 5 mg 04/15/18 10:00 04/15/18 10:16 Valium - PO 04/16/18 22:01 5 mg BID JOHN Administration Diazepam 5 mg 04/17/18 10:00 Valium - PO 04/17/18 10:01 DAILY JOHN Estrogens Conjugated 1.25 mg 04/13/18 22:00 04/15/18 10:17 Premarin - PO 1.25 mg BID JOHN Administration Estrogens Conjugated 1 applic 04/14/18 10:00 04/15/18 10:17 Premarin Vaginal Cream - VG 1 applic DAILY JOHN Administration Eucalyptus/Menthol/Phenol/Sorbitol 1 each 04/13/18 15:49 Cepastat Lozenge - MM Q4H PRN SORE THROAT Gabapentin 800 mg 04/13/18 22:00 04/15/18 13:08 Neurontin - PO 800 mg TID JOHN Administration Guaifenesin 10 ml 04/13/18 15:49 Robitussin Dm - PO Q6H PRN COUGH Hydroxyzine Pamoate 25 mg 04/15/18 08:28 Vistaril - PO Q4H PRN AGITATION Ibuprofen 400 mg 04/13/18 15:49 Motrin - PO Q6H PRN PAIN LEVEL 4-6 Loperamide HCl 4 mg 04/13/18 15:49 Imodium - PO Q6H PRN DIARRHEA Magnesium Citrate 300 ml 04/13/18 15:49 Citroma - PO Q48H PRN CONSTIPATION Magnesium Hydroxide 30 ml 04/13/18 15:49 04/14/18 22:19 Milk Of Magnesia - PO 30 ml DAILY PRN Administration CONSTIPATION Melatonin 5 mg 04/13/18 22:00 Melatonin PO HS PRN INSOMNIA Methadone HCl 80 mg/ Methadone 100 mg 04/15/18 06:00 04/15/18 05:45 HCl 20 mg PO 04/21/18 05:59 100 mg DAILY@0600 PENDING SALE TO [facility] Administration Nicotine 21 mg 04/13/18 16:45 04/15/18 10:20 Nicoderm Patch - TD 21 mg DAILY PENDING SALE TO [facility] Administration Multivit/Folic Acid/Iron 1 tab 04/14/18 10:00 04/15/18 10:16 Vitamins (Sjr) - PO 1 tab DAILY PENDING SALE TO [facility] Administration Pseudoephedrine/Triprolidine 1 combo 04/13/18 15:49 Actifed - PO TID PRN NASAL CONGESTION Tamsulosin HCl 0.4 mg 04/14/18 08:30 04/15/18 08:57 Flomax - PO 0.4 mg DAILY@0830 PENDING SALE TO [facility] Administration Thiamine HCl 100 mg 04/13/18 22:00 04/14/18 22:20 Vitamin B1 - PO 100 mg HS PENDING SALE TO [facility] Administration Trimethoprim/Sulfamethoxazole 1 each 04/14/18 10:00 04/15/18 10:17 Bactrim Ds - PO 1 each DAILY PENDING SALE TO [facility] Administration Provider note:: Start Vistaril 25mg po prn q4 for anxiety ands agitation Mental Status Exam - Mental Status Exam Alert and Oriented to: Place, Person Cognitive Function: Fair Patient Appearance: Unkempt Mood: Anxious Affect: Mood Congruent Patient Behavior: Appropriate Speech Pattern: Appropriate Voice Loudness: Normal Thought Process: Goal Oriented Thought Disorder: Being Controlled Hallucinations: Denies Suicidal Ideation: Denies Homicidal Ideation: Denies Insight/Judgement: Fair Sleep: Difficulty falling asleep Muscle strength/Tone: Normal Gait/Station: Normal Additional Comments: Start Vistaril 25mg po prn q4 Psychiatric Treatment Plan - Problem List (1) Bipolar disorder Current Visit: Yes (2) Alcohol dependence with withdrawal, uncomplicated Current Visit: No (3) Alcohol dependence Current Visit: No Qualifiers: Substance use status: uncomplicated Qualified Code(s): F10.20 - Alcohol dependence, uncomplicated (4) Cocaine dependence Current Visit: No (5) Methadone maintenance therapy patient Current Visit: No Comment: [facility] [phone] (6) Opioid dependence on agonist therapy Current Visit: No (7) Transgendered Current Visit: No Initial treatment plan: Start Vistaril 25mg po prn q4
[2018-04-15] MEDS: ABACAVIR/DOLUTEGRAVIR/LAMIVUDI (TRIUMEQ) TABLET -NF PO SCH (22:14)
[2018-04-15] MEDS: THIAMINE HCL 100 MG TABLET (FP) PO SCH (22:15)
[2018-04-15 23:15] VITALS: TEMP 97.3
[2018-04-16] MEDS ORDERED: METHADONE HCL 40 MG DISPERSABLE TABLET ONE (04:29)
[2018-04-16] MEDS ORDERED: METHADONE HCL 10 MG TABLET ONE (04:30)
[2018-04-16] MEDS: GABAPENTIN 400 MG CAPSULE (FP) PO SCH (05:55)
[2018-04-16] MEDS: METHADONE 80 MG, METHADONE 20 MG PO SCH (05:56)
[2018-04-16 06:43] VITALS: BP 116/67; PULSE 78
--- NOTE | 2018-04-16 09:03 | DS ---
[facility] Detox Discharge Summary Admission Date: 04/13/18 Discharge Date: 04/16/18 - History Present History: Alcohol Dependence Additional Comments: 42 years old transgender male admitted 04/13/18 for alcohol withdrawal sx completed detox regimen tolerated well denies alcohol withdrawal sx alert oriented x 3 no acute distress aftercare Dr. Allen follow up with HIV specialist for addiction and biopsychosocial therapies brief motivational intervention x 5" patient wants to maintain sobriety throughout the recovering process - Physical Exam Results Vital Signs: Vital Signs Temperature 97.3 F L 04/16/18 06:00 Pulse Rate 78 04/16/18 06:00 Respiratory Rate 18 04/16/18 06:00 Blood Pressure 116/67 04/16/18 06:00 O2 Sat by Pulse Oximetry (%) Pertinent Admission Physical Exam Findings: withdrawal sx Vital Signs Temperature 97.3 F L 04/16/18 06:00 Pulse Rate 78 04/16/18 06:00 Respiratory Rate 18 04/16/18 06:00 Blood Pressure 116/67 04/16/18 06:00 O2 Sat by Pulse Oximetry (%) Laboratory Last Values WBC 5.1 K/mm3 (4.0-10.0) 04/14/18 07:00 RBC 4.09 M/mm3 (4.00-5.60) 04/14/18 07:00 Hgb 12.7 GM/dL (11.7-16.9) 04/14/18 07:00 Hct 38.0 % (35.4-49) 04/14/18 07:00 MCV 93.0 fl (80-96) 04/14/18 07:00 MCH 31.1 pg (25.7-33.7) 04/14/18 07:00 MCHC 33.4 g/dl (32.0-35.9) 04/14/18 07:00 RDW 14.1 % (11.9-15.9) 04/14/18 07:00 Plt Count 230 K/MM3 (134-434) 04/14/18 07:00 MPV 8.3 fl (7.5-11.1) 04/14/18 07:00 Sodium 139 mmol/L (136-145) 04/14/18 07:00 Potassium 4.5 mmol/L (3.5-5.1) 04/14/18 07:00 Chloride 105 mmol/L (98-107) 04/14/18 07:00 Carbon Dioxide 29 mmol/L (21-32) 04/14/18 07:00 Anion Gap 5 (8-16) L 04/14/18 07:00 BUN 13 mg/dL (7-18) 04/14/18 07:00 Creatinine 0.8 mg/dL (0.7-1.3) 04/14/18 07:00 Creat Clearance w eGFR > 60 (>60) 04/14/18 07:00 Random Glucose 102 mg/dL (74-106) D 04/14/18 07:00 Calcium 8.6 mg/dL (8.5-10.1) 04/14/18 07:00 Total Bilirubin 0.3 mg/dL (0.2-1.0) D 04/14/18 07:00 AST 18 U/L (15-37) 04/14/18 07:00 ALT 17 U/L (12-78) D 04/14/18 07:00 Alkaline Phosphatase 112 U/L (45-117) D 04/14/18 07:00 Total Protein 7.3 g/dl (6.4-8.2) 04/14/18 07:00 Albumin 3.1 g/dl (3.4-5.0) L 04/14/18 07:00 Urine Color Straw 04/13/18 16:00 Urine Appearance Clear 04/13/18 16:00 Urine pH 5.0 (5.0-8.0) 04/13/18 16:00 Ur Specific [place] 1.005 (1.001-1.035) 04/13/18 16:00 Urine Protein Negative (NEGATIVE) 04/13/18 16:00 Urine Glucose (UA) Negative (NEGATIVE) 04/13/18 16:00 Urine Ketones Negative (NEGATIVE) 04/13/18 16:00 Urine Blood Negative (NEGATIVE) 04/13/18 16:00 Urine Nitrite Negative (NEGATIVE) 04/13/18 16:00 Urine Bilirubin Negative (<2.0 mg/dL) 04/13/18 16:00 Urine Urobilinogen Negative mg/dL (0.2-1.0) 04/13/18 16:00 Ur Leukocyte Esterase Negative (NEGATIVE) 04/13/18 16:00 RPR Titer Nonreactive (NONREACTIVE) 04/14/18 07:00 lab noted - Treatment Hospital Course: Detox Protocol Followed, Detoxed Safely, Responded well, Discharged Condition Good, Rehab Referral Accepted Patient has Accepted a Rehab Referral to: Dr. Allen - Medication Discharge Medications: Ambulatory Orders Abacavir/Dolutegravir/Lamivudi [Triumeq Tablet] 1 each PO HS #30 tablet Estrogens,Conjugated [Premarin -] 1.25 mg PO BID #60 tablet 02/22/18 Gabapentin [Neurontin -] 800 mg PO TID #120 capsule 02/22/18 Tamsulosin HCl [Flomax -] 0.4 mg PO DAILY@0830 #30 cap.er.24h 02/22/18 Estrogens,Conjugated [Premarin Vaginal Cream -] 1 applic VG DAILY 04/13/18 Sulfamethoxazole/Trimethoprim [Bactrim Ds -] 1 tab PO DAILY 04/13/18 Varenicline Tartrate [Chantix] 1 mg PO DAILY 04/13/18 Citalopram Hydrobromide [Celexa -] 40 mg PO DAILY #30 tablet 04/14/18 Methadone [Dolophine -] 100 mg PO DAILY 04/14/18 - Diagnosis (1) Hepatitis C Current Visit: Yes Status: Chronic Qualifiers: Viral hepatitis chronicity: carrier Qualified Code(s): B18.2 - Chronic viral hepatitis C (2) Alcohol dependence with withdrawal, uncomplicated Current Visit: Yes Status: Acute (3) HIV (human immunodeficiency virus infection) Current Visit: Yes Status: Chronic (4) Methadone maintenance therapy patient Current Visit: Yes Status: Chronic (5) Nicotine dependence Current Visit: Yes Status: Acute Qualifiers: Nicotine product type: cigarettes Substance use status: in withdrawal Qualified Code(s): F17.213 - Nicotine dependence, cigarettes, with withdrawal - AMA Did Patient Leave Against Medical Advice: No
[2018-04-16] MEDS: PRENATAL VITAMINS W/ FOLIC ACID TABLET (FP) PO SCH (09:07)
[2018-04-16] MEDS: CITALOPRAM HYDROBROMIDE 20 MG TABLET (FP) PO SCH (09:07)
[2018-04-16] MEDS: TAMSULOSIN HCL 0.4 MG CAP.ER.24H (FP) PO SCH (09:08)
[2018-04-16] MEDS: SULFAMETHOXAZOLE/TRIMETHOPRIM 800MG/160MG D.S. TABLET PO SCH (09:08)
[2018-04-16] MEDS: ESTROGENS,CONJUGATED 1.25 MG TABLET PO SCH (09:10)
[2018-04-16] MEDS: ESTROGENS,CONJUGATE VAGINAL CR 30 GM TUBE VG SCH (09:11)
[2018-04-16] MEDS: NICOTINE 21 MG/24 HOURS TOPICAL PATCH TD SCH (09:14)
[2018-04-16] MEDS: diazePAM 5 MG TABLET PO SCH (09:14)
[2018-04-17] MEDS ORDERED: diazePAM 5 MG TABLET PO SCH (10:00)
== END 2018-04-16 09:12 | disposition home or self-care (01) | DRG 774 ==
LOC: YASAS 12:12 → Y6N 16:07
PROVIDERS: ADMIT Surgery; ATTEND Surgery
PROC: HZ2ZZZZ Detoxification Services for Substance Abuse Treatment (ICD-10-PCS; principal; 2018-04-13)
DX: F10.230 Alcohol dependence with withdrawal, uncomplicated (principal); F14.20 Cocaine dependence, uncomplicated; F17.213 Nicotine dependence, cigarettes, with withdrawal; F31.9 Bipolar disorder, unspecified; Z21 Asymptomatic human immunodeficiency virus [HIV] infection status; B18.2 Chronic viral hepatitis C; F64.1 Dual role transvestism
CPT/HCPCS: 36415; 80053; 81003; 85027; 86593; 93005; 93010; J1410

== ENCOUNTER 2018-08-19 12:58 | Inpatient (IN) | payer OTHER ==
[2018-08-19 13:45] VITALS: BMI 33.9
--- NOTE | 2018-08-19 16:27 | HP ---
COWS - Scale Resting Pulse: 0= SC 80 or Below Sweatin=Flushed/Facial Moisture Restless Observation: 1= Difficult to Sit Still Pupil Size: 0= Normal to Room Light Bone or Joint Aches: 1= Mild Discomfort Runny Nose/ Eye Tearin= None GI Upset > 30mins: 2= Nausea/Diarrhea Tremor Observation: 0= None Yawning Observation: 0= None Anxiety or Irritability: 1=Feels Anxious/Irritable Goose Flesh Skin: 0=Smooth Skin COWS Score: 7 CIWA Score - CIWA Score Nausea/Vomitin-Int. Nausea w/Dry Heave Muscle Tremors: 1-None Visible, but [place] Anxiety: 1-Mildly Anxious Agitation: 1-Slight > Activity Paroxysmal Sweats: 2 Orientation: 0-Oriented Tacttile Disturbances: 0-None Auditory Disturbances: 0-None Visual Disturbances: 1-Very Mild Sensitivity Headache: 0-None Present CIWA-Ar Total Score: 10 Admission ROS BHS - HPI Allergies/Adverse Reactions: Allergies Allergy/AdvReac Type Severity Reaction Status Date / Time chlordiazepoxide Allergy Rash Verified 08/19/18 15:51 [From Librium] History of Present Illness: patient here requesting detox from etoh use , reports 10 cans/ beer and 1 pint of vodka /day x 1 month prior to which was drinking 4-5 cans/ beer / day , + blackouts, + seizure in w/d 2 years ago , + falls , latest yesterday denies injuries, latest use this morning . coy 0.496 upon registration coy 0.000 utox [place] , + FEN , + OPI< + MTD , + BZO pt on MMTP reportedly 160 mg /day [facility] cocaine : occasional use fentanyl : denies use heroin : occasional use benzo - denies use . tobacco : 1 ppd , requesting nrt w/ patch PMHX : HIV ( RF+ IVDU ) , HEp C ( tx 2017 , RF =IVDU ) psych : bipolar d/o pshx : breast augmentation , gender re-assignment surgery [id number] . allergies - Librium ( hives ) Exam Limitations: No Limitations - Ebola screening Have you traveled outside of the country in the last 21 days: No Have you had contact with anyone from an Ebola affected area: No Have you been sick,other than usual withdrawal symptoms: No Do you have a fever: No - Review of Systems Constitutional: See HPI EENT: reports: See HPI, Other (reading glasses) Respiratory: reports: No Symptoms reported Cardiac: reports: No Symptoms Reported GI: reports: Nausea, Vomiting : reports: No Symptoms Reported Musculoskeletal: reports: No Symptoms Reported Integumentary: reports: No Symptoms Reported Neuro: reports: No Symptoms reported Endocrine: reports: See HPI Hematology: reports: No Symptoms Reported Psychiatric: reports: Orientated x3 Patient History - Patient Medical History Hx Anemia: No Hx Asthma: No Hx Chronic Obstructive Pulmonary Disease (COPD): No Hx Cancer: No Hx Cardiac Disorders: No Hx Congestive Heart Failure: No Hx Hypertension: No Hx Hypercholesterolemia: No Hx Pacemaker: No HX Cerebrovascular Accident: No Hx Seizures: Yes (2015) Hx Dementia: No Hx Diabetes: No Hx Gastrointestinal Disorders: No Hx Liver Disease: No Hx Genitourinary Disorders: No Hx Sexually Transmitted Disorders: Yes (HIV + since 1996) Hx Renal Disease (ESRD): No Hx Thyroid Disease: No Hx Human Immunodeficiency Virus (HIV): Yes (SINCE 1996;ON TRIUMEQ ) Hx Hepatitis C: Yes (diag. 1996 - treated) Hx Depression: Yes Hx Suicide Attempt: No Hx Bipolar Disorder: Yes Hx Schizophrenia: No - Patient Surgical History Past Surgical History: No Hx Neurologic Surgery: No Hx Cataract Extraction: No Hx Cardiac Surgery: No Hx Lung Surgery: No Hx Breast Surgery: Yes (breast implant on 07/26/2015) Hx Breast Biopsy: No Hx Abdominal Surgery: No Hx Appendectomy: No Hx Cholecystectomy: No Hx Genitourinary Surgery: No Hx Section: No Hx Orthopedic Surgery: No Other Surgical History: orchiectomy on 12/28/2014/gender reassignment; 01/10/2017 Anesthesia Reaction: No - PPD History Previous Implant?: Yes Documented Results: Negative w/proof Date: 07/31/17 Results: 0mm - Smoking Cessation Smoking history: Current every day smoker Have you smoked in the past 12 months: Yes Aproximately how many cigarettes per day: 20 If you are a former smoker, when did you quit?: 2 1/2 weeks ago Cigars Per Day: 0 Hx Chewing Tobacco Use: No Initiated information on smoking cessation: No - Substances Abused Alcohol Route: Oral Frequency: Daily Amount used: 10 CANS OF BEER (16 OUNCES), OR 1 PINT OF VODKA Age of first use: 15 Date of Last Use: 08/19/18 Family Disease History - Family Disease History Family Disease History: Other: Father (no contact, ALCOHOL), Mother (no contact) Admission Physical Exam [facility] - Vital Signs Vital Signs: Vital Signs - 24 hr 08/19/18 13:43 Temperature 97.5 F L Pulse Rate 73 Respiratory 18 Rate Blood Pressure 159/103 H - Physical General Appearance: Yes: No Apparent Distress, Nourished, Appropriately Dressed , Mild Distress, Irritable, Anxious HEENTM: Yes: EOMI, Hearing grossly Normal, Normal ENT Inspection, Normocephalic , Normal Voice, ALFREDA, Pharynx Normal Respiratory: Yes: Within Normal Limits, Chest Non-Tender, Lungs Clear, Normal Breath Sounds, No Respiratory Distress, No Accessory Muscle Use Neck: Yes: Within Normal Limits, No masses,lesions,Nodules, Trachea in good position Breast: Yes: Breast Exam Deferred Cardiology: Yes: Within Normal Limits, Regular Rhythm, Regular Rate Abdominal: Yes: Normal Bowel Sounds, Non Tender, Flat, Soft, Protuberent Genitourinary: Yes: Within Normal Limits Back: Yes: Within Normal Limits, Normal Inspection Musculoskeletal: Yes: Within Normal Limits, full range of Motion, Gait Steady, Pelvis Stable Extremities: Yes: Within Normal Limits, Normal Capillary Refill, Normal Inspection, Normal Range of Motion, Non-Tender Neurological: Yes: Within Normal Limits, 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 on 160 mg, last medicated today, dose pending verification S Breath Alcohol Content Breath Alcohol Content: 0.496 Urine Drug Screen - Results Drug Screen Negative: No Urine Drug Screen Results: SASKIA-Cocaine, OPI-Opiates, BZO-Benzodiazepines, MTD- Methadone, FEN-Fentanyl
[2018-08-19] MEDS ORDERED: P-EPHED 60MG/TRIPROLIDI 2.5MG TABLET PO PRN (16:32)
[2018-08-19] MEDS ORDERED: IBUPROFEN 400 MG TABLET (FP) PO PRN (16:32)
[2018-08-19] MEDS ORDERED: MAGNESIUM CITRATE 300 ML BOTTLE PO PRN (16:32)
[2018-08-19] MEDS ORDERED: guaiFENesin/D-METHORPHAN HB 10 ML UNIT-DOSE CUPS PO PRN (16:32)
[2018-08-19] MEDS ORDERED: MAG HYDROX/AL HYDROX/SIMETH 30 ML UNIT-DOSE CUP PO PRN (16:32)
[2018-08-19] MEDS ORDERED: MAGNESIUM HYDROX 2400MG/30ML ORAL SUSPENSION 30 ML CUP PO PRN (16:32)
[2018-08-19] MEDS ORDERED: diazePAM 5 MG TABLET PO ONE (16:32)
[2018-08-19] MEDS ORDERED: hydrOXYzine PAMOATE 25 MG CAPSULE (FP) PO PRN (16:32)
[2018-08-19] MEDS ORDERED: MENTHOL/PHENOL 1 EACH UD MM PRN (16:32)
[2018-08-19] MEDS ORDERED: COLLOIDAL OATMEAL 1 BAR EACH TP PRN (16:36)
[2018-08-19] MEDS ORDERED: MELATONIN 5 MG TABLETS PO PRN (22:00)
[2018-08-19] MEDS ORDERED: ESTRADIOL 0.5 MG PO SCH (22:00)
[2018-08-19] MEDS ORDERED: ESTRADIOL PO SCH (22:00)
[2018-08-19] MEDS: diazePAM 5 MG TABLET PO SCH (22:34)
[2018-08-19] MEDS: THIAMINE HCL 100 MG TABLET (FP) PO SCH (22:34)
[2018-08-19] MEDS: ESTROGENS,CONJUGATE VAGINAL CR 30 GM TUBE VG SCH (22:35)
[2018-08-19 23:08] LABS: URINE APPEARANCE TURBID; URINE BILIRUBIN NEGATIVE (<2.0 mg/dL); URINE COLOR YELLOW; URINE GLUCOSE (UA) NEGATIVE (NEGATIVE); URINE KETONE NEGATIVE (NEGATIVE); URINE LEUK ESTERASE NEGATIVE (NEGATIVE); URINE NITRITE NEGATIVE (NEGATIVE)
[2018-08-19 23:14] LABS: URINE PROTEIN 1+ (NEGATIVE)
[2018-08-19 23:25] LABS: URINE MUCUS MODERATE
[2018-08-19 23:28] LABS: AMORP URATES MANY /hpf (NONE SEEN)
[2018-08-20] MEDS: diazePAM 5 MG TABLET PO PRN ×2 (02:02→10:47)
[2018-08-20] MEDS: diazePAM 5 MG TABLET PO SCH ×3 (05:27→22:31)
[2018-08-20] MEDS ORDERED: METHADONE HCL 40 MG DISPERSABLE TABLET PO ONE (09:05)
--- NOTE | 2018-08-20 09:49 | CONSULT ---
[facility] Psychiatric Consult - Data Date of interview: 08/19/18 Admission source: [facility] Identifying data: Patient is a 42 year old single female, without children, unemployed, domiciled, and is supported by [employer]. This is one of multiple admissions for patient. Pt. admitted to for alcohol dependence. Substance Abuse History: - Smoking Cessation. Smoking history: Current every day smoker. Have you smoked in the past 12 months: Yes. Aproximately how many cigarettes per day: 20. If you are a former smoker, when did you quit?: 2 1/2 weeks ago. Cigars Per Day: 0. Hx Chewing Tobacco Use: No. Initiated information on smoking cessation: No. - Substances Abused. Alcohol. Route : Oral. Frequency: Daily. Amount used: 10 CANS OF BEER (16 OUNCES), OR 1 PINT OF VODKA. Age of first use: 15. Date of Last Use: 08/19/18 Medical History: Seizures (2016), HIV Psychiatric History: Patient's first psychiatric contact was at 15 years of age after exhibiting racing thoughts, pressured speech, and poor sleep. She was admitted to the adolescent unit at [facility] and was diagnosed with Bipolar disorder. She continued treatment at an outpatient clinic in [place]. Patient was most recently hospitalized 7 years ago at [facility] for suicidal ideation. Current outpatient psychiatric care is provided at [facility] by Dr. Amador doe. She is prescribed buspar 5mg BID+ Gabapentin 800mg TID+ Celexa 40mg. Patient is also enrolled at the [facility] Methadone program. She is on methadone maintenance of 160mg daily. Patient denies h/o suicide attempt. Physical/Sexual Abuse/Trauma History: denies. Mental Status Exam - Mental Status Exam Alert and Oriented to: Time, Place, Person Cognitive Function: Good Patient Appearance: Well Groomed Mood: Hopeful, Euthymic Affect: Appropriate Patient Behavior: Appropriate, Cooperative Speech Pattern: Clear, Appropriate Voice Loudness: Normal Thought Process: Intact, Goal Oriented Thought Disorder: Not Present Hallucinations: Denies Suicidal Ideation: Denies Homicidal Ideation: Denies Insight/Judgement: Poor Sleep: Poorly Appetite: Fair Muscle strength/Tone: Normal Gait/Station: Normal Psychiatric Findings - Problem List ([place] 1, 2,3) (1) Alcohol dependence with withdrawal, uncomplicated Current Visit: Yes Status: Acute (2) Bipolar disorder Current Visit: Yes Status: Chronic (3) Opioid dependence on agonist therapy Current Visit: Yes Status: Chronic Comment: MMTP at [facility] on 160 mg, last medicated today, dose pending verification - Initial Treatment Plan Initial Treatment Plan: Psychoeducation provided. Detoxification in progress. Pharmacy claims reviewed. Will order celexa 40mg + Buspar 5mg BID + Gabapentin 800mg TID. Benefits and side effects discussed. Verbal consent given.
[2018-08-20 10:05] LABS: MCH 31.5 pg (25.7-33.7); MCHC 33.9 g/dl (32.0-35.9); MEAN CELL VOLUME 92.9 fl (80-96); RDW 13.1 % (11.9-15.9); WHITE BLOOD COUNT 7.4 K/mm3 (4.0-10.0)
[2018-08-20 10:10] LABS: HEMATOCRIT 40.9 % (35.4-49); HEMOGLOBIN 13.8 GM/dL (11.7-16.9); MEAN PLT VOLUME 8.8 fl (7.5-11.1); PLATELET COUNT 239 K/MM3 (134-434)
[2018-08-20 10:26] LABS: ALBUMIN 3.5 g/dl (3.4-5.0); ALK PHOS 120 U/L (45-117); ANION GAP 12 MMOL/L (8-16); BILIRUBIN,TOTAL 0.2 mg/dL (0.2-1); BLOOD UREA NITROGEN 14 mg/dL (7-18); CALCIUM 9.4 mg/dL (8.5-10.1); CHLORIDE 102 mmol/L (98-107); CO2 25 mmol/L (21-32); CREATININE 1.1 mg/dL (0.55-1.3); GLUCOSE,RANDOM 99 mg/dL (74-106); POTASSIUM 4.2 mmol/L (3.5-5.1); SGOT/AST 21 U/L (15-37); SGPT/ALT 26 U/L (13-61); SODIUM 139 mmol/L (136-145)
[2018-08-20] MEDS: PRENATAL VITAMINS W/ FOLIC ACID TABLET (FP) PO SCH (10:48)
[2018-08-20] MEDS: CITALOPRAM HYDROBROMIDE 20 MG TABLET (FP) PO SCH (10:48)
[2018-08-20] MEDS: NICOTINE 7 MG/24 HOURS TOPICAL PATCH TD SCH (10:48)
[2018-08-20] MEDS: busPIRone HCL 5 MG TABLET PO SCH ×2 (11:00→22:31)
--- NOTE | 2018-08-20 11:14 | EKG ---
Test Reason : Blood Pressure : / mmHG Vent. Rate : 058 BPM Atrial Rate : 058 BPM P-R Int : 158 ms QRS Dur : 104 ms QT Int : 432 ms P-R-T Axes : 039 -12 032 degrees QTc Int : 424 ms SINUS BRADYCARDIA OTHERWISE NORMAL ECG WHEN COMPARED WITH ECG OF 20-JUN-2018 17:22, CRITERIA FOR SEPTAL INFARCT ARE NO LONGER PRESENT Confirmed by ZACHARIAH PARRY MD ([id number]) on 08/20/2018 11:14:11 AM Referred By: Confirmed By:ZACHARIAH PARRY MD
[2018-08-20] MEDS ORDERED: FLU VACCINE QUAD 60 MCG/0.5 ML (MDV 18-19) IM ONE (12:00)
--- NOTE | 2018-08-20 12:20 | PN ---
S CIWA - CIWA Score Nausea/Vomitin-No Nausea/No Vomiting Muscle Tremors: 4-Moderate,w/Arms Extend Anxiety: 3 Agitation: 3 Paroxysmal Sweats: 3 Orientation: 0-Oriented Tacttile Disturbances: 0-None Auditory Disturbances: 0-None Visual Disturbances: 0-None Headache: 0-None Present CIWA-Ar Total Score: 13 BHS Progress Note (SOAP) Subjective: sweats shakes interrupted sleep irritable Objective: 08/20/18 12:20 Vital Signs Temperature 97.3 F L 08/20/18 09:36 Pulse Rate 60 08/20/18 09:36 Respiratory Rate 18 08/20/18 09:36 Blood Pressure 119/79 08/20/18 09:36 O2 Sat by Pulse Oximetry (%) Laboratory Tests 08/19/18 08/20/18 08/20/18 21:52 06:00 06:00 WBC 7.4 RBC 4.40 Hgb 13.8 Hct 40.9 D MCV 92.9 MCH 31.5 MCHC 33.9 RDW 13.1 Plt Count 239 MPV 8.8 Sodium 139 Potassium 4.2 Chloride 102 Carbon Dioxide 25 Anion Gap 12 BUN 14 Creatinine 1.1 Creat Clearance w eGFR > 60 Random Glucose 99 Calcium 9.4 Total Bilirubin 0.2 AST 21 ALT 26 Alkaline Phosphatase 120 H Total Protein 8.0 Albumin 3.5 Urine Color Yellow Urine Appearance Turbid Urine pH 5.0 Ur Specific [place] 1.027 Urine Protein 1+ H Urine Glucose (UA) Negative Urine Ketones Negative Urine Blood Negative Urine Nitrite Negative Urine Bilirubin Negative Urine Urobilinogen 2.0 Ur Leukocyte Esterase Negative Urine WBC (Auto) None Urine RBC (Auto) 3 Amorphous Urates Many Urine Mucus Moderate RPR Titer 08/20/18 06:00 WBC RBC Hgb Hct MCV MCH MCHC RDW Plt Count MPV Sodium Potassium Chloride Carbon Dioxide Anion Gap BUN Creatinine Creat Clearance w eGFR Random Glucose Calcium Total Bilirubin AST ALT Alkaline Phosphatase Total Protein Albumin Urine Color Urine Appearance Urine pH Ur Specific [place] Urine Protein Urine Glucose (UA) Urine Ketones Urine Blood Urine Nitrite Urine Bilirubin Urine Urobilinogen Ur Leukocyte Esterase Urine WBC (Auto) Urine RBC (Auto) Amorphous Urates Urine Mucus RPR Titer Nonreactive aaox3 ambulating no acute distress Assessment: 08/20/18 12:20 withdrawal sx Plan: continue detox increase fluids
[2018-08-20] MEDS: GABAPENTIN 400 MG CAPSULE (FP) PO SCH ×2 (15:02→22:31)
[2018-08-20] MEDS: THIAMINE HCL 100 MG TABLET (FP) PO SCH (22:31)
[2018-08-20] MEDS: ESTROGENS,CONJUGATE VAGINAL CR 30 GM TUBE VG SCH (22:33)
[2018-08-20] MEDS: ACETAMINOPHEN 325 MG TABLET (FP) PO PRN (22:52)
[2018-08-21] MEDS: diazePAM 5 MG TABLET PO PRN ×2 (03:06→13:34)
[2018-08-21] MEDS: GABAPENTIN 400 MG CAPSULE (FP) PO SCH ×3 (06:15→22:15)
[2018-08-21] MEDS: METHADONE HCL 40 MG DISPERSABLE TABLET PO SCH (06:15)
--- NOTE | 2018-08-21 09:30 | PN ---
[facility] CIWA - CIWA Score Nausea/Vomitin-No Nausea/No Vomiting Muscle Tremors: 1-None Visible, but [place] Anxiety: 3 Agitation: 4-Moderately Restless Paroxysmal Sweats: 2 Orientation: 0-Oriented Tacttile Disturbances: 1-Very Mild Itch/Numbness Auditory Disturbances: 0-None Visual Disturbances: 0-None Headache: 0-None Present CIWA-Ar Total Score: 11 S Progress Note (SOAP) Subjective: insomnia, anxious, chills Objective: 08/21/18 09:29 Vital Signs Temperature 98.2 F 08/21/18 09:23 Pulse Rate 81 08/21/18 09:23 Respiratory Rate 16 08/21/18 09:23 Blood Pressure 118/66 08/21/18 09:23 O2 Sat by Pulse Oximetry (%) Laboratory Last Values WBC 7.4 K/mm3 (4.0-10.0) 08/20/18 06:00 RBC 4.40 M/mm3 (4.00-5.60) 08/20/18 06:00 Hgb 13.8 GM/dL (11.7-16.9) 08/20/18 06:00 Hct 40.9 % (35.4-49) D 08/20/18 06:00 MCV 92.9 fl (80-96) 08/20/18 06:00 MCH 31.5 pg (25.7-33.7) 08/20/18 06:00 MCHC 33.9 g/dl (32.0-35.9) 08/20/18 06:00 RDW 13.1 % (11.9-15.9) 08/20/18 06:00 Plt Count 239 K/MM3 (134-434) 08/20/18 06:00 MPV 8.8 fl (7.5-11.1) 08/20/18 06:00 Sodium 139 mmol/L (136-145) 08/20/18 06:00 Potassium 4.2 mmol/L (3.5-5.1) 08/20/18 06:00 Chloride 102 mmol/L (98-107) 08/20/18 06:00 Carbon Dioxide 25 mmol/L (21-32) 08/20/18 06:00 Anion Gap 12 MMOL/L (8-16) 08/20/18 06:00 BUN 14 mg/dL (7-18) 08/20/18 06:00 Creatinine 1.1 mg/dL (0.55-1.3) 08/20/18 06:00 Creat Clearance w eGFR > 60 (>60) 08/20/18 06:00 Random Glucose 99 mg/dL (74-106) 08/20/18 06:00 Calcium 9.4 mg/dL (8.5-10.1) 08/20/18 06:00 Total Bilirubin 0.2 mg/dL (0.2-1) 08/20/18 06:00 AST 21 U/L (15-37) 08/20/18 06:00 ALT 26 U/L (13-61) 08/20/18 06:00 Alkaline Phosphatase 120 U/L (45-117) H 08/20/18 06:00 Total Protein 8.0 g/dl (6.4-8.2) 08/20/18 06:00 Albumin 3.5 g/dl (3.4-5.0) 08/20/18 06:00 Urine Color Yellow 08/19/18 21:52 Urine Appearance Turbid 08/19/18 21:52 Urine pH 5.0 (5.0-8.0) 08/19/18 21:52 Ur Specific [place] 1.027 (1.001-1.035) 08/19/18 21:52 Urine Protein 1+ (NEGATIVE) H 08/19/18 21:52 Urine Glucose (UA) Negative (NEGATIVE) 08/19/18 21:52 Urine Ketones Negative (NEGATIVE) 08/19/18 21:52 Urine Blood Negative (NEGATIVE) 08/19/18 21:52 Urine Nitrite Negative (NEGATIVE) 08/19/18 21:52 Urine Bilirubin Negative (<2.0 mg/dL) 08/19/18 21:52 Urine Urobilinogen 2.0 mg/dL (0.2-1.0) 08/19/18 21:52 Ur Leukocyte Esterase Negative (NEGATIVE) 08/19/18 21:52 Urine WBC (Auto) None /hpf (3-5) 08/19/18 21:52 Urine RBC (Auto) 3 /hpf (0-3) 08/19/18 21:52 Amorphous Urates Many /hpf (NONE SEEN) 08/19/18 21:52 Urine Mucus Moderate 08/19/18 21:52 RPR Titer Nonreactive (NONREACTIVE) 08/20/18 06:00 labs noted Aox3 no distress, anxious no adventicous breaht sounds full ROM ambulating in the unit Plan: increase PO fluids psych : re: insomnia ordered bendaral 50 mg HS for tonight continue detox continue to monitor
[2018-08-21] MEDS: busPIRone HCL 5 MG TABLET PO SCH ×2 (10:22→22:15)
[2018-08-21] MEDS: CITALOPRAM HYDROBROMIDE 20 MG TABLET (FP) PO SCH (10:22)
[2018-08-21] MEDS: PRENATAL VITAMINS W/ FOLIC ACID TABLET (FP) PO SCH (10:23)
[2018-08-21] MEDS: diazePAM 5 MG TABLET PO SCH ×2 (10:23→22:16)
[2018-08-21] MEDS: NICOTINE 7 MG/24 HOURS TOPICAL PATCH TD SCH (10:23)
[2018-08-21] MEDS: ACETAMINOPHEN 325 MG TABLET (FP) PO PRN (13:35)
[2018-08-21] MEDS ORDERED: diphenhydrAMINE HCL 25 MG CAPSULE (FP) PO ONE (22:00)
[2018-08-21] MEDS: ESTROGENS,CONJUGATE VAGINAL CR 30 GM TUBE VG SCH (22:16)
[2018-08-21] MEDS: THIAMINE HCL 100 MG TABLET (FP) PO SCH (22:16)
[2018-08-22] MEDS: METHADONE HCL 40 MG DISPERSABLE TABLET PO SCH (06:15)
[2018-08-22] MEDS: GABAPENTIN 400 MG CAPSULE (FP) PO SCH ×2 (06:15→13:11)
[2018-08-22] MEDS: CITALOPRAM HYDROBROMIDE 20 MG TABLET (FP) PO SCH (10:33)
[2018-08-22] MEDS: diazePAM 5 MG TABLET PO SCH (10:34)
[2018-08-22] MEDS: PRENATAL VITAMINS W/ FOLIC ACID TABLET (FP) PO SCH (10:34)
[2018-08-22] MEDS: busPIRone HCL 5 MG TABLET PO SCH (10:34)
[2018-08-22] MEDS: NICOTINE 7 MG/24 HOURS TOPICAL PATCH TD SCH (10:34)
[2018-08-22] MEDS ORDERED: BENZOCAINE 28 GM HEMORRHOIDAL OINTMENT PR PRN ×2 (13:26→16:29)
--- NOTE | 2018-08-22 13:32 | PN ---
[facility] Progress Note (SOAP) Subjective: feeling better social in day room with peers, no gi distress no tremor Objective: 08/22/18 13:30 Vital Signs Temperature 98.2 F 08/22/18 10:00 Pulse Rate 89 08/22/18 10:00 Respiratory Rate 16 08/22/18 10:00 Blood Pressure 121/79 08/22/18 10:00 O2 Sat by Pulse Oximetry (%) Laboratory Last Values WBC 7.4 K/mm3 (4.0-10.0) 08/20/18 06:00 RBC 4.40 M/mm3 (4.00-5.60) 08/20/18 06:00 Hgb 13.8 GM/dL (11.7-16.9) 08/20/18 06:00 Hct 40.9 % (35.4-49) D 08/20/18 06:00 MCV 92.9 fl (80-96) 08/20/18 06:00 MCH 31.5 pg (25.7-33.7) 08/20/18 06:00 MCHC 33.9 g/dl (32.0-35.9) 08/20/18 06:00 RDW 13.1 % (11.9-15.9) 08/20/18 06:00 Plt Count 239 K/MM3 (134-434) 08/20/18 06:00 MPV 8.8 fl (7.5-11.1) 08/20/18 06:00 Sodium 139 mmol/L (136-145) 08/20/18 06:00 Potassium 4.2 mmol/L (3.5-5.1) 08/20/18 06:00 Chloride 102 mmol/L (98-107) 08/20/18 06:00 Carbon Dioxide 25 mmol/L (21-32) 08/20/18 06:00 Anion Gap 12 MMOL/L (8-16) 08/20/18 06:00 BUN 14 mg/dL (7-18) 08/20/18 06:00 Creatinine 1.1 mg/dL (0.55-1.3) 08/20/18 06:00 Creat Clearance w eGFR > 60 (>60) 08/20/18 06:00 Random Glucose 99 mg/dL (74-106) 08/20/18 06:00 Calcium 9.4 mg/dL (8.5-10.1) 08/20/18 06:00 Total Bilirubin 0.2 mg/dL (0.2-1) 08/20/18 06:00 AST 21 U/L (15-37) 08/20/18 06:00 ALT 26 U/L (13-61) 08/20/18 06:00 Alkaline Phosphatase 120 U/L (45-117) H 08/20/18 06:00 Total Protein 8.0 g/dl (6.4-8.2) 08/20/18 06:00 Albumin 3.5 g/dl (3.4-5.0) 08/20/18 06:00 Urine Color Yellow 08/19/18 21:52 Urine Appearance Turbid 08/19/18 21:52 Urine pH 5.0 (5.0-8.0) 08/19/18 21:52 Ur Specific [place] 1.027 (1.001-1.035) 08/19/18 21:52 Urine Protein 1+ (NEGATIVE) H 08/19/18 21:52 Urine Glucose (UA) Negative (NEGATIVE) 08/19/18 21:52 Urine Ketones Negative (NEGATIVE) 08/19/18 21:52 Urine Blood Negative (NEGATIVE) 08/19/18 21:52 Urine Nitrite Negative (NEGATIVE) 08/19/18 21:52 Urine Bilirubin Negative (<2.0 mg/dL) 08/19/18 21:52 Urine Urobilinogen 2.0 mg/dL (0.2-1.0) 08/19/18 21:52 Ur Leukocyte Esterase Negative (NEGATIVE) 08/19/18 21:52 Urine WBC (Auto) None /hpf (3-5) 08/19/18 21:52 Urine RBC (Auto) 3 /hpf (0-3) 08/19/18 21:52 Amorphous Urates Many /hpf (NONE SEEN) 08/19/18 21:52 Urine Mucus Moderate 08/19/18 21:52 RPR Titer Nonreactive (NONREACTIVE) 08/20/18 06:00 lab noted Assessment: 08/22/18 13:31 mild withdrawal sx Plan: medically supervised deox
[2018-08-22] MEDS ORDERED: MAG HYDROX/AL HYDROX/SIMETH -MYLANTA- ORAL SUSPENSION PO ONE (13:53)
[2018-08-22 14:17] VITALS: BP 133/80; PULSE 88; TEMP 97.6
--- NOTE | 2018-08-22 17:38 | PN ---
[facility] Progress Note Note: patient did not want to complete treatment,signed release ama,all attempts to convince patient to stay with no avail, seen by counselor,risk of relapsing and withdrawal explained,advise to go to er if emergency medical problem
--- NOTE | 2018-08-22 17:42 | DS ---
[facility] Detox Discharge Summary Admission Date: 08/19/18 Discharge Date: 08/22/18 - History Present History: Alcohol Dependence, Cocaine Dependence Additional Comments: patient left ama,has all medications at home - Physical Exam Results Vital Signs: Vital Signs Temperature 97.6 F 08/22/18 14:13 Pulse Rate 88 08/22/18 14:13 Respiratory Rate 18 08/22/18 14:13 Blood Pressure 133/80 08/22/18 14:13 O2 Sat by Pulse Oximetry (%) Pertinent Admission Physical Exam Findings: withdrawal signs and symptom Laboratory Last Values WBC 7.4 K/mm3 (4.0-10.0) 08/20/18 06:00 RBC 4.40 M/mm3 (4.00-5.60) 08/20/18 06:00 Hgb 13.8 GM/dL (11.7-16.9) 08/20/18 06:00 Hct 40.9 % (35.4-49) D 08/20/18 06:00 MCV 92.9 fl (80-96) 08/20/18 06:00 MCH 31.5 pg (25.7-33.7) 08/20/18 06:00 MCHC 33.9 g/dl (32.0-35.9) 08/20/18 06:00 RDW 13.1 % (11.9-15.9) 08/20/18 06:00 Plt Count 239 K/MM3 (134-434) 08/20/18 06:00 MPV 8.8 fl (7.5-11.1) 08/20/18 06:00 Sodium 139 mmol/L (136-145) 08/20/18 06:00 Potassium 4.2 mmol/L (3.5-5.1) 08/20/18 06:00 Chloride 102 mmol/L (98-107) 08/20/18 06:00 Carbon Dioxide 25 mmol/L (21-32) 08/20/18 06:00 Anion Gap 12 MMOL/L (8-16) 08/20/18 06:00 BUN 14 mg/dL (7-18) 08/20/18 06:00 Creatinine 1.1 mg/dL (0.55-1.3) 08/20/18 06:00 Creat Clearance w eGFR > 60 (>60) 08/20/18 06:00 Random Glucose 99 mg/dL (74-106) 08/20/18 06:00 Calcium 9.4 mg/dL (8.5-10.1) 08/20/18 06:00 Total Bilirubin 0.2 mg/dL (0.2-1) 08/20/18 06:00 AST 21 U/L (15-37) 08/20/18 06:00 ALT 26 U/L (13-61) 08/20/18 06:00 Alkaline Phosphatase 120 U/L (45-117) H 08/20/18 06:00 Total Protein 8.0 g/dl (6.4-8.2) 08/20/18 06:00 Albumin 3.5 g/dl (3.4-5.0) 08/20/18 06:00 Urine Color Yellow 08/19/18 21:52 Urine Appearance Turbid 08/19/18 21:52 Urine pH 5.0 (5.0-8.0) 08/19/18 21:52 Ur Specific [place] 1.027 (1.001-1.035) 08/19/18 21:52 Urine Protein 1+ (NEGATIVE) H 08/19/18 21:52 Urine Glucose (UA) Negative (NEGATIVE) 08/19/18 21:52 Urine Ketones Negative (NEGATIVE) 08/19/18 21:52 Urine Blood Negative (NEGATIVE) 08/19/18 21:52 Urine Nitrite Negative (NEGATIVE) 08/19/18 21:52 Urine Bilirubin Negative (<2.0 mg/dL) 08/19/18 21:52 Urine Urobilinogen 2.0 mg/dL (0.2-1.0) 08/19/18 21:52 Ur Leukocyte Esterase Negative (NEGATIVE) 08/19/18 21:52 Urine WBC (Auto) None /hpf (3-5) 08/19/18 21:52 Urine RBC (Auto) 3 /hpf (0-3) 08/19/18 21:52 Amorphous Urates Many /hpf (NONE SEEN) 08/19/18 21:52 Urine Mucus Moderate 08/19/18 21:52 RPR Titer Nonreactive (NONREACTIVE) 08/20/18 06:00 Vital Signs Temperature 97.6 F 08/22/18 14:13 Pulse Rate 88 08/22/18 14:13 Respiratory Rate 18 08/22/18 14:13 Blood Pressure 133/80 08/22/18 14:13 O2 Sat by Pulse Oximetry (%) - Medication Discharge Medications: Ambulatory Orders Methadone [Dolophine -] 160 mg PO DAILY 04/14/18 Citalopram Hydrobromide [Celexa -] 40 mg PO DAILY #30 tablet 06/21/18 Estradiol 0.5 mg PO BID 08/19/18 Estrogens,Conjugated [Premarin Vaginal Cream -] 1 applic VG HS 08/19/18 Buspirone HCl [Buspar -] 5 mg PO BID 08/20/18 Gabapentin [Neurontin -] 800 mg PO TID #90 capsule 08/22/18 - Diagnosis (1) Alcohol dependence with withdrawal, uncomplicated Current Visit: Yes Status: Acute (2) Bipolar disorder Current Visit: Yes Status: Chronic (3) Opioid dependence on agonist therapy Current Visit: Yes Status: Chronic (4) Nicotine dependence Current Visit: No Status: Acute Qualifiers: Nicotine product type: cigarettes Substance use status: in withdrawal Qualified Code(s): F17.213 - Nicotine dependence, cigarettes, with withdrawal (5) HIV positive Current Visit: No Status: Chronic (6) Hepatitis C carrier Current Visit: No Status: Chronic (7) Peripheral neuropathy Current Visit: No Status: Chronic Qualifiers: Peripheral neuropathy type: polyneuropathy, unspecified Qualified Code(s): G62.9 - Polyneuropathy, unspecified (8) Transgendered Current Visit: No Status: Chronic (9) Bipolar II disorder Current Visit: No Status: Suspected (10) Seizure Current Visit: No Status: Suspected (11) Hepatitis C Current Visit: No Status: Resolved Qualifiers: Viral hepatitis chronicity: carrier Qualified Code(s): B18.2 - Chronic viral hepatitis C - AMA Did Patient Leave Against Medical Advice: Yes
[2018-08-23] MEDS ORDERED: diazePAM 5 MG TABLET PO SCH (10:00)
== END 2018-08-22 18:00 | disposition left against medical advice (07) | DRG 770 ==
LOC: YASAS 12:58 → Y6N 17:20
PROC: HZ2ZZZZ Detoxification Services for Substance Abuse Treatment (ICD-10-PCS; principal; 2018-08-19)
DX: F10.230 Alcohol dependence with withdrawal, uncomplicated (principal); F11.20 Opioid dependence, uncomplicated; F17.213 Nicotine dependence, cigarettes, with withdrawal; F64.1 Dual role transvestism; F31.81 Bipolar II disorder; Z21 Asymptomatic human immunodeficiency virus [HIV] infection status; B18.2 Chronic viral hepatitis C; G62.9 Polyneuropathy, unspecified; R56.9 Unspecified convulsions; Z86.69 Personal history of other diseases of the nervous system and sense organs; Z91.81 History of falling; Z88.8 Allergy status to other drugs, medicaments and biological substances
CPT/HCPCS: 36415; 80053; 81003; 81015; 85027; 86593; 90688; 93005; 93010; G0008; J1410

== ENCOUNTER 2018-09-28 11:23 | Inpatient (IN) | payer OTHER ==
[2018-09-28 13:42] VITALS: BMI 33.5
--- NOTE | 2018-09-28 14:30 | HP ---
CIWA Score - CIWA Score Nausea/Vomitin Muscle Tremors: 2 Anxiety: 2 Agitation: 2 Paroxysmal Sweats: 3 Orientation: 0-Oriented Tacttile Disturbances: 3-Moderate Itch/Numb/Burn Auditory Disturbances: 0-None Visual Disturbances: 0-None Headache: 1-Very Mild CIWA-Ar Total Score: 15 Admission [facility] Chief Complaint: ETOH WITHDRAWAL SYMPTOMS Allergies/Adverse Reactions: Allergies Allergy/AdvReac Type Severity Reaction Status Date / Time chlordiazepoxide Allergy Rash Verified 08/19/18 15:51 [From Librium] History of Present Illness: PATIENT PRESENTS WITH ETOH WITHDRAWAL SYMPTOMS. PATIENT STARTED DRINKING ETOH AT AGE 15 AND DRINKS 2 PINTS OF VODKA AND 10 CANS OF BEER DAILY. LAST DRINK WAS AT 4AM. PATIENT REPORTS HAVING SEIZURES AND BLACKOUTS. LAST SEIZURE WAS 2 YEARS AGO. PATIENT STATES SHE HAS TO HAVE A DRINK IN THE MORNING TO STEADY HER NERVES. HAS HAD MULTIPLE ATTEMPTS OF DETOX ADMISSIONS THIS PAST YEAR. PMH INCLUDES TRANSGENDER, HIV +, PERIPHERAL NEUROPATHY, ANXIETY AND DEPRESSION. PATIENT COMPLIANT WITH HIV MEDICATION AND HAS OWN MEDS. PATIENT DENIES SI/HI AND SUICIDE ATTEMPTS. PATIENT ON MTD PROGRAM. DOSE PENDING VERIFICATION. LAST DOSE TODAY. Exam Limitations: No Limitations - Ebola screening Have you traveled outside of the country in the last 21 days: No Have you had contact with anyone from an Ebola affected area: No Have you been sick,other than usual withdrawal symptoms: No Do you have a fever: No - Review of Systems Constitutional: Night Sweats, Changes in sleep EENT: reports: No Symptoms Reported Respiratory: reports: No Symptoms reported Cardiac: reports: No Symptoms Reported GI: reports: Diarrhea, Nausea, Poor Fluid Intake, Abdominal cramping : reports: No Symptoms Reported Musculoskeletal: reports: Back Pain, Muscle Pain Integumentary: reports: Flushing, Sweating Neuro: reports: Headache, Numbness, Seizure, Tingling, Tremors Endocrine: reports: Flushing Hematology: reports: No Symptoms Reported Psychiatric: reports: Orientated x3, Anxious, Depressed Patient History - Patient Medical History Hx Anemia: No Hx Asthma: No Hx Chronic Obstructive Pulmonary Disease (COPD): No Hx Cancer: No Hx Cardiac Disorders: No Hx Congestive Heart Failure: No Hx Hypertension: No Hx Hypercholesterolemia: No Hx Pacemaker: No HX Cerebrovascular Accident: No Hx Seizures: Yes (2015) Hx Dementia: No Hx Diabetes: No Hx Gastrointestinal Disorders: No Hx Liver Disease: No Hx Genitourinary Disorders: No Hx Sexually Transmitted Disorders: Yes (HIV + since 1996) Hx Renal Disease (ESRD): No Hx Thyroid Disease: No Hx Human Immunodeficiency Virus (HIV): Yes (SINCE 1996;ON TRIUMEQ ) Hx Hepatitis C: Yes (diag. 1996 - treated) Hx Depression: Yes Hx Suicide Attempt: No Hx Bipolar Disorder: Yes Hx Schizophrenia: No - Patient Surgical History Past Surgical History: No Hx Neurologic Surgery: No Hx Cataract Extraction: No Hx Cardiac Surgery: No Hx Lung Surgery: No Hx Breast Surgery: Yes (breast implant on 07/26/2015) Hx Breast Biopsy: No Hx Abdominal Surgery: No Hx Appendectomy: No Hx Cholecystectomy: No Hx Genitourinary Surgery: No Hx Section: No Hx Orthopedic Surgery: No Other Surgical History: orchiectomy on 12/28/2014/gender reassignment; 01/10/2017 Anesthesia Reaction: No - PPD History Documented Results: Negative w/o proof Date: 08/22/18 Results: 0mm PPD to be Administered?: No - Smoking Cessation Smoking history: Current every day smoker Have you smoked in the past 12 months: Yes Aproximately how many cigarettes per day: 20 If you are a former smoker, when did you quit?: 2 1/2 weeks ago Cigars Per Day: 0 Hx Chewing Tobacco Use: No Initiated information on smoking cessation: Yes 'Breaking Loose' booklet given: 09/28/18 - Substance & Tx. History Hx Alcohol Use: Yes Hx Substance Use: Yes Substance Use Type: Alcohol, Cocaine, Prescribed Hx Substance Use Treatment: Yes Family Disease History - Family Disease History Family Disease History: Other: Father (no contact, ALCOHOL), Mother (no contact) Admission Physical Exam S - Vital Signs Vital Signs: Vital Signs - 24 hr 09/28/18 13:39 Temperature 98.7 F Pulse Rate 71 Respiratory 18 Rate Blood Pressure 133/82 - Physical General Appearance: Yes: Nourished, Appropriately Dressed, Tremorous, Sweating, Anxious HEENTM: Yes: EOMI, Hearing grossly Normal, Normal ENT Inspection, Normocephalic , Normal Voice, ALFREDA, Pharynx Normal Respiratory: Yes: Chest Non-Tender, Lungs Clear, Normal Breath Sounds, No Respiratory Distress, No Accessory Muscle Use Neck: Yes: No masses,lesions,Nodules, Supple, Trachea in good position Breast: Yes: Breast Exam Deferred Cardiology: Yes: Regular Rhythm, Regular Rate, S1, S2 Abdominal: Yes: Normal Bowel Sounds, Non Tender, Soft Genitourinary: Yes: Within Normal Limits Back: Yes: Normal Inspection, Muscle Spasm Musculoskeletal: Yes: full range of Motion, Gait Steady, Back pain, Muscle Pain Extremities: Yes: Normal Inspection, Normal Range of Motion, Non-Tender, Tremors Neurological: Yes: home visitor home base head start II-XII NML intact, Fully Oriented, Alert, Motor Strength 5/5, Normal Response, Numbness, Depressed Affect Integumentary: Yes: Normal Color, Warm, Erythema, Moist Lymphatic: Yes: Within Normal Limits - Diagnostic (1) Alcohol dependence with withdrawal, uncomplicated Current Visit: Yes Status: Acute (2) Nicotine dependence Current Visit: Yes Status: Chronic Qualifiers: Nicotine product type: cigarettes Substance use status: in withdrawal Qualified Code(s): F17.213 - Nicotine dependence, cigarettes, with withdrawal (3) Cocaine dependence Current Visit: Yes Status: Chronic (4) HIV positive Current Visit: Yes Status: Chronic Comment: [id number] viral load undetecable. (5) Methadone maintenance therapy patient Current Visit: Yes Status: Chronic Comment: [facility] [phone] (6) Peripheral neuropathy Current Visit: Yes Status: Chronic Qualifiers: Peripheral neuropathy type: polyneuropathy, unspecified Qualified Code(s): G62.9 - Polyneuropathy, unspecified Cleared for Admission [facility] - Detox or Rehab [facility] Level of Care: Medically Managed Detox Regimen/Protocol: Valium [facility] Breath Alcohol Content Breath Alcohol Content: 0.025 Urine Drug Screen - Results Drug Screen Negative: No Urine Drug Screen Results: JIMMY-Cocaine, BZO-Benzodiazepines, MTD-Methadone
[2018-09-28] MEDS ORDERED: MAG HYDROX/AL HYDROX/SIMETH 30 ML UNIT-DOSE CUP PO PRN (14:45)
[2018-09-28] MEDS ORDERED: P-EPHED 60MG/TRIPROLIDI 2.5MG TABLET PO PRN (14:45)
[2018-09-28] MEDS ORDERED: NICOTINE POLACRILEX 2 MG GUM BC PRN (14:45)
[2018-09-28] MEDS ORDERED: guaiFENesin/D-METHORPHAN HB 10 ML UNIT-DOSE CUPS PO PRN (14:45)
[2018-09-28] MEDS ORDERED: hydrOXYzine PAMOATE 50 MG CAPSULE (FP) PO PRN (14:45)
[2018-09-28] MEDS ORDERED: IBUPROFEN 400 MG TABLET (FP) PO PRN (14:45)
[2018-09-28] MEDS ORDERED: MENTHOL/PHENOL 1 EACH UD MM PRN (14:45)
[2018-09-28] MEDS ORDERED: MAGNESIUM HYDROX 2400MG/30ML ORAL SUSPENSION 30 ML CUP PO PRN (14:45)
[2018-09-28] MEDS ORDERED: MAGNESIUM CITRATE 300 ML BOTTLE PO PRN (14:45)
[2018-09-28] MEDS ORDERED: diazePAM 5 MG TABLET PO ONE (17:00)
[2018-09-28] MEDS ORDERED: MELATONIN 5 MG TABLETS PO PRN (22:00)
[2018-09-28] MEDS: ESTRADIOL PO SCH (22:11)
[2018-09-28] MEDS: ESTROGENS,CONJUGATE VAGINAL CR 30 GM TUBE VG SCH (22:11)
[2018-09-28] MEDS: GABAPENTIN 400 MG CAPSULE (FP) PO SCH (22:11)
[2018-09-28] MEDS: THIAMINE HCL 100 MG TABLET (FP) PO SCH (22:13)
[2018-09-28] MEDS: diazePAM 5 MG TABLET PO SCH (22:13)
[2018-09-29 01:26] LABS: URINE APPEARANCE SLCLOUDY; URINE BILIRUBIN NEGATIVE (<2.0 mg/dL); URINE COLOR YELLOW; URINE GLUCOSE (UA) NEGATIVE (NEGATIVE); URINE KETONE NEGATIVE (NEGATIVE); URINE LEUK ESTERASE 2+ (NEGATIVE); URINE NITRITE NEGATIVE (NEGATIVE); URINE PROTEIN NEGATIVE (NEGATIVE); URINE UROBILINOGEN NEGATIVE mg/dL (0.2-1.0)
[2018-09-29 01:33] LABS: EPI CELLS RARE /HPF (FEW); URINE BACTERIA RARE /hpf (NONE SEEN); URINE MUCUS RARE
[2018-09-29] MEDS: diazePAM 5 MG TABLET PO SCH ×3 (06:09→22:05)
[2018-09-29] MEDS: GABAPENTIN 400 MG CAPSULE (FP) PO SCH ×3 (06:09→22:05)
--- NOTE | 2018-09-29 07:48 | CONSULT ---
[facility] Psychiatric Consult - Data Date of interview: 09/29/18 Admission source: [facility] Identifying data: This is a 42 years old transgender female. living alone, on HASSA support, unemployed, with history of Bipolar Disorder, psychiatric hospitalization history, well known for [facility] stuff, mutiple detox admissions, reporting Alcohol Nicotine, dependence and withdrawal symptoms, seeking detox. Substance Abuse History: - Smoking Cessation. Smoking history: Current every day smoker. Have you smoked in the past 12 months: Yes. Aproximately how many cigarettes per day: 20. If you are a former smoker, when did you quit?: 2 1/2 weeks ago. Cigars Per Day: 0. Hx Chewing Tobacco Use: No. Initiated information on smoking cessation: Yes. 'Breaking Loose' booklet given: . - Substance & Tx. History. Hx Alcohol Use: Yes. Hx Substance Use: Yes. Substance Use Type: Alcohol, Cocaine, Prescribed. Hx Substance Use Treatment: Yes. Family Disease History Medical History: MMTP HISTORY, hiv+, Muscle neuropathy, HepC+, Seizure history. Psychiatric History: Patient reports to carry Bipolar disorder with most recent psychiatric admission At [facility] 4 years ago cony sullivan, reports trqansgender orientantion with s/p orchoectomy procedure on . Currently taking : Buspar 10mg po bid. Gabapentin 800mg po tid. Celexa 40mg poqd. Denies suicidal, homicidal history Physical/Sexual Abuse/Trauma History: Denies Additional Comment: Buspar 10mg po bid. Gabapentin 800mg po tid. Celexa 40mg poqd Mental Status Exam - Mental Status Exam Alert and Oriented to: Place, Person Cognitive Function: Fair Patient Appearance: Unkempt Mood: Anxious, Irritable Affect: Mood Congruent Patient Behavior: Cooperative Speech Pattern: Appropriate Voice Loudness: Mildly Loud Thought Process: Circumstantial, Goal Oriented Thought Disorder: Being Controlled Hallucinations: Denies Suicidal Ideation: Denies Homicidal Ideation: Denies Insight/Judgement: Fair Sleep: Difficulty falling asleep Appetite: Weight gain Muscle strength/Tone: Normal Gait/Station: Normal Additional Comments: Buspar 10mg po bid. Gabapentin 800mg po tid. Celexa 40mg poqd Psychiatric Findings - Problem List (Mason 1, 2,3) (1) Alcohol dependence with withdrawal, uncomplicated Status: Chronic (2) Cocaine dependence Status: Chronic (3) HIV positive Status: Deleted Comment: [id number] viral load undetecable. (4) Peripheral neuropathy Status: Chronic Qualifiers: (5) Acute dermatitis Status: Deleted (6) Hyperglycemia Status: Acute (7) Urinary frequency Status: Deleted (8) Alcohol dependence Status: Deleted Qualifiers: Substance use status: uncomplicated Qualified Code(s): F10.20 - Alcohol dependence, uncomplicated (9) Bipolar disorder Status: Deleted (10) Cocaine dependence Status: Deleted (11) HIV (human immunodeficiency virus infection) Status: Chronic Comment: on Triumeq, did not bring meds, last time rx for medication 04/05/18 for 30 days. (12) Opioid dependence on agonist therapy Status: Deleted Comment: MMTP at [facility] on 160 mg, last medicated today, dose pending verification (13) Opioid dependence with uncomplicated intoxication Status: Deleted (14) Substance-induced sleep disorder Status: Chronic (15) Transgendered Status: Chronic (16) Seizure Status: Deleted (17) Hepatitis C Status: Deleted Qualifiers: Viral hepatitis chronicity: carrier Qualified Code(s): B18.2 - Chronic viral hepatitis C - Initial Treatment Plan Initial Treatment Plan: Buspar 10mg po bid. Gabapentin 800mg po tid. Celexa 40mg poqd
[2018-09-29] MEDS ORDERED: METHADONE HCL 10 MG TABLET PO ONE (09:11)
[2018-09-29] MEDS ORDERED: METHADONE 80 MG, METHADONE 30 MG PO ONE (09:30)
[2018-09-29] MEDS ORDERED: METHADONE HCL 40 MG DISPERSABLE TABLET ONE (10:07)
[2018-09-29] MEDS ORDERED: METHADONE HCL 10 MG TABLET ONE (10:07)
[2018-09-29 10:08] LABS: HEMATOCRIT 38.6 % (35.4-49); HEMOGLOBIN 12.8 GM/dL (11.7-16.9); MCH 30.2 pg (25.7-33.7); MCHC 33.2 g/dl (32.0-35.9); MEAN CELL VOLUME 90.9 fl (80-96); MEAN PLT VOLUME 8.7 fl (7.5-11.1); PLATELET COUNT 178 K/MM3 (134-434); RBC 4.25 M/mm3 (4.00-5.60); RDW 13.3 % (11.9-15.9); WHITE BLOOD COUNT 5.7 K/mm3 (4.0-10.0)
[2018-09-29] MEDS: PRENATAL VITAMINS W/ FOLIC ACID TABLET (FP) PO SCH (10:09)
[2018-09-29] MEDS: busPIRone HCL 10 MG TABLET (FP) PO SCH ×2 (10:09→22:04)
[2018-09-29] MEDS: CITALOPRAM HYDROBROMIDE 20 MG TABLET (FP) PO SCH (10:09)
[2018-09-29] MEDS: NICOTINE 21 MG/24 HOURS TOPICAL PATCH TD SCH (10:10)
[2018-09-29] MEDS: SULFAMETHOXAZOLE/TRIMETHOPRIM 800MG/160MG D.S. TABLET PO SCH (10:10)
[2018-09-29] MEDS: ABACAVIR/DOLUTEGRAVIR/LAMIVUDI (TRIUMEQ) TABLET -NF PO SCH (10:10)
[2018-09-29] MEDS: ESTRADIOL PO SCH ×2 (10:11→22:05)
[2018-09-29 10:39] LABS: ALBUMIN 3.1 g/dl (3.4-5.0); ALK PHOS 149 U/L (45-117); ANION GAP 12 MMOL/L (8-16); BILIRUBIN,TOTAL 0.2 mg/dL (0.2-1); BLOOD UREA NITROGEN 16 mg/dL (7-18); CALCIUM 8.3 mg/dL (8.5-10.1); CHLORIDE 102 mmol/L (98-107); CO2 24 mmol/L (21-32); CREATININE 0.8 mg/dL (0.55-1.3); GLUCOSE,RANDOM 146 mg/dL (74-106); POTASSIUM 3.8 mmol/L (3.5-5.1); SGOT/AST 15 U/L (15-37); SGPT/ALT 20 U/L (13-61); SODIUM 138 mmol/L (136-145); TOT PROT 7.2 g/dl (6.4-8.2)
[2018-09-29] MEDS ORDERED: COLLOIDAL OATMEAL 1 BAR EACH TP PRN (15:08)
--- NOTE | 2018-09-29 15:50 | PN ---
S CIWA - CIWA Score Nausea/Vomitin-Mild Nausea/No Vomiting Muscle Tremors: 4-Moderate,w/Arms Extend Anxiety: 2 Agitation: 2 Paroxysmal Sweats: 1-Minimal Palms Moist Orientation: 0-Oriented Tacttile Disturbances: 1-Very Mild Itch/Numbness Auditory Disturbances: 0-None Visual Disturbances: 0-None Headache: 1-Very Mild CIWA-Ar Total Score: 12 BHS Progress Note (SOAP) Subjective: sweat tremor anxiety restlessness wants to analia methadone off case discussed with methadone provider that reducing methadone 10 mg every 3-4 days and monitoring tolerance Objective: 09/29/18 15:51 Vital Signs Temperature 97.2 F L 09/29/18 14:00 Pulse Rate 74 09/29/18 14:00 Respiratory Rate 18 09/29/18 14:00 Blood Pressure 142/85 09/29/18 14:00 O2 Sat by Pulse Oximetry (%) Laboratory Last Values WBC 5.7 K/mm3 (4.0-10.0) 09/29/18 07:00 RBC 4.25 M/mm3 (4.00-5.60) 09/29/18 07:00 Hgb 12.8 GM/dL (11.7-16.9) 09/29/18 07:00 Hct 38.6 % (35.4-49) 09/29/18 07:00 MCV 90.9 fl (80-96) 09/29/18 07:00 MCH 30.2 pg (25.7-33.7) 09/29/18 07:00 MCHC 33.2 g/dl (32.0-35.9) 09/29/18 07:00 RDW 13.3 % (11.9-15.9) 09/29/18 07:00 Plt Count 178 K/MM3 (134-434) D 09/29/18 07:00 MPV 8.7 fl (7.5-11.1) 09/29/18 07:00 Sodium 138 mmol/L (136-145) 09/29/18 07:00 Potassium 3.8 mmol/L (3.5-5.1) 09/29/18 07:00 Chloride 102 mmol/L (98-107) 09/29/18 07:00 Carbon Dioxide 24 mmol/L (21-32) 09/29/18 07:00 Anion Gap 12 MMOL/L (8-16) 09/29/18 07:00 BUN 16 mg/dL (7-18) 09/29/18 07:00 Creatinine 0.8 mg/dL (0.55-1.3) 09/29/18 07:00 Creat Clearance w eGFR > 60 (>60) 09/29/18 07:00 Random Glucose 146 mg/dL (74-106) H 09/29/18 07:00 Calcium 8.3 mg/dL (8.5-10.1) L 09/29/18 07:00 Total Bilirubin 0.2 mg/dL (0.2-1) 09/29/18 07:00 AST 15 U/L (15-37) 09/29/18 07:00 ALT 20 U/L (13-61) 09/29/18 07:00 Alkaline Phosphatase 149 U/L (45-117) H 09/29/18 07:00 Total Protein 7.2 g/dl (6.4-8.2) 09/29/18 07:00 Albumin 3.1 g/dl (3.4-5.0) L 09/29/18 07:00 Urine Color Yellow 09/28/18 23:00 Urine Appearance Slcloudy 09/28/18 23:00 Urine pH 5.0 (5.0-8.0) 09/28/18 23:00 Ur Specific [place] 1.014 (1.010-1.035) 09/28/18 23:00 Urine Protein Negative (NEGATIVE) 09/28/18 23:00 Urine Glucose (UA) Negative (NEGATIVE) 09/28/18 23:00 Urine Ketones Negative (NEGATIVE) 09/28/18 23:00 Urine Blood Negative (NEGATIVE) 09/28/18 23:00 Urine Nitrite Negative (NEGATIVE) 09/28/18 23:00 Urine Bilirubin Negative (<2.0 mg/dL) 09/28/18 23:00 Urine Urobilinogen Negative mg/dL (0.2-1.0) 09/28/18 23:00 Ur Leukocyte Esterase 2+ (NEGATIVE) H 09/28/18 23:00 Urine WBC (Auto) 22 /hpf (3-5) 09/28/18 23:00 Urine RBC (Auto) 5 /hpf (0-3) 09/28/18 23:00 Ur Epithelial Cells Rare /HPF (FEW) 09/28/18 23:00 Urine Bacteria Rare /hpf (NONE SEEN) 09/28/18 23:00 Urine Mucus Rare 09/28/18 23:00 RPR Titer Nonreactive (NONREACTIVE) 09/29/18 07:00 lab noted Assessment: 09/29/18 15:52 withdrawal sx hiv + add bactrim ds po daily Plan: continue detox methadone analia
[2018-09-29] MEDS: diazePAM 5 MG TABLET PO PRN (17:22)
[2018-09-29] MEDS: ESTROGENS,CONJUGATE VAGINAL CR 30 GM TUBE VG SCH (22:05)
[2018-09-29] MEDS: THIAMINE HCL 100 MG TABLET (FP) PO SCH (22:06)
[2018-09-30] MEDS: diazePAM 5 MG TABLET PO PRN (04:58)
[2018-09-30] MEDS ORDERED: METHADONE HCL 10 MG TABLET ONE (05:14)
[2018-09-30] MEDS ORDERED: METHADONE HCL 40 MG DISPERSABLE TABLET ONE (05:14)
[2018-09-30] MEDS ORDERED: METHADONE HCL 10 MG TABLET PO SCH (06:00)
[2018-09-30] MEDS ORDERED: METHADONE 80 MG, METHADONE 30 MG PO SCH (06:00)
[2018-09-30] MEDS ORDERED: METHADONE HCL 40 MG DISPERSABLE TABLET PO SCH (06:00)
[2018-09-30] MEDS: METHADONE 80 MG, METHADONE 20 MG PO SCH (06:34)
[2018-09-30] MEDS: GABAPENTIN 400 MG CAPSULE (FP) PO SCH ×3 (06:34→22:26)
[2018-09-30] MEDS: CITALOPRAM HYDROBROMIDE 20 MG TABLET (FP) PO SCH (10:39)
[2018-09-30] MEDS: busPIRone HCL 10 MG TABLET (FP) PO SCH ×2 (10:39→22:26)
[2018-09-30] MEDS: diazePAM 5 MG TABLET PO SCH ×2 (10:39→22:26)
[2018-09-30] MEDS: PRENATAL VITAMINS W/ FOLIC ACID TABLET (FP) PO SCH (10:39)
[2018-09-30] MEDS: SULFAMETHOXAZOLE/TRIMETHOPRIM 800MG/160MG D.S. TABLET PO SCH (10:39)
[2018-09-30] MEDS: ABACAVIR/DOLUTEGRAVIR/LAMIVUDI (TRIUMEQ) TABLET -NF PO SCH (10:39)
[2018-09-30] MEDS: NICOTINE 21 MG/24 HOURS TOPICAL PATCH TD SCH (10:40)
[2018-09-30] MEDS: ESTRADIOL PO SCH ×2 (10:40→22:28)
--- NOTE | 2018-09-30 15:03 | PN ---
S CIWA - CIWA Score Nausea/Vomitin-No Nausea/No Vomiting Muscle Tremors: 2 Anxiety: 3 Agitation: 2 Paroxysmal Sweats: 1-Minimal Palms Moist Orientation: 0-Oriented Tacttile Disturbances: 0-None Auditory Disturbances: 0-None Visual Disturbances: 0-None Headache: 0-None Present CIWA-Ar Total Score: 8 BHS Progress Note (SOAP) Subjective: tremor sweat anxiety restlessness hemorrhoid acting out no acute bleeding Objective: 09/30/18 15:00 Vital Signs Temperature 98.2 F 09/30/18 13:42 Pulse Rate 84 09/30/18 13:42 Respiratory Rate 17 09/30/18 13:42 Blood Pressure 125/53 L 09/30/18 13:42 O2 Sat by Pulse Oximetry (%) Laboratory Last Values WBC 5.7 K/mm3 (4.0-10.0) 09/29/18 07:00 RBC 4.25 M/mm3 (4.00-5.60) 09/29/18 07:00 Hgb 12.8 GM/dL (11.7-16.9) 09/29/18 07:00 Hct 38.6 % (35.4-49) 09/29/18 07:00 MCV 90.9 fl (80-96) 09/29/18 07:00 MCH 30.2 pg (25.7-33.7) 09/29/18 07:00 MCHC 33.2 g/dl (32.0-35.9) 09/29/18 07:00 RDW 13.3 % (11.9-15.9) 09/29/18 07:00 Plt Count 178 K/MM3 (134-434) D 09/29/18 07:00 MPV 8.7 fl (7.5-11.1) 09/29/18 07:00 Sodium 138 mmol/L (136-145) 09/29/18 07:00 Potassium 3.8 mmol/L (3.5-5.1) 09/29/18 07:00 Chloride 102 mmol/L (98-107) 09/29/18 07:00 Carbon Dioxide 24 mmol/L (21-32) 09/29/18 07:00 Anion Gap 12 MMOL/L (8-16) 09/29/18 07:00 BUN 16 mg/dL (7-18) 09/29/18 07:00 Creatinine 0.8 mg/dL (0.55-1.3) 09/29/18 07:00 Creat Clearance w eGFR > 60 (>60) 09/29/18 07:00 Random Glucose 146 mg/dL (74-106) H 09/29/18 07:00 Calcium 8.3 mg/dL (8.5-10.1) L 09/29/18 07:00 Total Bilirubin 0.2 mg/dL (0.2-1) 09/29/18 07:00 AST 15 U/L (15-37) 09/29/18 07:00 ALT 20 U/L (13-61) 09/29/18 07:00 Alkaline Phosphatase 149 U/L (45-117) H 09/29/18 07:00 Total Protein 7.2 g/dl (6.4-8.2) 09/29/18 07:00 Albumin 3.1 g/dl (3.4-5.0) L 09/29/18 07:00 Urine Color Yellow 09/28/18 23:00 Urine Appearance Slcloudy 09/28/18 23:00 Urine pH 5.0 (5.0-8.0) 09/28/18 23:00 Ur Specific [place] 1.014 (1.010-1.035) 09/28/18 23:00 Urine Protein Negative (NEGATIVE) 09/28/18 23:00 Urine Glucose (UA) Negative (NEGATIVE) 09/28/18 23:00 Urine Ketones Negative (NEGATIVE) 09/28/18 23:00 Urine Blood Negative (NEGATIVE) 09/28/18 23:00 Urine Nitrite Negative (NEGATIVE) 09/28/18 23:00 Urine Bilirubin Negative (<2.0 mg/dL) 09/28/18 23:00 Urine Urobilinogen Negative mg/dL (0.2-1.0) 09/28/18 23:00 Ur Leukocyte Esterase 2+ (NEGATIVE) H 09/28/18 23:00 Urine WBC (Auto) 22 /hpf (3-5) 09/28/18 23:00 Urine RBC (Auto) 5 /hpf (0-3) 09/28/18 23:00 Ur Epithelial Cells Rare /HPF (FEW) 09/28/18 23:00 Urine Bacteria Rare /hpf (NONE SEEN) 09/28/18 23:00 Urine Mucus Rare 09/28/18 23:00 RPR Titer Nonreactive (NONREACTIVE) 09/29/18 07:00 lab noted repeat ua 09/30/18 15:01 Assessment: 09/30/18 15:01 withdrawal sx methadone analia Plan: continue detox continue methadone analia
[2018-09-30] MEDS: ACETAMINOPHEN 325 MG TABLET (FP) PO PRN ×2 (16:38→22:27)
[2018-09-30] MEDS: BENZOCAINE 28 GM HEMORRHOIDAL OINTMENT PR PRN (16:40)
[2018-09-30] MEDS: LOPERAMIDE HCL 2 MG CAPSULE PO PRN (16:52)
[2018-09-30] MEDS: THIAMINE HCL 100 MG TABLET (FP) PO SCH (22:26)
[2018-09-30] MEDS: ESTROGENS,CONJUGATE VAGINAL CR 30 GM TUBE VG SCH (22:26)
[2018-09-30 23:46] LABS: URINE APPEARANCE CLOUDY; URINE BILIRUBIN NEGATIVE (<2.0 mg/dL); URINE COLOR LTYELLOW; URINE GLUCOSE (UA) NEGATIVE (NEGATIVE); URINE KETONE NEGATIVE (NEGATIVE); URINE LEUK ESTERASE TRACE (NEGATIVE); URINE NITRITE NEGATIVE (NEGATIVE); URINE PROTEIN NEGATIVE (NEGATIVE); URINE UROBILINOGEN NEGATIVE mg/dL (0.2-1.0)
[2018-09-30 23:57] LABS: EPI CELLS RARE /HPF (FEW); URINE BACTERIA RARE /hpf (NONE SEEN)
[2018-10-01] MEDS: LOPERAMIDE HCL 2 MG CAPSULE PO PRN ×2 (00:39→10:15)
[2018-10-01] MEDS ORDERED: METHADONE HCL 40 MG DISPERSABLE TABLET ONE (05:26)
[2018-10-01] MEDS ORDERED: METHADONE HCL 10 MG TABLET ONE (05:26)
[2018-10-01] MEDS: GABAPENTIN 400 MG CAPSULE (FP) PO SCH (05:55)
[2018-10-01] MEDS: METHADONE 80 MG, METHADONE 20 MG PO SCH (05:55)
[2018-10-01] MEDS: busPIRone HCL 10 MG TABLET (FP) PO SCH (10:10)
[2018-10-01] MEDS: PRENATAL VITAMINS W/ FOLIC ACID TABLET (FP) PO SCH (10:10)
[2018-10-01] MEDS: diazePAM 5 MG TABLET PO SCH (10:11)
[2018-10-01] MEDS: SULFAMETHOXAZOLE/TRIMETHOPRIM 800MG/160MG D.S. TABLET PO SCH (10:11)
[2018-10-01] MEDS: ABACAVIR/DOLUTEGRAVIR/LAMIVUDI (TRIUMEQ) TABLET -NF PO SCH (10:11)
[2018-10-01] MEDS: CITALOPRAM HYDROBROMIDE 20 MG TABLET (FP) PO SCH (10:11)
[2018-10-01] MEDS: NICOTINE 21 MG/24 HOURS TOPICAL PATCH TD SCH (10:11)
[2018-10-01] MEDS: ESTRADIOL PO SCH (10:12)
[2018-10-01] MEDS: BENZOCAINE 28 GM HEMORRHOIDAL OINTMENT PR PRN (10:14)
--- NOTE | 2018-10-01 11:55 | PN ---
[facility] Progress Note Note: pt is feeling fine denies any withdrawals. pt is ready for rehab.
--- NOTE | 2018-10-01 11:58 | DS ---
[facility] Detox Discharge Summary Admission Date: 09/28/18 Discharge Date: 10/01/18 - History Present History: Alcohol Dependence, MMTP - Physical Exam Results Vital Signs: Vital Signs Temperature 99.0 F 10/01/18 09:56 Pulse Rate 87 10/01/18 09:56 Respiratory Rate 20 10/01/18 09:56 Blood Pressure 120/84 10/01/18 09:56 O2 Sat by Pulse Oximetry (%) - Treatment Hospital Course: Detox Protocol Followed, Detoxed Safely, Responded well, Discharged Condition Good, Rehab Referral Accepted - Medication Discharge Medications: Ambulatory Orders Estradiol 2 mg PO BID 08/19/18 Estrogens,Conjugated [Premarin Vaginal Cream -] 1 applic VG HS 08/19/18 Abacavir/Dolutegravir/Lamivudi [Triumeq (Non-Formulary)] 1 each PO DAILY Methadone [Dolophine -] 110 mg PO DAILY 09/28/18 Buspirone HCl [Buspar -] 10 mg PO BID #60 tablet 09/29/18 Citalopram Hydrobromide [Celexa -] 40 mg PO DAILY #30 tablet 09/29/18 Gabapentin [Neurontin -] 800 mg PO TID #90 capsule 09/29/18 Sulfamethoxazole/Trimethoprim [Bactrim Ds -] 1 tab PO DAILY 09/29/18 - Diagnosis (1) Alcohol dependence with withdrawal, uncomplicated Current Visit: Yes Status: Chronic (2) Cocaine dependence Current Visit: Yes Status: Chronic (3) Methadone maintenance therapy patient Current Visit: Yes Status: Chronic (4) Nicotine dependence Current Visit: Yes Status: Chronic Qualifiers: Nicotine product type: cigarettes Substance use status: uncomplicated Qualified Code(s): F17.210 - Nicotine dependence, cigarettes, uncomplicated (5) Peripheral neuropathy Current Visit: Yes Status: Chronic Qualifiers: Peripheral neuropathy type: polyneuropathy, unspecified Qualified Code(s): G62.9 - Polyneuropathy, unspecified (6) Hyperglycemia Current Visit: No Status: Acute (7) HIV (human immunodeficiency virus infection) Current Visit: No Status: Chronic (8) Hepatitis C carrier Current Visit: No Status: Chronic (9) Substance-induced sleep disorder Current Visit: No Status: Chronic (10) Transgendered Current Visit: No Status: Chronic (11) Bipolar II disorder Current Visit: No Status: Suspected - AMA Did Patient Leave Against Medical Advice: No (referred to rehab [facility])
[2018-10-01 15:43] VITALS: BP 114/73; PULSE 80; TEMP 96.3
[2018-10-01] MEDS ORDERED: HYDROCORTISONE ACETATE 25 MG/SUPP.RECT RC SCH (22:00)
[2018-10-02] MEDS ORDERED: diazePAM 5 MG TABLET PO SCH (10:00)
== END 2018-10-01 14:54 | disposition other institution (70) | DRG 773 ==
LOC: YASAS 11:23 → Y6N 16:21
PROC: HZ2ZZZZ Detoxification Services for Substance Abuse Treatment (ICD-10-PCS; principal; 2018-09-28)
DX: F10.230 Alcohol dependence with withdrawal, uncomplicated (principal); F14.20 Cocaine dependence, uncomplicated; F11.20 Opioid dependence, uncomplicated; F17.213 Nicotine dependence, cigarettes, with withdrawal; F19.282 Other psychoactive substance dependence with psychoactive substance-induced sleep disorder; F31.81 Bipolar II disorder; F64.1 Dual role transvestism; Z21 Asymptomatic human immunodeficiency virus [HIV] infection status; R35.0 Frequency of micturition; L30.9 Dermatitis, unspecified; G62.9 Polyneuropathy, unspecified; R73.9 Hyperglycemia, unspecified; B18.2 Chronic viral hepatitis C
CPT/HCPCS: 36415; 80053; 81003; 81015; 85027; 86593; J1410

== ENCOUNTER 2018-10-01 15:04 | Inpatient (IN) | payer OTHER ==
--- NOTE | 2018-10-01 15:34 | HP ---
Psychiatrist Admission - Data Date of interview: 10/01/18 Admission source: [address] [place] [address] Identifying data: This is one of the multiple admissions to [address] [place] [address] rehabiitatrion fro this 42 yo transgenda female Medical History: HIV+,Hep C. Psychiatric History: long and extensive psychiatric history started back at 15 yo when she was dx with Bipolar disorder.Reports 7 psychiatric psychiatric hospitalizations.Patient sees at [facility].Current medications: Gabapentin 800 mg po tid(willing to taper off to 600 mg po bid),Buspar 10 mg po bid,Celexa 40 mg po daily. Physical/Sexual Abuse/Trauma History: denies Allergies/Adverse Reactions: Allergies Allergy/AdvReac Type Severity Reaction Status Date / Time chlordiazepoxide Allergy Rash Verified 09/28/18 15:40 [From Librium] Date of last physical exam: 10/01/18 Concur with the findings of this exam: Yes - Substance Abuse/Tx History Hx Alcohol Use: Yes (since 15 yo,started beer then hard liquor) Hx Substance Use: Yes (cocaine since 15 yo,heroin IV since 16 yo([id number] mg )) Substance Use Type: Alcohol, Cocaine, Opiates Hx Substance Use Treatment: Yes (longest abstinence about 4 years) Mental Status Exam - Mental Status Exam Alert and Oriented to: Time, Place, Person Cognitive Function: Grossly Intact Patient Appearance: Unkempt Mood: Anxious Affect: Mood Congruent, Labile Patient Behavior: Cooperative Speech Pattern: Clear Voice Loudness: Normal Thought Process: Goal Oriented Thought Disorder: Not Present Hallucinations: Denies Suicidal Ideation: Denies Homicidal Ideation: Denies Insight/Judgement: Fair Sleep: Fair Appetite: Good Muscle strength/Tone: Normal Gait/Station: Normal Psychiatric Findings - Problem List ([place] 1, 2,3) (1) Cocaine dependence Current Visit: Yes Status: Chronic (2) Methadone maintenance therapy patient Current Visit: Yes Status: Chronic Comment: [facility] [phone] (3) Nicotine dependence Current Visit: Yes Status: Chronic Qualifiers: (4) Peripheral neuropathy Current Visit: Yes Status: Chronic Qualifiers: (5) Hyperglycemia Current Visit: Yes Status: Acute (6) HIV (human immunodeficiency virus infection) Current Visit: Yes Status: Chronic Comment: on Triumeq, did not bring meds, last time rx for medication 5/14/18 for 30 days. (7) Hepatitis C carrier Current Visit: Yes Status: Chronic (8) Alcohol dependence Current Visit: Yes Status: Chronic (9) Substance-induced sleep disorder Current Visit: Yes Status: Chronic (10) Transgendered Current Visit: Yes Status: Chronic (11) Bipolar II disorder Current Visit: Yes Status: Chronic - Initial Treatment Plan Initial Treatment Plan: Continue current medications as per plan.
[2018-10-01 15:36] VITALS: BMI 30.9
[2018-10-01] MEDS ORDERED: hydrOXYzine PAMOATE 50 MG CAPSULE (FP) PO PRN (15:44)
[2018-10-01] MEDS ORDERED: LOPERAMIDE HCL 2 MG CAPSULE PO PRN (15:44)
[2018-10-01] MEDS ORDERED: MENTHOL/PHENOL 1 EACH UD MM PRN (15:44)
[2018-10-01] MEDS ORDERED: guaiFENesin/D-METHORPHAN HB 10 ML UNIT-DOSE CUPS PO PRN (15:44)
[2018-10-01] MEDS ORDERED: NICOTINE POLACRILEX 4 MG GUM BUC PRN (15:44)
--- NOTE | 2018-10-01 15:44 | HP ---
[facility] Rehab Assess/Revision - Admission History Admitted to Rehab from: [facility] [address] [place] - Vital signs Vital Signs: Vital Signs Period Temp Pulse Resp BP Sys/Padilla Pulse Ox Last 24 Hr 98.4 F 83 18 113/76 - Findings Detox History & Physical reviewed: Yes Concur with findings: Yes
[2018-10-01] MEDS: ACETAMINOPHEN 325 MG TABLET (FP) PO PRN (17:34)
[2018-10-01] MEDS: MAG HYDROX/AL HYDROX/SIMETH 30 ML UNIT-DOSE CUP PO PRN (17:34)
[2018-10-01] MEDS ORDERED: PT OWN MED DRAWER 7, Y5N ONE ×2 (18:51→23:29)
[2018-10-01] MEDS: GABAPENTIN 300 MG CAPSULE (FP) PO SCH (21:12)
[2018-10-01] MEDS: busPIRone HCL 10 MG TABLET (FP) PO SCH (21:12)
[2018-10-01] MEDS: ESTROGENS,CONJUGATE VAGINAL CR 30 GM TUBE VG SCH (21:12)
[2018-10-01] MEDS: THIAMINE HCL 100 MG TABLET (FP) PO SCH (21:12)
[2018-10-01] MEDS: HYDROCORTISONE ACETATE 25 MG/SUPP.RECT RC SCH (21:12)
[2018-10-01] MEDS: PATIENT'S OWN MEDICATION (NON-FORMULARY) (Estradiol [Estradiol] 2 MG) PO SCH (21:15)
[2018-10-01] MEDS ORDERED: MELATONIN 5 MG TABLETS PO PRN (22:00)
[2018-10-02] MEDS ORDERED: METHADONE HCL 10 MG TABLET ONE (05:55)
[2018-10-02] MEDS ORDERED: METHADONE HCL 40 MG DISPERSABLE TABLET ONE (05:56)
[2018-10-02] MEDS ORDERED: METHADONE HCL 10 MG TABLET PO SCH (06:00)
[2018-10-02] MEDS: GABAPENTIN 300 MG CAPSULE (FP) PO SCH ×3 (06:39→21:41)
[2018-10-02] MEDS: METHADONE 80 MG, METHADONE 20 MG PO SCH (06:39)
[2018-10-02] MEDS: CITALOPRAM HYDROBROMIDE 20 MG TABLET (FP) PO SCH (09:53)
[2018-10-02] MEDS: PRENATAL VITAMINS W/ FOLIC ACID TABLET (FP) PO SCH (09:53)
[2018-10-02] MEDS: SULFAMETHOXAZOLE/TRIMETHOPRIM 800MG/160MG D.S. TABLET PO SCH (09:53)
[2018-10-02] MEDS: busPIRone HCL 10 MG TABLET (FP) PO SCH ×2 (09:53→21:41)
[2018-10-02] MEDS: PATIENT'S OWN MEDICATION (NON-FORMULARY) (Estradiol [Estradiol] 2 MG) PO SCH ×2 (09:54→21:45)
[2018-10-02] MEDS: NICOTINE 21 MG/24 HOURS TOPICAL PATCH TD SCH (09:54)
[2018-10-02] MEDS ORDERED: ABACAVIR/DOLUTEGRAVIR/LAMIVUDI (TRIUMEQ) TABLET -NF PO SCH (10:00)
--- NOTE | 2018-10-02 13:25 | PN ---
S Progress Note Note: PT REQUESTED HER TRIUMEQ DOSING TIME BE CHANGED TO HS SHE TAKES IT AT HOME ACCORDING TO HER NURSE, MS KIESHA LOUIS. PLAN:DOSE TIME CHANGED TO HS STARTING TONIGHT.
[2018-10-02] MEDS: THIAMINE HCL 100 MG TABLET (FP) PO SCH (21:41)
[2018-10-02] MEDS: ABACAVIR/DOLUTEGRAVIR/LAMIVUDI (TRIUMEQ) TABLET -NF PO SCH (21:43)
[2018-10-02] MEDS: ESTROGENS,CONJUGATE VAGINAL CR 30 GM TUBE VG SCH (21:43)
[2018-10-02] MEDS ORDERED: PT OWN MED DRAWER 7, Y5N ONE (21:46)
[2018-10-02] MEDS: HYDROCORTISONE ACETATE 25 MG/SUPP.RECT RC SCH (21:47)
[2018-10-03] MEDS ORDERED: METHADONE HCL 10 MG TABLET ONE (06:08)
[2018-10-03] MEDS ORDERED: METHADONE HCL 40 MG DISPERSABLE TABLET ONE (06:08)
[2018-10-03] MEDS: GABAPENTIN 300 MG CAPSULE (FP) PO SCH ×3 (06:46→21:41)
[2018-10-03] MEDS: METHADONE 80 MG, METHADONE 20 MG PO SCH (06:46)
[2018-10-03] MEDS: NICOTINE 21 MG/24 HOURS TOPICAL PATCH TD SCH (10:07)
[2018-10-03] MEDS: PATIENT'S OWN MEDICATION (NON-FORMULARY) (Estradiol [Estradiol] 2 MG) PO SCH ×2 (10:07→21:43)
[2018-10-03] MEDS: PRENATAL VITAMINS W/ FOLIC ACID TABLET (FP) PO SCH (10:08)
[2018-10-03] MEDS: CITALOPRAM HYDROBROMIDE 20 MG TABLET (FP) PO SCH (10:08)
[2018-10-03] MEDS: busPIRone HCL 10 MG TABLET (FP) PO SCH ×2 (10:08→21:41)
[2018-10-03] MEDS: SULFAMETHOXAZOLE/TRIMETHOPRIM 800MG/160MG D.S. TABLET PO SCH (10:08)
[2018-10-03] MEDS: ABACAVIR/DOLUTEGRAVIR/LAMIVUDI (TRIUMEQ) TABLET -NF PO SCH (21:40)
[2018-10-03] MEDS: ESTROGENS,CONJUGATE VAGINAL CR 30 GM TUBE VG SCH (21:41)
[2018-10-03] MEDS: HYDROCORTISONE ACETATE 25 MG/SUPP.RECT RC SCH (21:42)
[2018-10-03] MEDS: THIAMINE HCL 100 MG TABLET (FP) PO SCH (21:43)
[2018-10-04] MEDS ORDERED: METHADONE HCL 10 MG TABLET ONE (05:55)
[2018-10-04] MEDS ORDERED: METHADONE HCL 40 MG DISPERSABLE TABLET ONE (05:55)
[2018-10-04] MEDS: METHADONE 80 MG, METHADONE 20 MG PO SCH (06:17)
[2018-10-04] MEDS: GABAPENTIN 300 MG CAPSULE (FP) PO SCH ×3 (06:17→21:40)
[2018-10-04] MEDS: SULFAMETHOXAZOLE/TRIMETHOPRIM 800MG/160MG D.S. TABLET PO SCH (10:29)
[2018-10-04] MEDS: CITALOPRAM HYDROBROMIDE 20 MG TABLET (FP) PO SCH (10:29)
[2018-10-04] MEDS: busPIRone HCL 10 MG TABLET (FP) PO SCH ×2 (10:29→21:40)
[2018-10-04] MEDS: PATIENT'S OWN MEDICATION (NON-FORMULARY) (Estradiol [Estradiol] 2 MG) PO SCH ×2 (10:30→21:42)
[2018-10-04] MEDS: NICOTINE 21 MG/24 HOURS TOPICAL PATCH TD SCH (10:31)
[2018-10-04] MEDS: PRENATAL VITAMINS W/ FOLIC ACID TABLET (FP) PO SCH (10:31)
[2018-10-04] MEDS: MAG HYDROX/AL HYDROX/SIMETH 30 ML UNIT-DOSE CUP PO PRN (20:27)
[2018-10-04] MEDS: THIAMINE HCL 100 MG TABLET (FP) PO SCH (21:40)
[2018-10-04] MEDS: HYDROCORTISONE ACETATE 25 MG/SUPP.RECT RC SCH (21:41)
[2018-10-04] MEDS: ESTROGENS,CONJUGATE VAGINAL CR 30 GM TUBE VG SCH (21:42)
[2018-10-04] MEDS: ABACAVIR/DOLUTEGRAVIR/LAMIVUDI (TRIUMEQ) TABLET -NF PO SCH (21:44)
[2018-10-05] MEDS ORDERED: METHADONE HCL 10 MG TABLET ONE (02:57)
[2018-10-05] MEDS ORDERED: METHADONE HCL 40 MG DISPERSABLE TABLET ONE (02:57)
[2018-10-05] MEDS: P-EPHED 60MG/TRIPROLIDI 2.5MG TABLET PO PRN (03:49)
[2018-10-05] MEDS: GABAPENTIN 300 MG CAPSULE (FP) PO SCH ×3 (06:14→21:19)
[2018-10-05] MEDS: METHADONE 80 MG, METHADONE 20 MG PO SCH (06:14)
[2018-10-05] MEDS: PATIENT'S OWN MEDICATION (NON-FORMULARY) (Estradiol [Estradiol] 2 MG) PO SCH ×2 (10:29→21:19)
[2018-10-05] MEDS: CITALOPRAM HYDROBROMIDE 20 MG TABLET (FP) PO SCH (10:30)
[2018-10-05] MEDS: SULFAMETHOXAZOLE/TRIMETHOPRIM 800MG/160MG D.S. TABLET PO SCH (10:30)
[2018-10-05] MEDS: PRENATAL VITAMINS W/ FOLIC ACID TABLET (FP) PO SCH (10:30)
[2018-10-05] MEDS: busPIRone HCL 10 MG TABLET (FP) PO SCH ×2 (10:30→21:19)
[2018-10-05] MEDS: NICOTINE 21 MG/24 HOURS TOPICAL PATCH TD SCH (10:31)
--- NOTE | 2018-10-05 15:27 | HP ---
[facility] Rehab Assess/Revision - Vital signs Vital Signs: Vital Signs Period Temp Pulse Resp BP Sys/Padilla Pulse Ox Last 24 Hr 97.6 F 60 16-18 115/78 Inpatient Rehab Admission - Initial Determination Are CD services needed?: Yes Free of communicable disease: Yes Not in need of hospitalization: Yes - Rehab Admission Criteria Previous failed treatment: Yes Poor recovery environment: Yes Comorbidities: Yes Lacks judgement: Yes
[2018-10-05] MEDS: HYDROCORTISONE ACETATE 25 MG/SUPP.RECT RC SCH (21:18)
[2018-10-05] MEDS: ABACAVIR/DOLUTEGRAVIR/LAMIVUDI (TRIUMEQ) TABLET -NF PO SCH (21:19)
[2018-10-05] MEDS: ESTROGENS,CONJUGATE VAGINAL CR 30 GM TUBE VG SCH (21:19)
[2018-10-05] MEDS: THIAMINE HCL 100 MG TABLET (FP) PO SCH (21:19)
[2018-10-06] MEDS ORDERED: METHADONE HCL 40 MG DISPERSABLE TABLET ONE (05:46)
[2018-10-06] MEDS ORDERED: METHADONE HCL 10 MG TABLET ONE (05:46)
[2018-10-06] MEDS ORDERED: METHADONE HCL 10 MG TABLET PO SCH (06:00)
[2018-10-06] MEDS: GABAPENTIN 300 MG CAPSULE (FP) PO SCH ×3 (06:27→21:35)
[2018-10-06] MEDS: METHADONE 80 MG, METHADONE 10 MG PO SCH (06:28)
[2018-10-06] MEDS: CITALOPRAM HYDROBROMIDE 20 MG TABLET (FP) PO SCH (10:10)
[2018-10-06] MEDS: SULFAMETHOXAZOLE/TRIMETHOPRIM 800MG/160MG D.S. TABLET PO SCH (10:10)
[2018-10-06] MEDS: busPIRone HCL 10 MG TABLET (FP) PO SCH ×2 (10:10→21:35)
[2018-10-06] MEDS: PRENATAL VITAMINS W/ FOLIC ACID TABLET (FP) PO SCH (10:11)
[2018-10-06] MEDS: PATIENT'S OWN MEDICATION (NON-FORMULARY) (Estradiol [Estradiol] 2 MG) PO SCH ×2 (10:11→21:38)
[2018-10-06] MEDS: NICOTINE 21 MG/24 HOURS TOPICAL PATCH TD SCH (10:11)
[2018-10-06] MEDS: IBUPROFEN 400 MG TABLET (FP) PO PRN (14:36)
[2018-10-06] MEDS: MAG HYDROX/AL HYDROX/SIMETH 30 ML UNIT-DOSE CUP PO PRN (15:39)
[2018-10-06] MEDS: THIAMINE HCL 100 MG TABLET (FP) PO SCH (21:35)
[2018-10-06] MEDS: ESTROGENS,CONJUGATE VAGINAL CR 30 GM TUBE VG SCH (21:37)
[2018-10-06] MEDS: ABACAVIR/DOLUTEGRAVIR/LAMIVUDI (TRIUMEQ) TABLET -NF PO SCH (21:37)
[2018-10-06] MEDS ORDERED: PT OWN MED DRAWER 7, Y5N ONE (21:38)
[2018-10-06] MEDS: HYDROCORTISONE ACETATE 25 MG/SUPP.RECT RC SCH (21:39)
[2018-10-07] MEDS ORDERED: METHADONE HCL 10 MG TABLET ONE (03:13)
[2018-10-07] MEDS ORDERED: METHADONE HCL 40 MG DISPERSABLE TABLET ONE (03:14)
[2018-10-07] MEDS: P-EPHED 60MG/TRIPROLIDI 2.5MG TABLET PO PRN (05:14)
[2018-10-07] MEDS: METHADONE 80 MG, METHADONE 10 MG PO SCH (06:24)
[2018-10-07] MEDS: GABAPENTIN 300 MG CAPSULE (FP) PO SCH ×3 (06:24→21:15)
[2018-10-07] MEDS: NICOTINE 21 MG/24 HOURS TOPICAL PATCH TD SCH (10:01)
[2018-10-07] MEDS: PRENATAL VITAMINS W/ FOLIC ACID TABLET (FP) PO SCH (10:02)
[2018-10-07] MEDS: SULFAMETHOXAZOLE/TRIMETHOPRIM 800MG/160MG D.S. TABLET PO SCH (10:02)
[2018-10-07] MEDS: CITALOPRAM HYDROBROMIDE 20 MG TABLET (FP) PO SCH (10:02)
[2018-10-07] MEDS: busPIRone HCL 10 MG TABLET (FP) PO SCH ×2 (10:02→21:15)
[2018-10-07] MEDS: PATIENT'S OWN MEDICATION (NON-FORMULARY) (Estradiol [Estradiol] 2 MG) PO SCH ×2 (10:02→21:18)
[2018-10-07] MEDS: MAGNESIUM HYDROX 2400MG/30ML ORAL SUSPENSION 30 ML CUP PO PRN (17:48)
[2018-10-07] MEDS ORDERED: PT OWN MED DRAWER 7, Y5N ONE (19:46)
[2018-10-07] MEDS: THIAMINE HCL 100 MG TABLET (FP) PO SCH (21:15)
[2018-10-07] MEDS: ESTROGENS,CONJUGATE VAGINAL CR 30 GM TUBE VG SCH (21:16)
[2018-10-07] MEDS: ABACAVIR/DOLUTEGRAVIR/LAMIVUDI (TRIUMEQ) TABLET -NF PO SCH (21:17)
[2018-10-07] MEDS: HYDROCORTISONE ACETATE 25 MG/SUPP.RECT RC SCH (21:19)
[2018-10-08] MEDS ORDERED: METHADONE HCL 40 MG DISPERSABLE TABLET ONE (05:34)
[2018-10-08] MEDS ORDERED: METHADONE HCL 10 MG TABLET ONE (05:34)
[2018-10-08] MEDS: METHADONE 80 MG, METHADONE 10 MG PO SCH (06:12)
[2018-10-08] MEDS: GABAPENTIN 300 MG CAPSULE (FP) PO SCH ×3 (06:12→21:35)
[2018-10-08] MEDS: busPIRone HCL 10 MG TABLET (FP) PO SCH ×2 (10:45→21:35)
[2018-10-08] MEDS: NICOTINE 21 MG/24 HOURS TOPICAL PATCH TD SCH (10:46)
[2018-10-08] MEDS: CITALOPRAM HYDROBROMIDE 20 MG TABLET (FP) PO SCH (10:46)
[2018-10-08] MEDS: PRENATAL VITAMINS W/ FOLIC ACID TABLET (FP) PO SCH (10:46)
[2018-10-08] MEDS: SULFAMETHOXAZOLE/TRIMETHOPRIM 800MG/160MG D.S. TABLET PO SCH (10:46)
[2018-10-08] MEDS: PATIENT'S OWN MEDICATION (NON-FORMULARY) (Estradiol [Estradiol] 2 MG) PO SCH ×2 (10:46→21:36)
[2018-10-08] MEDS ORDERED: PT OWN MED DRAWER 7, Y5N ONE (13:00)
--- NOTE | 2018-10-08 15:49 | PN ---
[facility] Progress Note Note: PT IS A TRANGENDER MALE WHO REPORTS SURGICAL INTERVENTION DONE. REPORTS HX PRESSURE ON BLADDER AND TAKES FLOMAX. PT HAS BEEN ON FLOMAX IN THE PAST PER OUTSIDE PHARMACY MEDICATION REVIEW. REPORTS NOT TAKING IT CURRENTLY BUT REQUESTING TO BE STARTED DUE TO SYMPTOMS. PT STATES FOLLOW UP WITH PMD/UROLOGY IN THE PAST. Vital Signs 10/08/18 07:55 Temperature 97.7 F Pulse Rate 66 Respiratory 19 Rate Blood Pressure 112/75 NAD PLAN:FLOMAX0.4 MG PO DAILY F/U WITH PMD/UROLOGY AFTER REHAB
[2018-10-08] MEDS: MAGNESIUM CITRATE 300 ML BOTTLE PO PRN (18:29)
[2018-10-08] MEDS: ABACAVIR/DOLUTEGRAVIR/LAMIVUDI (TRIUMEQ) TABLET -NF PO SCH (21:35)
[2018-10-08] MEDS: THIAMINE HCL 100 MG TABLET (FP) PO SCH (21:35)
[2018-10-08] MEDS: ESTROGENS,CONJUGATE VAGINAL CR 30 GM TUBE VG SCH (21:36)
[2018-10-08] MEDS: HYDROCORTISONE ACETATE 25 MG/SUPP.RECT RC SCH (21:37)
[2018-10-09] MEDS ORDERED: METHADONE HCL 10 MG TABLET ONE (06:23)
[2018-10-09] MEDS: GABAPENTIN 300 MG CAPSULE (FP) PO SCH ×3 (06:24→22:49)
[2018-10-09] MEDS ORDERED: METHADONE HCL 40 MG DISPERSABLE TABLET ONE (06:24)
[2018-10-09] MEDS: METHADONE 80 MG, METHADONE 10 MG PO SCH (06:25)
[2018-10-09] MEDS: TAMSULOSIN HCL 0.4 MG CAP PO SCH (08:55)
[2018-10-09] MEDS: SULFAMETHOXAZOLE/TRIMETHOPRIM 800MG/160MG D.S. TABLET PO SCH (10:13)
[2018-10-09] MEDS: CITALOPRAM HYDROBROMIDE 20 MG TABLET (FP) PO SCH (10:13)
[2018-10-09] MEDS: PATIENT'S OWN MEDICATION (NON-FORMULARY) (Estradiol [Estradiol] 2 MG) PO SCH ×2 (10:14→22:50)
[2018-10-09] MEDS: busPIRone HCL 10 MG TABLET (FP) PO SCH ×2 (10:14→22:49)
[2018-10-09] MEDS: PRENATAL VITAMINS W/ FOLIC ACID TABLET (FP) PO SCH (10:14)
[2018-10-09] MEDS: NICOTINE 21 MG/24 HOURS TOPICAL PATCH TD SCH (10:15)
[2018-10-09] MEDS ORDERED: PT OWN MED DRAWER 7, Y5N ONE (20:52)
[2018-10-09] MEDS: ABACAVIR/DOLUTEGRAVIR/LAMIVUDI (TRIUMEQ) TABLET -NF PO SCH (22:48)
[2018-10-09] MEDS: HYDROCORTISONE ACETATE 25 MG/SUPP.RECT RC SCH (22:48)
[2018-10-09] MEDS: THIAMINE HCL 100 MG TABLET (FP) PO SCH (22:49)
[2018-10-09] MEDS: ESTROGENS,CONJUGATE VAGINAL CR 30 GM TUBE VG SCH (22:50)
[2018-10-10] MEDS: GABAPENTIN 300 MG CAPSULE (FP) PO SCH ×3 (06:15→21:27)
--- NOTE | 2018-10-10 06:42 | PN ---
[facility] Progress Note Note: INFORMED CLIENT IS ON MMTP DOSE REDUCTION 2/ VOLUNTARY DETOX. CLIENT NO LONGER WANTS TO CONTINUE ON MMTP. TAPER WAS STARTED FROM BLOCKING DOSE OF 110 MG. SHE IS BEING TAPERED BY 10 MG Q 4D. LDM 90 MG DOSE / ON 10/09/2018. ORDERS FOR METHADONE 80 MG PLACED FOR THE NEXT 4 DAYS AND THEN 70 MG TO START ON 2017 FOR NEXT 4 DAYS.
[2018-10-10] MEDS: METHADONE HCL 40 MG DISPERSABLE TABLET PO SCH (06:57)
[2018-10-10] MEDS: TAMSULOSIN HCL 0.4 MG CAP PO SCH (08:00)
[2018-10-10] MEDS ORDERED: PT OWN MED DRAWER 7, Y5N ONE (08:58)
[2018-10-10] MEDS: CITALOPRAM HYDROBROMIDE 20 MG TABLET (FP) PO SCH (09:53)
[2018-10-10] MEDS: PRENATAL VITAMINS W/ FOLIC ACID TABLET (FP) PO SCH (09:53)
[2018-10-10] MEDS: SULFAMETHOXAZOLE/TRIMETHOPRIM 800MG/160MG D.S. TABLET PO SCH (09:53)
[2018-10-10] MEDS: NICOTINE 21 MG/24 HOURS TOPICAL PATCH TD SCH (09:53)
[2018-10-10] MEDS: busPIRone HCL 10 MG TABLET (FP) PO SCH ×2 (09:53→21:27)
[2018-10-10] MEDS: PATIENT'S OWN MEDICATION (NON-FORMULARY) (Estradiol [Estradiol] 2 MG) PO SCH ×2 (09:53→21:26)
--- NOTE | 2018-10-10 12:12 | PN ---
[facility] Progress Note Note: Pt requested to be transferred to [facility] because; states he had been there for about 2 wks prior to his transfer to [facility] yesterday and prefers [facility] RN summer and Airplane Technician Ev Blandon aware and in agreement, pt will be transferred to [facility].
[2018-10-10] MEDS: MAGNESIUM CITRATE 300 ML BOTTLE PO PRN (18:41)
[2018-10-10] MEDS: THIAMINE HCL 100 MG TABLET (FP) PO SCH (21:26)
[2018-10-10] MEDS: HYDROCORTISONE ACETATE 25 MG/SUPP.RECT RC SCH (21:26)
[2018-10-10] MEDS: ESTROGENS,CONJUGATE VAGINAL CR 30 GM TUBE VG SCH (21:26)
[2018-10-10] MEDS: ABACAVIR/DOLUTEGRAVIR/LAMIVUDI (TRIUMEQ) TABLET -NF PO SCH (21:27)
[2018-10-11] MEDS: METHADONE HCL 40 MG DISPERSABLE TABLET PO SCH (06:10)
[2018-10-11] MEDS: GABAPENTIN 300 MG CAPSULE (FP) PO SCH ×3 (06:10→21:25)
[2018-10-11] MEDS: PATIENT'S OWN MEDICATION (NON-FORMULARY) (Estradiol [Estradiol] 2 MG) PO SCH ×2 (10:12→21:27)
[2018-10-11] MEDS: TAMSULOSIN HCL 0.4 MG CAP PO SCH (10:13)
[2018-10-11] MEDS: PRENATAL VITAMINS W/ FOLIC ACID TABLET (FP) PO SCH (10:13)
[2018-10-11] MEDS: CITALOPRAM HYDROBROMIDE 20 MG TABLET (FP) PO SCH (10:13)
[2018-10-11] MEDS: busPIRone HCL 10 MG TABLET (FP) PO SCH ×2 (10:13→21:25)
[2018-10-11] MEDS: SULFAMETHOXAZOLE/TRIMETHOPRIM 800MG/160MG D.S. TABLET PO SCH (10:13)
[2018-10-11] MEDS: NICOTINE 21 MG/24 HOURS TOPICAL PATCH TD SCH (10:14)
[2018-10-11] MEDS: MAGNESIUM HYDROX 2400MG/30ML ORAL SUSPENSION 30 ML CUP PO PRN (11:07)
[2018-10-11] MEDS ORDERED: COLLOIDAL OATMEAL 1 BAR EACH TP PRN (11:23)
[2018-10-11] MEDS: THIAMINE HCL 100 MG TABLET (FP) PO SCH (21:25)
[2018-10-11] MEDS: ABACAVIR/DOLUTEGRAVIR/LAMIVUDI (TRIUMEQ) TABLET -NF PO SCH (21:26)
[2018-10-11] MEDS: ESTROGENS,CONJUGATE VAGINAL CR 30 GM TUBE VG SCH (21:27)
[2018-10-11] MEDS: HYDROCORTISONE ACETATE 25 MG/SUPP.RECT RC SCH (21:28)
[2018-10-12] MEDS: ACETAMINOPHEN 325 MG TABLET (FP) PO PRN ×2 (05:03→12:57)
[2018-10-12] MEDS: GABAPENTIN 300 MG CAPSULE (FP) PO SCH ×3 (06:34→21:34)
[2018-10-12] MEDS: METHADONE HCL 40 MG DISPERSABLE TABLET PO SCH (06:34)
[2018-10-12] MEDS: TAMSULOSIN HCL 0.4 MG CAP PO SCH (07:34)
[2018-10-12] MEDS: SULFAMETHOXAZOLE/TRIMETHOPRIM 800MG/160MG D.S. TABLET PO SCH (10:15)
[2018-10-12] MEDS: busPIRone HCL 10 MG TABLET (FP) PO SCH ×2 (10:16→21:34)
[2018-10-12] MEDS: NICOTINE 21 MG/24 HOURS TOPICAL PATCH TD SCH (10:16)
[2018-10-12] MEDS: PATIENT'S OWN MEDICATION (NON-FORMULARY) (Estradiol [Estradiol] 2 MG) PO SCH ×2 (10:16→21:35)
[2018-10-12] MEDS: CITALOPRAM HYDROBROMIDE 20 MG TABLET (FP) PO SCH (10:16)
[2018-10-12] MEDS: PRENATAL VITAMINS W/ FOLIC ACID TABLET (FP) PO SCH (10:16)
[2018-10-12] MEDS: THIAMINE HCL 100 MG TABLET (FP) PO SCH (21:34)
[2018-10-12] MEDS: ESTROGENS,CONJUGATE VAGINAL CR 30 GM TUBE VG SCH (21:34)
[2018-10-12] MEDS: ABACAVIR/DOLUTEGRAVIR/LAMIVUDI (TRIUMEQ) TABLET -NF PO SCH (21:36)
[2018-10-12] MEDS: HYDROCORTISONE ACETATE 25 MG/SUPP.RECT RC SCH (21:36)
[2018-10-13] MEDS: GABAPENTIN 300 MG CAPSULE (FP) PO SCH ×3 (05:59→21:54)
[2018-10-13] MEDS: P-EPHED 60MG/TRIPROLIDI 2.5MG TABLET PO PRN (06:01)
[2018-10-13] MEDS: METHADONE HCL 40 MG DISPERSABLE TABLET PO SCH (06:01)
--- NOTE | 2018-10-13 09:25 | PN ---
S Progress Note Note: Pt requesting Eucerin cream- says that works best for her-d/w pt that it was ordered for her yesterday and that she can get it this morning.
[2018-10-13] MEDS: TAMSULOSIN HCL 0.4 MG CAP PO SCH (09:30)
[2018-10-13] MEDS: NICOTINE 21 MG/24 HOURS TOPICAL PATCH TD SCH (10:13)
[2018-10-13] MEDS: busPIRone HCL 10 MG TABLET (FP) PO SCH ×2 (10:14→21:54)
[2018-10-13] MEDS: PRENATAL VITAMINS W/ FOLIC ACID TABLET (FP) PO SCH (10:14)
[2018-10-13] MEDS: SULFAMETHOXAZOLE/TRIMETHOPRIM 800MG/160MG D.S. TABLET PO SCH (10:14)
[2018-10-13] MEDS: CITALOPRAM HYDROBROMIDE 20 MG TABLET (FP) PO SCH (10:15)
[2018-10-13] MEDS: MINERAL OIL/PETROLAT/WATER TOPICAL CREAM 113 GM JAR TP SCH (10:16)
[2018-10-13] MEDS: PATIENT'S OWN MEDICATION (NON-FORMULARY) (Estradiol [Estradiol] 2 MG) PO SCH ×2 (10:16→21:53)
--- NOTE | 2018-10-13 18:36 | PN ---
S Progress Note (SOAP) Subjective: C/O constipation x 2-3 days. Denies abd pain, nausea or vomiting. Objective: Alert and oriented x 3. Abdomen soft and non tender. Vital Signs Temperature 97.8 F 10/13/18 07:11 Pulse Rate 61 10/13/18 07:11 Respiratory Rate 18 10/13/18 07:11 Blood Pressure 119/78 10/13/18 07:11 O2 Sat by Pulse Oximetry (%) Assessment: Constipation. Plan: Miralax, Colace as ordered. Encouraged increase fluids.
[2018-10-13] MEDS ORDERED: POLYETHYLENE GLYCOL 3350 119 GM BTL PO ONE (19:00)
[2018-10-13] MEDS: HYDROCORTISONE ACETATE 25 MG/SUPP.RECT RC SCH (21:50)
[2018-10-13] MEDS: ABACAVIR/DOLUTEGRAVIR/LAMIVUDI (TRIUMEQ) TABLET -NF PO SCH (21:53)
[2018-10-13] MEDS: DOCUSATE SODIUM 100 MG CAPSULE (FP) PO SCH (21:54)
[2018-10-13] MEDS: THIAMINE HCL 100 MG TABLET (FP) PO SCH (21:55)
[2018-10-13] MEDS: ESTROGENS,CONJUGATE VAGINAL CR 30 GM TUBE VG SCH (21:55)
[2018-10-13] MEDS ORDERED: PT OWN MED DRAWER 7, Y5N ONE (23:07)
[2018-10-14] MEDS ORDERED: METHADONE HCL 10 MG TABLET ONE (05:54)
[2018-10-14] MEDS ORDERED: METHADONE HCL 40 MG DISPERSABLE TABLET ONE (05:54)
[2018-10-14] MEDS ORDERED: METHADONE HCL 10 MG TABLET PO SCH (06:00)
[2018-10-14] MEDS: METHADONE 40 MG, METHADONE 30 MG PO SCH (06:06)
[2018-10-14] MEDS: GABAPENTIN 300 MG CAPSULE (FP) PO SCH ×3 (06:06→22:03)
[2018-10-14] MEDS: DOCUSATE SODIUM 100 MG CAPSULE (FP) PO SCH ×3 (06:06→22:04)
[2018-10-14] MEDS: TAMSULOSIN HCL 0.4 MG CAP PO SCH (07:40)
[2018-10-14] MEDS: PRENATAL VITAMINS W/ FOLIC ACID TABLET (FP) PO SCH (10:06)
[2018-10-14] MEDS: NICOTINE 21 MG/24 HOURS TOPICAL PATCH TD SCH (10:06)
[2018-10-14] MEDS: PATIENT'S OWN MEDICATION (NON-FORMULARY) (Estradiol [Estradiol] 2 MG) PO SCH ×2 (10:06→21:56)
[2018-10-14] MEDS: busPIRone HCL 10 MG TABLET (FP) PO SCH ×2 (10:06→22:03)
[2018-10-14] MEDS: CITALOPRAM HYDROBROMIDE 20 MG TABLET (FP) PO SCH (10:06)
[2018-10-14] MEDS: MINERAL OIL/PETROLAT/WATER TOPICAL CREAM 113 GM JAR TP SCH (10:08)
[2018-10-14] MEDS: ABACAVIR/DOLUTEGRAVIR/LAMIVUDI (TRIUMEQ) TABLET -NF PO SCH (22:03)
[2018-10-14] MEDS: HYDROCORTISONE ACETATE 25 MG/SUPP.RECT RC SCH (22:04)
[2018-10-14] MEDS: THIAMINE HCL 100 MG TABLET (FP) PO SCH (22:04)
[2018-10-14] MEDS: ESTROGENS,CONJUGATE VAGINAL CR 30 GM TUBE VG SCH (22:05)
[2018-10-15] MEDS: IBUPROFEN 400 MG TABLET (FP) PO PRN (01:50)
[2018-10-15] MEDS ORDERED: METHADONE HCL 10 MG TABLET ONE (03:23)
[2018-10-15] MEDS ORDERED: METHADONE HCL 40 MG DISPERSABLE TABLET ONE (03:24)
[2018-10-15] MEDS: METHADONE 40 MG, METHADONE 30 MG PO SCH (06:40)
[2018-10-15] MEDS: GABAPENTIN 300 MG CAPSULE (FP) PO SCH (06:41)
[2018-10-15] MEDS: DOCUSATE SODIUM 100 MG CAPSULE (FP) PO SCH (06:41)
[2018-10-15 07:17] VITALS: BP 104/61; PULSE 87; TEMP 97.6
[2018-10-15] MEDS: TAMSULOSIN HCL 0.4 MG CAP PO SCH (08:10)
--- NOTE | 2018-10-15 08:13 | PN ---
Psychiatric Progress Note Vital Signs: Vital Signs Period Temp Pulse Resp BP Sys/Padilla Pulse Ox Last 24 Hr 97.6 F 87 18-18 104/61 Date of Session: 10/15/18 Chief Complaint:: "Discharge" HPI: Patient admitted to [facility] rehab for alcohol and cocaine dependence. ROS: HIV+,Hep C Current Medications: Active Medications Generic Name Dose Route Start Last Admin Trade Name Freq PRN Reason Stop Dose Admin Abacavir/Dolutegravir/Lamivudine 1 each 10/02/18 22:00 10/14/18 22:03 Triumeq (Non-Formulary) PO 1 each DAILY@2200 JOHN Administration Acetaminophen 650 mg 10/01/18 15:44 10/12/18 12:57 Tylenol - PO 650 mg Q4H PRN Administration FEVER Al Hydroxide/Mg Hydroxide 30 ml 10/01/18 15:44 10/06/18 15:39 Mylanta Oral Suspension - PO 30 ml Q6H PRN Administration DYSPEPSIA Buspirone HCl 10 mg 10/01/18 22:00 10/14/18 22:03 Buspar - PO 10 mg BID JOHN Administration Citalopram Hydrobromide 40 mg 10/02/18 10:00 10/14/18 10:06 Celexa - PO 40 mg DAILY JOHN Administration Docusate Sodium 100 mg 10/13/18 22:00 10/15/18 06:41 Colace - PO 100 mg TID JOHN Administration Estrogens Conjugated 1 applic 10/01/18 22:00 10/14/18 22:05 Premarin Vaginal Cream - VG 1 appful HS JOHN Administration Eucalyptus/Menthol/Phenol/Sorbitol 1 each 10/01/18 15:44 Cepastat Lozenge - MM Q4H PRN SORE THROAT Gabapentin 600 mg 10/01/18 22:00 10/15/18 06:41 Neurontin - PO 600 mg TID JOHN Administration Guaifenesin 10 ml 10/01/18 15:44 Robitussin Dm - PO Q6H PRN COUGH Hydrocortisone Acetate 25 mg 10/01/18 22:00 10/14/18 22:04 Anusol Hc Suppository - RC 25 mg HS JOHN Administration Hydroxyzine Pamoate 50 mg 10/01/18 15:44 Vistaril - PO Q4H PRN AGITATION Ibuprofen 400 mg 10/01/18 15:44 11/23/18 01:50 Motrin - PO 400 mg Q6H PRN Administration Pain Level 4-6 Loperamide HCl 4 mg 10/01/18 15:44 Imodium - PO Q6H PRN DIARRHEA Magnesium Hydroxide 30 ml 10/01/18 15:44 10/11/18 11:07 Milk Of Magnesia - PO 30 ml DAILY PRN Administration CONSTIPATION Melatonin 5 mg 10/01/18 22:00 10/11/18 01:36 Melatonin PO 5 mg HS PRN Administration INSOMNIA Methadone HCl 40 mg/ Methadone 70 mg 10/14/18 06:00 10/15/18 06:40 HCl 30 mg PO 10/17/18 06:01 70 mg DAILY@0600 JOHN Administration Multi-Ingredient Lotion 1 applic 10/13/18 10:00 10/14/18 10:08 Eucerin (Small Jar) - TP Not Given DAILY JOHN Nicotine 21 mg 10/02/18 10:00 10/14/18 10:06 Nicoderm Patch - TD 21 mg DAILY JOHN Administration Nicotine Polacrilex 4 mg 10/01/18 15:44 Nicorette Gum - BUC Q2H PRN NICOTINE REPLACEMENT RX Non-Formulary Medication 2 mg 10/01/18 22:00 10/14/18 21:56 Estradiol [Estradiol] PO 2 mg BID JOHN Administration Multivit/Folic Acid/Iron 1 tab 10/02/18 10:00 10/14/18 10:06 Vitamins (Sjr) - PO 1 tab DAILY JOHN Administration Pseudoephedrine/Triprolidine 1 combo 10/01/18 15:44 10/13/18 06:01 Actifed - PO 1 combo TID PRN Administration NASAL CONGESTION Tamsulosin HCl 0.4 mg 10/09/18 08:30 10/14/18 07:40 Flomax - PO 0.4 mg DAILY@0830 JOHN Administration Thiamine HCl 100 mg 10/01/18 22:00 10/14/18 22:04 Vitamin B1 - PO 100 mg HS JOHN Administration Medication(s) Change(s): No. Current Side Effect: No Lab tests ordered: No Lab tests reviewed: Yes Provider note:: Patient able to complete the rehabilitation program on . She has met her treatment goals and will continue to address her issues at the [facility] outpatient clinic in the [place], [place]. Through participation of this program patient has learned the importance of changing her behaviors and the need for more structure in her life. Patient states the rehabilitation program on [facility] was "wonderful." She also reports feeling motivated to remain abstient from alcohol and cocaine. A 30 day prescription Buspar 10mg BID + Celexa 40mg daily + Gabapentin 600mg TID was electronically sent to patient's pharmacy by Dr. Fried at [facility], [address] [place] [address]. Patient is stable for discharge on 10/15/18. Total face to face time:: 35 Mental Status Exam - Mental Status Exam Alert and Oriented to: Time, Place, Person Cognitive Function: Good Patient Appearance: Well Groomed Mood: Hopeful Affect: Appropriate Patient Behavior: Appropriate, Cooperative Speech Pattern: Clear, Appropriate Voice Loudness: Normal Thought Process: Intact, Goal Oriented Thought Disorder: Not Present Hallucinations: Denies Suicidal Ideation: Denies Homicidal Ideation: Denies Insight/Judgement: Good Sleep: Well Appetite: Good Muscle strength/Tone: Normal Gait/Station: Normal Psychiatric Treatment Plan - Problem List (1) Alcohol dependence Current Visit: Yes (2) Bipolar II disorder Current Visit: Yes (3) Methadone maintenance therapy patient Current Visit: Yes Comment: [facility] [phone] (4) Nicotine dependence Current Visit: Yes Qualifiers: (5) Substance-induced sleep disorder Current Visit: Yes
== END 2018-10-15 08:13 | disposition home or self-care (01) | DRG 772 ==
LOC: YASAS 15:04 → Y3E 15:05 → Y3W 10-09 21:19 → Y3E 10-10 11:55
PROVIDERS: ADMIT Psychiatry & Neurology Psychiatry; ATTEND Psychiatry & Neurology Psychiatry
PROC: HZ42ZZZ Group Counseling for Substance Abuse Treatment, Cognitive-Behavioral (ICD-10-PCS; principal; 2018-10-01)
DX: F10.20 Alcohol dependence, uncomplicated (principal); F14.20 Cocaine dependence, uncomplicated; F11.20 Opioid dependence, uncomplicated; F17.210 Nicotine dependence, cigarettes, uncomplicated; F19.282 Other psychoactive substance dependence with psychoactive substance-induced sleep disorder; F19.24 Other psychoactive substance dependence with psychoactive substance-induced mood disorder; F31.81 Bipolar II disorder; F64.1 Dual role transvestism; Z21 Asymptomatic human immunodeficiency virus [HIV] infection status; K59.00 Constipation, unspecified; K62.9 Disease of anus and rectum, unspecified; B18.2 Chronic viral hepatitis C; R73.9 Hyperglycemia, unspecified
CPT/HCPCS: 82962; J1410

== ENCOUNTER 2019-01-05 12:09 | Inpatient (IN) | payer OTHER ==
[2019-01-05 12:33] VITALS: BMI 33.9
--- NOTE | 2019-01-05 13:50 | HP ---
CIWA Score Nausea/Vomitin Muscle Tremors: 4-Moderate,w/Arms Extend Anxiety: 4-Mod. Anxious/Guarded Agitation: 4-Moderately Restless Paroxysmal Sweats: 3 Orientation: 0-Oriented Tacttile Disturbances: 0-None Auditory Disturbances: 0-None Visual Disturbances: 0-None Headache: 0-None Present CIWA-Ar Total Score: 17 - Admission Criteria OASAS Guidelines: Admission for Medically Managed Detox: Requires at least one of the followin. CIWA greater than 12 2. Seizures within the past 24 hours 3. Delirium tremens within the past 24 hours 4. Hallucinations within the past 24 hours 5. Acute intervention needed for co occurring medical disorder 6. Acute intervention needed for co occurring psychiatric disorder 7. Severe withdrawal that cannot be handled at a lower level of care (continued vomiting, continued diarrhea, abnormal vital signs) requiring intravenous medication and/or fluids 8. Admission ROS [facility] - [facility] Chief Complaint: I was intoxicated yesterday and here for detox so I can be placed on an intensive rehab at my program. Allergies/Adverse Reactions: Allergies Allergy/AdvReac Type Severity Reaction Status Date / Time chlordiazepoxide Allergy Rash Verified 01/05/19 13:25 [From Librium] History of Present Illness: pt is a 43yr old individual (female) seeking detox for treatment. Pt states she was 2months clean and recently slipped and starting drinking. Exam Limitations: No Limitations - Ebola screening Have you traveled outside of the country in the last 21 days: No Have you had contact with anyone from an Ebola affected area: No Have you been sick,other than usual withdrawal symptoms: No Do you have a fever: No - Review of Systems Constitutional: Diaphoresis, Night Sweats, Changes in sleep EENT: reports: No Symptoms Reported Respiratory: reports: No Symptoms reported Cardiac: reports: Lightheadedness, Syncope (alcohol related blackouts) GI: reports: Nausea, Poor Appetite, Poor Fluid Intake, Vomiting, Indigestion : reports: No Symptoms Reported Musculoskeletal: reports: Back Pain, Joint Pain, Muscle Pain Integumentary: reports: Flushing, Sweating Neuro: reports: Headache, Seizure (last seizure was 2yrs ago (alcohol related)) , Tingling, Tremors Endocrine: reports: Excessive Sweating, Flushing, Intolerance to Cold, Intolerance to Heat Hematology: reports: No Symptoms Reported Psychiatric: reports: Judgement Intact, Mood/Affect Appropiate, Orientated x3, Agitated, Anxious Other Systems: Reviewed and Negative Patient History - Patient Medical History Hx Anemia: No Hx Asthma: No Hx Chronic Obstructive Pulmonary Disease (COPD): No Hx Cancer: No Hx Cardiac Disorders: No Hx Congestive Heart Failure: No Hx Hypertension: No Hx Hypercholesterolemia: No Hx Pacemaker: No HX Cerebrovascular Accident: No Hx Seizures: Yes (Alcohol related/2yrs ago) Hx Dementia: No Hx Diabetes: No Hx Gastrointestinal Disorders: No Hx Liver Disease: No Hx Genitourinary Disorders: No Hx Sexually Transmitted Disorders: Yes (HIV) Hx Renal Disease (ESRD): No Hx Thyroid Disease: No Hx Human Immunodeficiency Virus (HIV): Yes (SINCE 1996; currently no taking any medication) Hx Hepatitis C: Yes (diag. 1996 - treated) Hx Depression: Yes Hx Suicide Attempt: No (only thoughts of Suicide but never went through it.) Hx Bipolar Disorder: Yes Hx Schizophrenia: No - Patient Surgical History Past Surgical History: No Hx Neurologic Surgery: No Hx Cataract Extraction: No Hx Cardiac Surgery: No Hx Lung Surgery: No Hx Breast Surgery: Yes (breast implant on 07/26/2015) Hx Breast Biopsy: No Hx Abdominal Surgery: No Hx Appendectomy: No Hx Cholecystectomy: No Hx Genitourinary Surgery: No Hx Section: No Hx Orthopedic Surgery: No Other Surgical History: orchiectomy on 12/28/2014/gender reassignment; 01/10/2017 Anesthesia Reaction: No - PPD History Previous Implant?: Yes Documented Results: Negative w/o proof PPD to be Administered?: Yes - Reproductive History Patient is a Female of Child Bearing Age (11 -55 yrs old): No (pt is transgender ) - Smoking Cessation Smoking history: Current every day smoker Have you smoked in the past 12 months: Yes Aproximately how many cigarettes per day: 20 If you are a former smoker, when did you quit?: 2 1/2 weeks ago Cigars Per Day: 0 Hx Chewing Tobacco Use: No Initiated information on smoking cessation: Yes 'Breaking Loose' booklet given: 01/05/19 - Substance & Tx. History Hx Alcohol Use: Yes Substance Use Type: Alcohol Hx Substance Use Treatment: Yes (last detox 07/2018) - Substances Abused Alcohol Route: Oral Frequency: Daily Amount used: a fifth of congac/hennesy Age of first use: 15 Date of Last Use: 01/05/19 Heroin Route: Injection Frequency: 1-2 times per week Amount used: 2 bags Age of first use: 19 Date of Last Use: 01/04/19 Alcohol-cognac Route: Oral Frequency: Daily Amount used: 2 pts. Age of first use: 15 Date of Last Use: 01/05/19 Family Disease History - Family Disease History Family Disease History: Other: Father (no contact, ALCOHOL), Mother (no contact) Admission Physical Exam [facility] - Vital Signs Vital Signs: Vital Signs - 24 hr 01/05/19 12:28 Temperature 96.9 F L Pulse Rate 83 Respiratory 20 Rate Blood Pressure 137/84 - Physical General Appearance: Yes: Appropriately Dressed, Moderate Distress, Tremorous, Irritable, Sweating, Anxious HEENTM: Yes: Hearing grossly Normal, Normal Voice, Rhinorrhea Respiratory: Yes: Lungs Clear, Normal Breath Sounds, No Respiratory Distress Neck: Yes: No masses,lesions,Nodules Breast: Yes: Within Normal Limits Cardiology: Yes: Regular Rhythm, Regular Rate, S1, S2 Abdominal: Yes: Normal Bowel Sounds, Non Tender, Soft Genitourinary: Yes: Within Normal Limits Back: Yes: Normal Inspection Musculoskeletal: Yes: full range of Motion, Back pain, Muscle Pain Extremities: Yes: Normal Capillary Refill, Normal Inspection, Non-Tender, Tremors Neurological: Yes: Fully Oriented, Alert, Normal Response Integumentary: Yes: Normal Color, Diaphoresis Lymphatic: Yes: Within Normal Limits - Diagnostic (1) Alcohol dependence with withdrawal, uncomplicated Current Visit: Yes Status: Chronic (2) Bipolar II disorder Current Visit: No Status: Chronic (3) Cocaine dependence Current Visit: Yes Status: Chronic (4) HIV (human immunodeficiency virus infection) Current Visit: Yes Status: Chronic Qualifiers: HIV symptom status: unspecified Qualified Code(s): B20 - Human immunodeficiency virus [HIV] disease Comment: not currently on any HIV medication (5) Hepatitis C carrier Current Visit: Yes Status: Chronic (6) Methadone maintenance therapy patient Current Visit: Yes Status: Chronic Comment: dose was verified with RN and program [facility] last dose received today with 60mg (7) Nicotine dependence Current Visit: Yes Status: Chronic Qualifiers: Nicotine product type: cigarettes Substance use status: uncomplicated Qualified Code(s): F17.210 - Nicotine dependence, cigarettes, uncomplicated (8) Peripheral neuropathy Current Visit: Yes Status: Chronic Qualifiers: Peripheral neuropathy type: polyneuropathy, unspecified (9) Substance-induced sleep disorder Current Visit: No Status: Chronic (10) Transgendered Current Visit: Yes Status: Chronic Cleared for Admission [facility] - Detox or Rehab [facility] Level of Care: Medically Managed Detox Regimen/Protocol: Valium S Breath Alcohol Content Breath Alcohol Content: 0.091 Urine Pregancy Test - Result Urine Test Results: Negative- NO Line Present Urine Drug Screen - Results Drug Screen Negative: No Urine Drug Screen Results: JIMMY-Cocaine, OPI-Opiates, BZO-Benzodiazepines, MTD- Methadone Inpatient Rehab Admission - Rehab Decision to Admit Inpatient rehab admission?: No
[2019-01-05] MEDS ORDERED: hydrOXYzine PAMOATE 50 MG CAPSULE (FP) PO PRN (14:07)
[2019-01-05] MEDS ORDERED: ACETAMINOPHEN 325 MG TABLET (FP) PO PRN (14:07)
[2019-01-05] MEDS ORDERED: MAG HYDROX/AL HYDROX/SIMETH 30 ML UNIT-DOSE CUP PO PRN (14:07)
[2019-01-05] MEDS ORDERED: LOPERAMIDE HCL 2 MG CAPSULE PO PRN (14:07)
[2019-01-05] MEDS ORDERED: MENTHOL/PHENOL 1 EACH UD MM PRN (14:07)
[2019-01-05] MEDS ORDERED: guaiFENesin/D-METHORPHAN HB 10 ML UNIT-DOSE CUPS PO PRN (14:07)
[2019-01-05] MEDS ORDERED: MAGNESIUM HYDROX 2400MG/30ML ORAL SUSPENSION 30 ML CUP PO PRN (14:07)
[2019-01-05] MEDS ORDERED: P-EPHED 60MG/TRIPROLIDI 2.5MG TABLET PO PRN (14:07)
[2019-01-05] MEDS ORDERED: MAGNESIUM CITRATE 300 ML BOTTLE PO PRN (14:07)
[2019-01-05] MEDS ORDERED: diazePAM 5 MG TABLET PO ONE (16:00)
[2019-01-05] MEDS: IBUPROFEN 400 MG TABLET (FP) PO PRN (18:52)
[2019-01-05] MEDS ORDERED: PATIENT'S OWN MEDICATION (NON-FORMULARY) (Estradiol [Estradiol] 2 MG) PO SCH (22:00)
[2019-01-05] MEDS: MELATONIN 5 MG TABLETS PO PRN (22:39)
[2019-01-05] MEDS: THIAMINE HCL 100 MG TABLET (FP) PO SCH (22:39)
[2019-01-05] MEDS: diazePAM 5 MG TABLET PO SCH (22:39)
[2019-01-06] MEDS ORDERED: METHADONE HCL 10 MG TABLET PO SCH (06:00)
[2019-01-06] MEDS ORDERED: METHADONE HCL 10 MG TABLET ONE (06:11)
[2019-01-06] MEDS ORDERED: METHADONE HCL 40 MG DISPERSABLE TABLET ONE (06:11)
[2019-01-06] MEDS: METHADONE 40 MG, METHADONE 20 MG PO SCH (06:12)
[2019-01-06] MEDS: diazePAM 5 MG TABLET PO SCH ×3 (06:12→22:33)
--- NOTE | 2019-01-06 08:46 | PN ---
S CIWA - CIWA Score Nausea/Vomitin-No Nausea/No Vomiting Muscle Tremors: 3 Anxiety: 3 Agitation: 3 Paroxysmal Sweats: 3 Orientation: 0-Oriented Tacttile Disturbances: 0-None Auditory Disturbances: 0-None Visual Disturbances: 0-None Headache: 0-None Present CIWA-Ar Total Score: 12 [facility] Progress Note (SOAP) Subjective: sweats agitation little sweats Objective: 01/06/19 08:43 Vital Signs Temperature 97.9 F 01/06/19 07:18 Pulse Rate 62 01/06/19 07:18 Respiratory Rate 18 01/06/19 07:18 Blood Pressure 118/61 01/06/19 07:18 O2 Sat by Pulse Oximetry (%) labs pending ambulating no acute distress Assessment: 01/06/19 09:19 withdrawal sx Plan: continue detox increase fluids labs pending
--- NOTE | 2019-01-06 09:24 | CONSULT ---
[facility] Psychiatric Consult - Data Date of interview: 01/06/19 Admission source: [facility] Identifying data: Patient is a 43 year old single transgender female, without children, unemployed, domiciled, and is supported by [facility]. This is one of multiple admissions for patient. Patient admitted to for alcohol, cocaine and opiate dependence. Substance Abuse History: Smoking Cessation. Smoking history: Current every day smoker. Have you smoked in the past 12 months: Yes. Aproximately how many cigarettes per day: 20. If you are a former smoker, when did you quit?: 2 1/2 weeks ago. Cigars Per Day: 0. Hx Chewing Tobacco Use: No. Initiated information on smoking cessation: Yes. 'Breaking Loose' booklet given: . - Substance & Tx. History. Hx Alcohol Use: Yes. Substance Use Type: Alcohol. Hx Substance Use Treatment: Yes (last detox 07/2018). - Substances Abused. Alcohol. Route: Oral. Frequency: Daily. Amount used: a fifth of congac/hennesy. Age of first use: 15. Date of Last Use: 01/05/19. Heroin. Route: Injection. Frequency: 1-2 times per week. Amount used: 2 bags. Age of first use: 19. Date of Last Use: 01/04/19. Alcohol-cognac. Route: Oral. Frequency: Daily. Amount used: 2 pts. Age of first use: 15. Date of Last Use: 01/05/19 Medical History: HIV+, Hep C Psychiatric History: Patient's first psychiatric contact was at 15 years of age to address mood instability. She was hospitalized on the psychiatric unit at [facility] on [address] [place] [address], diagnosed with bipolar disorder, and was started on psychotropic medications. Patient is also known to [facility], [facility], and [facility]. Outpatient psychiatric care is provided by Dr. Amador doe at [facility]. States she is prescribed buspar 10mg BID+ Gabapentin 400mg TID+ Celexa 40mg. Patient reports sub-optimal adherence to celexa. Patient is also on methadone maintenance of 60mg daily at [facility]. Patient denies h/o suicide attempt. Physical/Sexual Abuse/Trauma History: denies Mental Status Exam - Mental Status Exam Alert and Oriented to: Time, Place, Person Cognitive Function: Good Patient Appearance: Well Groomed Mood: Hopeful Affect: Appropriate Patient Behavior: Cooperative Speech Pattern: Appropriate Voice Loudness: Normal Thought Process: Intact, Goal Oriented Thought Disorder: Not Present Hallucinations: Denies Suicidal Ideation: Denies Homicidal Ideation: Denies Insight/Judgement: Poor Sleep: Fair Appetite: Fair Muscle strength/Tone: Normal Gait/Station: Normal Psychiatric Findings - Problem List ([place] 1, 2,3) (1) Alcohol dependence with withdrawal, uncomplicated Current Visit: Yes Status: Acute (2) Cocaine dependence Current Visit: Yes Status: Chronic (3) Methadone maintenance therapy patient Current Visit: Yes Status: Chronic Comment: dose was verified with RN and program [facility] last dose received today with 60mg (4) Mood disorder Current Visit: Yes Status: Chronic - Initial Treatment Plan Initial Treatment Plan: Psychoeducation provided. Detoxification in progress. Will order Celexa 20mg + gabapentin 400mg TID + Buspar 10mg BID. Benefits and side effects discussed. Verbal consent given.
[2019-01-06] MEDS ORDERED: COLLOIDAL OATMEAL 1 BAR EACH TP PRN (09:52)
[2019-01-06] MEDS ORDERED: hydrOXYzine PAMOATE 50 MG CAPSULE (FP) PO PRN (10:20)
[2019-01-06] MEDS: NICOTINE 21 MG/24 HOURS TOPICAL PATCH TD SCH (10:25)
[2019-01-06] MEDS: TAMSULOSIN HCL 0.4 MG CAP PO SCH (10:25)
[2019-01-06] MEDS: SULFAMETHOXAZOLE/TRIMETHOPRIM 800MG/160MG D.S. TABLET PO SCH (10:25)
[2019-01-06 10:54] LABS: ALBUMIN 3.4 g/dl (3.4-5.0); ALK PHOS 127 U/L (45-117); ANION GAP 6 MMOL/L (8-16); BILIRUBIN,TOTAL 0.3 mg/dL (0.2-1); BLOOD UREA NITROGEN 20 mg/dL (7-18); CALCIUM 8.6 mg/dL (8.5-10.1); CHLORIDE 102 mmol/L (98-107); CO2 27 mmol/L (21-32); CREATININE 0.9 mg/dL (0.55-1.3); GLUCOSE,RANDOM 119 mg/dL (74-106); HEMATOCRIT 41.7 % (35.4-49); HEMOGLOBIN 14.1 GM/dL (11.7-16.9); MCH 31.6 pg (25.7-33.7); MCHC 33.7 g/dl (32.0-35.9); MEAN CELL VOLUME 93.8 fl (80-96); MEAN PLT VOLUME 8.9 fl (7.5-11.1); PLATELET COUNT 279 K/MM3 (134-434); POTASSIUM 4.3 mmol/L (3.5-5.1); RBC 4.44 M/mm3 (4.00-5.60); RDW 13.1 % (11.9-15.9); SGOT/AST 36 U/L (15-37); SGPT/ALT 30 U/L (13-61); SODIUM 135 mmol/L (136-145); TOT PROT 8.1 g/dl (6.4-8.2); WHITE BLOOD COUNT 5.3 K/mm3 (4.0-10.0)
[2019-01-06] MEDS: PRENATAL VITAMINS W/ FOLIC ACID TABLET (FP) PO SCH (11:26)
[2019-01-06] MEDS: GABAPENTIN 400 MG CAPSULE (FP) PO SCH ×2 (13:25→22:33)
[2019-01-06] MEDS: IBUPROFEN 400 MG TABLET (FP) PO PRN ×2 (13:26→22:35)
[2019-01-06] MEDS: THIAMINE HCL 100 MG TABLET (FP) PO SCH (22:33)
[2019-01-06] MEDS: busPIRone HCL 10 MG TABLET (FP) PO SCH (22:33)
[2019-01-06] MEDS: MELATONIN 5 MG TABLETS PO PRN (22:34)
[2019-01-07] MEDS ORDERED: METHADONE HCL 40 MG DISPERSABLE TABLET ONE (04:27)
[2019-01-07] MEDS ORDERED: METHADONE HCL 10 MG TABLET ONE (04:27)
[2019-01-07] MEDS: METHADONE 40 MG, METHADONE 20 MG PO SCH (05:45)
[2019-01-07] MEDS: GABAPENTIN 400 MG CAPSULE (FP) PO SCH ×3 (05:45→22:22)
[2019-01-07] MEDS: diazePAM 5 MG TABLET PO PRN ×2 (07:08→13:21)
--- NOTE | 2019-01-07 10:04 | PN ---
[facility] CIWA - CIWA Score Nausea/Vomitin-No Nausea/No Vomiting Muscle Tremors: 3 Anxiety: 4-Mod. Anxious/Guarded Agitation: 2 Paroxysmal Sweats: 2 Orientation: 0-Oriented Tacttile Disturbances: 0-None Auditory Disturbances: 0-None Visual Disturbances: 0-None Headache: 0-None Present CIWA-Ar Total Score: 11 S Progress Note (SOAP) Subjective: constipation/hemorrhoids sweats agitation Objective: 01/07/19 10:03 Vital Signs Temperature 97.4 F L 01/07/19 09:30 Pulse Rate 97 H 01/07/19 09:30 Respiratory Rate 18 01/07/19 09:30 Blood Pressure 130/88 01/07/19 09:30 O2 Sat by Pulse Oximetry (%) Laboratory Tests 01/06/19 01/06/19 01/06/19 06:00 06:00 06:00 WBC 5.3 RBC 4.44 Hgb 14.1 Hct 41.7 MCV 93.8 MCH 31.6 MCHC 33.7 RDW 13.1 Plt Count 279 D MPV 8.9 Sodium 135 L Potassium 4.3 Chloride 102 Carbon Dioxide 27 Anion Gap 6 L BUN 20 H Creatinine 0.9 Creat Clearance w eGFR > 60 Random Glucose 119 H Calcium 8.6 Total Bilirubin 0.3 AST 36 ALT 30 Alkaline Phosphatase 127 H Total Protein 8.1 Albumin 3.4 RPR Titer Nonreactive aaox3 ambulating no acute distress Assessment: 01/07/19 10:04 withdrawal sx Plan: continue detox increase fluids anusol pr
[2019-01-07] MEDS: SULFAMETHOXAZOLE/TRIMETHOPRIM 800MG/160MG D.S. TABLET PO SCH (10:38)
[2019-01-07] MEDS: CITALOPRAM HYDROBROMIDE 20 MG TABLET (FP) PO SCH (10:38)
[2019-01-07] MEDS: busPIRone HCL 10 MG TABLET (FP) PO SCH ×2 (10:38→22:22)
[2019-01-07] MEDS: diazePAM 5 MG TABLET PO SCH ×2 (10:38→22:22)
[2019-01-07] MEDS: PRENATAL VITAMINS W/ FOLIC ACID TABLET (FP) PO SCH (10:38)
[2019-01-07] MEDS: NICOTINE 21 MG/24 HOURS TOPICAL PATCH TD SCH (10:39)
[2019-01-07] MEDS: TAMSULOSIN HCL 0.4 MG CAP PO SCH (10:39)
[2019-01-07] MEDS: HYDROCORTISONE 2.5% TOPICAL CREAM 30 GM TUBE TP SCH ×2 (10:39→22:24)
[2019-01-07] MEDS: IBUPROFEN 400 MG TABLET (FP) PO PRN (14:20)
--- NOTE | 2019-01-07 16:00 | PN ---
[facility] Progress Note Note: pt will be d/c on thursday (hol) after receiving methadone maintenance. pt will go to her program Thursday. program is closed on thursday d/t holiday
[2019-01-07] MEDS: THIAMINE HCL 100 MG TABLET (FP) PO SCH (22:22)
[2019-01-08] MEDS: IBUPROFEN 400 MG TABLET (FP) PO PRN (04:08)
[2019-01-08] MEDS ORDERED: METHADONE HCL 40 MG DISPERSABLE TABLET ONE (04:41)
[2019-01-08] MEDS ORDERED: METHADONE HCL 10 MG TABLET ONE (04:41)
[2019-01-08] MEDS: METHADONE 40 MG, METHADONE 20 MG PO SCH (05:47)
[2019-01-08] MEDS: GABAPENTIN 400 MG CAPSULE (FP) PO SCH (05:48)
[2019-01-08 09:54] VITALS: BP 131/68; PULSE 86; TEMP 97.7
[2019-01-08] MEDS: busPIRone HCL 10 MG TABLET (FP) PO SCH (10:30)
[2019-01-08] MEDS: diazePAM 5 MG TABLET PO SCH (10:30)
[2019-01-08] MEDS: PRENATAL VITAMINS W/ FOLIC ACID TABLET (FP) PO SCH (10:30)
[2019-01-08] MEDS: CITALOPRAM HYDROBROMIDE 20 MG TABLET (FP) PO SCH (10:30)
[2019-01-08] MEDS: SULFAMETHOXAZOLE/TRIMETHOPRIM 800MG/160MG D.S. TABLET PO SCH (10:30)
[2019-01-08] MEDS: TAMSULOSIN HCL 0.4 MG CAP PO SCH (10:30)
[2019-01-08] MEDS: NICOTINE 21 MG/24 HOURS TOPICAL PATCH TD SCH (10:31)
[2019-01-08] MEDS: HYDROCORTISONE 2.5% TOPICAL CREAM 30 GM TUBE TP SCH (10:31)
--- NOTE | 2019-01-08 11:03 | DS ---
S Detox Discharge Summary Admission Date: 01/05/19 Discharge Date: 01/08/19 - History Present History: Alcohol Dependence, MMTP Additional Comments: pt states she wants to go home- says she feels fine, here for alcohol detox. Rec 'd 3 days of alcohol detox with valium. Last dose tomorrow morning. CIWA scale- 0 pt states has all meds at home- does not need refills - Physical Exam Results Vital Signs: Vital Signs Temperature 97.7 F 01/08/19 09:54 Pulse Rate 86 01/08/19 09:54 Respiratory Rate 18 01/08/19 09:54 Blood Pressure 131/68 01/08/19 09:54 O2 Sat by Pulse Oximetry (%) - Medication Discharge Medications: Ambulatory Orders Estradiol 2 mg PO BID 08/19/18 Methadone [Dolophine -] 60 mg PO DAILY 09/28/18 Buspirone HCl [Buspar -] 10 mg PO BID #60 tablet 09/29/18 Citalopram Hydrobromide [Celexa -] 40 mg PO DAILY #30 tablet 09/29/18 Gabapentin [Neurontin -] 800 mg PO TID #90 capsule 09/29/18 Sulfamethoxazole/Trimethoprim [Bactrim Ds -] 1 tab PO DAILY 09/29/18 Tamsulosin HCl [Flomax] 0.4 mg PO DAILY 10/08/18 - AMA Did Patient Leave Against Medical Advice: Yes
[2019-01-09] MEDS ORDERED: diazePAM 5 MG TABLET PO SCH (10:00)
== END 2019-01-08 11:13 | disposition home or self-care (01) | DRG 773 ==
LOC: YASAS 12:09 → Y6N 15:23
PROVIDERS: ADMIT Surgery; ATTEND Surgery
PROC: HZ2ZZZZ Detoxification Services for Substance Abuse Treatment (ICD-10-PCS; principal; 2019-01-05)
DX: F10.230 Alcohol dependence with withdrawal, uncomplicated (principal); F11.20 Opioid dependence, uncomplicated; F14.20 Cocaine dependence, uncomplicated; F17.210 Nicotine dependence, cigarettes, uncomplicated; F39 Unspecified mood [affective] disorder; F31.81 Bipolar II disorder; F19.282 Other psychoactive substance dependence with psychoactive substance-induced sleep disorder; F64.1 Dual role transvestism; Z21 Asymptomatic human immunodeficiency virus [HIV] infection status; B18.2 Chronic viral hepatitis C; G62.9 Polyneuropathy, unspecified; Z86.69 Personal history of other diseases of the nervous system and sense organs
CPT/HCPCS: 36415; 80053; 85027; 86593

== ENCOUNTER 2019-02-07 15:19 | Inpatient (IN) | payer OTHER ==
[2019-02-07 16:53] VITALS: BMI 34.3
--- NOTE | 2019-02-07 19:03 | HP ---
CIWA Score Nausea/Vomitin-No Nausea/No Vomiting Muscle Tremors: 2 Anxiety: 3 Agitation: 4-Moderately Restless Paroxysmal Sweats: 3 Orientation: 0-Oriented Tacttile Disturbances: 1-Very Mild Itch/Numbness Auditory Disturbances: 0-None Visual Disturbances: 0-None Headache: 2-Mild CIWA-Ar Total Score: 15 - Admission Criteria OASAS Guidelines: Admission for Medically Managed Detox: Requires at least one of the followin. CIWA greater than 12 2. Seizures within the past 24 hours 3. Delirium tremens within the past 24 hours 4. Hallucinations within the past 24 hours 5. Acute intervention needed for co occurring medical disorder 6. Acute intervention needed for co occurring psychiatric disorder 7. Severe withdrawal that cannot be handled at a lower level of care (continued vomiting, continued diarrhea, abnormal vital signs) requiring intravenous medication and/or fluids 8. Admission ROS [facility] - [facility] Chief Complaint: " Alcohol detox" Allergies/Adverse Reactions: Allergies Allergy/AdvReac Type Severity Reaction Status Date / Time chlordiazepoxide Allergy Rash Verified 02/07/19 19:09 [From Librium] History of Present Illness: Patient presents today for detox for alcohol withdrawal symptoms . Reports prior hx of seizures and blackouts with last episode two yeas ago. Patient reports increase drinking to steady her nerves currently from her partner. Reports multiple detos and rehab treatment with last episode [facility] - 01/08/19, relapse soon after . [facility] MMTP , on methadone maintenance 50 mg, last medicated today, dose pending verification. PMHX: HIV, peripheral neuropathy, anxiety, depression. Denies suicidal / homicidal ideation. Exam Limitations: No Limitations - Ebola screening Have you traveled outside of the country in the last 21 days: No Have you had contact with anyone from an Ebola affected area: No Have you been sick,other than usual withdrawal symptoms: No - Review of Systems Constitutional: Diaphoresis, Loss of Appetite EENT: reports: No Symptoms Reported Respiratory: reports: No Symptoms reported Cardiac: reports: No Symptoms Reported GI: reports: Poor Fluid Intake : reports: No Symptoms Reported Musculoskeletal: reports: No Symptoms Reported Integumentary: reports: Dryness Neuro: reports: Headache Endocrine: reports: Excessive Sweating Hematology: reports: See HPI Psychiatric: reports: Orientated x3, Anxious Other Systems: Reviewed and Negative Patient History - Patient Medical History Hx Anemia: No Hx Asthma: No Hx Chronic Obstructive Pulmonary Disease (COPD): No Hx Cancer: No Hx Cardiac Disorders: No Hx Congestive Heart Failure: No Hx Hypertension: No Hx Hypercholesterolemia: No Hx Pacemaker: No HX Cerebrovascular Accident: No Hx Seizures: Yes (Alcohol related/2yrs ago) Hx Dementia: No Hx Diabetes: No Hx Gastrointestinal Disorders: No Hx Liver Disease: No Hx Genitourinary Disorders: No Hx Sexually Transmitted Disorders: Yes (HIV) Hx Renal Disease (ESRD): No Hx Thyroid Disease: No Hx Human Immunodeficiency Virus (HIV): Yes (SINCE 1996; currently no taking any medication) Hx Hepatitis C: Yes (diag. 1996 - treated) Hx Depression: Yes Hx Suicide Attempt: No (only thoughts of Suicide but never went through it.) Hx Bipolar Disorder: Yes Hx Schizophrenia: No - Patient Surgical History Past Surgical History: No Hx Neurologic Surgery: No Hx Cataract Extraction: No Hx Cardiac Surgery: No Hx Lung Surgery: No Hx Breast Surgery: Yes (breast implant on 07/26/2015) Hx Breast Biopsy: No Hx Abdominal Surgery: No Hx Appendectomy: No Hx Cholecystectomy: No Hx Genitourinary Surgery: No Hx Section: No Hx Orthopedic Surgery: No Other Surgical History: orchiectomy on 12/28/2014/gender reassignment; 01/10/2017 Anesthesia Reaction: No - PPD History Previous Implant?: No Documented Results: Negative w/proof Date: 08/22/18 Results: 0mm PPD to be Administered?: No - Smoking Cessation Smoking history: Current every day smoker Have you smoked in the past 12 months: Yes Aproximately how many cigarettes per day: 20 If you are a former smoker, when did you quit?: 2 1/2 weeks ago Cigars Per Day: 0 Hx Chewing Tobacco Use: No Initiated information on smoking cessation: Yes 'Breaking Loose' booklet given: 02/07/19 - Substance & Tx. History Hx Alcohol Use: Yes Hx Substance Use: Yes Substance Use Type: Alcohol, Cocaine Hx Substance Use Treatment: Yes (detox [facility] 01/05/19 -01/08/19) - Substances Abused Alcohol Route: Oral Frequency: Daily Amount used: 15 x 254 oz beer Age of first use: 15 Date of Last Use: 02/07/19 Cocaine Route: Inhalation Frequency: 1-3 times last 30 days Amount used: unknown Age of first use: 15 (reports not drug of choice) Date of Last Use: 02/05/19 heroin Route: Injection Frequency: Daily Amount used: 2 bags Date of Last Use: 02/06/19 Family Disease History - Family Disease History Family Disease History: Other: Father (no contact, ALCOHOL), Mother (no contact) Admission Physical Exam S - Vital Signs Vital Signs: Vital Signs - 24 hr 02/07/19 16:52 Temperature 97.3 F L Pulse Rate 74 Respiratory 18 Rate Blood Pressure 122/97 - Physical General Appearance: Yes: Appropriately Dressed, Moderate Distress, Sweating, Anxious HEENTM: Yes: EOMI, Hearing grossly Normal, Normal ENT Inspection, Normocephalic , Normal Voice, ALFREDA, Pharynx Normal, Tm's normal Respiratory: Yes: Chest Non-Tender, Lungs Clear, Normal Breath Sounds, No Respiratory Distress, No Accessory Muscle Use Neck: Yes: Within Normal Limits Breast: Yes: Breast Exam Deferred Cardiology: Yes: Regular Rhythm, Regular Rate Abdominal: Yes: Within Normal Limits Genitourinary: Yes: Within Normal Limits Back: Yes: Normal Inspection Musculoskeletal: Yes: Within Normal Limits Extremities: Yes: Normal Capillary Refill, Normal Inspection, Normal Range of Motion Neurological: Yes: sewer hand II-XII NML intact, Fully Oriented, Alert, Motor Strength 5/5, Normal Mood/Affect (anxious/restless), Depressed Affect Integumentary: Yes: Normal Color, Diaphoresis, Track Kerr (bilateral forearms, + echymossis, no infection present) Lymphatic: Yes: Within Normal Limits - Diagnostic (1) Alcohol dependence with withdrawal, uncomplicated Current Visit: Yes Status: Acute (2) HIV (human immunodeficiency virus infection) Current Visit: Yes Status: Chronic Qualifiers: HIV symptom status: unspecified Qualified Code(s): B20 - Human immunodeficiency virus [HIV] disease Comment: not currently on any HIV medication (3) Methadone maintenance therapy patient Current Visit: Yes Status: Chronic Comment: [facility] last dose received today with 50mg. Dos pending verificantion. (4) Nicotine dependence Current Visit: Yes Status: Chronic Qualifiers: Nicotine product type: cigarettes Substance use status: uncomplicated Qualified Code(s): F17.210 - Nicotine dependence, cigarettes, uncomplicated (5) Peripheral neuropathy Current Visit: Yes Status: Chronic Qualifiers: Peripheral neuropathy type: polyneuropathy, unspecified Qualified Code(s): G62.9 - Polyneuropathy, unspecified (6) Transgendered Current Visit: Yes Status: Chronic Cleared for Admission [facility] - Detox or Rehab [facility] Level of Care: Medically Managed Detox Regimen/Protocol: Valium S Breath Alcohol Content Breath Alcohol Content: 0.015 Urine Drug Screen - Results Drug Screen Negative: No Urine Drug Screen Results: JIMMY-Cocaine, OPI-Opiates, MTD-Methadone Inpatient Rehab Admission - Rehab Decision to Admit Inpatient rehab admission?: No
[2019-02-07] MEDS ORDERED: IBUPROFEN 400 MG TABLET (FP) PO PRN (19:07)
[2019-02-07] MEDS ORDERED: MAG HYDROX/AL HYDROX/SIMETH 30 ML UNIT-DOSE CUP PO PRN (19:07)
[2019-02-07] MEDS ORDERED: NICOTINE POLACRILEX 4 MG GUM BUC PRN (19:07)
[2019-02-07] MEDS ORDERED: METHOCARBAMOL 500 MG TABLET PO PRN (19:07)
[2019-02-07] MEDS ORDERED: hydrOXYzine PAMOATE 25 MG CAPSULE (FP) PO PRN (19:07)
[2019-02-07] MEDS ORDERED: ACETAMINOPHEN 325 MG TABLET (FP) PO PRN ×2 (19:07)
[2019-02-07] MEDS ORDERED: MENTHOL/PHENOL 1 EACH UD MM PRN (19:07)
[2019-02-07] MEDS ORDERED: MAGNESIUM HYDROX 2400MG/30ML ORAL SUSPENSION 30 ML CUP PO PRN (19:07)
[2019-02-07] MEDS ORDERED: diazePAM 5 MG TABLET PO PRN (19:07)
[2019-02-07] MEDS ORDERED: MAGNESIUM CITRATE 300 ML BOTTLE PO PRN (19:07)
[2019-02-07] MEDS ORDERED: BISMUTH SUBSALICYLATE 524 MG/30 ML UD PO PRN (19:07)
[2019-02-07] MEDS ORDERED: diazePAM 5 MG TABLET PO ONE (19:30)
[2019-02-07] MEDS: MELATONIN 5 MG TABLETS PO PRN (22:28)
[2019-02-07] MEDS: THIAMINE HCL 100 MG TABLET (FP) PO SCH (22:28)
[2019-02-07] MEDS: diazePAM 5 MG TABLET PO SCH (22:28)
[2019-02-07] MEDS: ABACAVIR/DOLUTEGRAVIR/LAMIVUDI (TRIUMEQ) TABLET -NF PO SCH (22:51)
[2019-02-08] MEDS: diazePAM 5 MG TABLET PO SCH ×3 (05:23→22:40)
[2019-02-08] MEDS ORDERED: METHADONE HCL 10 MG TABLET PO ONE (08:41)
--- NOTE | 2019-02-08 08:44 | PN ---
S CIWA - CIWA Score Nausea/Vomitin-No Nausea/No Vomiting Muscle Tremors: 2 Anxiety: 1-Mildly Anxious Agitation: 3 Paroxysmal Sweats: 1-Minimal Palms Moist Orientation: 2-Disoriented Date<2 days Tacttile Disturbances: 0-None Auditory Disturbances: 0-None Visual Disturbances: 0-None Headache: 1-Very Mild CIWA-Ar Total Score: 10 [facility] Progress Note (SOAP) Subjective: patient is anxious about methadone dose for today emotional assurance given reporting tremor sweating otherwise feeling ok ambulating on hallway social with peers actively engage with the staff and peers Objective: 02/08/19 08:48 Vital Signs Temperature 97.7 F 02/08/19 06:07 Pulse Rate 54 L 02/08/19 06:07 Respiratory Rate 18 02/08/19 06:07 Blood Pressure 130/83 02/08/19 06:07 O2 Sat by Pulse Oximetry (%) Assessment: 02/08/19 08:45 methadone 50 mg po daily verified based on last months' lab 02/08/19 08:50 02/08/19 08:50 patient can be safely managing alcohol withdrawal by valium regimen Plan: continue detox
[2019-02-08] MEDS ORDERED: METHADONE 40 MG, METHADONE 10 MG PO ONE (08:50)
[2019-02-08] MEDS ORDERED: METHADONE HCL 40 MG DISPERSABLE TABLET ONE (09:17)
[2019-02-08] MEDS ORDERED: METHADONE HCL 10 MG TABLET ONE (09:17)
[2019-02-08] MEDS: NICOTINE 21 MG/24 HOURS TOPICAL PATCH TD SCH (09:38)
[2019-02-08] MEDS: SULFAMETHOXAZOLE/TRIMETHOPRIM 800MG/160MG D.S. TABLET PO SCH (09:39)
[2019-02-08] MEDS: PRENATAL VITAMINS W/ FOLIC ACID TABLET (FP) PO SCH (09:39)
[2019-02-08 11:26] LABS: HEMOGLOBIN 12.9 GM/dL (11.7-16.9); MCH 31.7 pg (25.7-33.7); MCHC 34.8 g/dl (32.0-35.9); MEAN PLT VOLUME 8.9 fl (7.5-11.1); PLATELET COUNT 186 K/MM3 (134-434); RBC 4.07 M/mm3 (4.00-5.60); WHITE BLOOD COUNT 4.9 K/mm3 (4.0-10.0)
[2019-02-08 11:33] LABS: ALBUMIN 3.2 g/dl (3.4-5.0); ALK PHOS 119 U/L (45-117); ANION GAP 7 MMOL/L (8-16); BILIRUBIN,TOTAL 0.2 mg/dL (0.2-1); BLOOD UREA NITROGEN 17 mg/dL (7-18); CALCIUM 8.7 mg/dL (8.5-10.1); CHLORIDE 104 mmol/L (98-107); CO2 26 mmol/L (21-32); CREATININE 0.7 mg/dL (0.55-1.3); GLUCOSE,RANDOM 131 mg/dL (74-106); SGOT/AST 18 U/L (15-37); SGPT/ALT 25 U/L (13-61); SODIUM 136 mmol/L (136-145); TOT PROT 7.2 g/dl (6.4-8.2)
[2019-02-08] MEDS: GABAPENTIN 400 MG CAPSULE (FP) PO SCH ×2 (14:28→22:41)
--- NOTE | 2019-02-08 15:51 | CONSULT ---
[facility] Psychiatric Consult - Data Date of interview: 02/08/19 Admission source: [facility] Identifying data: This is one of multiple admissions to [facility] for this 43 y/ o [id number] transgender self-referred for detoxification (cocaine, heroin, alcohol). Interviewed on . Patient is single, domiciled, unemployed and supported [facility]. Substance Abuse History: Confired by the patient in this session. Details in current [facility] report as follows : Smoking history: Current every day smoker. Have you smoked in the past 12 months: Yes. Aproximately how many cigarettes per day: 20. If you are a former smoker, when did you quit?: 2 1/2 weeks ago. Cigars Per Day: 0. Hx Chewing Tobacco Use: No. Initiated information on smoking cessation: Yes. 'Breaking Loose' booklet given: 02/07/19. - Substance & Tx. History. Hx Alcohol Use: Yes. Hx Substance Use: Yes. Substance Use Type : Alcohol, Cocaine. Hx Substance Use Treatment: Yes (detox [facility] 01/05/19 -). - Substances Abused. Alcohol. Route: Oral. Frequency: Daily. Amount used: 15 x 254 oz beer. Age of first use: 15. Date of Last Use: . Cocaine. Route: Inhalation. Frequency: 1-3 times last 30 days. Amount used: unknown. Age of first use: 15 (reports not drug of choice). Date of Last Use: 02/05/19. heroin. Route: Injection. Frequency: Daily. Amount used: 2 bags. Date of Last Use: 02/06/19 Medical History: Remarkable for HIV infection since 1996 (on ART medications), hepatitis C (treated), peripheral neuropathy, surgeries (breats implant in 2015 + gender reassignment at [facility] in [place] in 2017). Psychiatric History: Onset of psychiatric issues : age 15. Patient was diagnosed with Bipolar Disorder and committed at [facility]. Admits to a history of multiple psychiatric hospitalizations ([facility], [facility], [facility], [facility], [facility]). Wilfredo Stephen (remy Ovalle) sees a psychiatrist , Dr Ding, at the [facility] ([facility]) in [facility] for medication management (gabapentin 400 mg/tid + buspar 10 mg/bid + citalopram 40 mg/day). Patient is currently on methadone maintenance (50 mg/day ) at the [facility] program. No reported history of suicide attempts. Physical/Sexual Abuse/Trauma History: Not discussed. Patient declines. Additional Comment: Urine Drug Screen Results: JIMMY-Cocaine, OPI-Opiates, MTD- Methadone. Noted. Mental Status Exam - Mental Status Exam Alert and Oriented to: Time, Place, Person Cognitive Function: Good Patient Appearance: Well Groomed (tall stature, overweight) Mood: Nervous, Anxious Affect: Appropriate, Normal Range Patient Behavior: Talkative, Appropriate, Cooperative Speech Pattern: Clear Voice Loudness: Normal Thought Process: Goal Oriented Thought Disorder: Not Present Hallucinations: Denies Suicidal Ideation: Denies Homicidal Ideation: Denies Insight/Judgement: Poor Sleep: Poorly, Difficulty falling asleep Appetite: Good Gait/Station: Normal Psychiatric Findings - Problem List ([place] 1, 2,3) (1) Alcohol dependence with withdrawal, uncomplicated Current Visit: Yes Status: Acute (2) Opioid dependence on agonist therapy Current Visit: Yes Status: Chronic (3) Cocaine dependence Current Visit: Yes Status: Chronic (4) Nicotine dependence Current Visit: Yes Status: Chronic Qualifiers: Nicotine product type: cigarettes Substance use status: uncomplicated Qualified Code(s): F17.210 - Nicotine dependence, cigarettes, uncomplicated (5) Substance induced mood disorder Current Visit: Yes Status: Chronic (6) Bipolar disorder Current Visit: Yes Status: Chronic (7) Insomnia Current Visit: Yes Status: Chronic - Initial Treatment Plan Initial Treatment Plan: Records from [facility] : revisited. Psychoeducation. Support. Detoxification in progress. Sleep hygiene. Medications resumed : gabapentin 400 mg po tid + citalopram 40 mg po daily + buspar 10 mg po bid ( patient is a reliable historian). Side effects/benefits of each drug are discussed with the patient. Consent (verbal) granted to MD. [place].
[2019-02-08] MEDS: THIAMINE HCL 100 MG TABLET (FP) PO SCH (22:41)
[2019-02-08] MEDS: ABACAVIR/DOLUTEGRAVIR/LAMIVUDI (TRIUMEQ) TABLET -NF PO SCH (22:41)
[2019-02-08] MEDS: MELATONIN 5 MG TABLETS PO PRN (22:41)
[2019-02-09] MEDS ORDERED: METHADONE HCL 40 MG DISPERSABLE TABLET ONE (04:19)
[2019-02-09] MEDS ORDERED: METHADONE HCL 10 MG TABLET ONE (04:19)
[2019-02-09] MEDS ORDERED: METHADONE HCL 10 MG TABLET PO SCH (06:00)
[2019-02-09] MEDS: METHADONE 40 MG, METHADONE 10 MG PO SCH (06:18)
[2019-02-09] MEDS: GABAPENTIN 400 MG CAPSULE (FP) PO SCH ×3 (06:18→22:16)
[2019-02-09] MEDS ORDERED: COLLOIDAL OATMEAL 1 BAR EACH TP PRN (09:32)
[2019-02-09] MEDS: NICOTINE 21 MG/24 HOURS TOPICAL PATCH TD SCH (10:44)
[2019-02-09] MEDS: PRENATAL VITAMINS W/ FOLIC ACID TABLET (FP) PO SCH (10:44)
[2019-02-09] MEDS: diazePAM 5 MG TABLET PO SCH ×2 (10:44→22:16)
[2019-02-09] MEDS: SULFAMETHOXAZOLE/TRIMETHOPRIM 800MG/160MG D.S. TABLET PO SCH (10:44)
--- NOTE | 2019-02-09 14:54 | PN ---
S CIWA - CIWA Score Nausea/Vomitin-No Nausea/No Vomiting Muscle Tremors: 1-None Visible, but [place] Anxiety: 1-Mildly Anxious Agitation: 1-Slight > Activity Paroxysmal Sweats: 1-Minimal Palms Moist Orientation: 0-Oriented Tacttile Disturbances: 0-None Auditory Disturbances: 0-None Visual Disturbances: 0-None Headache: 1-Very Mild CIWA-Ar Total Score: 5 [facility] Progress Note (SOAP) Subjective: WALKING AROUND THE [address] WAY SOCIAL WITH PEERS HELPING OTHERS PATIENT IS RESTLESSNESS CAN NOT SITTING STILL FOR LONG Objective: 02/09/19 14:53 Vital Signs Temperature 97.8 F 02/09/19 14:27 Pulse Rate 78 02/09/19 14:27 Respiratory Rate 20 02/09/19 14:27 Blood Pressure 120/78 02/09/19 14:27 O2 Sat by Pulse Oximetry (%) Laboratory Last Values WBC 4.9 K/mm3 (4.0-10.0) 02/08/19 07:30 RBC 4.07 M/mm3 (4.00-5.60) 02/08/19 07:30 Hgb 12.9 GM/dL (11.7-16.9) 02/08/19 07:30 Hct 37.0 % (35.4-49) 02/08/19 07:30 MCV 91.0 fl (80-96) 02/08/19 07:30 MCH 31.7 pg (25.7-33.7) 02/08/19 07:30 MCHC 34.8 g/dl (32.0-35.9) 02/08/19 07:30 RDW 13.0 % (11.9-15.9) 02/08/19 07:30 Plt Count 186 K/MM3 (134-434) D 02/08/19 07:30 MPV 8.9 fl (7.5-11.1) 02/08/19 07:30 Sodium 136 mmol/L (136-145) 02/08/19 07:30 Potassium 4.0 mmol/L (3.5-5.1) 02/08/19 07:30 Chloride 104 mmol/L (98-107) 02/08/19 07:30 Carbon Dioxide 26 mmol/L (21-32) 02/08/19 07:30 Anion Gap 7 MMOL/L (8-16) L 02/08/19 07:30 BUN 17 mg/dL (7-18) 02/08/19 07:30 Creatinine 0.7 mg/dL (0.55-1.3) 02/08/19 07:30 Creat Clearance w eGFR 121.95 (>60) 02/08/19 07:30 Random Glucose 131 mg/dL (74-106) H 02/08/19 07:30 Calcium 8.7 mg/dL (8.5-10.1) 02/08/19 07:30 Total Bilirubin 0.2 mg/dL (0.2-1) 02/08/19 07:30 AST 18 U/L (15-37) 02/08/19 07:30 ALT 25 U/L (13-61) 02/08/19 07:30 Alkaline Phosphatase 119 U/L (45-117) H 02/08/19 07:30 Total Protein 7.2 g/dl (6.4-8.2) 02/08/19 07:30 Albumin 3.2 g/dl (3.4-5.0) L 02/08/19 07:30 RPR Titer Nonreactive (NONREACTIVE) 02/08/19 07:30 LAB NOTED Assessment: 02/09/19 14:54 WITHDRAWAL SX Plan: CONTINUE DETOX
[2019-02-09] MEDS: THIAMINE HCL 100 MG TABLET (FP) PO SCH (22:15)
[2019-02-09] MEDS: ABACAVIR/DOLUTEGRAVIR/LAMIVUDI (TRIUMEQ) TABLET -NF PO SCH (22:16)
[2019-02-10] MEDS ORDERED: METHADONE HCL 10 MG TABLET ONE (05:02)
[2019-02-10] MEDS ORDERED: METHADONE HCL 40 MG DISPERSABLE TABLET ONE (05:03)
[2019-02-10] MEDS: METHADONE 40 MG, METHADONE 10 MG PO SCH (05:56)
[2019-02-10] MEDS: GABAPENTIN 400 MG CAPSULE (FP) PO SCH (05:57)
[2019-02-10] MEDS ORDERED: diazePAM 5 MG TABLET PO SCH (06:00)
[2019-02-10] MEDS ORDERED: BENZOCAINE 28 GM HEMORRHOIDAL OINTMENT PR PRN (09:30)
[2019-02-10 09:35] VITALS: BP 118/72; PULSE 78; TEMP 97
--- NOTE | 2019-02-10 09:39 | DS ---
[facility] Detox Discharge Summary Admission Date: 02/07/19 Discharge Date: 02/10/19 - History Present History: Alcohol Dependence - Physical Exam Results Vital Signs: Vital Signs Temperature 97.0 F L 02/10/19 09:35 Pulse Rate 78 02/10/19 09:35 Respiratory Rate 18 02/10/19 09:35 Blood Pressure 118/72 02/10/19 09:35 O2 Sat by Pulse Oximetry (%) Pertinent Admission Physical Exam Findings: alcohol withdrawal sx Laboratory Last Values WBC 4.9 K/mm3 (4.0-10.0) 02/08/19 07:30 RBC 4.07 M/mm3 (4.00-5.60) 02/08/19 07:30 Hgb 12.9 GM/dL (11.7-16.9) 02/08/19 07:30 Hct 37.0 % (35.4-49) 02/08/19 07:30 MCV 91.0 fl (80-96) 02/08/19 07:30 MCH 31.7 pg (25.7-33.7) 02/08/19 07:30 MCHC 34.8 g/dl (32.0-35.9) 02/08/19 07:30 RDW 13.0 % (11.9-15.9) 02/08/19 07:30 Plt Count 186 K/MM3 (134-434) D 02/08/19 07:30 MPV 8.9 fl (7.5-11.1) 02/08/19 07:30 Sodium 136 mmol/L (136-145) 02/08/19 07:30 Potassium 4.0 mmol/L (3.5-5.1) 02/08/19 07:30 Chloride 104 mmol/L (98-107) 02/08/19 07:30 Carbon Dioxide 26 mmol/L (21-32) 02/08/19 07:30 Anion Gap 7 MMOL/L (8-16) L 02/08/19 07:30 BUN 17 mg/dL (7-18) 02/08/19 07:30 Creatinine 0.7 mg/dL (0.55-1.3) 02/08/19 07:30 Creat Clearance w eGFR 121.95 (>60) 02/08/19 07:30 Random Glucose 131 mg/dL (74-106) H 02/08/19 07:30 Calcium 8.7 mg/dL (8.5-10.1) 02/08/19 07:30 Total Bilirubin 0.2 mg/dL (0.2-1) 02/08/19 07:30 AST 18 U/L (15-37) 02/08/19 07:30 ALT 25 U/L (13-61) 02/08/19 07:30 Alkaline Phosphatase 119 U/L (45-117) H 02/08/19 07:30 Total Protein 7.2 g/dl (6.4-8.2) 02/08/19 07:30 Albumin 3.2 g/dl (3.4-5.0) L 02/08/19 07:30 RPR Titer Nonreactive (NONREACTIVE) 02/08/19 07:30 lab noted - Treatment Hospital Course: Detox Protocol Followed, Detoxed Safely, Responded well, Discharged Condition Good, Rehab Referral Accepted - Medication Discharge Medications: Ambulatory Orders Estradiol 2 mg PO BID 08/19/18 Methadone [Dolophine -] 50 mg PO DAILY 09/28/18 Buspirone HCl [Buspar -] 10 mg PO BID #60 tablet 09/29/18 Citalopram Hydrobromide [Celexa -] 40 mg PO DAILY #30 tablet 09/29/18 Gabapentin [Neurontin -] 800 mg PO TID #90 capsule 09/29/18 Sulfamethoxazole/Trimethoprim [Bactrim DS -] 1 tab PO DAILY 09/29/18 Tamsulosin HCl [Flomax] 0.4 mg PO DAILY 10/08/18 Abacavir/Dolutegravir/Lamivudi [Triumeq 600-50-300 mg Tablet] 1 tab PO DAILY - Diagnosis (1) Alcohol dependence with withdrawal, uncomplicated Current Visit: Yes Status: Acute (2) HIV (human immunodeficiency virus infection) Current Visit: Yes Status: Chronic Qualifiers: HIV symptom status: unspecified Qualified Code(s): B20 - Human immunodeficiency virus [HIV] disease (3) Methadone maintenance therapy patient Current Visit: Yes Status: Chronic (4) Nicotine dependence Current Visit: Yes Status: Acute Qualifiers: Nicotine product type: cigarettes Substance use status: in withdrawal Qualified Code(s): F17.213 - Nicotine dependence, cigarettes, with withdrawal (5) Transgendered Current Visit: Yes Status: Chronic (6) Hepatitis C carrier Current Visit: Yes Status: Chronic - AMA Did Patient Leave Against Medical Advice: No
[2019-02-10] MEDS: SULFAMETHOXAZOLE/TRIMETHOPRIM 800MG/160MG D.S. TABLET PO SCH (10:27)
[2019-02-10] MEDS: PRENATAL VITAMINS W/ FOLIC ACID TABLET (FP) PO SCH (10:27)
[2019-02-10] MEDS: NICOTINE 21 MG/24 HOURS TOPICAL PATCH TD SCH (10:29)
== END 2019-02-10 11:25 | disposition home or self-care (01) | DRG 773 ==
LOC: YASAS 15:19 → Y3N 19:10
PROVIDERS: ADMIT Surgery; ATTEND Surgery
PROC: HZ2ZZZZ Detoxification Services for Substance Abuse Treatment (ICD-10-PCS; principal; 2019-02-07)
DX: F10.230 Alcohol dependence with withdrawal, uncomplicated (principal); F14.20 Cocaine dependence, uncomplicated; F11.20 Opioid dependence, uncomplicated; F17.210 Nicotine dependence, cigarettes, uncomplicated; F19.24 Other psychoactive substance dependence with psychoactive substance-induced mood disorder; F31.9 Bipolar disorder, unspecified; F64.0 Transsexualism; Z21 Asymptomatic human immunodeficiency virus [HIV] infection status; G47.00 Insomnia, unspecified; Z98.82 Breast implant status; Z86.69 Personal history of other diseases of the nervous system and sense organs
CPT/HCPCS: 36415; 80053; 85027; 86593

== ENCOUNTER 2019-02-10 11:14 | Inpatient (IN) | payer OTHER ==
[2019-02-10] MEDS ORDERED: NICOTINE POLACRILEX 2 MG GUM BUC PRN (11:19)
[2019-02-10] MEDS ORDERED: LOPERAMIDE HCL 2 MG CAPSULE PO PRN (11:19)
[2019-02-10] MEDS ORDERED: MAGNESIUM HYDROX 2400MG/30ML ORAL SUSPENSION 30 ML CUP PO PRN (11:19)
[2019-02-10] MEDS ORDERED: P-EPHED 60MG/TRIPROLIDI 2.5MG TABLET PO PRN (11:19)
[2019-02-10] MEDS ORDERED: ACETAMINOPHEN 325 MG TABLET (FP) PO PRN (11:19)
[2019-02-10] MEDS ORDERED: MAG HYDROX/AL HYDROX/SIMETH 30 ML UNIT-DOSE CUP PO PRN (11:19)
[2019-02-10] MEDS ORDERED: MENTHOL/PHENOL 1 EACH UD MM PRN (11:19)
[2019-02-10] MEDS ORDERED: guaiFENesin 200 MG/10 ML 10 ML UNIT-DOSE CUPS PO PRN (11:19)
[2019-02-10] MEDS ORDERED: MAGNESIUM CITRATE 300 ML BOTTLE PO PRN (11:19)
--- NOTE | 2019-02-10 11:19 | HP ---
[facility] Rehab Assess/Revision - Admission History Admitted to Rehab from: [facility] Date of Admission to Rehab: 02/10/19 - Findings Detox History & Physical reviewed: Yes Concur with findings: Yes Comments/Additional Findings: transferred from detox to rehab admission as per protocol Inpatient Rehab Admission - Rehab Decision to Admit Inpatient rehab admission?: Yes - Initial Determination Are CD services needed?: Yes Free of communicable disease: Yes Not in need of hospitalization: Yes - Rehab Admission Criteria Previous failed treatment: Yes Poor recovery environment: Yes Comorbidities: Yes Lacks judgement: No Patient is meeting Inpatient Rehab admission criteria:: Yes
[2019-02-10] MEDS ORDERED: BENZOCAINE 28 GM HEMORRHOIDAL OINTMENT PR SCH (11:30)
[2019-02-10] MEDS ORDERED: NICOTINE 14 MG/24 HOURS TOPICAL PATCH TD PRN (11:35)
[2019-02-10 11:47] VITALS: BMI 36.8
[2019-02-10] MEDS: GABAPENTIN 400 MG CAPSULE (FP) PO SCH ×2 (13:07→21:40)
--- NOTE | 2019-02-10 13:27 | PN ---
[facility] Progress Note Note: 43 Y/O TRANSGENDER MALE DETOXED ON AND REFERRED TO REHAB TODAY. PT REQUESTING PREMARIN VAG CREAM WHICH HAS BEEN USED IN THE PAST SINCE DID NOT BRING ESTRADIOL 2 MG FROM HOME/NO ONE TO BRING IT TO HER FROM HOME AND NONFORMULARY HERE PER PHARMACY REPORT. PT STATES SHE WILL BE OK TILL AFTER DISCHARGE WITH THE CREAM. PT IS ALERT O X 3. NAD. AMBULATING WITH STEADY GAIT AND PARTICIPATING ON THE UNIT ACTIVITIES. Vital Signs (72 hours) 02/10/19 02/10/19 11:40 11:46 Temperature 97.2 F L 97.2 F L Pulse Rate 75 75 Respiratory 18 18 Rate Blood Pressure 128/82 128/82
[2019-02-10] MEDS ORDERED: PT OWN MED DRAWER 7, Y5N ONE (15:30)
[2019-02-10] MEDS: IBUPROFEN 400 MG TABLET (FP) PO PRN (15:36)
[2019-02-10] MEDS ORDERED: MELATONIN 5 MG TABLETS PO PRN (22:00)
[2019-02-10] MEDS ORDERED: THIAMINE HCL 100 MG TABLET (FP) PO SCH (22:00)
[2019-02-10] MEDS ORDERED: ESTROGENS,CONJUGATE VAGINAL CR 30 GM TUBE VG SCH (22:00)
[2019-02-11] MEDS ORDERED: METHADONE HCL 40 MG DISPERSABLE TABLET ONE (05:33)
[2019-02-11] MEDS ORDERED: METHADONE HCL 10 MG TABLET ONE (05:33)
[2019-02-11] MEDS ORDERED: PT OWN MED DRAWER 7, Y5N ONE ×3 (05:33→17:08)
[2019-02-11] MEDS ORDERED: METHADONE HCL 10 MG TABLET PO SCH (06:00)
[2019-02-11] MEDS ORDERED: METHADONE 40 MG, METHADONE 10 MG PO SCH (06:00)
[2019-02-11] MEDS: GABAPENTIN 400 MG CAPSULE (FP) PO SCH ×2 (06:26→13:26)
[2019-02-11 07:20] VITALS: BP 119/75; PULSE 17; TEMP 97.5
[2019-02-11] MEDS ORDERED: TAMSULOSIN HCL 0.4 MG CAP PO SCH (08:30)
[2019-02-11] MEDS ORDERED: PRENATAL VITAMINS W/ FOLIC ACID TABLET (FP) PO SCH (10:00)
[2019-02-11] MEDS ORDERED: SULFAMETHOXAZOLE/TRIMETHOPRIM 800MG/160MG D.S. TABLET PO SCH (10:00)
[2019-02-11] MEDS ORDERED: COLLOIDAL OATMEAL 1 BAR EACH TP PRN (10:22)
--- NOTE | 2019-02-11 10:28 | PN ---
S Progress Note Note: PATIENT SEEN FOR C/O OF RECTAL HEMORRHOIDS. PATIENT DENIES RECTAL BLEEDING. HAS HX OF CONSTIPATION AND HEMORRHOIDS IN PAST. PE: ALERT AND ORIENTED X 3 SKIN WARM AND DRY, + DRY PATCHES ON LOWER LEGS, INTACT : + RECTAL HEMORRHOID, NO BLEEDING NOTED EXT FULL ROM, AMB AD JUSTIN Vital Signs Temperature 97.5 F L 02/11/19 07:19 Pulse Rate 71 L 02/11/19 07:19 Respiratory Rate 17H 02/11/19 07:19 Blood Pressure 119/75 02/11/19 07:19 O2 Sat by Pulse Oximetry (%) A/P: DRY SKIN HEMORRHOIDS WILL ORDER EUCERIN CREAM ANUSOL HC MT HS CONTINUE TO MONITOR CLINICALLY
--- NOTE | 2019-02-11 11:24 | CONSULT ---
[facility] Psychiatric Consult - Data Date of interview: 02/11/19 Admission source: 3N Identifying data: Mr Stephen is a 43 years old single male to female transgender, unemployed on HASA, domiciled seeking inpatient rehab treatment for alcohol, opioid and cocaine Substance Abuse History: Reports history of alcohol, heroin and cocaine use. Refer to addiction counselor's summary for further information Medical History: Significant for HIV infection since 1996 (on ART medications), peripheral neuropathy, history of treatment for hepatitis C and surgeries ( breats implant in 2015 + gender reassignment at [facility] in [place] in 2017). Patient is on methadone 50 mg/day([facility]) Smokes cigarettes 1 ppd Psychiatric History: Onset of psychiatric illness at age 15 when he was admitted to [facility] and diagnosed with Bipolar Disorder. Reports history of multiple psychiatric hospitalizations to various facilities including to [facility], [facility], [facility], [facility], [facility] and most recently in 2017 to [facility] for depression.. Reports receiving outpatient psychiatric treatment at the [facility]) under the care of DR Valarie Jacob. He is currently prescribed Gabapentin 400 mg po TID, Buspar 10 mg po BID and Celexa 40 mg po daily. No reported history of suicide attempts. Physical/Sexual Abuse/Trauma History: Denies history of verbal, physical or sexual abuse as well as DV relationship Additional Comment: Reports history muliple previous misdemeanor arrests. Denies being on probation at present Mental Status Exam - Mental Status Exam Alert and Oriented to: Time, Place, Person Cognitive Function: Fair Patient Appearance: Well Groomed Mood: Anxious Affect: Appropriate Patient Behavior: Cooperative Speech Pattern: Clear Voice Loudness: Normal Thought Process: Intact, Goal Oriented Thought Disorder: Not Present Hallucinations: Denies Suicidal Ideation: Denies Homicidal Ideation: Denies Insight/Judgement: Fair Sleep: Poorly Appetite: Good Muscle strength/Tone: Normal Gait/Station: Normal Psychiatric Findings - Problem List ([place] 1, 2,3) (1) Bipolar II disorder Current Visit: No Status: Chronic (2) Substance-induced anxiety disorder Current Visit: Yes Status: Acute (3) Substance-induced sleep disorder Current Visit: Yes Status: Acute (4) Alcohol dependence Current Visit: Yes Status: Acute (5) Cocaine dependence Current Visit: No Status: Acute (6) Opioid dependence on agonist therapy Current Visit: No Status: Chronic (7) Nicotine dependence Current Visit: No Status: Chronic Qualifiers: Nicotine product type: cigarettes Substance use status: in withdrawal Qualified Code(s): F17.213 - Nicotine dependence, cigarettes, with withdrawal (8) HIV (human immunodeficiency virus infection) Current Visit: No Status: Chronic Qualifiers: HIV symptom status: unspecified Qualified Code(s): B20 - Human immunodeficiency virus [HIV] disease Comment: not currently on any HIV medication (9) Hepatitis C carrier Current Visit: No Status: Resolved (10) Peripheral neuropathy Current Visit: No Status: Chronic Qualifiers: Peripheral neuropathy type: polyneuropathy, unspecified Qualified Code(s): G62.9 - Polyneuropathy, unspecified - Initial Treatment Plan Initial Treatment Plan: 1) Continue Gabapentin 400 mg po TID, Buspar 10 mg po BID and Celexa 40 mg po daily. 2) Continue inpatient rehabilitation
[2019-02-11] MEDS ORDERED: busPIRone HCL 10 MG TABLET (FP) PO SCH (11:45)
[2019-02-11] MEDS ORDERED: PNEUMOC 13-VAL CONJ-DIP CRM/PF 0.5 ML DISP.SYRIN IM ONE (12:00)
[2019-02-11] MEDS: IBUPROFEN 400 MG TABLET (FP) PO PRN (12:42)
--- NOTE | 2019-02-11 17:19 | DS ---
[facility] Detox Discharge Summary Admission Date: 02/10/19 Discharge Date: 02/11/19 - History Present History: Alcohol Dependence - Physical Exam Results Vital Signs: Vital Signs Temperature 97.5 F L 02/11/19 14:03 Pulse Rate 17 L 02/11/19 14:03 Respiratory Rate 71 H 02/11/19 14:03 Blood Pressure 119/75 02/11/19 14:03 O2 Sat by Pulse Oximetry (%) - Treatment Patient has Accepted a Rehab Referral to: n/a - pt leaving from rehab AMA per nursing - Medication Discharge Medications: Ambulatory Orders Estradiol 2 mg PO BID 08/19/18 Methadone [Dolophine -] 50 mg PO DAILY 09/28/18 Buspirone HCl [Buspar -] 10 mg PO BID #60 tablet 09/29/18 Citalopram Hydrobromide [Celexa -] 40 mg PO DAILY #30 tablet 09/29/18 Gabapentin [Neurontin -] 800 mg PO TID #90 capsule 09/29/18 Sulfamethoxazole/Trimethoprim [Bactrim DS -] 1 tab PO DAILY 09/29/18 Abacavir/Dolutegravir/Lamivudi [Triumeq 600-50-300 mg Tablet] 1 tab PO DAILY - Diagnosis (1) Alcohol dependence Current Visit: Yes Status: Acute Qualifiers: Substance use status: in remission Qualified Code(s): F10.21 - Alcohol dependence, in remission - AMA Did Patient Leave Against Medical Advice: Yes
[2019-02-11] MEDS ORDERED: HYDROCORTISONE ACETATE 25 MG/SUPP.RECT RC SCH (22:00)
[2019-02-11] MEDS ORDERED: MINERAL OIL/PETROLAT/WATER TOPICAL CREAM 113 GM JAR TP SCH (22:00)
[2019-02-11] MEDS ORDERED: HYDROCORTISONE 2.5% TOPICAL CREAM 30 GM TUBE PR SCH (22:00)
== END 2019-02-11 18:10 | disposition home or self-care (01) | DRG 773 ==
LOC: YASAS 11:14 → Y3E 11:15
PROVIDERS: ADMIT Neuromusculoskeletal Medicine & OMM; ATTEND Neuromusculoskeletal Medicine & OMM
PROC: HZ2ZZZZ Detoxification Services for Substance Abuse Treatment (ICD-10-PCS; principal; 2019-02-10)
DX: F10.20 Alcohol dependence, uncomplicated (principal); F14.20 Cocaine dependence, uncomplicated; F11.20 Opioid dependence, uncomplicated; F17.213 Nicotine dependence, cigarettes, with withdrawal; F31.81 Bipolar II disorder; F19.280 Other psychoactive substance dependence with psychoactive substance-induced anxiety disorder; F19.282 Other psychoactive substance dependence with psychoactive substance-induced sleep disorder; Z21 Asymptomatic human immunodeficiency virus [HIV] infection status; G62.9 Polyneuropathy, unspecified; B18.2 Chronic viral hepatitis C; F64.0 Transsexualism
CPT/HCPCS: 90670; J1410

== ENCOUNTER 2019-03-05 11:21 | Inpatient (IN) | payer OTHER ==
[2019-03-05 13:09] VITALS: BMI 33.7
--- NOTE | 2019-03-05 13:27 | HP ---
CIWA Score Nausea/Vomitin Muscle Tremors: 3 Anxiety: 4-Mod. Anxious/Guarded Agitation: 1-Slight > Activity Paroxysmal Sweats: 2 Orientation: 0-Oriented Tacttile Disturbances: 1-Very Mild Itch/Numbness Auditory Disturbances: 0-None Visual Disturbances: 0-None Headache: 2-Mild CIWA-Ar Total Score: 15 - Admission Criteria [facility]AS Guidelines: Admission for Medically Managed Detox: Requires at least one of the followin. CIWA greater than 12 2. Seizures within the past 24 hours 3. Delirium tremens within the past 24 hours 4. Hallucinations within the past 24 hours 5. Acute intervention needed for co occurring medical disorder 6. Acute intervention needed for co occurring psychiatric disorder 7. Severe withdrawal that cannot be handled at a lower level of care (continued vomiting, continued diarrhea, abnormal vital signs) requiring intravenous medication and/or fluids 8. Patient presents the following: CIWA greater than 12 Admission Criteria Met: Admission criteria met Admission ROS BHS - HPI Chief Complaint: My health is really being hurt by my drinking, I'm scared, I want to stop it from progressing. Allergies/Adverse Reactions: Allergies Allergy/AdvReac Type Severity Reaction Status Date / Time chlordiazepoxide Allergy Rash Verified 03/05/19 12:55 [From Librium] anti Allergy Severe Difficulty Uncoded 03/05/19 12:55 Breathing History of Present Illness: 43 yo woman here for detox from alcohol - this is one of multiple admissions for detox - last here 02/07/19. History of seizures and black outs. Patient also on methadone program, [facility] program - dosed today and brought in bottle. urine tox + cocaine and bzo - she cannot remember using but states 'I must have because it's there but when I drink I don't remember anything of what I do". States she drinks first thing in morning, gets severe cravings and cannot control them. Noted [facility] results below - patient states her program is working with the HIV doctor sharmila to taper it down - she takes it for her neuropathy but doesn't need it while here. [facility]: Search Terms: joel aleman, 1975 Search Date: 03/05/2019 01:49:58 PM The Drug Utilization Report below displays all of the controlled substance prescriptions, if any, that your patient has filled in the last twelve months. The information displayed on this report is compiled from pharmacy submissions to the Department, and accurately reflects the information as submitted by the pharmacies. This report was requested by: Abida Jaime | Reference #: [id number] Others' Prescriptions Patient Name: Joel Aleman Date: 1975 Address: [address] [place] [address] Sex: Male Rx Written Rx Dispensed Drug Quantity Days Supply Prescriber Name 02/14/2019 02/15/2019 oxycodone hcl 30 mg tablet 120 30 Avila Allen MD 01/17/2019 01/18/2019 oxycodone hcl 30 mg tablet 120 30 Avila Allen MD 12/16/2018 12/16/2018 oxycodone hcl 30 mg tablet 120 30 Avila Allen MD 11/17/2018 11/17/2018 oxycodone hcl 30 mg tablet 120 30 Avila Allen MD 10/18/2018 10/20/2018 oxycodone hcl 30 mg tablet 120 30 Avila Allen MD 09/20/2018 09/21/2018 oxycodone hcl 30 mg tablet 120 30 Avila Allen MD 08/24/2018 08/24/2018 oxycodone hcl 30 mg tablet 120 30 Avila Allen MD 06/25/2018 06/28/2018 oxycodone hcl 30 mg tablet 120 30 Tevin Butcher) 05/28/2018 05/28/2018 oxycodone hcl 30 mg tablet 120 30 Ebenezer Le MD 04/29/2018 04/29/2018 oxycodone hcl 30 mg tablet 120 30 Avila Allen MD 03/31/2018 03/31/2018 oxycodone hcl 30 mg tablet 120 30 Avila Allen MD Exam Limitations: No Limitations - Ebola screening Have you traveled outside of the country in the last 21 days: No Have you had contact with anyone from an Ebola affected area: No - Review of Systems Constitutional: Chills, Loss of Appetite, Night Sweats, Changes in sleep EENT: reports: No Symptoms Reported Respiratory: reports: No Symptoms reported Cardiac: reports: No Symptoms Reported GI: reports: Nausea, Vomiting, Abdominal cramping : reports: Frequency Musculoskeletal: reports: No Symptoms Reported Integumentary: reports: Flushing Neuro: reports: Headache, Numbness, Tremors Endocrine: reports: No Symptoms Reported Hematology: reports: No Symptoms Reported Psychiatric: reports: Judgement Intact, Mood/Affect Appropiate, Orientated x3, Anxious Other Systems: Reviewed and Negative Patient History - Patient Medical History Hx Anemia: No Hx Asthma: No Hx Chronic Obstructive Pulmonary Disease (COPD): No Hx Cancer: No Hx Cardiac Disorders: No Hx Congestive Heart Failure: No Hx Hypertension: No Hx Hypercholesterolemia: No Hx Pacemaker: No HX Cerebrovascular Accident: No Hx Seizures: Yes (R/O alcohol 3yrs ago) Hx Dementia: No Hx Diabetes: No Hx Gastrointestinal Disorders: No Hx Liver Disease: No Hx Genitourinary Disorders: No Hx Sexually Transmitted Disorders: No Hx Renal Disease (ESRD): No Hx Thyroid Disease: No Hx Human Immunodeficiency Virus (HIV): Yes (SINCE 1996; currently no taking any medication) Hx Hepatitis C: Yes (diag. 1996 - treated) Hx Depression: Yes (hospitalized in 1996) Hx Suicide Attempt: Yes (thoughts no attempt) Hx Bipolar Disorder: Yes Hx Schizophrenia: No - Patient Surgical History Past Surgical History: No Hx Neurologic Surgery: No Hx Cataract Extraction: No Hx Cardiac Surgery: No Hx Lung Surgery: No Hx Breast Surgery: Yes (breast implant on 07/26/2015) Hx Breast Biopsy: No Hx Abdominal Surgery: No Hx Appendectomy: No Hx Cholecystectomy: No Hx Genitourinary Surgery: No Hx Section: No Hx Orthopedic Surgery: No Other Surgical History: orchiectomy on 12/28/2014/gender reassignment; 01/10/2017 Anesthesia Reaction: No - PPD History Previous Implant?: Yes Documented Results: Negative w/proof Implanted On Prior [facility] Admission?: Yes Date: 08/22/18 Results: 0mm PPD to be Administered?: No - Reproductive History Patient is a Female of Child Bearing Age (11 -55 yrs old): No (transgender) - Smoking Cessation Smoking history: Current every day smoker Have you smoked in the past 12 months: Yes Aproximately how many cigarettes per day: 20 If you are a former smoker, when did you quit?: 2 1/2 weeks ago Cigars Per Day: 0 Hx Chewing Tobacco Use: No Initiated information on smoking cessation: Yes 'Breaking Loose' booklet given: 03/05/19 (give on floor) - Substance & Tx. History Hx Alcohol Use: Yes Hx Substance Use: Yes Substance Use Type: Alcohol, Cocaine, Heroin Hx Substance Use Treatment: Yes (detox, rehab, methadone program) - Substances abused Alcohol Substance route: Oral Frequency: Daily Amount used: one and half pints of voldka Age of first use: 15 Date of last use: 03/05/19 Heroin Substance route: Injection Frequency: 1-2 times per week Amount used: 3 bags Age of first use: 21 Date of last use: 03/03/19 Family Disease History - Family Disease History Family Disease History: Other: Father (no contact, ALCOHOL), Mother (no contact) , Brother (two - healthy), Sister (one - healthy) Admission Physical Exam [facility] - Vital Signs Vital Signs: Vital Signs - 24 hr 03/05/19 12:48 Temperature 98.6 F Pulse Rate 70 Respiratory 18 Rate Blood Pressure 126/81 - Physical General Appearance: Yes: Nourished, Appropriately Dressed, Moderate Distress, Obese, Tremorous, Anxious HEENTM: Yes: EOMI, Hearing grossly Normal, Normal ENT Inspection, Normocephalic , Normal Voice, Pharynx Normal Respiratory: Yes: Normal Breath Sounds, No Respiratory Distress Neck: Yes: No masses,lesions,Nodules Breast: Yes: Breast Exam Deferred Cardiology: Yes: Regular Rhythm, Regular Rate Abdominal: Yes: Soft Genitourinary: Yes: Frequency Back: Yes: Normal Inspection Musculoskeletal: Yes: full range of Motion, Gait Steady Extremities: Yes: Normal Inspection, Normal Range of Motion, Non-Tender Neurological: Yes: Fully Oriented, Alert, Normal Mood/Affect, Normal Response, Numbness Integumentary: Yes: Normal Color, Warm, Other (bruising (purplish and green) on left arm and both wrists - states from falls when intoxicated over the last few weeks) Lymphatic: Yes: Within Normal Limits - Diagnostic (1) Alcohol dependence with withdrawal, uncomplicated Current Visit: Yes Status: Acute (2) Cocaine dependence Current Visit: Yes Status: Chronic (3) HIV (human immunodeficiency virus infection) Current Visit: Yes Status: Chronic Qualifiers: HIV symptom status: asymptomatic Qualified Code(s): Z21 - Asymptomatic human immunodeficiency virus [HIV] infection status Comment: not currently on any HIV medication (4) Methadone maintenance therapy patient Current Visit: Yes Status: Chronic Comment: [facility] last dose received today [phone] (5) Nicotine dependence Current Visit: Yes Status: Chronic Qualifiers: Nicotine product type: cigarettes (6) Peripheral neuropathy Current Visit: Yes Status: Chronic Qualifiers: Peripheral neuropathy type: polyneuropathy associated with underlying disease Qualified Code(s): G63 - Polyneuropathy in diseases classified elsewhere (7) Hepatitis C carrier Current Visit: Yes Status: Resolved Comment: treated (8) Obesity (BMI 30-39.9) Current Visit: Yes Status: Chronic (9) Fall Current Visit: Yes Status: Chronic Qualifiers: Encounter type: initial encounter Qualified Code(s): W19.XXXA - Unspecified fall, initial encounter Comment: patient fell entering [facility] - no injury sustained - moving all limbs, no abrasion and no c/o pain - fell on her right hip (states she slipped) Cleared for Admission S - Detox or Rehab [facility] Level of Care: Medically Managed Detox Regimen/Protocol: Valium Breathalyzer - Breathalyzer Breathalyzer: 0 Urine Drug Screen - Test Device Lot number: [id number] Expiration date: 10/22/20 - Control Is test valid?: Yes - Results Drug screen NEGATIVE: No Urine drug screen results: JIMMY-Cocaine, MET-Methamphetamine, MOP-Opiates, MTD- Methadone, BZO-Benzodiazepines Inpatient Rehab Admission - Rehab Decision to Admit Inpatient rehab admission?: No
[2019-03-05] MEDS ORDERED: MAG HYDROX/AL HYDROX/SIMETH 30 ML UNIT-DOSE CUP PO PRN (13:39)
[2019-03-05] MEDS ORDERED: METHOCARBAMOL 500 MG TABLET PO PRN (13:39)
[2019-03-05] MEDS ORDERED: MENTHOL/PHENOL 1 EACH UD MM PRN (13:39)
[2019-03-05] MEDS ORDERED: BISMUTH SUBSALICYLATE 524 MG/30 ML UD PO PRN (13:39)
[2019-03-05] MEDS ORDERED: MAGNESIUM HYDROX 2400MG/30ML ORAL SUSPENSION 30 ML CUP PO PRN (13:39)
[2019-03-05] MEDS ORDERED: MAGNESIUM CITRATE 300 ML BOTTLE PO PRN (13:39)
[2019-03-05] MEDS ORDERED: diazePAM 5 MG TABLET PO ONE (14:15)
[2019-03-05] MEDS: GABAPENTIN 400 MG CAPSULE (FP) PO SCH ×2 (15:05→22:16)
[2019-03-05] MEDS: NICOTINE 21 MG/24 HOURS TOPICAL PATCH TD SCH (15:06)
[2019-03-05] MEDS: diazePAM 5 MG TABLET PO SCH ×2 (15:07→22:15)
[2019-03-05] MEDS ORDERED: COLLOIDAL OATMEAL 1 BAR EACH TP PRN (15:24)
[2019-03-05] MEDS: diazePAM 5 MG TABLET PO PRN (19:43)
[2019-03-05] MEDS: IBUPROFEN 400 MG TABLET (FP) PO PRN (19:58)
[2019-03-05] MEDS: THIAMINE HCL 100 MG TABLET (FP) PO SCH (22:15)
[2019-03-05] MEDS: MELATONIN 5 MG TABLETS PO PRN (22:16)
[2019-03-06] MEDS: GABAPENTIN 400 MG CAPSULE (FP) PO SCH ×3 (05:53→22:19)
[2019-03-06] MEDS: diazePAM 5 MG TABLET PO SCH ×3 (05:54→22:19)
--- NOTE | 2019-03-06 07:51 | CONSULT ---
[facility] Psychiatric Consult - Data Date of interview: 03/06/19 Admission source: Self-referred Identifying data: Mr Stephen is a 43 years old single male to female transgender, unemployed on HASA, domiciled seeking inpatient rehab treatment for alcohol, opioid and cocaine Substance Abuse History: Reports history of alcohol, heroin and cocaine use. Refer to addiction counselor's summary for further information Medical History: Significant for HIV infection since 1996 (on ART medications), peripheral neuropathy, history of treatment for hepatitis C and surgeries ( breats implant in 2015 + gender reassignment at [facility] in [place] in 2017). Patient is on methadone 50 mg/day([facility]). Smokes cigarettes 1 ppd Psychiatric History: Patient has had multiple admission to this facility and he was recently seen by financial writer at his last one on 02/11/19. He reports onset of psychiatric illness at age 15 when he was admitted to [facility] and diagnosed with Bipolar Disorder. Reports history of multiple psychiatric hospitalizations to various facilities including to [facility], [facility], [facility], [facility], [facility] and most recently in 2017 to [facility] for depression.. Reports receiving outpatient psychiatric treatment at the [facility]) under the care of Dr Avila doll. He is currently prescribed Gabapentin 800 mg po TID, Buspar 5 mg po BID and Celexa 40 mg po daily. This is verified by external medication search (scripts for for 30 days supply of Celexa 40 mg/day, Gabapentin 800 mg/tid & Buspar 5 mg/tid filled on 02/14/19. No reported history of suicide attempts. At present, denies experiencing psychotic, manic or depressive symptoms, S/H ideations. However, eports feeling mildly anxious and sleeping poorly Physical/Sexual Abuse/Trauma History: Denies history of verbal, physical or sexual abuse as well as DV relationship Additional Comment: Reports history muliple previous misdemeanor arrests. Denies being on probation at present Mental Status Exam - Mental Status Exam Alert and Oriented to: Time, Place, Person Cognitive Function: Fair Patient Appearance: Well Groomed Mood: Anxious (mildly) Affect: Appropriate Patient Behavior: Cooperative Speech Pattern: Clear Voice Loudness: Normal Thought Process: Intact, Goal Oriented Hallucinations: Denies Suicidal Ideation: Denies Homicidal Ideation: Denies Insight/Judgement: Poor Sleep: Poorly Appetite: Poor Muscle strength/Tone: Normal Gait/Station: Normal Psychiatric Findings - Problem List ([place] 1, 2,3) (1) Bipolar disorder Current Visit: No Status: Chronic (2) Substance-induced anxiety disorder Current Visit: Yes Status: Acute (3) Substance-induced sleep disorder Current Visit: Yes Status: Acute (4) Alcohol dependence with withdrawal, uncomplicated Current Visit: Yes Status: Acute (5) Opioid dependence on agonist therapy Current Visit: Yes Status: Chronic (6) Nicotine dependence Current Visit: Yes Status: Chronic Qualifiers: Nicotine product type: cigarettes (7) HIV (human immunodeficiency virus infection) Current Visit: Yes Status: Chronic Qualifiers: HIV symptom status: asymptomatic Qualified Code(s): Z21 - Asymptomatic human immunodeficiency virus [HIV] infection status Comment: not currently on any HIV medication (8) Peripheral neuropathy Current Visit: Yes Status: Chronic Qualifiers: Peripheral neuropathy type: polyneuropathy associated with underlying disease Qualified Code(s): G63 - Polyneuropathy in diseases classified elsewhere (9) Hepatitis C carrier Current Visit: Yes Status: Resolved Comment: treated (10) Obesity (BMI 30-39.9) Current Visit: Yes Status: Chronic - Initial Treatment Plan Initial Treatment Plan: 1) Continue Gabapentin 800 mg po TID, Celexa 40 mg po daily and Buspar 5 mg po BID. 2) Continue inpatient detoxification
[2019-03-06] MEDS ORDERED: METHADONE HCL 40 MG DISPERSABLE TABLET PO SCH (10:00)
[2019-03-06] MEDS ORDERED: METHADONE HCL 40 MG DISPERSABLE TABLET PO ONE (10:00)
[2019-03-06] MEDS: diazePAM 5 MG TABLET PO PRN ×2 (10:14→15:47)
[2019-03-06] MEDS: SULFAMETHOXAZOLE/TRIMETHOPRIM 800MG/160MG D.S. TABLET PO SCH (10:14)
[2019-03-06] MEDS: PRENATAL VITAMINS W/ FOLIC ACID TABLET (FP) PO SCH (10:15)
[2019-03-06] MEDS: NICOTINE 21 MG/24 HOURS TOPICAL PATCH TD SCH (10:15)
[2019-03-06 10:23] LABS: ALBUMIN 3.3 g/dl (3.4-5.0); ALK PHOS 148 U/L (45-117); ANION GAP 7 MMOL/L (8-16); BILIRUBIN,TOTAL 0.2 mg/dL (0.2-1); BLOOD UREA NITROGEN 15 mg/dL (7-18); CALCIUM 8.7 mg/dL (8.5-10.1); CHLORIDE 105 mmol/L (98-107); CO2 26 mmol/L (21-32); CREATININE 0.7 mg/dL (0.55-1.3); GLUCOSE,RANDOM 127 mg/dL (74-106); POTASSIUM 4.2 mmol/L (3.5-5.1); SGOT/AST 22 U/L (15-37); SGPT/ALT 24 U/L (13-61); SODIUM 137 mmol/L (136-145); TOT PROT 7.5 g/dl (6.4-8.2)
[2019-03-06 10:30] LABS: HEMATOCRIT 39.2 % (35.4-49); HEMOGLOBIN 13.2 GM/dL (11.7-16.9); MCH 30.7 pg (25.7-33.7); MCHC 33.6 g/dl (32.0-35.9); MEAN CELL VOLUME 91.6 fl (80-96); MEAN PLT VOLUME 8.5 fl (7.5-11.1); PLATELET COUNT 218 K/MM3 (134-434); RBC 4.28 M/mm3 (4.00-5.60); RDW 13.1 % (11.9-15.9); WHITE BLOOD COUNT 5.4 K/mm3 (4.0-10.0)
--- NOTE | 2019-03-06 11:02 | CONSULT ---
[facility] Psychiatric Consult - Data Date of interview: 03/06/19 Psychiatric Findings - Problem List ([place] 1, 2,3) (1) Bipolar disorder Current Visit: No Status: Chronic
[2019-03-06] MEDS: ACETAMINOPHEN 325 MG TABLET (FP) PO PRN (11:29)
--- NOTE | 2019-03-06 13:16 | PN ---
S CIWA - CIWA Score Nausea/Vomitin-Mild Nausea/No Vomiting Muscle Tremors: 2 Anxiety: 3 Agitation: 2 Paroxysmal Sweats: 1-Minimal Palms Moist Orientation: 0-Oriented Tacttile Disturbances: 0-None Auditory Disturbances: 0-None Visual Disturbances: 0-None Headache: 2-Mild CIWA-Ar Total Score: 11 S Progress Note (SOAP) Subjective: irritable actively social with peers in day room and hallway Objective: 03/06/19 13:31 Vital Signs Temperature 97.1 F L 03/06/19 09:42 Pulse Rate 69 03/06/19 09:42 Respiratory Rate 18 03/06/19 09:42 Blood Pressure 128/74 03/06/19 09:42 O2 Sat by Pulse Oximetry (%) Laboratory Last Values WBC 5.4 K/mm3 (4.0-10.0) 03/06/19 07:15 RBC 4.28 M/mm3 (4.00-5.60) 03/06/19 07:15 Hgb 13.2 GM/dL (11.7-16.9) 03/06/19 07:15 Hct 39.2 % (35.4-49) 03/06/19 07:15 MCV 91.6 fl (80-96) 03/06/19 07:15 MCH 30.7 pg (25.7-33.7) 03/06/19 07:15 MCHC 33.6 g/dl (32.0-35.9) 03/06/19 07:15 RDW 13.1 % (11.9-15.9) 03/06/19 07:15 Plt Count 218 K/MM3 (134-434) 03/06/19 07:15 MPV 8.5 fl (7.5-11.1) 03/06/19 07:15 Sodium 137 mmol/L (136-145) 03/06/19 07:15 Potassium 4.2 mmol/L (3.5-5.1) 03/06/19 07:15 Chloride 105 mmol/L (98-107) 03/06/19 07:15 Carbon Dioxide 26 mmol/L (21-32) 03/06/19 07:15 Anion Gap 7 MMOL/L (8-16) L 03/06/19 07:15 BUN 15 mg/dL (7-18) 03/06/19 07:15 Creatinine 0.7 mg/dL (0.55-1.3) 03/06/19 07:15 Creat Clearance w eGFR 121.95 (>60) 03/06/19 07:15 Random Glucose 127 mg/dL (74-106) H 03/06/19 07:15 Calcium 8.7 mg/dL (8.5-10.1) 03/06/19 07:15 Total Bilirubin 0.2 mg/dL (0.2-1) 03/06/19 07:15 AST 22 U/L (15-37) 03/06/19 07:15 ALT 24 U/L (13-61) 03/06/19 07:15 Alkaline Phosphatase 148 U/L (45-117) H 03/06/19 07:15 Total Protein 7.5 g/dl (6.4-8.2) 03/06/19 07:15 Albumin 3.3 g/dl (3.4-5.0) L 03/06/19 07:15 RPR Titer Nonreactive (NONREACTIVE) 03/06/19 07:15 lab noted Assessment: 03/06/19 13:32 alcohol withdrawal sx Laboratory Last Values WBC 5.4 K/mm3 (4.0-10.0) 03/06/19 07:15 RBC 4.28 M/mm3 (4.00-5.60) 03/06/19 07:15 Hgb 13.2 GM/dL (11.7-16.9) 03/06/19 07:15 Hct 39.2 % (35.4-49) 03/06/19 07:15 MCV 91.6 fl (80-96) 03/06/19 07:15 MCH 30.7 pg (25.7-33.7) 03/06/19 07:15 MCHC 33.6 g/dl (32.0-35.9) 03/06/19 07:15 RDW 13.1 % (11.9-15.9) 03/06/19 07:15 Plt Count 218 K/MM3 (134-434) 03/06/19 07:15 MPV 8.5 fl (7.5-11.1) 03/06/19 07:15 Sodium 137 mmol/L (136-145) 03/06/19 07:15 Potassium 4.2 mmol/L (3.5-5.1) 03/06/19 07:15 Chloride 105 mmol/L (98-107) 03/06/19 07:15 Carbon Dioxide 26 mmol/L (21-32) 03/06/19 07:15 Anion Gap 7 MMOL/L (8-16) L 03/06/19 07:15 BUN 15 mg/dL (7-18) 03/06/19 07:15 Creatinine 0.7 mg/dL (0.55-1.3) 03/06/19 07:15 Creat Clearance w eGFR 121.95 (>60) 03/06/19 07:15 Random Glucose 127 mg/dL (74-106) H 03/06/19 07:15 Calcium 8.7 mg/dL (8.5-10.1) 03/06/19 07:15 Total Bilirubin 0.2 mg/dL (0.2-1) 03/06/19 07:15 AST 22 U/L (15-37) 03/06/19 07:15 ALT 24 U/L (13-61) 03/06/19 07:15 Alkaline Phosphatase 148 U/L (45-117) H 03/06/19 07:15 Total Protein 7.5 g/dl (6.4-8.2) 03/06/19 07:15 Albumin 3.3 g/dl (3.4-5.0) L 03/06/19 07:15 RPR Titer Nonreactive (NONREACTIVE) 03/06/19 07:15 lab noted Plan: continue detox
--- NOTE | 2019-03-06 15:38 | PN ---
[facility] Progress Note Note: report fell yesterday at [facility] right shoulder pain right shoulder injuried 12 years ago recommend surgery but refused right shoulder posterior grove tender on light pressure limited range of motion lateral arm raised 90 degree parallel to the floor pain when arm above head x ray order
[2019-03-06] MEDS: IBUPROFEN 400 MG TABLET (FP) PO PRN (15:46)
[2019-03-06] MEDS: MELATONIN 5 MG TABLETS PO PRN (22:19)
[2019-03-06] MEDS: THIAMINE HCL 100 MG TABLET (FP) PO SCH (22:19)
[2019-03-07] MEDS: ACETAMINOPHEN 325 MG TABLET (FP) PO PRN (01:51)
[2019-03-07] MEDS: diazePAM 5 MG TABLET PO PRN (01:51)
[2019-03-07] MEDS: GABAPENTIN 400 MG CAPSULE (FP) PO SCH (05:28)
[2019-03-07] MEDS ORDERED: METHADONE HCL 40 MG DISPERSABLE TABLET PO SCH (06:00)
[2019-03-07] MEDS ORDERED: diazePAM 5 MG TABLET PO ONE (06:00)
[2019-03-07 09:10] VITALS: BP 112/77; PULSE 86; TEMP 98
[2019-03-07] MEDS: IBUPROFEN 400 MG TABLET (FP) PO PRN (09:50)
[2019-03-07] MEDS: SULFAMETHOXAZOLE/TRIMETHOPRIM 800MG/160MG D.S. TABLET PO SCH (10:14)
[2019-03-07] MEDS: NICOTINE 21 MG/24 HOURS TOPICAL PATCH TD SCH (10:14)
[2019-03-07] MEDS: PRENATAL VITAMINS W/ FOLIC ACID TABLET (FP) PO SCH (10:14)
--- NOTE | 2019-03-07 11:13 | DS ---
[facility] Detox Discharge Summary Admission Date: 03/05/19 Discharge Date: 03/07/19 - History Present History: Alcohol Dependence - Physical Exam Results Vital Signs: Vital Signs Temperature 98.0 F 03/07/19 09:09 Pulse Rate 86 03/07/19 09:09 Respiratory Rate 18 03/07/19 09:09 Blood Pressure 112/77 03/07/19 09:09 O2 Sat by Pulse Oximetry (%) Pertinent Admission Physical Exam Findings: alcohol withdrawal sx Laboratory Last Values WBC 5.4 K/mm3 (4.0-10.0) 03/06/19 07:15 RBC 4.28 M/mm3 (4.00-5.60) 03/06/19 07:15 Hgb 13.2 GM/dL (11.7-16.9) 03/06/19 07:15 Hct 39.2 % (35.4-49) 03/06/19 07:15 MCV 91.6 fl (80-96) 03/06/19 07:15 MCH 30.7 pg (25.7-33.7) 03/06/19 07:15 MCHC 33.6 g/dl (32.0-35.9) 03/06/19 07:15 RDW 13.1 % (11.9-15.9) 03/06/19 07:15 Plt Count 218 K/MM3 (134-434) 03/06/19 07:15 MPV 8.5 fl (7.5-11.1) 03/06/19 07:15 Sodium 137 mmol/L (136-145) 03/06/19 07:15 Potassium 4.2 mmol/L (3.5-5.1) 03/06/19 07:15 Chloride 105 mmol/L (98-107) 03/06/19 07:15 Carbon Dioxide 26 mmol/L (21-32) 03/06/19 07:15 Anion Gap 7 MMOL/L (8-16) L 03/06/19 07:15 BUN 15 mg/dL (7-18) 03/06/19 07:15 Creatinine 0.7 mg/dL (0.55-1.3) 03/06/19 07:15 Creat Clearance w eGFR 121.95 (>60) 03/06/19 07:15 Random Glucose 127 mg/dL (74-106) H 03/06/19 07:15 Calcium 8.7 mg/dL (8.5-10.1) 03/06/19 07:15 Total Bilirubin 0.2 mg/dL (0.2-1) 03/06/19 07:15 AST 22 U/L (15-37) 03/06/19 07:15 ALT 24 U/L (13-61) 03/06/19 07:15 Alkaline Phosphatase 148 U/L (45-117) H 03/06/19 07:15 Total Protein 7.5 g/dl (6.4-8.2) 03/06/19 07:15 Albumin 3.3 g/dl (3.4-5.0) L 03/06/19 07:15 RPR Titer Nonreactive (NONREACTIVE) 03/06/19 07:15 lab noted - Treatment Hospital Course: Detox Protocol Followed, Detoxed Safely, Responded well, Discharged Condition Good, Rehab Referral Accepted Patient has Accepted [facility] Referral [facility]: [facility] - Medication Discharge Medications: Ambulatory Orders Methadone [Dolophine -] 80 mg PO DAILY 09/28/18 Sulfamethoxazole/Trimethoprim [Bactrim DS -] 1 tab PO DAILY 09/29/18 Buspirone HCl [Buspar -] 10 mg PO BID 03/05/19 Gabapentin [Neurontin -] 400 mg PO TID 03/05/19 - Diagnosis (1) Alcohol dependence with withdrawal, uncomplicated Current Visit: Yes Status: Acute (2) HIV (human immunodeficiency virus infection) Current Visit: Yes Status: Chronic Qualifiers: HIV symptom status: asymptomatic Qualified Code(s): Z21 - Asymptomatic human immunodeficiency virus [HIV] infection status (3) Methadone maintenance therapy patient Current Visit: Yes Status: Chronic (4) Nicotine dependence Current Visit: Yes Status: Acute Qualifiers: Nicotine product type: cigarettes Substance use status: in withdrawal Qualified Code(s): F17.213 - Nicotine dependence, cigarettes, with withdrawal (5) Substance induced mood disorder Current Visit: Yes Status: Suspected (6) Transgendered Current Visit: Yes Status: Resolved - AMA Did Patient Leave Against Medical Advice: No
== END 2019-03-07 11:30 | disposition other institution (70) | DRG 773 ==
LOC: YASAS 11:21 → Y3N 14:13
PROVIDERS: ADMIT Surgery; ATTEND Surgery
PROC: HZ2ZZZZ Detoxification Services for Substance Abuse Treatment (ICD-10-PCS; principal; 2019-03-05)
DX: F10.230 Alcohol dependence with withdrawal, uncomplicated (principal); F11.20 Opioid dependence, uncomplicated; F17.213 Nicotine dependence, cigarettes, with withdrawal; F19.24 Other psychoactive substance dependence with psychoactive substance-induced mood disorder; F19.280 Other psychoactive substance dependence with psychoactive substance-induced anxiety disorder; F19.282 Other psychoactive substance dependence with psychoactive substance-induced sleep disorder; F64.0 Transsexualism; F31.9 Bipolar disorder, unspecified; Z21 Asymptomatic human immunodeficiency virus [HIV] infection status; M25.511 Pain in right shoulder; G63 Polyneuropathy in diseases classified elsewhere; B18.2 Chronic viral hepatitis C; E66.9 Obesity, unspecified; Z68.33 Body mass index [BMI] 33.0-33.9, adult; Z86.69 Personal history of other diseases of the nervous system and sense organs; Z87.890 Personal history of sex reassignment; W19.XXXA Unspecified fall, initial encounter; Y93.9 Activity, unspecified; Y92.9 Unspecified place or not applicable
CPT/HCPCS: 36415; 80053; 85027; 86593

== ENCOUNTER 2019-03-07 11:02 | Inpatient (IN) | payer OTHER ==
[2019-03-07] MEDS ORDERED: IBUPROFEN 400 MG TABLET (FP) PO PRN (11:14)
[2019-03-07] MEDS ORDERED: LOPERAMIDE HCL 2 MG CAPSULE PO PRN (11:14)
[2019-03-07] MEDS ORDERED: MAGNESIUM CITRATE 300 ML BOTTLE PO PRN (11:14)
[2019-03-07] MEDS ORDERED: MAGNESIUM HYDROX 2400MG/30ML ORAL SUSPENSION 30 ML CUP PO PRN (11:14)
[2019-03-07] MEDS ORDERED: P-EPHED 60MG/TRIPROLIDI 2.5MG TABLET PO PRN (11:14)
[2019-03-07] MEDS ORDERED: ACETAMINOPHEN 325 MG TABLET (FP) PO PRN (11:14)
[2019-03-07] MEDS ORDERED: NICOTINE POLACRILEX 2 MG GUM BC PRN (11:14)
[2019-03-07] MEDS ORDERED: MENTHOL/PHENOL 1 EACH UD MM PRN (11:14)
[2019-03-07] MEDS ORDERED: MAG HYDROX/AL HYDROX/SIMETH 30 ML UNIT-DOSE CUP PO PRN (11:14)
[2019-03-07] MEDS ORDERED: guaiFENesin 200 MG/10 ML 10 ML UNIT-DOSE CUPS PO PRN (11:14)
--- NOTE | 2019-03-07 11:14 | HP ---
[facility] Rehab Assess/Revision - Admission History Admitted to Rehab from: [facility] Date of Admission to Rehab: 03/07/19 - Findings Detox History & Physical reviewed: Yes Concur with findings: Yes Comments/Additional Findings: transferred from detox to rehab admission as per protocol Inpatient Rehab Admission - Rehab Decision to Admit Inpatient rehab admission?: Yes - Initial Determination Are CD services needed?: Yes Free of communicable disease: Yes Not in need of hospitalization: Yes - Rehab Admission Criteria Previous failed treatment: Yes Poor recovery environment: Yes Comorbidities: Yes Lacks judgement: No Patient is meeting Inpatient Rehab admission criteria:: Yes
[2019-03-07] MEDS ORDERED: NICOTINE 14 MG/24 HOURS TOPICAL PATCH TD PRN (12:15)
[2019-03-07] MEDS: GABAPENTIN 400 MG CAPSULE (FP) PO SCH ×2 (13:59→21:00)
--- NOTE | 2019-03-07 16:02 | CONSULT ---
[facility] Psychiatric Consult - Data Date of interview: 03/07/19
[2019-03-07] MEDS: THIAMINE HCL 100 MG TABLET (FP) PO SCH (21:00)
[2019-03-07] MEDS ORDERED: MELATONIN 5 MG TABLETS PO PRN (22:00)
[2019-03-07] MEDS ORDERED: busPIRone HCL 10 MG TABLET (FP) PO SCH (22:00)
[2019-03-08] MEDS: METHADONE HCL 40 MG DISPERSABLE TABLET PO SCH (06:12)
[2019-03-08] MEDS: GABAPENTIN 400 MG CAPSULE (FP) PO SCH ×3 (06:12→21:29)
--- NOTE | 2019-03-08 09:14 | CONSULT ---
[facility] Psychiatric Consult - Data Date of interview: 03/08/19 Admission source: [facility] Identifying data: Patient is a 43 year old transgender male to female, unemployed, and is supported by [facility]. This is one of multiple admissions for patient. Patient admitted to for alcohol, cocaine, and opioid dependence. Substance Abuse History: - Smoking Cessation. Smoking history: Current every day smoker. Have you smoked in the past 12 months: Yes. Aproximately how many cigarettes per day: 20. If you are a former smoker, when did you quit?: 2 1/2 weeks ago. Cigars Per Day: 0. Hx Chewing Tobacco Use: No. Initiated information on smoking cessation: Yes. 'Breaking Loose' booklet given: (give on floor). - Substance & Tx. History. Hx Alcohol Use: Yes. Hx Substance Use: Yes. Substance Use Type: Alcohol, Cocaine, Heroin. Hx Substance Use Treatment: Yes (detox, rehab, methadone program). - Substances abused. Alcohol. Substance route: Oral. Frequency: Daily. Amount used: one and half pints of voldka. Age of first use: 15. Date of last use: . Heroin. Substance route: Injection. Frequency: 1-2 times per week. Amount used: 3 bags. Age of first use: 21. Date of last use: 03/03/19 Medical History: Significant for HIV infection since 1996 (on ART medications), peripheral neuropathy, history of treatment for hepatitis C and surgeries ( breats implant in 2015 + gender reassignment at [facility] in [place] in 2017). Psychiatric History: Patient's first psychiatric contact was at 15 years of age to address mood instability. She was admitted to [facility] on and was diagnosed with Bipolar disorder. Patient reports h/o multiple psychiatric hospitalizations ([facility], [facility], [facility], and [facility],). Ms. Stephen was most recently admitted to [facility] in 2017 for depression. She denies h/ o suicide attempt. Patient is currently receiving outpatient psychiatric care by Dr. Allen located at the [facility] Ms. Stephen is currently prescribed Gabapentin 800mg TID ( reports only taking 400mg TID), Celexa 40mg daily + Buspar 5mg BID (medications verified through external records. A 30 day prescription was electronically sent to patient's pharmacy on 02/14/19). At present, patient reports stable mood but reports feeling lethargic throughout the day secondary to her methadone dose. Patient also requesting a sleep aid at night due to difficulty sleeping. Physical/Sexual Abuse/Trauma History: denies. Mental Status Exam - Mental Status Exam Alert and Oriented to: Time, Place, Person Cognitive Function: Good Patient Appearance: Well Groomed Mood: Euthymic Affect: Mood Congruent Patient Behavior: Fatigued Speech Pattern: Appropriate Voice Loudness: Normal Thought Process: Goal Oriented Thought Disorder: Not Present Hallucinations: Denies Suicidal Ideation: Denies Homicidal Ideation: Denies Insight/Judgement: Poor Sleep: Poorly Appetite: Fair Muscle strength/Tone: Normal Gait/Station: Normal Psychiatric Findings - Problem List ([place] 1, 2,3) (1) Alcohol dependence Current Visit: Yes Status: Acute Qualifiers: Substance use status: in remission Qualified Code(s): F10.21 - Alcohol dependence, in remission (2) Substance-induced anxiety disorder Current Visit: Yes Status: Acute (3) Substance-induced sleep disorder Current Visit: Yes Status: Acute (4) Opioid dependence on agonist therapy Current Visit: Yes Status: Chronic (5) Bipolar disorder Current Visit: Yes Status: Chronic (6) Cocaine dependence Current Visit: Yes Status: Chronic (7) Nicotine dependence Current Visit: Yes Status: Chronic Qualifiers: Nicotine product type: cigarettes Substance use status: in withdrawal Qualified Code(s): F17.213 - Nicotine dependence, cigarettes, with withdrawal - Initial Treatment Plan Initial Treatment Plan: Psychoeducation provided. Rehab in progress. Will order Celexa 40mg + buspar 5mg BID + trazodone 50mg (prn for insomnia). Will continue gabapentin 400mg TID ordered by TROY Plata. Benefits and side effects discussed. Verbal consent given.
[2019-03-08] MEDS ORDERED: SULFAMETHOXAZOLE/TRIMETHOPRIM 800MG/160MG D.S. TABLET PO SCH (10:00)
[2019-03-08] MEDS ORDERED: CITALOPRAM HYDROBROMIDE 20 MG TABLET (FP) PO SCH (10:00)
[2019-03-08] MEDS ORDERED: PRENATAL VITAMINS W/ FOLIC ACID TABLET (FP) PO SCH (10:00)
[2019-03-08] MEDS: busPIRone HCL 5 MG TABLET PO SCH ×2 (10:25→21:28)
[2019-03-08] MEDS ORDERED: ESTROGENS,CONJUGATED 0.625 MG TABLET PO SCH (11:15)
--- NOTE | 2019-03-08 13:47 | PN ---
[facility] Progress Note (SOAP) Subjective: Patient is a trangender female. She is not getting her estrogen here. Self- administers IM when she is in the community. The last time she was admitted, she was able to substitute Premarin. Objective: PE; A+O x3, CN 2-12 intact, medically stable. 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
--- NOTE | 2019-03-08 13:54 | PN ---
[facility] Progress Note (SOAP) Subjective: X-ray reviewed. Client had a fall upon admission near entrance of the [facility] and was sent for an x-ray when she reported it 2 days later. Was given a sling for her right arm. Client has been taking off the sling, carrying things and using her arm without hesitation and reports not pain. In addition, she states that she received an injury to that area years ago. Objective: 03/08/19 13:52 Full ROM bilaterally arms and shoulders. No pain on palpation. 03/08/19 13:52 X-ray shows fx of the humeral head with an ovoid bone fragment of unclear age. 03/08/19 13:54 Vital Signs (72 hours) 03/07/19 03/08/19 03/08/19 12:15 03:30 07:12 Temperature 97.9 F 97.3 F L Pulse Rate 83 71 Respiratory 18 18 16 Rate Blood Pressure 119/77 136/77 Assessment: 03/08/19 13:52 Old shoulder injury Plan: Client refusing further care at this time. Recommended that she follow up with an campaign marketing specialist upon discharge/
[2019-03-08] MEDS ORDERED: PT OWN MED DRAWER 7, Y5N ONE (20:18)
[2019-03-08] MEDS: THIAMINE HCL 100 MG TABLET (FP) PO SCH (21:28)
[2019-03-08] MEDS ORDERED: traZODone HCL 50 MG TABLET (FP) PO PRN (22:00)
[2019-03-09] MEDS: METHADONE HCL 40 MG DISPERSABLE TABLET PO SCH (06:24)
[2019-03-09] MEDS: GABAPENTIN 400 MG CAPSULE (FP) PO SCH (06:25)
[2019-03-09 07:02] VITALS: BP 146/82; PULSE 83; TEMP 97.8
[2019-03-09] MEDS ORDERED: COLLOIDAL OATMEAL 1 BAR EACH TP PRN (08:13)
--- NOTE | 2019-03-09 09:42 | PN ---
[facility] Progress Note (SOAP) Subjective: Patient has walked off the unit and refuses to stay. States she is being bullied by another patient and cannot deal with it. Objective: 03/09/19 09:41 Initial Vital Signs Temp Pulse Resp BP 97.9 F 83 18 119/77 03/07/19 12:15 03/07/19 12:15 03/07/19 12:15 03/07/19 12:15 A+O x3; CN 2-12 intact; neurologically intact, Full ROM, medically stable for discharge. Assessment: Diagnoses: HIV Disease Cocaine dependence, chronic ETOH Dependence, Chronic Peripheral neuropathy MMTP Plan: Patient will be going home and going to her MMTP tomorrow at [facility]. Her primary care provider is Dr. Avila Allen in [place]. She has an appointment scheduled with him for next week and will also be seeing her psychiatrist (name unavailable). Patient does not need any home medications prescribed, states she sufficient at home.
== END 2019-03-09 09:26 | disposition left against medical advice (07) | DRG 770 ==
LOC: YASAS 11:02 → Y3E 11:04
PROVIDERS: ADMIT Neuromusculoskeletal Medicine & OMM; ATTEND Neuromusculoskeletal Medicine & OMM
PROC: HZ42ZZZ Group Counseling for Substance Abuse Treatment, Cognitive-Behavioral (ICD-10-PCS; principal; 2019-03-07)
DX: F10.20 Alcohol dependence, uncomplicated (principal); F14.20 Cocaine dependence, uncomplicated; F11.20 Opioid dependence, uncomplicated; F17.210 Nicotine dependence, cigarettes, uncomplicated; F19.280 Other psychoactive substance dependence with psychoactive substance-induced anxiety disorder; F19.282 Other psychoactive substance dependence with psychoactive substance-induced sleep disorder; F64.0 Transsexualism; Z21 Asymptomatic human immunodeficiency virus [HIV] infection status; G62.89 Other specified polyneuropathies; Z87.890 Personal history of sex reassignment; Z98.82 Breast implant status
CPT/HCPCS: 73030-TC-RT-FY; J1410

== ENCOUNTER 2020-06-13 14:12 | Inpatient (IN) | payer OTHER ==
--- NOTE | 2020-06-13 14:33 | BHS.RME ---
Substance Use & Tx History - Substance Use History Alcohol Substance amount: 40 ounce beers x 5-6 Frequency of use: Daily Substance route: Oral Date of Last Use: 06/12/20 (First use age 14 y. Seizure 2 years ago. Many blackouts, last was 2 weeks ago. 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 OD x2, last was 2 years ago. No Narcan at home) Cocaine-Crack Substance amount: $40. Frequency of use: Daily Substance route: Smoking Date of Last Use: 06/11/20 (First use age 14y) Nicotine Substance amount: one pack Frequency of use: Daily Substance route: Smoking Date of Last Use: 06/13/20 (First use age 14 y) - Last Treatment Date of last treatment: 02/04 to 02/09/20, left one day early Treatment type: Substance Use Disorder ([facility]) Where was last treatment: Detox Physical/Psych/Mental Status - Behavior General Behavior: Increased activity (restlessness, agitation) Eye Contact: Decreased - Cooperativeness Cooperativeness: Cooperative - Thinking Thought Processes: Tight Thought content: Future oriented - Physical Health Problems Is patient presently having any pain?: No Does patient presently have any injuries (include location): No Does patient currently have a fever: No COWS - Scale Resting Pulse: 0= [place] 80 or Below Sweatin= Chills/Flushing Restless Observation: 1= Difficult to Sit Still Pupil Size: 0= Normal to Room Light Bone or Joint Aches: 0= None Runny Nose/ Eye Tearin= None GI Upset > 30mins: 2= Nausea/Diarrhea Tremor Observation: 0= None Yawning Observation: 0= None Anxiety or Irritability: 2=Irritable/Anxious Goose Flesh Skin: 0=Smooth Skin COWS Score: 6 CIWA Nausea/Vomitin Muscle Tremors: None Anxiety: 3 Agitation: 1-Slight > Activity Paroxysmal Sweats: 1-Minimal Palms Moist Orientation: 0-Oriented Tacttile Disturbances: 0-None Auditory Disturbances: 0-None Visual Disturbances: 0-None Headache: 0-None Present CIWA-Ar Total Score: 7
--- NOTE | 2020-06-13 16:31 | HP ---
COWS - Scale Resting Pulse: 0= ID 80 or Below Sweatin= Chills/Flushing Restless Observation: 1= Difficult to Sit Still Pupil Size: 0= Normal to Room Light Bone or Joint Aches: 0= None Runny Nose/ Eye Tearin= None GI Upset > 30mins: 2= Nausea/Diarrhea Tremor Observation: 0= None Yawning Observation: 0= None Anxiety or Irritability: 2=Irritable/Anxious Goose Flesh Skin: 0=Smooth Skin COWS Score: 6 CIWA Score Nausea/Vomitin Muscle Tremors: None Anxiety: 3 Agitation: 1-Slight > Activity Paroxysmal Sweats: 1-Minimal Palms Moist Orientation: 0-Oriented Tacttile Disturbances: 0-None Auditory Disturbances: 0-None Visual Disturbances: 0-None Headache: 0-None Present CIWA-Ar Total Score: 7 - Admission Criteria OASAS Guidelines: Admission for Medically Managed Detox: Requires at least one of the followin. CIWA greater than 12 2. Seizures within the past 24 hours 3. Delirium tremens within the past 24 hours 4. Hallucinations within the past 24 hours 5. Acute intervention needed for co occurring medical disorder 6. Acute intervention needed for co occurring psychiatric disorder 7. Severe withdrawal that cannot be handled at a lower level of care (continued vomiting, continued diarrhea, abnormal vital signs) requiring intravenous medication and/or fluids 8. Admitting History and Physical - Admission Chief Complaint: Patient is requesting for alcohol and opiod detox History of Present Illness: Ms. Stephen presents to [facility] REQUESTING FOR DETOX FROM OPIODS AND ALCOHOL. PMH: HIV + on meds, was compliant but on hold because of raised liver function test PSH: Orchidectomy, gender reassignment, breast augmentation PSYCH: Bipolar on meds SOCIAL/DOMICILED: own an apartment LEGAL: No ALLERGY: ALLERGIC TO LIBRIUM Substance Use & Tx History - Substance Use History Alcohol Substance amount: 40 ounce beers x 5-6 Frequency of use: Daily Substance route: Oral Date of Last Use: 06/12/20 (First use age 14 y. Seizure 2 years ago. Many blackouts, last was 2 weeks ago. 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 OD x2, last was 2 years ago. No Narcan at home) Cocaine-Crack Substance amount: $40. 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: Seizure, Syncope Hepatobiliary: Yes: Hepatitis C (treated) Renal/: Yes: Other (elevted liver enzymes as a complication of antiretroviral meds) Infectious Disease: Yes: HIV Psych: Yes: Bipolar - Past Surgical History Past Surgical History: Yes: Orchiectomy (gender reassignment surgery and breast augmentation surgery) - Smoking History Smoking history: Current every day smoker Have you smoked in the past 12 months: Yes Aproximately how many cigarettes per day: 20 If you are a former smoker, when did you quit?: 2 1/2 weeks ago - Alcohol/Substance Use Hx Alcohol Use: Yes History of Substance Use: reports: Cocaine, Heroin Date of Last Use: 02/04/20 Admission [facility] Allergies/Adverse Reactions: Allergies Allergy/AdvReac Type Severity Reaction Status Date / Time chlordiazepoxide Allergy Rash Verified 02/05/20 14:38 [From Librium] anti Allergy Severe Difficulty Uncoded 02/05/20 14:38 Breathing - Ebola screening Have you traveled outside of the country in the last 21 days: No Have you been sick,other than usual withdrawal symptoms: No Do you have a fever: No - Review of Systems Constitutional: Diaphoresis, Loss of Appetite EENT: reports: No Symptoms Reported Respiratory: reports: No Symptoms reported Cardiac: reports: No Symptoms Reported GI: reports: No Symptoms Reported : reports: No Symptoms Reported Musculoskeletal: reports: No Symptoms Reported Integumentary: reports: No Symptoms Reported Neuro: reports: Paresthesia (numbness secondary to antiretroviral meds use) Endocrine: reports: No Symptoms Reported Hematology: reports: No Symptoms Reported Patient History - Patient Medical History Hx Anemia: No Hx Asthma: No Hx Chronic Obstructive Pulmonary Disease (COPD): No Hx Cancer: No Hx Cardiac Disorders: No Hx Congestive Heart Failure: No Hx Hypertension: No Hx Hypercholesterolemia: No Hx Pacemaker: No HX Cerebrovascular Accident: No Hx Seizures: Yes (From alcohol withdrawal) Hx Dementia: No Hx Diabetes: No Hx Gastrointestinal Disorders: No Hx Liver Disease: No Hx Genitourinary Disorders: No Hx Sexually Transmitted Disorders: Yes (HIV) Hx Renal Disease (ESRD): No Hx Thyroid Disease: No Hx Human Immunodeficiency Virus (HIV): Yes (SINCE 1996; currently no taking any medication) Hx Hepatitis C: Yes (diag. 1996 - treated) Hx Depression: Yes Hx Suicide Attempt: No Hx Bipolar Disorder: Yes Hx Schizophrenia: No - Patient Surgical History Past Surgical History: No Hx Neurologic Surgery: No Hx Cataract Extraction: No Hx Cardiac Surgery: No Hx Lung Surgery: No Hx Breast Surgery: Yes (breast implant on 07/26/2015) Hx Breast Biopsy: No Hx Abdominal Surgery: No Hx Appendectomy: No Hx Cholecystectomy: No Hx Genitourinary Surgery: No Hx Section: No Hx Orthopedic Surgery: No Other Surgical History: orchiectomy on 12/28/2014/gender reassignment; 01/10/2017 Anesthesia Reaction: No - PPD History Previous Implant?: Yes Documented Results: Negative w/proof Implanted On Prior [facility] Admission?: Yes Date: 08/22/18 Results: negative - Reproductive History Patient : No - Smoking Cessation Smoking history: Current every day smoker Have you smoked in the past 12 months: Yes Aproximately how many cigarettes per day: 20 If you are a former smoker, when did you quit?: 2 1/2 weeks ago Cigars Per Day: 0 Hx Chewing Tobacco Use: No Initiated information on smoking cessation: Yes 'Breaking Loose' booklet given: 06/13/20 Admission Physical Exam [facility] - Physical General Appearance: Yes: Within Normal Limits, No Apparent Distress, Nourished, Appropriately Dressed HEENTM: Yes: Within Normal Limits, EOMI, Hearing grossly Normal, Normocephalic, Normal Voice, ALFREDA Respiratory: Yes: Within Normal Limits, Chest Non-Tender, Lungs Clear, Normal Breath Sounds, No Respiratory Distress, No Accessory Muscle Use Neck: Yes: Within Normal Limits, No masses,lesions,Nodules Breast: Yes: Breast Exam Deferred Cardiology: Yes: Within Normal Limits, Regular Rhythm, Regular Rate, S1, S2 Abdominal: Yes: Within Normal Limits, Normal Bowel Sounds, Flat, Soft, Tenderness (mild rt. hypogastric tenderness) Genitourinary: Yes: Within Normal Limits Back: Yes: Within Normal Limits, Normal Inspection Musculoskeletal: Yes: Within Normal Limits, full range of Motion, Gait Steady Extremities: Yes: Within Normal Limits, Normal Capillary Refill, Normal Inspection, Normal Range of Motion, Non-Tender, Tremors (very mild) Neurological: Yes: Within Normal Limits, Fully Oriented, Alert, Motor Strength 5/5, Normal Mood/Affect Integumentary: Yes: Within Normal Limits, Normal Color - Diagnostic (1) Alcohol dependence with intoxication with complication Current Visit: Yes Status: Acute (2) Opioid dependence Current Visit: Yes Status: Acute (3) Bipolar 1 disorder Current Visit: No Status: Acute (4) Cocaine dependence Current Visit: No Status: Acute (5) Nicotine dependence Current Visit: Yes Status: Acute Qualifiers: Nicotine product type: cigarettes Substance use status: in withdrawal Qualified Code(s): F17.213 - Nicotine dependence, cigarettes, with withdrawal (6) Seizure Current Visit: Yes Status: Chronic Cleared for Admission [facility] - Detox or Rehab [facility] Level of Care: Medically Managed Screened but not Admitted - Documentation of Visit Screened but not Admitted: No Breathalyzer - Breathalyzer Breathalyzer: 0 Urine Drug Screen - Test Device Lot number: [id number] Expiration date: 07/23/21 - Control Is test valid?: Yes - Results Drug screen NEGATIVE: No Urine drug screen results: JIMMY-Cocaine, FEN-Fentanyl, MOP-Opiates, MTD-Methadone Inpatient Rehab Admission - Rehab Decision to Admit Inpatient rehab admission?: No
[2020-06-13] MEDS ORDERED: diazePAM 5 MG TABLET PO PRN ×2 (16:52→19:13)
[2020-06-13] MEDS ORDERED: BISMUTH SUBSALICYLATE 524 MG/30 ML UD PO PRN (16:52)
[2020-06-13] MEDS ORDERED: MAGNESIUM CITRATE 300 ML BOTTLE PO PRN (16:52)
[2020-06-13] MEDS ORDERED: ONDANSETRON *ODT* 4 MG TABLET SL ONE (16:52)
[2020-06-13] MEDS ORDERED: MAGNESIUM HYDROX 2400MG/30ML ORAL SUSPENSION 30 ML CUP PO PRN (16:52)
[2020-06-13] MEDS ORDERED: NICOTINE POLACRILEX 2 MG GUM BUC PRN (16:52)
[2020-06-13] MEDS ORDERED: METHOCARBAMOL 500 MG TABLET PO PRN (16:52)
[2020-06-13] MEDS ORDERED: IBUPROFEN 400 MG TABLET (FP) PO PRN ×2 (16:52)
[2020-06-13] MEDS ORDERED: MAG HYDROX/AL HYDROX/SIMETH 30 ML UNIT-DOSE CUP PO PRN (16:52)
[2020-06-13] MEDS ORDERED: MENTHOL/PHENOL 1 EACH UD MM PRN (16:52)
[2020-06-13] MEDS ORDERED: ONDANSETRON *ODT* 4 MG TABLET SL PRN (17:03)
[2020-06-13] MEDS ORDERED: NICOTINE 21 MG/24 HOURS TOPICAL PATCH TD SCH (17:30)
[2020-06-13] MEDS ORDERED: NICOTINE 14 MG/24 HOURS TOPICAL PATCH TD SCH (17:30)
[2020-06-13] MEDS: PRENATAL VITAMINS W/ FOLIC ACID TABLET (FP) PO SCH (19:51)
--- NOTE | 2020-06-13 19:57 | PN ---
Teaching Attending Note Name of Resident: Mireya Dowd ATTENDING PHYSICIAN STATEMENT I saw and evaluated the patient. I reviewed the resident's note and discussed the case with the resident. I agree with the resident's findings and plan as documented. SUBJECTIVE: 44 y.o. TG M2F pt requesting detox from heroin use , reports IVDU , latest use today , average daily use 5-6 bags . Alcohol 5-6 beers x 40 oz , denies seizures . PMH: HIV + on meds, stopped 2/2 LFTs , has f/up w/ ID clinic PSH: Orchiectomy, gender reassignment, breast augmentation PSYCH: Bipolar on meds OBJECTIVE: wnwd , track alonzo jimmy UE Vital Signs - 24 hr 06/13/20 18:31 Temperature 97.5 F L Pulse Rate 51 L Respiratory 18 Rate Blood Pressure 109/71 O2 Sat by Pulse 98 Oximetry (%) ASSESSMENT AND PLAN: OUD - Methadone detox AUD - VALIUM DETOX SMOKING CESSATION COUNSELING
[2020-06-13] MEDS ORDERED: hydrOXYzine PAMOATE 25 MG CAPSULE (FP) PO PRN (20:35)
[2020-06-13] MEDS: diazePAM 5 MG TABLET PO PRN (20:57)
[2020-06-13] MEDS ORDERED: METHADONE HCL 10 MG TABLET (FOR DETOX USE ONLY) PO ONE (21:10)
[2020-06-13] MEDS ORDERED: cloNIDine HCL 0.1 MG TABLET PO PRN (21:10)
[2020-06-13] MEDS ORDERED: hydrOXYzine PAMOATE 25 MG CAPSULE (FP) PO SCH (22:00)
[2020-06-13] MEDS ORDERED: GABAPENTIN 400 MG CAPSULE PO SCH (22:00)
[2020-06-13] MEDS ORDERED: ESTRADIOL 2 MG TABLET (NON-FORMULARY) PO SCH (22:00)
[2020-06-13] MEDS: MELATONIN 5 MG TABLETS PO SCH (22:14)
[2020-06-13] MEDS: THIAMINE HCL 100 MG TABLET (FP) PO SCH (22:14)
[2020-06-13] MEDS: diazePAM 5 MG TABLET PO SCH (22:14)
[2020-06-14] MEDS: diazePAM 5 MG TABLET PO SCH ×3 (05:11→21:25)
[2020-06-14] MEDS ORDERED: METHADONE HCL 5 MG TABLET (FOR DETOX USE ONLY) PO ONE (10:00)
[2020-06-14 10:10] LABS: HEMATOCRIT 36.4 % (35.4-49); HEMOGLOBIN 12.1 GM/dL (11.7-16.9); MCH 29.3 pg (25.7-33.7); MCHC 33.2 g/dl (32.0-35.9); MEAN CELL VOLUME 88.4 fl (80-96); MEAN PLT VOLUME 7.7 fl (7.5-11.1); PLATELET COUNT 271 K/MM3 (134-434); RBC 4.12 M/mm3 (4.00-5.60); RDW 13.1 % (11.9-15.9); WHITE BLOOD COUNT 3.4 K/mm3 (4.0-10.0)
[2020-06-14 10:20] LABS: ALBUMIN 2.6 g/dl (3.4-5.0); BILIRUBIN,TOTAL 1.2 mg/dL (0.2-1); CALCIUM 8.5 mg/dL (8.5-10.1); CREATININE 0.7 mg/dL (0.55-1.3); POTASSIUM 4.2 mmol/L (3.5-5.1); TOT PROT 7.3 g/dl (6.4-8.2)
[2020-06-14] MEDS: PRENATAL VITAMINS W/ FOLIC ACID TABLET (FP) PO SCH (10:33)
--- NOTE | 2020-06-14 12:14 | EKG ---
Test Reason : Blood Pressure : / mmHG Vent. Rate : 044 BPM Atrial Rate : 044 BPM P-R Int : 186 ms QRS Dur : 110 ms QT Int : 488 ms P-R-T Axes : 064 002 044 degrees QTc Int : 417 ms MARKED SINUS BRADYCARDIA INCOMPLETE LEFT BUNDLE BRANCH BLOCK ABNORMAL ECG WHEN COMPARED WITH ECG OF 19-AUG-2018 18:56, NO SIGNIFICANT CHANGE WAS FOUND Confirmed by JAIME FARIAS MD ([id number]) on 06/14/2020 12:14:11 PM Referred By: Confirmed By:JAIME FARIAS MD
--- NOTE | 2020-06-14 12:30 | PN ---
[facility] CIWA - CIWA Score Nausea/Vomitin-Mild Nausea/No Vomiting Muscle Tremors: 2 Anxiety: 2 Agitation: 2 Paroxysmal Sweats: No Perspiration Orientation: 0-Oriented Tacttile Disturbances: 1-Very Mild Itch/Numbness Auditory Disturbances: 0-None Visual Disturbances: 0-None Headache: 2-Mild CIWA-Ar Total Score: 10 [facility] COWS - Scale Resting Pulse: 0= [place] 80 or Below Sweatin= No chills or Flushing Restless Observation: 1= Difficult to Sit Still Pupil Size: 1= Pupils >than Normal Bone or Joint Aches: 2= Severe Diffuse Aches Runny Nose/ Eye Tearin= Runny Nose/Eyes GI Upset > 30mins: 2= Nausea/Diarrhea Tremor Observation of Outstretched Hands: 2= Slight Tremor Visible Yawning Observation: 1= 1-2x During Session Anxiety or Irritability: 2=Irritable/Anxious Goose Flesh Skin: 0=Smooth Skin COWS Score: 13 S Progress Note (SOAP) Subjective: alert,irritable,anxious,interrupted sleep,tremor,pain in the body and back Objective: 06/14/20 12:29 Vital Signs Temperature 98.2 F 06/14/20 08:53 Pulse Rate 59 L 06/14/20 08:53 Respiratory Rate 18 06/14/20 08:53 Blood Pressure 95/60 06/14/20 08:53 O2 Sat by Pulse Oximetry (%) 96 06/14/20 06:04 Laboratory Last Values WBC 3.4 K/mm3 (4.0-10.0) L 06/14/20 08:00 RBC 4.12 M/mm3 (4.00-5.60) 06/14/20 08:00 Hgb 12.1 GM/dL (11.7-16.9) 06/14/20 08:00 Hct 36.4 % (35.4-49) 06/14/20 08:00 MCV 88.4 fl (80-96) 06/14/20 08:00 MCH 29.3 pg (25.7-33.7) 06/14/20 08:00 MCHC 33.2 g/dl (32.0-35.9) 06/14/20 08:00 RDW 13.1 % (11.9-15.9) 06/14/20 08:00 Plt Count 271 K/MM3 (134-434) D 06/14/20 08:00 MPV 7.7 fl (7.5-11.1) 06/14/20 08:00 Sodium 138 mmol/L (136-145) 06/14/20 08:00 Potassium 4.2 mmol/L (3.5-5.1) 06/14/20 08:00 Chloride 104 mmol/L (98-107) 06/14/20 08:00 Carbon Dioxide 29 mmol/L (21-32) 06/14/20 08:00 Anion Gap 5 MMOL/L (8-16) L 06/14/20 08:00 BUN 11.0 mg/dL (7-18) 06/14/20 08:00 Creatinine 0.7 mg/dL (0.55-1.3) 06/14/20 08:00 Est GFR (CKD-EPI)AfAm 131.17 06/14/20 08:00 Est GFR (CKD-EPI)NonAf 113.17 06/14/20 08:00 Random Glucose 106 mg/dL (74-106) 06/14/20 08:00 Calcium 8.5 mg/dL (8.5-10.1) 06/14/20 08:00 Total Bilirubin 1.2 mg/dL (0.2-1) H 06/14/20 08:00 AST 20 U/L (15-37) 06/14/20 08:00 ALT 17 U/L (13-61) 06/14/20 08:00 Alkaline Phosphatase 95 U/L (45-117) 06/14/20 08:00 Total Protein 7.3 g/dl (6.4-8.2) 06/14/20 08:00 Albumin 2.6 g/dl (3.4-5.0) L 06/14/20 08:00 Syphilis Serology Non-reactive (NONREACTIVE) 06/14/20 08:00 Assessment: 06/14/20 12:30 withdrawal symptom Plan: continue detox methadone and valium regimen
--- NOTE | 2020-06-14 13:37 | CONSULT ---
[facility] Psychiatric Consult - Data Date of interview: 06/14/20 Admission source: Self-referred Identifying data: Mr Stephen is a 44 years old single transgender male to female unemployed on [employer], domiciled seeking detox rehab treatment for alcohol, opioid and cocaine Substance Abuse History: Reports history of alcohol, heroin and cocaine use. Refer to addiction counselor's summary for further information Medical History: Significant for HIV infection since 1996 (on ART medications), peripheral neuropathy, history of treatment for hepatitis C and surgeries (orchectomy/breats implant in 2014, gender reassignment at [facility] in [place] in 2017). Smokes cigarettes 1 ppd Psychiatric History: Patient is known for multiple previous admissions to this facility. Historical narrative remains consistent. He reports onset of psychiatric illness at age 15 when he was admitted to [facility] for mood instability. He was diagnosed with Bipolar Disorder and started on psychotropic medications. Reports multiple subsequent psychiatric hospitalizations at various facilities including to [facility], [facility], [facility], [facility], [facility] and most recently in 2017 to [facility] for depression. Reports receiving outpatient psychiatric treatment at the [facility]) under the care of Dr Dottie Ding. He is currently prescribed Gabapentin 800 mg po TID, Buspar 10 mg po BID and Celexa 40 mg po daily. 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 Denies previous suicide attempt. At present, denies experiencing psychotic, manic or depressive symptoms, S/H ideations. However, reports sleeping poorly. Requests to continue his psychotropic medications as prescribed Physical/Sexual Abuse/Trauma History: Denies history of verbal, physical or sexual abuse as well as DV relationship Additional Comment: Reports history muliple previous misdemeanor arrests. Denies being on probation at present Mental Status Exam - Mental Status Exam Alert and Oriented to: Time, Person Cognitive Function: Fair Patient Appearance: Well Groomed Mood: Hopeful, Euthymic Patient Behavior: Cooperative Speech Pattern: Clear Voice Loudness: Normal Thought Process: Intact, Goal Oriented Thought Disorder: Not Present Hallucinations: Denies Suicidal Ideation: Denies Homicidal Ideation: Denies Insight/Judgement: Poor Sleep: Poorly Appetite: Good Muscle strength/Tone: Normal Gait/Station: Normal Psychiatric Findings - Problem List ([place] 1, 2,3) (1) Bipolar disorder Current Visit: No Status: Chronic (2) Substance-induced sleep disorder Current Visit: No Status: Acute (3) Alcohol dependence with withdrawal, uncomplicated Current Visit: No Status: Acute (4) Uncomplicated opioid dependence Current Visit: Yes Status: Acute (5) Cocaine dependence Current Visit: No Status: Acute (6) Nicotine dependence Current Visit: Yes Status: Chronic Qualifiers: Nicotine product type: cigarettes Substance use status: in withdrawal Qualified Code(s): F17.213 - Nicotine dependence, cigarettes, with withdrawal (7) Hepatitis C Current Visit: No Status: Acute (8) HIV (human immunodeficiency virus infection) Current Visit: No Status: Chronic Qualifiers: HIV symptom status: asymptomatic Qualified Code(s): Z21 - Asymptomatic human immunodeficiency virus [HIV] infection status Comment: not currently on any HIV medication (9) Peripheral neuropathy Current Visit: No Status: Chronic Qualifiers: Peripheral neuropathy type: polyneuropathy associated with underlying disease Qualified Code(s): G63 - Polyneuropathy in diseases classified elsewhere - Initial Treatment Plan Initial Treatment Plan: 1) Continue Celexa 40 mg o daily, Gabapentin 800 mg po TID and Buspar 10 mg po BID. 2) Continue inpatient detoxification
[2020-06-14] MEDS: busPIRone HCL 10 MG TABLET (FP) PO SCH ×2 (14:37→21:25)
[2020-06-14] MEDS: GABAPENTIN 400 MG CAPSULE PO SCH ×2 (14:37→21:25)
[2020-06-14] MEDS: CITALOPRAM HYDROBROMIDE 20 MG TABLET PO SCH (14:37)
[2020-06-14] MEDS: MELATONIN 5 MG TABLETS PO SCH (21:24)
[2020-06-14] MEDS: THIAMINE HCL 100 MG TABLET (FP) PO SCH (21:25)
[2020-06-15] MEDS: diazePAM 5 MG TABLET PO PRN (01:02)
[2020-06-15] MEDS: GABAPENTIN 400 MG CAPSULE PO SCH ×2 (05:45→13:57)
[2020-06-15] MEDS: diazePAM 5 MG TABLET PO SCH ×2 (05:45→19:10)
[2020-06-15] MEDS: PRENATAL VITAMINS W/ FOLIC ACID TABLET (FP) PO SCH (09:53)
[2020-06-15] MEDS: busPIRone HCL 10 MG TABLET (FP) PO SCH (09:54)
[2020-06-15] MEDS: CITALOPRAM HYDROBROMIDE 20 MG TABLET PO SCH (09:54)
[2020-06-15] MEDS ORDERED: METHADONE HCL 10 MG TABLET (FOR DETOX USE ONLY) PO ONE (10:00)
--- NOTE | 2020-06-15 10:19 | PN ---
[facility] CIWA - CIWA Score Nausea/Vomitin-Mild Nausea/No Vomiting Muscle Tremors: None Anxiety: 1-Mildly Anxious Agitation: 0-Normal Activity Paroxysmal Sweats: 1-Minimal Palms Moist Orientation: 1-Uncertain about Date Tacttile Disturbances: 0-None Auditory Disturbances: 1-Very Mild Visual Disturbances: 1-Very Mild Sensitivity Headache: 0-None Present CIWA-Ar Total Score: 6 S COWS - Scale Resting Pulse: 0= TN 80 or Below Sweatin= Chills/Flushing Restless Observation: 0= Sits Still Pupil Size: 0= Normal to Room Light Bone or Joint Aches: 1= Mild Discomfort Runny Nose/ Eye Tearin= None GI Upset > 30mins: 1= Stomach Cramp Tremor Observation of Outstretched Hands: 0= None Yawning Observation: 0= None Anxiety or Irritability: 1=Feels Anxious/Irritable Goose Flesh Skin: 0=Smooth Skin COWS Score: 4 S Progress Note (SOAP) Subjective: Slight GI upset, anxiety, sewats, light and noise sensitivity, bone aches Objective: 06/15/20 10:20 PE Gnl: WDWN, in no distress MS: nl mentation Motor: moves limbs well Gait: steady in novoa way Laboratory Tests 06/14/20 06/14/20 06/14/20 08:00 08:00 08:00 WBC 3.4 L RBC 4.12 Hgb 12.1 Hct 36.4 MCV 88.4 MCH 29.3 MCHC 33.2 RDW 13.1 Plt Count 271 D MPV 7.7 Sodium 138 Potassium 4.2 Chloride 104 Carbon Dioxide 29 Anion Gap 5 L BUN 11.0 Creatinine 0.7 Est GFR (CKD-EPI)AfAm 131.17 Est GFR (CKD-EPI)NonAf 113.17 Random Glucose 106 Calcium 8.5 Total Bilirubin 1.2 H AST 20 ALT 17 Alkaline Phosphatase 95 Total Protein 7.3 Albumin 2.6 L Syphilis Serology Non-reactive Home Medication List Medication Instructions Recorded Confirmed Type Buspirone HCl [Buspar -] 10 mg PO BID 03/05/19 02/05/20 History Gabapentin [Neurontin -] 800 mg PO TID 03/05/19 02/05/20 History Citalopram Hydrobromide [Celexa -] 40 mg PO DAILY 03/08/19 02/05/20 History Estradiol 2 mg PO BID 02/05/20 02/05/20 History Active Medications Generic Name Dose Route Start Last Admin Trade Name Rosemary PRN Reason Stop Dose Admin Al Hydroxide/Mg Hydroxide 30 ml 06/13/20 16:52 Mylanta Oral Suspension - PO Q6H PRN DYSPEPSIA Bismuth Subsalicylate 524 mg 06/13/20 16:52 Pepto-Bismol - PO Q1H PRN DIARRHEA Buspirone HCl 10 mg 06/14/20 14:00 06/15/20 09:54 Buspar - PO 10 mg BID JOHN Administration Citalopram Hydrobromide 40 mg 06/14/20 14:00 06/15/20 09:54 Celexa - PO 40 mg DAILY JOHN Administration Diazepam 5 mg 06/15/20 06:00 06/15/20 05:45 Valium - PO 06/15/20 18:01 5 mg Q12H JOHN Administration Diazepam 5 mg 06/16/20 06:00 Valium - PO 06/16/20 06:01 ONCE ONE Diazepam 10 mg 06/13/20 19:13 06/15/20 01:02 Valium - PO 10 mg Q4H PRN Administration WITHDRAWAL(CONT SUBST) Eucalyptus/Menthol/Phenol/Sorbitol 1 each 06/13/20 16:52 Cepastat Lozenge - MM 06/19/20 16:53 Q4H PRN SORE THROAT Gabapentin 800 mg 06/14/20 14:00 06/15/20 05:45 Neurontin - PO 800 mg TID JOHN Administration Hydroxyzine Pamoate 25 mg 06/13/20 20:35 Vistaril - PO Q8H PRN ANXIETY Ibuprofen 400 mg 06/13/20 16:52 06/15/20 09:54 Motrin - PO 400 mg Q6H PRN Administration PAIN LEVEL 1 - 3 Ibuprofen 400 mg 06/13/20 16:52 Motrin - PO Q6H PRN FEVER Magnesium Citrate 300 ml 06/13/20 16:52 Citroma - PO Q48H PRN CONSTIPATION Magnesium Hydroxide 30 ml 06/13/20 16:52 Milk Of Magnesia - PO PRN PRN CONSTIPATION Melatonin 5 mg 06/13/20 22:00 06/14/20 21:24 Melatonin PO 5 mg HS JOHN Administration Methadone HCl 5 mg 06/16/20 06:00 Dolophine - PO 06/16/20 06:01 ONCE ONE Methocarbamol 500 mg 06/13/20 16:52 06/15/20 09:53 Robaxin - PO 06/19/20 16:53 500 mg Q6H PRN Administration MUSCLE SPASMS Nicotine Polacrilex 2 mg 06/13/20 16:52 Nicorette Gum - BUC Q2H PRN NICOTINE REPLACEMENT RX Ondansetron HCl 4 mg 06/13/20 17:03 Zofran Odt - SL Q8H PRN NAUSEA Multivit/Folic Acid/Iron 1 tab 06/13/20 18:00 06/15/20 09:53 Vitamins (Sjr) - PO 1 tab DAILY JOHN Administration Thiamine HCl 100 mg 06/13/20 22:00 06/14/20 21:25 Vitamin B1 - PO 100 mg HS JOHN Administration Vital Signs Temperature 97.1 F L 06/15/20 08:42 Pulse Rate 78 06/15/20 08:42 Respiratory Rate 16 06/15/20 08:42 Blood Pressure 139/84 06/15/20 08:42 O2 Sat by Pulse Oximetry (%) 97 06/15/20 08:42 Assessment: 06/15/20 10:19 1. Alcohol use disorder 2. Opioid use disorder 3. Seen by Psychiatry: meds renewed Plan: 1. Valium detox protocol for alcohol use disorder, planned completion tomorrow 2. Opioid use disorder on methadone taper, planned completion tomorrow 3. Bipolar, substance induced sleep disorder, seen by Dr. Mercado: restarted Celexa, gabapentin, Buspar 4. Pt plans to go to an outpt program upon discharge
[2020-06-15 14:02] VITALS: TEMP 97.5
[2020-06-15 17:06] VITALS: BP 107/67; PULSE 75
--- NOTE | 2020-06-15 19:25 | DS ---
[facility] Detox Discharge Summary Admission Date: 06/13/20 Discharge Date: 06/15/20 - History Present History: Alcohol Dependence, Cannabis Dependence, Cocaine Dependence, Opioid Dependence Additional Comments: Patient left the unit before the provider could see/examine him. Pertinent Past History: History of HIV, gender reassignment, breast augmentation, Bipolar, Hep C, seizure, Alcohol, Heroin, Crack/Cocaine and Nicotine use disorder. - Physical Exam Results Vital Signs: Vital Signs Temperature 97.5 F L 06/15/20 16:30 Pulse Rate 75 06/15/20 16:30 Respiratory Rate 18 06/15/20 16:30 Blood Pressure 107/67 06/15/20 16:30 O2 Sat by Pulse Oximetry (%) 98 06/15/20 12:35 Vital Signs 06/15/20 06/15/20 12:35 16:30 Temperature 97.5 F L 97.5 F L Pulse Rate 77 75 Respiratory 18 18 Rate Blood Pressure 111/52 L 107/67 O2 Sat by Pulse 97 Oximetry (%) Laboratory Last Values WBC 3.4 K/mm3 (4.0-10.0) L 06/14/20 08:00 RBC 4.12 M/mm3 (4.00-5.60) 06/14/20 08:00 Hgb 12.1 GM/dL (11.7-16.9) 06/14/20 08:00 Hct 36.4 % (35.4-49) 06/14/20 08:00 MCV 88.4 fl (80-96) 06/14/20 08:00 MCH 29.3 pg (25.7-33.7) 06/14/20 08:00 MCHC 33.2 g/dl (32.0-35.9) 06/14/20 08:00 RDW 13.1 % (11.9-15.9) 06/14/20 08:00 Plt Count 271 K/MM3 (134-434) D 06/14/20 08:00 MPV 7.7 fl (7.5-11.1) 06/14/20 08:00 Sodium 138 mmol/L (136-145) 06/14/20 08:00 Potassium 4.2 mmol/L (3.5-5.1) 06/14/20 08:00 Chloride 104 mmol/L (98-107) 06/14/20 08:00 Carbon Dioxide 29 mmol/L (21-32) 06/14/20 08:00 Anion Gap 5 MMOL/L (8-16) L 06/14/20 08:00 BUN 11.0 mg/dL (7-18) 06/14/20 08:00 Creatinine 0.7 mg/dL (0.55-1.3) 06/14/20 08:00 Est GFR (CKD-EPI)AfAm 131.17 06/14/20 08:00 Est GFR (CKD-EPI)NonAf 113.17 06/14/20 08:00 Random Glucose 106 mg/dL (74-106) 06/14/20 08:00 Calcium 8.5 mg/dL (8.5-10.1) 06/14/20 08:00 Total Bilirubin 1.2 mg/dL (0.2-1) H 06/14/20 08:00 AST 20 U/L (15-37) 06/14/20 08:00 ALT 17 U/L (13-61) 06/14/20 08:00 Alkaline Phosphatase 95 U/L (45-117) 06/14/20 08:00 Total Protein 7.3 g/dl (6.4-8.2) 06/14/20 08:00 Albumin 2.6 g/dl (3.4-5.0) L 06/14/20 08:00 Syphilis Serology Non-reactive (NONREACTIVE) 06/14/20 08:00 Labs noted. Pertinent Admission Physical Exam Findings: Withdrawal symptoms. - Medication Discharge Medications: Ambulatory Orders Buspirone HCl [Buspar -] 10 mg PO BID 03/05/19 Gabapentin [Neurontin -] 800 mg PO TID 03/05/19 Citalopram Hydrobromide [Celexa -] 40 mg PO DAILY 03/08/19 Estradiol 2 mg PO BID 02/05/20 Gabapentin [Neurontin -] 800 mg PO TID capsule 06/15/20 - Diagnosis (1) Alcohol dependence with withdrawal, uncomplicated Current Visit: No Status: Acute (2) Cocaine dependence Current Visit: No Status: Chronic (3) Hepatitis C Current Visit: No Status: Chronic (4) Opioid dependence Current Visit: Yes Status: Chronic (5) Seizure Current Visit: Yes Status: Chronic (6) Transgendered Current Visit: No Status: Ruled-out - AMA Did Patient Leave Against Medical Advice: Yes
[2020-06-16] MEDS ORDERED: diazePAM 5 MG TABLET PO ONE (06:00)
[2020-06-16] MEDS ORDERED: METHADONE HCL 5 MG TABLET (FOR DETOX USE ONLY) PO ONE (06:00)
== END 2020-06-15 17:51 | disposition left against medical advice (07) | DRG 770 ==
LOC: YASAS 14:12 → Y3N 17:26
PROVIDERS: ADMIT Allergy & Immunology; ATTEND Allergy & Immunology
PROC: HZ2ZZZZ Detoxification Services for Substance Abuse Treatment (ICD-10-PCS; principal; 2020-06-13)
DX: F10.230 Alcohol dependence with withdrawal, uncomplicated (principal); F11.20 Opioid dependence, uncomplicated; F14.20 Cocaine dependence, uncomplicated; F12.20 Cannabis dependence, uncomplicated; F17.210 Nicotine dependence, cigarettes, uncomplicated; F31.9 Bipolar disorder, unspecified; Z21 Asymptomatic human immunodeficiency virus [HIV] infection status; G40.909 Epilepsy, unspecified, not intractable, without status epilepticus; Z87.890 Personal history of sex reassignment; B18.2 Chronic viral hepatitis C; Z98.82 Breast implant status; Z88.8 Allergy status to other drugs, medicaments and biological substances
CPT/HCPCS: 36415; 80053; 85027; 86780; 93005; 93010; J0735; U0003

== ENCOUNTER 2022-03-10 12:18 | Inpatient (IN) | payer OTHER ==
[2022-03-10] MEDS ORDERED: MAGNESIUM HYDROX 2400MG/30ML ORAL SUSPENSION 30 ML CUP PO PRN (12:54)
[2022-03-10] MEDS ORDERED: BENZOCAINE/MENTHOL (CHLORASEPTIC ) LOZENGE MM PRN (12:54)
[2022-03-10] MEDS ORDERED: diazePAM 5 MG TABLET PO PRN (12:54)
[2022-03-10] MEDS ORDERED: NICOTINE 10 MG CARTRIDGE (INHALER) IH PRN (12:54)
[2022-03-10] MEDS ORDERED: ONDANSETRON *ODT* 4 MG TABLET SL PRN (12:54)
[2022-03-10] MEDS ORDERED: BISMUTH SUBSALICYLATE 262 MG/15 ML BTL PO PRN (12:54)
[2022-03-10] MEDS ORDERED: ACETAMINOPHEN 325 MG TABLET (FP) PO PRN ×2 (12:54)
[2022-03-10] MEDS ORDERED: DICYCLOMINE HCL 10 MG CAPSULE PO PRN (12:54)
[2022-03-10] MEDS ORDERED: IBUPROFEN 400 MG TABLET (FP) PO PRN (12:54)
[2022-03-10] MEDS ORDERED: cloNIDine HCL 0.1 MG TABLET PO PRN (12:54)
[2022-03-10] MEDS ORDERED: LOPERAMIDE HCL 2 MG CAPSULE PO PRN (12:54)
[2022-03-10] MEDS ORDERED: MAG HYDROX/AL HYDROX/SIMETH 30 ML UNIT-DOSE CUP PO PRN (12:54)
[2022-03-10] MEDS ORDERED: MAGNESIUM CITRATE 300 ML BOTTLE PO PRN (12:54)
[2022-03-10 13:30] VITALS: BMI 28.7
[2022-03-10] MEDS ORDERED: methaDONE HCL 10 MG TABLET (FOR DETOX USE ONLY) PO ONE (13:45)
[2022-03-10] MEDS: diazePAM 5 MG TABLET PO SCH ×3 (15:24→22:49)
[2022-03-10] MEDS: PRENATAL VITAMINS W/ FOLIC ACID TABLET (FP) PO SCH (15:24)
[2022-03-10] MEDS: METHOCARBAMOL 500 MG TABLET PO PRN ×2 (15:25→22:48)
[2022-03-10] MEDS: hydrOXYzine PAMOATE 25 MG CAPSULE (FP) PO SCH ×3 (15:31→22:48)
[2022-03-10] MEDS: THIAMINE HCL 100 MG TABLET (FP) PO SCH (22:48)
[2022-03-10] MEDS: MELATONIN 5 MG TABLETS PO SCH (22:48)
[2022-03-10] MEDS: ESTRADIOL 2 MG TABLET (NON-FORMULARY) PO SCH (22:51)
[2022-03-11] MEDS: hydrOXYzine PAMOATE 25 MG CAPSULE (FP) PO SCH ×5 (05:42→22:34)
[2022-03-11] MEDS: diazePAM 5 MG TABLET PO SCH ×4 (05:42→22:34)
[2022-03-11] MEDS ORDERED: methaDONE HCL 10 MG TABLET (FOR DETOX USE ONLY) ONE (09:36)
[2022-03-11] MEDS: METHOCARBAMOL 500 MG TABLET PO PRN (10:10)
[2022-03-11] MEDS: PRENATAL VITAMINS W/ FOLIC ACID TABLET (FP) PO SCH (10:12)
[2022-03-11] MEDS: ESTRADIOL 2 MG TABLET (NON-FORMULARY) PO SCH ×2 (11:12→22:34)
[2022-03-11 11:53] LABS: CALCIUM 8.3 mg/dL (8.5-10.1)
[2022-03-11 11:54] LABS: ALBUMIN 2.4 g/dl (3.4-5.0); BLOOD UREA NITROGEN 17.8 mg/dL (7-18); HEMOGLOBIN 11.8 GM/dL (11.7-16.9); MCH 29.4 pg (25.7-33.7); MCHC 34.8 g/dl (32.0-35.9); MEAN CELL VOLUME 84.6 fl (80-96); MEAN PLT VOLUME 7.5 fl (7.5-11.1); PLATELET COUNT 261 10^3/uL (134-434); RBC 4.02 M/mm3 (4.00-5.60); RDW 13.7 % (11.9-15.9); WHITE BLOOD COUNT 5.3 K/mm3 (4.0-10.0)
[2022-03-11 11:57] LABS: CREATININE 0.7 mg/dL (0.55-1.3)
[2022-03-11 11:58] LABS: BILIRUBIN,TOTAL 0.4 mg/dL (0.2-1)
[2022-03-11 11:59] LABS: TOT PROT 7.2 g/dl (6.4-8.2)
[2022-03-11] MEDS: MELATONIN 5 MG TABLETS PO SCH (22:34)
[2022-03-11] MEDS: THIAMINE HCL 100 MG TABLET (FP) PO SCH (22:34)
[2022-03-12] MEDS: hydrOXYzine PAMOATE 25 MG CAPSULE (FP) PO SCH (05:30)
[2022-03-12] MEDS ORDERED: diazePAM 5 MG TABLET PO SCH (06:00)
[2022-03-12] MEDS ORDERED: NALOXONE (NARCAN) HCL 4 MG/0.1 ML SPRAY NS PRN (09:49)
[2022-03-12] MEDS ORDERED: NALOXONE (NARCAN) HCL 4 MG/0.1 ML SPRAY NS ONE (10:00)
[2022-03-12] MEDS ORDERED: methaDONE HCL 10 MG TABLET (FOR DETOX USE ONLY) PO ONE (10:00)
[2022-03-12 14:08] LABS: SARS-CoV-2 NAA Not Detected (Not Detected)
[2022-03-12 18:12] VITALS: BP 112/70; PULSE 74; TEMP 97.7
[2022-03-13] MEDS ORDERED: diazePAM 5 MG TABLET PO SCH (06:00)
[2022-03-14] MEDS ORDERED: diazePAM 5 MG TABLET PO ONE (06:00)
[2022-03-14] MEDS ORDERED: methaDONE HCL 10 MG TABLET (FOR DETOX USE ONLY) PO ONE (10:00)
== END 2022-03-12 09:30 | disposition left against medical advice (07) | DRG 770 ==
LOC: YASAS 12:18 → Y6N 14:29
PROVIDERS: ADMIT Allergy & Immunology; ATTEND Allergy & Immunology
PROC: HZ2ZZZZ Detoxification Services for Substance Abuse Treatment (ICD-10-PCS; principal; 2022-03-10)
DX: F11.23 Opioid dependence with withdrawal (principal); F10.230 Alcohol dependence with withdrawal, uncomplicated; F14.20 Cocaine dependence, uncomplicated; F15.20 Other stimulant dependence, uncomplicated; F17.210 Nicotine dependence, cigarettes, uncomplicated; F31.9 Bipolar disorder, unspecified; Z21 Asymptomatic human immunodeficiency virus [HIV] infection status; F64.0 Transsexualism; Z90.79 Acquired absence of other genital organ(s)
CPT/HCPCS: 36415; 80053; 85027; 86780; 93005; 93010; C9803-CS; U0003; U0005